=== PATIENT | female | born 1980 | race Caucasian/White ===

== ENCOUNTER 2017-04-21 19:36 | Emergency (ER) | payer MEDICAID, SELFPAY ==
[2017-04-21 19:40] VITALS: BP 147/83; PULSE 101; RESP 20; TEMP 37.1; O2SAT 100; BMI 32.2
--- NOTE | 2017-04-21 19:57 | CT_ITS ---
STUDY: CT ABDOMEN AND PELVIS WITH CONTRAST REASON FOR EXAM: Female, 36 years old. Left lower quadrant pain. History of ovarian cysts.. History of lymphoma. RADIATION DOSAGE (If Supplied By Facility): CTDIvol = ( 12.85 ) mGy, DLP = ( 786.91 ) mGycm TECHNIQUE: Transaxial images were obtained from the dome of the diaphragm to the symphysis pubis without oral contrast. 100 ml of Isovue 300 contrast was administered. Sagittal and coronal images were reconstructed. Individualized dose optimization techniques were used for this CT. COMPARISON: 01/06/2017 FINDINGS: The visualized lung bases are clear. The visualized portions of the heart and pericardium are within normal limits. There are no calcified gallstones present. The liver is within normal limits. There are no suspicious hepatic lesions. The spleen is normal in size. The pancreas is within normal limits. The adrenal glands are within normal limits. There are no obstructing renal stones. There is no hydronephrosis. There are no focal renal lesions. Normal visualized stomach. There is no bowel obstruction or inflammation. The appendix is visualized and appears normal. The aorta is normal in caliber. There is a 4.1 x 4.0 x 3.3 cm complex left adnexal cyst. There is a small amount of free fluid. There is no free air, fluid collection or lymphadenopathy. There are no destructive osseous lesions. CT/Abdomen/Pelvis W IV Cont ONLY IMPRESSION: 4.1 x 4.0 x 3.3 cm complex left adnexal cyst with a small amount of pelvic free fluid. No bowel obstruction or inflammation. Normal appendix. No abdominal or pelvic lymphadenopathy. Electronically Signed: Tony Snow, at 21:01 EST Tel , Service support ,
--- NOTE | 2017-04-21 20:06 | ED.DCSUM_ITS ---
- ER Visit Summary Date of Service: 04/21/17 Chief Complaint: Abdominal pain History of Present Illness: The patient is a 36 F who states that yesterday she began to have left lower quadrant abdominal pain. She describes it as a fullness cramping-like pain. She states she has a history of non-Hodgkin's and this is where they found the initial tumor. She has had a hysterectomy but left one ovary she lives on the left side. She notes 2 bowel movements today that were normal. She notes a questionable history of diverticulosis having had a negative colonoscopy since the original diagnosis. No fevers or vomiting. No urinary symptoms. Physical Examination: Afebrile vital signs are stable Gen: Well-nourished well-developed Head: Normocephalic atraumatic Eyes: Perrl EOMI ENT: TMs clear no rhinorrhea moist mucous membranes Neck: Supple no lymphadenopathy no JVD nontender CVS: Regular rate rhythm no murmurs normal S1-S2 Respiratory: No distress clear to auscultation bilaterally chest nontender Abdomen: Soft mild left lower quadrant tenderness without guarding or rebound nondistended normal bowel sounds no masses Back: Nontender Extremity: Nontender no edema Skin: Normal color no rash Neuro: alert orientated ?3 CN II-XII intact normal strength sensation reflexes gait cerebellar Psych: Normal affect normal mood Test Results: Basic labs are essentially negative. Urinalysis negative. CT the abdomen pelvis demonstrated in the left adnexa. Pelvic ultrasound demonstrated a complex septated cyst of the left ovary measuring 2.5?2.4?2.1 cm. Normal arterial flow Emergency Department Course and Treatment: Patient received a dose of Toradol which did nothing for pain. She was given an oxycodone. She will be discharged home with 4 tabs tonight. She is to follow-up with her bottle caser. Impression: 1. Left ovarian cyst This note was generated with [employer] dictation software. It may contain incorrect words, spelling, and punctuation that were not noted in review of the chart prior to signing ED Disposition - Plan for ED Patient: Disposition: Home or Assisted Living Chief Complaint: Abd Pain Instructions: ED Cyst Ovarian Referrals: Karlos Slaughter MD [Primary Care Provider] - Additional Instructions: You need to schedule an appointment with your bottle caser for follow-up.
[2017-04-21 20:22] LABS: Bacteria 0 SEEN /hpf (None Seen); Mucous, Urine 0 SEEN /hpf (<or=2+); Red Blood Cells-Urine 0 SEEN /hpf (0-5)
[2017-04-21 20:26] LABS: Absolute Lymphocyte Count 3.08 X10^3/ul (0.83-4.51); Absolute Neutrophil Count 6.9 X10^3/uL (2.0-7.7); Basophil# 0.02 X10^3/uL; Basophil% 0.2 % (0-1); Eosinophil# 0.16 X10^3/uL; Eosinophils% 1.5 % (0-5); Hematocrit 37.2 % (37-47); Hemoglobin 12.8 g/dl (12.0-15.0); Lymphocyte # 3.08 X10^3/ul (4.0); Mean Corp Hgb Conc 34.4 g/gl (32-36); Mean Corpuscular Hgb 31.4 pg (27.0-32.0); Mean Corpuscular Volume 91.4 fL (81-99); Mean Platelet Vol. 10.1 fl (6.2-12.0); Monocyte# 0.81 X10^3/uL; Monocyte% 7.4 % (0-10); Neutrophil # 6.93 X10^3/uL (2.7-7.7); Neutrophil % 62.8 % (47-70); POSITIVE COUNT NO; POSITIVE DIFFERENTIAL NO; POSITIVE MORPHOLOGY NO; Platelet Count 300 K/mm3 (150-450); RBC Distribution Width CV 13.2 % (11.6-14.6); RBC Distribution Width SD 44.2 fl (35.1-43.9); Red Blood Count 4.07 M/mm3 (4.2-5.4)
[2017-04-21 20:37] LABS: Color, Urine Straw (Yellow); Glucose, Dipstick Normal (Normal); Ketone-Dipstick Negative (Negative); Leukocyte Esterase-Dipstick Negative /ul (Negative); Nitrite-Dipstick Negative (Negative); Occult Blood-Urine Negative /ul (Negative); Protein-Dipstick Negative (Negative); Specific Gravity, Urine 1.015 (1.002-1.030); Urine Bilirubin Dipstick Negative (Negative); Urine Clarity Sl. Cloudy (Clear); Urine Urobilinogen Normal (Normal)
--- NOTE | 2017-04-21 20:38 | US_ITS ---
STUDY: ULTRASOUND TRANSVAGINAL CLINICAL: Female, 36 years old. Left lower quadrant pain. TECHNIQUE: Transvaginal COMPARISON: None. FINDINGS: The patient is status post hysterectomy. The patient is status post right oophorectomy. The left ovary measures 5.1 x 3.6 x 3.2 cm. There is normal Doppler flow demonstrated to the left ovary. There is a 2.5 x 2.4 x 2.1 cm complex septated cyst in the left ovary. There is a small amount of pelvic free fluid. US/Transvaginal Non- IMPRESSION: 2.5 x 2.4 x 2.1 cm complex septated cyst in the left ovary. Short-term follow-up or further evaluation with MRI is recommended. Small amount of pelvic free fluid. Electronically Signed: Tony Snow, at 22:02 EST Tel , Service support ,
[2017-04-21] MEDS: Ketorolac 30 MG/ML Syringe IV (20:44)
[2017-04-21 20:52] LABS: Anion Gap 7 (5-15); BUN 11 mg/dL (7-18); BUN/Creat Ratio 15.5 RATIO (10-20); Calcium,Total 8.9 mg/dL (8.5-10.1); Chloride 109 mmol/L (98-107); Creatinine, Serum 0.71 mg/dL (0.55-1.02); EST Glomerular Filtration Rate 98 mL/min (>60); Est Glom Filt Rate - Afr Amer 119 mL/min (>60); Glucose 100 mg/dL (70-110); Potassium 4.5 mmol/L (3.5-5.1); Sodium Level 140 mmol/L (136-145)
[2017-04-21 20:58] LABS: Squamous Epithelial Cells - UA 0-5 SEEN /hpf (5-10); White Blood Cells 0-5 SEEN /hpf (0-5)
[2017-04-21] MEDS: oxyCODONE 5 MG Tablet PO ×2 (22:30→22:32)
[2017-04-21 22:34] VITALS: BP 109/72; PULSE 78; RESP 18; O2SAT 98
== END 2017-04-21 22:42 | disposition home or self-care (01) ==
PROVIDERS: Emergency Provider Emergency Medicine; Family Provider Family Medicine; PCP Family Medicine
DX: N83.202 Unspecified ovarian cyst, left side (principal); Z90.710 Acquired absence of both cervix and uterus; Z85.72 Personal history of non-Hodgkin lymphomas; Z72.0 Tobacco use
CPT/HCPCS: 74176; 76830; 80048; 81001; 85025; 93976; 99285; A4216

== ENCOUNTER 2017-08-22 14:27 | Emergency (ER) | payer MEDICAID, SELFPAY ==
[2017-08-22 14:27] VITALS: BP 122/78; PULSE 98; RESP 17; TEMP 36.9; O2SAT 100; BMI 29.1
--- NOTE | 2017-08-22 15:25 | ED.DCSUM_ITS ---
- ER Visit Summary Date of Service: 08/22/17 Chief Complaint: [Upper respiratory infection sinus pain] History of Present Illness: The patient is a 37 F [presents the emergency department with upper respiratory infection symptoms and sinus pain. She was seen in the urgent care 3 days ago told she had a left otitis media was placed on amoxicillin she has been doing Sudafed and Mucinex however for the past day she has had severe pain in her forehead especially with bending forward. No fevers or chills. She continues to have greenish yellowish drainage from her nose.] Physical Examination: [] WN WD NAD PERRL EOMI MMM, posterior oropharynx shows cobblestone with yellow mucus drainage serous otitis bilaterally swollen nasal turbinates NECK supple and nontender, no masses RRR no murmur rub or gallop, no peripheral edema, symmetric radial pulses CTAB no respiratory distress ABDOMEN is soft and nontender, normal bowel sounds, no distension, no rebound or guarding SKIN is warm and dry no rashes Alert and Oriented x3, CN II-XII in tact, no motor or sensory deficits, gait normal No lymphadenopathy Test Results: [] Emergency Department Course and Treatment: [Patient will be given Kenalog. She will continue the Sudafed. She understands that if she continues to have symptoms past 7 days she may need to change antibiotic.] Treatment Plan: [] Disposition: [] Charge Impression: [sinus Pain upper respiratory infection] This note was generated with [employer] dictation software. It may contain incorrect words, spelling, and punctuation that were not noted in review of the chart prior to signing ED Disposition - Plan for ED Patient: Chief Complaint: Cold Sx Referrals: Karlos Slaughter MD [Primary Care Provider] -
--- NOTE | 2017-08-22 15:39 | ED.DEP ---
ED Disposition - Plan for ED Patient: Chief Complaint: Cold Sx Instructions: ED Upper Resp Infec No Abx Tx, Sinus Headaches Referrals: Karlos Slaughter MD [Primary Care Provider] - 5-7 Days
[2017-08-22] MEDS: Triamcinolone Acetonide 40 MG/ML Vial 80 MG IM (15:40)
[2017-08-22] MEDS: HYDROcodone Bitartrate/Apap 5/325 Tablet PO (15:43)
== END 2017-08-22 16:16 | disposition home or self-care (01) ==
PROVIDERS: Emergency Provider Emergency Medicine; Family Provider Family Medicine; PCP Family Medicine
DX: J06.9 Acute upper respiratory infection, unspecified (principal); R51 Headache; F41.9 Anxiety disorder, unspecified; H65.93 Unspecified nonsuppurative otitis media, bilateral; Z72.0 Tobacco use; Z79.2 Long term (current) use of antibiotics; Z79.899 Other long term (current) drug therapy
CPT/HCPCS: 96372; 99283

== ENCOUNTER 2017-11-30 02:14 | Emergency (ER) | payer MEDICAID, SELFPAY ==
[2017-11-30 02:16] VITALS: BP 134/91; PULSE 105; RESP 20; TEMP 36.7; O2SAT 100; BMI 29.4
--- NOTE | 2017-11-30 02:20 | EKG12_ITS ---
Test Reason : ABDOMINAL PAIN Blood Pressure : / mmHG Vent. Rate : 084 BPM Atrial Rate : 084 BPM P-R Int : 170 ms QRS Dur : 086 ms QT Int : 378 ms P-R-T Axes : 068 074 059 degrees QTc Int : 446 ms Normal sinus rhythm Normal ECG Confirmed by MARÍA GRIJALVA, ISABELL ([id number]), movie editor RANDOLPH GARCIA ([id number]) on 12/01/2017 1:34:26 PM Referred By: NEREIDA Confirmed By:ISABELL DANIEL MD
[2017-11-30] MEDS: Morphine 4 MG/ML Syringe IV (02:30)
[2017-11-30 02:40] LABS: Bacteria 0 SEEN /hpf (None Seen); Mucous, Urine 0 SEEN /hpf (<or=2+); Red Blood Cells-Urine 0 SEEN /hpf (0-5)
[2017-11-30 02:41] LABS: Color, Urine Yellow (Yellow); Glucose, Dipstick Normal (Normal); Ketone-Dipstick Negative (Negative); Leukocyte Esterase-Dipstick 25 /ul (Negative); Nitrite-Dipstick Negative (Negative); Occult Blood-Urine Negative /ul (Negative); Protein-Dipstick Negative (Negative); Specific Gravity, Urine 1.015 (1.002-1.030); Urine Bilirubin Dipstick Negative (Negative); Urine Clarity Sl. Cloudy (Clear); Urine Urobilinogen Normal (Normal)
[2017-11-30 02:44] LABS: Absolute Lymphocyte Count 3.63 X10^3/ul (0.83-4.51); Absolute Neutrophil Count 8.3 X10^3/uL (2.0-7.7); Basophil# 0.03 X10^3/uL; Basophil% 0.2 % (0-1); Eosinophil# 0.16 X10^3/uL; Eosinophils% 1.2 % (0-5); Hematocrit 39.2 % (37-47); Hemoglobin 13.5 g/dl (12.0-15.0); Lymphocyte # 3.63 X10^3/ul (4.0); Mean Corp Hgb Conc 34.4 g/gl (32-36); Mean Corpuscular Hgb 31.3 pg (27.0-32.0); Mean Platelet Vol. 9.5 fl (6.2-12.0); Monocyte# 0.85 X10^3/uL; Monocyte% 6.6 % (0-10); Neutrophil # 8.27 X10^3/uL (2.7-7.7); Neutrophil % 63.8 % (47-70); Platelet Count 318 K/mm3 (150-450); RBC Distribution Width CV 13.1 % (11.6-14.6); RBC Distribution Width SD 43.3 fl (35.1-43.9); Red Blood Count 4.31 M/mm3 (4.2-5.4)
[2017-11-30 02:48] LABS: Differential Indicated SCAN CRITERIA MET; POSITIVE COUNT NO; POSITIVE DIFFERENTIAL NO; POSITIVE MORPHOLOGY YES
[2017-11-30 02:54] LABS: Amorphous Sediment 3+; Squamous Epithelial Cells - UA 5-10 SEEN /hpf (5-10); White Blood Cells 5-10 SEEN /hpf (0-5)
[2017-11-30 02:55] LABS: AST(SGOT) 18 U/L (15-37); Alanine Aminotransfer ALT/SGPT 25 U/L (13-56); Albumin, Serum 3.4 g/dL (3.2-5.0); Alkaline Phosphatase 80 U/L (45-117); Anion Gap 10 (5-15); BUN 10 mg/dL (7-18); BUN/Creat Ratio 14.7 RATIO (10-20); Calcium,Total 9.3 mg/dL (8.5-10.1); Chloride 106 mmol/L (98-107); Creatinine, Serum 0.68 mg/dL (0.55-1.02); EST Glomerular Filtration Rate 103 mL/min (>60); Est Glom Filt Rate - Afr Amer 125 mL/min (>60); Globulin 3.4 g/dL (2.2-4.2); Glucose 110 mg/dL (74-106); Lipase 176 U/L (73-393); Potassium 3.7 mmol/L (3.5-5.1); Protein, Total 6.8 g/dL (6.4-8.2); Sodium Level 139 mmol/L (136-145); Total Bilirubin < 0.10 mg/dL (0.20-1.00)
[2017-11-30 03:02] LABS: Differential Comment SCANNED; Reactive Lymphocyte 1+
--- NOTE | 2017-11-30 03:05 | RAD_ITS ---
RAD/Chest PA and Lateral IMPRESSION: Normal x-ray examination of the chest. Electronically Signed: Syed Sullivan MD at 3:50 EDT , Service support ,
[2017-11-30] MEDS: Ketorolac 30 MG/ML Syringe IV (03:24)
--- NOTE | 2017-11-30 04:33 | ED.VIS.GEN ---
History of Present Illness Chief Complaint: Abd Pain Informant: Patient Narrative: Patient states for couple weeks she has been having issues with pain in her left upper quadrant, tonight it has gone all the way across her abdomen and radiating all the way across her back and is worse when she takes deep breaths. There is no chest discomfort but she is feeling a little short of breath because of that. No nausea. Shortly prior to the onset of symptoms she ate kielbasa. She is going to follow-up to get scheduled for an EGD, but that has not happened yet. She is on Prilosec. She denies any bright red blood per rectum, melena, or diarrhea. No urinary symptoms. She has a history of non-Hodgkin's lymphoma but is in remission, she states she had outpatient CT scans at the [facility] a couple weeks ago that she states were normal. She also had an ultrasound of her gallbladder performed because of symptoms similar to this that was negative and she was told she had no gallstones. The pain now was not colicky, it is constant, and significant. No recent fevers. No history of DVT or PE. No recent long travel, immobilization, hospitalization. No recent injury to her lower extremities. - Past Medical History (1) Non-Hodgkin lymphoma in remission Status: Chronic Past Medical History - Allergies and Home Meds Allergies/Adverse Reactions: Allergies acetaminophen [From Darvocet-N] Allergy (Verified 11/30/17 02:15) Rash propoxyphene napsylate [From Darvocet-N] Allergy (Verified 11/30/17 02:15) Rash Sulfa (Sulfonamide Antibiotics) Allergy (Verified 11/30/17 02:15) Hives venom-honey bee [bee venom (honey bee)] Allergy (Verified 11/30/17 02:15) Anaphylaxis hydrocodone Adverse Reaction (Verified 11/30/17 02:15) Other RED RASH ON CHEST AND ANXIETY. promethazine HCl [From Phenergan] Adverse Reaction (Verified 11/30/17 02:15) Other Primary Care Physician: Karlos Slaughter MD [Primary Care Provider] - Smoking Status: Current every day smoker Drugs: None Review of Systems All systems negative except as indicated General: Denies: Chills, Fever Cardiovascular: Denies: Chest pain Respiratory: Reports: Dyspnea. Denies: Cough, Orthopnea Gastrointestinal: Reports: Abdominal pain. Denies: Nausea, Vomiting, Diarrhea, Melena, Hematochezia Genitourinary: Denies: Dysuria, Hematuria, Frequency Musculoskeletal: Reports: Back pain. Denies: Arthralgias, Neck pain, Swelling, Extremity Pain Skin: Denies: Rash Neurological: Denies: Headache, Weakness, Parasthesia, Numbness Physical Exam Vital Signs/Narrative: Vital Signs Temp Pulse Resp BP Pulse Ox 11/30/17 02:16 98.0 F 105 H 20 H 134/91 H 100 Inital Vital Signs reviewed: Yes General: Well nourished, Well developed Head: Normocephalic, Atraumatic Eyes: Perrl, EOMI ENT: Moist mucous membranes, No rhinorrhea Neck: Supple, Nontender, No lymphadenopathy, No JVD Cardiovascular: Regular rate, Regular rhythm, No murmurs Respiratory: No distress, CTA bilaterally, Chest nontender Abdomen: Soft, Nondistended, Normal bowel sounds, No masses, Tender - Across the upper abdomen, worse in the left upper quadrant. Negative for: Guarding, Rebound tenderness, Rios's sign Back: Nontender, Normal Inspection, - - No rash. Negative for: CVA tenderness Extremities: Nontender, No edema Skin: Normal color, No rash Neurological: Alert, Oriented x3, Cranial nerves II-XII grossly intact, Normal Strength, Normal Sensation Psychological: - - A little anxious Diagnostic/Tx/Re-eval Impressions Abdomen/Pelvis CT 11/30/17 02:19 IMPRESSION: Normal right kidney. Normal left kidney. Normal visualized stomach. Normal small intestine. Normal colon. The appendix is visualized and appears normal. There has been a hysterectomy. There is a 4.8 x 3.2 cm low-density mass in the LEFT adnexal region. This could be the LEFT ovary with a cyst. This is similar in appearance to the prior examination. There is NO ascites or free air, abscess or adenopathy. Electronically Signed: Syed Sullivan MD at 3:42 EDT , Service support , Chest X-Ray 11/30/17 03:05 IMPRESSION: Normal x-ray examination of the chest. Electronically Signed: Syed Sullivan MD at 3:50 EDT , Service support , 11/30/17 02:19 Abdomen/Pelvis W IV Cont ONLY [CT] Stat 11/30/17 03:05 Chest PA and Lateral [RAD] Stat Laboratory Results 11/30/17 11/30/17 11/30/17 Range/Units 02:25 02:25 02:30 WBC 13.0 H (4.4-11.0) K/mm3 RBC 4.31 (4.2-5.4) M/mm3 Hgb 13.5 (12.0-15.0) g/dl Hct 39.2 (37-47) % MCV 91.0 (81-99) fL MCH 31.3 (27.0-32.0) pg MCHC 34.4 (32-36) g/gl RDW 13.1 (11.6-14.6) % RDW Differential 43.3 (35.1-43.9) fl Plt Count 318 (150-450) K/mm3 MPV 9.5 (6.2-12.0) fl Immature Gran % (Auto) 0.200 (0.0-0.9) % Neut % (Auto) 63.8 (47-70) % Lymph % (Auto) 28.0 (19-41) % [place] % (Auto) 6.6 (0-10) % Eos % (Auto) 1.2 (0-5) % Baso % (Auto) 0.2 (0-1) % Absolute Neuts (auto) 8.3 H (2.0-7.7) X10^3/uL Absolute Lymphs (auto) 3.63 (0.83-4.51) X10^3/ul Total Counted Not Reportable Differential Comment SCANNED Reactive Lymphocytes 1+ Sodium 139 (136-145) mmol/L Potassium 3.7 (3.5-5.1) mmol/L Chloride 106 (98-107) mmol/L Carbon Dioxide 23.0 (21.0-32.0) mmol/L Anion Gap 10 (5-15) BUN 10 (7-18) mg/dL Creatinine 0.68 (0.55-1.02) mg/dL Estim Creat Clear Calc 121.30 ml/min Est GFR (MDRD) Af Amer 125 (>60) mL/min Est GFR (MDRD) Non-Af 103 (>60) mL/min BUN/Creatinine Ratio 14.7 (10-20) RATIO Glucose 110 H (74-106) mg/dL Calcium 9.3 (8.5-10.1) mg/dL Total Bilirubin < 0.10 L (0.20-1.00) mg/dL AST 18 (15-37) U/L ALT 25 (13-56) U/L Alkaline Phosphatase 80 (45-117) U/L Total Protein 6.8 (6.4-8.2) g/dL Albumin 3.4 (3.2-5.0) g/dL Globulin 3.4 (2.2-4.2) g/dL Albumin/Globulin Ratio 1.0 (0.9-2.4) RATIO Lipase 176 (73-393) U/L Urine Color Yellow (Yellow) Urine Clarity Sl. Cloudy (Clear) Urine pH 8.0 (5.0 - 8.0) Ur Specific [place] 1.015 (1.002-1.030) Urine Protein Negative (Negative) mg/dl Urine Glucose (UA) Normal (Normal) mg/dl Urine Ketones Negative (Negative) mg/dl Urine Occult Blood Negative (Negative) /ul Urine Nitrite Negative (Negative) Urine Bilirubin Negative (Negative) mg/dL Urine Urobilinogen Normal (Normal) mg/dl Ur Leukocyte Esterase 25 H (Negative) /ul Urine RBC 0 SEEN (0-5) /hpf Urine WBC 5-10 SEEN (0-5) /hpf Ur Squamous Epith Cells 5-10 SEEN (5-10) /hpf Amorphous Sediment 3+ Urine Bacteria 0 SEEN (None Seen) /hpf Urine Mucus 0 SEEN (<or=2+) /hpf - Rhythm Strip Rhythm Strip: Sinus Rhythm Rate: 80 Ectopy: None - EKG Initial EKG Interpretation: Sinus Rhythm, No Acute Injury Pattern, - - nml axis. nml EKG. Prior: Unchanged - Medical Decision Making Improved after morphine and further after Toradol but still having some discomfort. CT is normal. She has a mild leukocytosis, kidney function, liver enzymes, and lipase are all within normal limits. Her urine shows no acute infection. Unknown etiology of her discomfort, intraluminal disease is certainly in the differential diagnosis. I do not think she has a PE. Her chest x-ray is also normal. We will give her a GI cocktail. It is late in the overnight associate, she was offered a HIDA scan possibility if she wanted to wait until nuclear medicine opened in the morning, however I cannot guarantee that there schedule would allow for a scan. She declines and prefers to go home and will follow up with her doctor, we discussed the possibility of a HIDA scan being indicated to rule out chronic acalculous cholecystitis here. ED Disposition - Plan for ED Patient: Disposition: Home or Assisted Living Chief Complaint: Abd Pain Diagnosis: Upper abdominal pain of unknown etiology Instructions: ED Abdominal Pain Unkn Cause Referrals: Karlos Slaughter MD [Primary Care Provider] - (1-3 days) Additional Instructions: Try avoiding fat in the diet to see if that minimizes flareups.
[2017-11-30 05:25] VITALS: BP 114/81; PULSE 85; O2SAT 97
[2017-11-30] MEDS: Mag Hydrox/Al Hydrox/Simeth 30 ML UDC PO (05:27)
== END 2017-11-30 05:33 | disposition home or self-care (01) ==
PROVIDERS: Emergency Provider Emergency Medicine; Family Provider Family Medicine; PCP Family Medicine
DX: R10.12 Left upper quadrant pain (principal); F17.200 Nicotine dependence, unspecified, uncomplicated
CPT/HCPCS: 71046; 74177; 80053; 81001; 83690; 85025; 93005; 96374; 96375; 99285; Q9967; A4216

== ENCOUNTER 2017-12-07 21:10 | Emergency (ER) | payer MEDICAID, SELFPAY ==
[2017-12-07 21:11] VITALS: BP 116/56; PULSE 92; RESP 24; TEMP 36.1; O2SAT 99; BMI 29.2
[2017-12-07] MEDS: proCHLORPERazine 10 MG/2 ML Vial IV (21:52)
[2017-12-07] MEDS: Ketorolac 30 MG/ML Syringe IV (21:52)
[2017-12-07] MEDS: 0.9% Normal Saline 1,000 ML 999 ML IV (21:52)
[2017-12-07] MEDS: DiphenhydrAMINE 50 MG/ML Syringe IV (21:52)
--- NOTE | 2017-12-07 22:27 | ED.DCSUM_ITS ---
- ER Visit Summary Date of Service: 12/07/17 Chief Complaint: Headache History of Present Illness: The patient is a 37 F with a headache that started today around 1 PM. Pain is over her left side. Worse with light and sound. Associated with nausea and vomiting. The patient has a history of migraines. This episode was triggered after she had an EGD earlier today. Denies abdominal pain or other associated symptoms. Physical Examination: Afebrile vital signs unremarkable. Patient is tearful and appears uncomfortable. Head and neck atraumatic. HEENT exam unremarkable. Neck nontender with good range of motion. Heart regular. Lungs clear. Skin normal in color without rash. Alert and oriented. Cranial nerves grossly intact. Normal strength and sensation. Test Results: None indicated Emergency Department Course and Treatment: Patient treated with fluids, Compazine, Benadryl, and Toradol. She had resolution of her headache. Was resting comfortably. Requested discharge. No indication for imaging or diagnostic testing. Stay hydrated and rested. Follow-up with primary care. Return for any new or worsening issues. And was discussed with her at the bedside as she is somewhat sedated. Treatment Plan: As above Disposition: Discharged Impression: 1. Acute headache This note was generated with [employer] dictation software. It may contain incorrect words, spelling, and punctuation that were not noted in review of the chart prior to signing ED Disposition - Plan for ED Patient: Chief Complaint: Headache Referrals: Karlos Slaughter MD [Primary Care Provider] -
--- NOTE | 2017-12-07 22:27 | ED.DEP ---
ED Disposition - Plan for ED Patient: Chief Complaint: Headache Instructions: ED Cephalgia Unspecified Referrals: Karlos Slaughter MD [Primary Care Provider] -
[2017-12-07 22:33] VITALS: BP 111/84; PULSE 61; RESP 14; O2SAT 98
== END 2017-12-07 22:35 | disposition home or self-care (01) ==
LOC: ED 22:16
PROVIDERS: Emergency Provider Emergency Medicine; Family Provider Family Medicine; PCP Family Medicine
DX: R51 Headache (principal); R11.2 Nausea with vomiting, unspecified; Z72.0 Tobacco use
CPT/HCPCS: 96361; 96374; 96375; 99283; J7030; A4216

== ENCOUNTER → 2018-01-04 12:56 | Outpatient (CLI) | payer MEDICAID, SELFPAY ==
--- NOTE | 2018-01-04 12:59 | US_ITS ---
STUDY: ULTRASOUND OF THE FEMALE PELVIS - COMPLETE REASON FOR EXAM: Female, 37 years old. Left ovarian cyst. Postmenopausal. TECHNIQUE: Transabdominal and transvaginal. TECHNICAL QUALITY: Adequate. COMPARISON: March 25, 2017. CT abdomen and pelvis November 30, 2017. FINDINGS: The uterus and right ovary are absent compatible with hysterectomy and right oophorectomy. Left ovary measures 3.3 x 2.0 x 1.7 cm and contains a simple cyst measuring 1.2 x 1.1 x 1.1 cm. No fluid in the pelvis. Urinary bladder volume 309 mL. Images of the bladder are unremarkable. US/Pelvic (Non ) IMPRESSION: Simple left ovarian cyst decreased in size since the prior examinations. Status post hysterectomy and right oophorectomy. Electronically Signed: Rasheed Thurman MD at 7:35 EDT , Service support ,
== END ==
PROVIDERS: Family Provider Family Medicine; PCP Family Medicine; Visit Provider Obstetrics & Gynecology
DX: N83.209 Unspecified ovarian cyst, unspecified side (principal)
CPT/HCPCS: 76856; 93976

== ENCOUNTER → 2018-03-12 18:03 | Outpatient (CLI) | payer MEDICAID, SELFPAY ==
[2018-03-12 13:06] VITALS: BMI 29.1
== END ==
PROVIDERS: Family Provider Family Medicine; PCP Family Medicine; Referring Provider Obstetrics & Gynecology; Visit Provider Obstetrics & Gynecology
DX: N76.0 Acute vaginitis (principal)
CPT/HCPCS: 87070; 87077; 87205

== ENCOUNTER 2018-04-10 12:46 | Emergency (ER) | payer MEDICAID, SELFPAY ==
[2018-04-01 16:25] VITALS: BMI 29.1
[2018-04-10 12:47] VITALS: BP 136/84; PULSE 84; RESP 18; TEMP 36.8; O2SAT 97; BMI 31.8
--- NOTE | 2018-04-10 13:02 | ED.VISSUMM ---
- ER Visit Summary Date of Service: 04/10/18 Chief Complaint: [] Lower dental pain recent dental extraction and root canal History of Present Illness: The patient is a 37 F [] dental extraction right lower, then she had a root canal involving the tooth that was just in front of the tooth extracted, she is on clindamycin Naprosyn and [place] she indicates she still having some sharp pain in that area, she is scheduled to see her dentist sometime next week she presents for evaluation, there is been no fever no cough no swelling or drainage into the swallowing or breathing Physical Examination: [] v signs are within normal range General, no distress resting comfortably HEENT is generally unremarkable with the extraction sites intact, the right lower tooth where the root canal was done appears to be potentially the second molar it has a temporary filling in place there is no gingival gumline swelling the floor the mouth is unremarkable the next unremarkable and her general medical exam is entirely negative face is normal no swelling The neck is supple no adenopathy Cardiovascular, regular rate and rhythm Lungs, clear bilateral Neurologic, awake alert answering questions appropriately moving all 4 extremities Spent all the above to the patient she is on all the right medications is nothing additional that can be done through the emergency department, she is treated with Toradol 60 mg IM and she will follow-up with her dentist and take all the medications Test Results: [] Emergency Department Course and Treatment: [] Treatment Plan: [] Disposition: [] Home stable Impression: [] dental pain after dental extraction and root canal This note was generated with [employer] dictation software. It may contain incorrect words, spelling, and punctuation that were not noted in review of the chart prior to signing ED Disposition - Plan for ED Patient: Chief Complaint: Dental Referrals: Karlos Slaughter MD [Primary Care Provider] -
--- NOTE | 2018-04-10 13:05 | ED.DCSUM_ITS ---
- ER Visit Summary Date of Service: 04/10/18 Chief Complaint: [] Lower dental pain recent dental extraction and root canal History of Present Illness: The patient is a 37 F [] dental extraction right lower, then she had a root canal involving the tooth that was just in front of the tooth extracted, she is on clindamycin Naprosyn and [place] she indicates she still having some sharp pain in that area, she is scheduled to see her dentist sometime next week she presents for evaluation, there is been no fever no cough no swelling or drainage into the swallowing or breathing Physical Examination: [] v signs are within normal range General, no distress resting comfortably HEENT is generally unremarkable with the extraction sites intact, the right lower tooth where the root canal was done appears to be potentially the second molar it has a temporary filling in place there is no gingival gumline swelling the floor the mouth is unremarkable the next unremarkable and her general medical exam is entirely negative face is normal no swelling The neck is supple no adenopathy Cardiovascular, regular rate and rhythm Lungs, clear bilateral Neurologic, awake alert answering questions appropriately moving all 4 extremities Spent all the above to the patient she is on all the right medications is nothing additional that can be done through the emergency department, she is treated with Toradol 60 mg IM and she will follow-up with her dentist and take all the medications Test Results: [] Emergency Department Course and Treatment: [] Treatment Plan: [] Disposition: [] Home stable Impression: [] dental pain after dental extraction and root canal This note was generated with [employer] dictation software. It may contain incorrect words, spelling, and punctuation that were not noted in review of the chart prior to signing ED Disposition - Plan for ED Patient: Chief Complaint: Dental Referrals: Karlos Slaughter MD [Primary Care Provider] -
--- NOTE | 2018-04-10 13:05 | ED.DEP ---
ED Disposition - Plan for ED Patient: Chief Complaint: Dental Instructions: ED Tooth Pain Referrals: Karlos Slaughter MD [Primary Care Provider] -
[2018-04-10] MEDS: Ketorolac 60 MG/2 ML Vial IM (13:17)
[2018-04-10 13:50] VITALS: RESP 18
--- OUTSIDE RECORDS SUMMARY | 2018-06-14 10:25 | XMS RPT_ITS ---
:1980 Author Organization OHIP Support Name Relationship Address Phone COW Unavailable [address] + [place] [address] DEMASTUS, ARNIE Unavailable [address] + [place] [address] COW Unavailable [address] + [place] [address] DEMASTUS, ARNIE Unavailable [address] + [place] [address] TONY WALTON Unavailable [address] [place] [address] DEMASTUS, ARNIE Unavailable [address] + [place] [address] UE Unavailable Unavailable Unavailable TONY WALTON Unavailable [address] + [address] [place] [address] DEMASTUS, ARNIE Unavailable [address] + [place] [address] UE Unavailable Unavailable Unavailable DEMASTUS, ARNIE Unavailable [address] + [place] [address] UE Unavailable Unavailable Unavailable DEMASTUS, ARNIE Unavailable [address] + [place] [address] UE Unavailable Unavailable Unavailable DEMASTUS, ARNIE Unavailable [address] + [place] [address] UE Unavailable Unavailable Unavailable DEMASTUS, ARNIE Unavailable [address] + [place] [address] UE Unavailable Unavailable Unavailable DEMASTUS, ARNIE Unavailable [address] + [place] [address] UE Unavailable Unavailable Unavailable DEMASTUS, ARNIE Unavailable [address] + [place] [address] UE Unavailable Unavailable Unavailable DEMASTUS, ARNIE Unavailable [address] + [place] [address] UE Unavailable Unavailable Unavailable DEMASTUS, ARNIE Unavailable [address] + [place] [address] UE Unavailable Unavailable Unavailable DEMASTUS, ARNIE Unavailable [address] + [place] [address] UE Unavailable Unavailable Unavailable DEMASTUS, ARNIE Unavailable [address] + [place] [address] UE Unavailable Unavailable Unavailable BURGER BENJIE IRAJ Unavailable [address] +/ [place] [address] DEMASTUS, ARNIE Unavailable [address] + [place] [address] BURGER BENJIE IRAJ Unavailable [address] +/ [place] [address] DEMASTUS, ARNIE Unavailable [address] + [place] [address] BURGER BENJIE IRAJ Unavailable [address] +/ [place] [address] DEMASTUS, ARNIE Unavailable [address] + [place] [address] Care Team Providers Name Role Phone Kristan Islas Attending Unavailable Reece, Karlos Referring Unavailable Reece, Karlos Primary Care Unavailable Arias Tan Attending Unavailable Kristan Islas Attending Unavailable [place], Karlos Referring Unavailable Reece, Karlos Primary Care Unavailable Rhona Bravo Attending Unavailable Reece, Karlos Referring Unavailable [place], Karlos Primary Care Unavailable [place], Karlos Primary Care Unavailable Yandy Orellana Attending Unavailable Stefan More Attending Unavailable Reece, Karlos Referring Unavailable Reece, Karlos Primary Care Unavailable Vinnie Mccarty Attending Unavailable [place], Karlos Referring Unavailable Reece, Karlos Primary Care Unavailable Stefan More Attending Unavailable Kristan Islas Attending Unavailable [place], Karlos Referring Unavailable Reece, Karlos Primary Care Unavailable HI PADRON Attending Unavailable [place], Karlos Primary Care Unavailable Arias Cortez Attending Unavailable RanjanonyKristan Attending Unavailable Reece, Karlos Referring Unavailable Marcanthony, Kristan Attending Unavailable Reece, Karlos Primary Care Unavailable Roshan, Kristan Attending Unavailable Reece, Karlos Primary Care Unavailable Ranjanony, Kristan Referring Unavailable Marcanthony, Kristan Attending Unavailable Reece, Karlos Referring Unavailable Deborah Fenton Attending Unavailable Reece, Karlos Referring Unavailable [place], Karlos Primary Care Unavailable Gibson Napier Attending Unavailable CARMELLA CROWE Attending Unavailable REECE GRIJALVA, KARLOS Primary Care Unavailable CARMELLA CROWE Attending Unavailable MECHE GRIJALVA., BASHIR VEGAS Primary Care Unavailable REECE, KARLOS J Referring Unavailable REECE, KARLOS J Referring Unavailable MASCI, ANDREAS A Attending Unavailable MASCI, ANDREAS A Referring Unavailable JASON PELAYO Admitting Unavailable JASON PELAYO Attending Unavailable JASON PELAYO Referring Unavailable REECE, KARLOS Calderon Attending Unavailable Aime FRANCIS (PA-C) Attending Unavailable MASCI, ANDREAS A Referring Unavailable MONY HUNTER (PATTERN RULER) Attending Unavailable MASCI, ANDREAS A Referring Unavailable REECE, KARLOS Calderon Referring Unavailable MONY HUNTER (PATTERN RULER) Referring Unavailable REECE, KARLOS Calderon Attending Unavailable REECE, KARLOS Calderon Referring Unavailable REECE, KARLOS Calderon Attending Unavailable MURALI HERRERA (DATAPOWER CONSULTANT) Attending Unavailable REECE, KARLOS Calderon Referring Unavailable REECE, KARLOS Calderon Referring Unavailable JASON PELAYO Admitting Unavailable JASON PELAYO Attending Unavailable MURALI HERRERA (DATAPOWER CONSULTANT) Referring Unavailable REECE, KARLOS Calderon Attending Unavailable PROBLEMS PROBLEMS DATE TYPE CONDITION / CODE ATTENDING STATUS SOURCE 03/29/2018 Unknown N94.0 - Marcanthony, Active [facility] N94.0(ICD-10) Hospital Repository 03/15/2018 Unknown N76.0 - Acute Marcanthony, Active [place] vaginitis / [facility] N76.0(ICD-10) Hospital Repository 01/11/2018 Active Polyp of colon / PELAYO, Active [facility] K63.5(ICD-10) [facility] Repository 12/23/2017 Unknown N83.202 - Marcanthony, Active [place] Unspecified ovarian [facility] cyst, left side / Hospital N83.202(ICD-10) Repository 12/17/2017 Active Unspecified NA Active [facility] condition [place] associated with Repository female genital organs and menstrual cycle / N94.9(ICD-10) 12/17/2017 Active Right upper NA Active [facility] quadrant pain / [place] R10.11(ICD-10) Repository 12/01/2017 Active Left upper quadrant NA Active [facility] pain / [place] R10.12(ICD-10) Repository 12/02/2017 Active Elevated white NA Active [facility] blood cell count, [place] unspecified / Repository D72.829(ICD-10) 12/02/2017 Active Nausea / NA Active [facility] R11.0(ICD-10) [place] Repository 11/06/2017 Active Cervicalgia / NA Active [facility] M54.2(ICD-10) [place] Repository 12/21/2014 Active Follicular lymphoma NA Active [facility] grade ii, [place] intra-abdominal Repository lymph nodes / C82.13(ICD-10) 04/22/2017 Active 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, hematopoietic and related tissues / Z85.79(ICD-10) 04/22/2017 Active Unknown / ANDREAS BRENNER Active [facility] UNK(Unknown) [place] Repository PROCEDURES PROCEDURES No Procedure Records FoundRESULTS RESULTS EMERGENCY DEPARTMENT Observed: 04/10/2018 Status: F Source: [place] SUMMARY 2:47 PM [facility] Medical Records Department [address] [place] [id number] Emergency Department Summary 04/10/18 1302 MR#: [id number] Acct: [id number] Name: ELIDIA WALTON Rep #: [id number] : 1980 37 From: Gibson Napier MD PCP: Karlos Newell MD Status: DEP ER - ER Visit Summary Date of Service: 04/10/18 Chief Complaint: [] Lower dental pain recent dental extraction and root canal History of Present Illness: The patient is a 37 F [] dental extraction right lower, then she had a root canal involving the tooth that was just in front of the tooth extracted, she is on clindamycin Naprosyn and [place] she indicates she still having some sharp pain in that area, she is scheduled to see her dentist sometime next week she presents for evaluation, there is been no fever no cough no swelling or drainage into the swallowing or breathing Physical Examination: [] v signs are within normal range General, no distress resting comfortably HEENT is generally unremarkable with the extraction sites intact, the right lower tooth where the root canal was done appears to be potentially the second molar it has a temporary filling in place there is no gingival gumline swelling the floor the mouth is unremarkable the next unremarkable and her general medical exam is entirely negative face is normal no swelling The neck is supple no adenopathy Cardiovascular, regular rate and rhythm Lungs, clear bilateral Neurologic, awake alert answering questions appropriately moving all 4 extremities Spent all the above to the patient she is on all the right medications is nothing additional that can be done through the emergency department, she is treated with Toradol 60 mg IM and she will follow-up with her dentist and take all the medications Test Results: [] Emergency Department Course and Treatment: [] Treatment Plan: [] Disposition: [] Home stable Impression: [] dental pain after dental extraction and root canal This note was generated with [employer] dictation software. It may contain incorrect words, spelling, and punctuation that were not noted in review of the chart prior to signing ED Disposition - Plan for ED Patient: Chief Complaint: Dental Referrals: Karlos Newell MD [Primary Care Provider] - What to do if you have Problems For any increased pain, shortness of breath, bleeding, nausea or vomiting, chest pain, or any unexpected problems, contact your Primary Care Provider. Call [facility] ([phone]) or report to the closest Emergency Room. Call 911 if necessary. 04/10/18 1440 <Electronically signed by Gibson Napier MD> Date Gibson Napier MD Cosigner Signature (If Indicated): Date CC: Karlos Newell MD DISCHARGE INSTRUCTION Observed: 04/10/2018 Status: F Source: [place] 1:06 PM [facility] Medical Records Department [address] [place] [address] Discharge Instruction 04/10/18 1305 MR#: [id number] Acct: [id number] Name: ELIDIA WALTON Rep #: [id number] : 1980 37 From: Gibson Napier MD PCP: Karlos Newell MD Status: PRE ER ED Disposition - Plan for ED Patient: Chief Complaint: Dental Instructions: ED Tooth Pain Referrals: Karlos Newell MD [Primary Care Provider] - What to do if you have Problems For any increased pain, shortness of breath, bleeding, nausea or vomiting, chest pain, or any unexpected problems, contact your Primary Care Provider. Call [place] [facility] ([phone]) or report to the closest Emergency Room. Call 911 if necessary. 04/10/18 1306 <Electronically signed by Gibson Napier MD> Date Gibson Napier MD Cosigner Signature (If Indicated): Date CC: Karlos Newell MD PROGRESS Observed: 03/30/2018 Status: COMPLETED Source: [place] 2:53 PM [facility] [place] REPOSITORY O ID: [id number] Author: Andrey Juarez (Jimi Raman Service: (none) Author Type: Nurse Practitioner Type: Progress Notes Filed: 03/30/2018 2:57 PM Note Text: Subjective HPI Patient presents with: Eye Problem: right eye pain top eyelid migrating into head x last night Denies any otc treatment for symptoms. Denies fever, chills, URI symptoms, blurred vision, double vision, possible foreign object. Review of Systems Constitutional: Negative for chills and fever. HENT: Negative for sinus pain and sore throat. Eyes: Positive for pain and redness. Negative for blurred vision, double vision, photophobia and discharge. Respiratory: Negative for cough. Neurological: Negative for headaches. PAST MEDICAL HISTORY Diagnosis Date - Abdominal pain, generalized - Acute gastritis - Bipolar I disorder, most recent episode (or current) unspecified - Carcinoma in situ of cervix uteri - Diaphragmatic hernia without mention of obstruction or gangrene - Diverticulitis - History of colon polyps 07/14/2016 - Irritable bowel syndrome - Mitral valve disorders(424.0) - 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 - Post depression - Snoring - Tobacco abuse PAST SURGICAL HISTORY Procedure Laterality Date - CERVIX UTERI CONIZA LP ELCTRO EXCI 09/24 LEEP-Cervix - COLONOSCOP W/ OR W/O [facility] SPEC 2004 Colonoscopy/endoscopy - COLONOSCOP W/ OR W/O [facility] SPEC 07/10/2016 repeat 5 years - sessile serrated polyp - COLONOSCOP W/ OR W/O [facility] SPEC 01/11/2018 Colonoscopy - EGD W/O OR W/BRUSH/WASH 07/10/2016 EGD - EGD W/O OR W/BRUSH/WASH 12/07/2017 EGD - EXPLORATORY OF ABDOMEN Laparotomy, exp - KNEE SCOPE,DIAGNOSTIC Arthroscopy, knee, ACL LEFT - LIGATE FALLOPIAN TUBE 2001 Tubal ligation - PART SIMPLE REMV VULVA 07/04/14 left vulvar cyst removal - REMOVAL OF TONSILS,<12 Y/O Tonsillectomy - REPAIR OF NASAL SEPTUM Septoplasty - S JEET,IRENE-LAPAROSCOPY,[id number] 03/12/2016 - S PORT A CATH II STANDARD 04/2014,09/2014 left inserted and removed, right side. insered and removed - SLING OPER STRES INCONTINENCE 03/12/2016 ALLERGIES Bees; Bee Sting; Darvocet A500 [Propoxyphene N-Acetaminophen]; Hydrocodone; Phenergan [Promethazine Hcl]; Sulfa (Sulfonamide Antibiotics) MEDICATIONS hydrocortisone (ANUSOL-HC) 25 mg suppository 1 Suppository by RECTAL route every 12 hours. omeprazole (PRILOSEC) 20 mg capsule Take 2 capsules by mouth twice daily. 1/2 hr before meal. vitamin B complex (B COMPLEX ORAL) Take 1 tablet by mouth once daily. tiZANidine (ZANAFLEX) 4 mg tablet Take 1 tablet by mouth every 8 hours as needed. acetaminophen (TYLENOL EXTRA STRENGTH) 500 mg tablet Take 1,000 mg by mouth as needed. rizatriptan (MAXALT) 10 mg tablet Take 1 tablet by mouth as needed. ofloxacin (OCUFLOX) 0.3 % ophthalmic solution Use 2 Drops in the right eye four times daily for 5 days. naproxen (NAPROSYN) 500 mg tablet Take 1 tablet by mouth twice daily with meals. nicotine (NICODERM CQ) 21 mg/24 hr Apply 1 Patch as directed every 24 hours. MULTIVITAMIN ORAL Take 1 tablet by mouth once daily. FAMILY HISTORY Problem Relation Age of Onset - Cancer Paternal Aunt ovarian - Hypertension Brother - Diabetes Father HEART ,STROKE - Cancer Paternal Grandmother OVARIAN Social History Substance Use Topics - Smoking status: Current Every Day Smoker Packs/day: 1.00 Years: 24.00 Types: Cigarettes - Smokeless tobacco: Never Used - Alcohol use No Objective Physical Exam Constitutional: She is well-developed, well-nourished, and in no distress. HENT: Head: Normocephalic. Right Ear: External ear normal. Left Ear: External ear normal. Nose: Nose normal. Mouth/Throat: Oropharynx is clear and moist. Eyes: Pupils are equal, round, and reactive to light. EOM are normal. Right eye exhibits discharge (watery). Right eye exhibits no exudate. No foreign body present in the right eye. Right conjunctiva is injected. Neck: Normal range of motion. Neck supple. Nursing note and vitals reviewed. ASSESSMENT/PLAN: 1. Acute conjunctivitis of right eye, unspecified acute conjunctivitis type - ICD9: 372.00, ICD10: H10.31 Bacterial - see medication orders - course and contagiousness issues discussed, including hand washing. - Instructed to call if high fever, development of periorbital redness or swelling, eye pain, visual changes, concerns or if symptoms persist. Prescription instructions reviewed with patient as applicable. Patient advised if symptoms do not improve or if symptoms worsen sooner, to contact their primary care physician. Potential red flag symptoms discussed with the patient. Reviewed appropriate action plan to take if red flag symptoms occur. Patient agreeable to treatment plan. Andrey Raman APRN.[facility] OFFICE VISIT Observed: 03/29/2018 Status: F Source: [place] REPORT 9:55 AM [facility] [address] [place] [address] OFFICE VISIT Date of Service: 03/29/18 MR#: [id number] Acct: [id number] Name: ELIDIA WALTON Rep #: [id number] : 1980 Provider: Kristan Islas MD Age/Sex: 37/F Location: [facility] Status: Signed Intake Vital Signs03/29/18 Height 5 ft 9 in 03/29/18 Weight: 203 lb 03/29/18 Body Mass Index (BMI) 29.9 03/29/18 Blood Pressure 134/90 H Intake Visit Reasons: follow cyst Wheel And Pinion Inspector Required: No Is patient in pain?: Yes Pain scale (1-10): 8 Allergies acetaminophen [From Darvocet-N] Allergy (Verified 03/29/18 08:55) Rash propoxyphene napsylate [From Darvocet-N] Allergy (Verified 03/29/18 08:55) Rash Sulfa (Sulfonamide Antibiotics) Allergy (Verified 03/29/18 08:55) Hives venom-honey bee [bee venom (honey bee)] Allergy (Verified 03/29/18 08:55) Anaphylaxis hydrocodone Adverse Reaction (Verified 03/29/18 08:55) Other promethazine HCl [From Phenergan] Adverse Reaction (Verified 03/29/18 08:55) Other Medications Tizanidine HCl [Zanaflex] 2 mg PO PRN PRN 04/21/17 [History Confirmed 03/29/18] rizatriptan 5 mg tablet 5 mg PO ONCE PRN 04/23/17 [History Confirmed 03/29/18] Omeprazole [Prilosec] 20 mg PO DAILY 11/30/17 [History Confirmed 03/29/18] acetaminophen 325 mg capsule 325 mg PO Q6H PRN 03/29/18 [History Confirmed 03/29/18] naproxen 500 mg tablet 500 mg PO BID 03/29/18 [History Confirmed 03/29/18] naproxen 500 mg tablet 500 mg PO BID-TID PRN #60 tab 03/29/18 [Rx Confirmed 03/29/18] Post menopausal: No Patient : No : No [facility] Medical History Endometriosis (Acute) Anxiety (Acute) Back pain (Acute) H/O: hysterectomy (Acute) Migraines (Acute) Non Hodgkin's lymphoma (Acute) PCOS (polycystic ovarian syndrome) (Acute) history of acl repair (Acute) Surgical History History of pubovaginal sling (Acute) History of nasal septoplasty (Acute) History of tonsillectomy (Acute) History of tubal ligation (Acute) Social History Smoking Status: Current every day smoker alcohol intake: current details: social substance use type: does not use caffeine: Yes what type of physical activity do you participate in: none seatbelt use: always do you feel safe at home: Yes 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 When she has the pain it lasts several days. she has this pain cyclically. Female Reproductive History Menopausal Symptoms: No hot flashes, No night sweats, No weight change, No mood changes, No difficulty concentrating, No sleep problems, No change in libido Pregancy History 2 Elective abortions Hx Para 2 Spontaneous abortions Past Pregnancies Del. DatName GA/WeeksOut[facility] LocaProviderFOB e ht en tn Unknown 1998 Sab carlos Unknown 2001 Todd evelin ROS Const Constitutional: Denies night sweats Cardio Card: Reports system reviewed and no additional complaints, except as docu Resp Resp: Reports shortness of breath with activity GI GI: Reports abdominal pain; denies bloating, cramping, vomiting or nausea : Reports system reviewed and no additional complaints, except as docu; denies hot flashes, genital itching or urinary incontinence Psych Psych: Denies difficulty concentrating or change in sex drive Exam Const General: cooperative, healthy appearing, comfortable, no acute distress GI Inspection: normal to inspection, non-distended Palpation: soft, no hepatosplenomegaly, tender in the LLQ External Female Exam: normal external appearance, normal appearance of the urethra Urethra: normal appearance of the urethra Speculum Exam - Vagina: normal appearance of the vagina, other (normal vaginal length, apex well supprted and healed, intact no granulation) Speculum Exam - Cervix: cervix absent Bimanual Exam- Vagina AND Uterus: uterus absent Bimanual Exam- Adnexa, other: adnexae non-tender, pelvic support normal Pelvic Support: normal Other: vaginal cuff normal and intact, good vaginal length, no granulation tissue present Assessment AND Plan Problems 1. Nellie N94.0 daily progesterone, if quits smoking consider daily continuous ocp Plan see problem list start ocp and fu in 3 months, naproxen PRN Medications New: Coding Level of Care Code Off vis,est,level 4 Diagnoses Nellie N94.0 03/29/18 0955 <Electronically signed by Kristan Islas MD> Date Kristan Islas MD Cosign Signature: Date (if applicable) CC: CNOV Observed: 03/27/2018 Status: COMPLETED Source: [place] 12:45 PM [facility] REPOSITORY Office Visit ([facility]) ELIDIA WALTON ([id number]) 1980 F NFR Date Time Provider Department 03/27/18 12:45 PM ANDREY RAMAN (NIMESH) [facility] During your visit today, we recorded the following information about you: Temperature Pulse Respiration Blood pressure 97.7 degrees 76/minute 16/minute 124/72 Andrey Rmaan APRN.PATTERN RULER 03/30/2018 2:57 PM Signed Subjective HPI Patient presents with: Eye Problem: right eye pain top eyelid migrating into head x last night Denies any otc treatment for symptoms. Denies fever, chills, URI symptoms, blurred vision, double vision, possible foreign object. Review of Systems Constitutional: Negative for chills and fever. HENT: Negative for sinus pain and sore throat. Eyes: Positive for pain and redness. Negative for blurred vision, double vision, photophobia and discharge. Respiratory: Negative for cough. Neurological: Negative for headaches. PAST MEDICAL HISTORY Diagnosis Date - Abdominal pain, generalized - Acute gastritis - Bipolar I disorder, most recent episode (or current) unspecified - Carcinoma in situ of cervix uteri - Diaphragmatic hernia without mention of obstruction or gangrene - Diverticulitis - History of colon polyps 07/14/2016 - Irritable bowel syndrome - Mitral valve disorders(424.0) - 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 - Post depression - Snoring - Tobacco abuse PAST SURGICAL HISTORY Procedure Laterality Date - CERVIX UTERI CONIZA LP ELCTRO EXCI 09/24 LEEP-Cervix - COLONOSCOP W/ OR W/O [facility] SPEC 2004 Colonoscopy/endoscopy - COLONOSCOP W/ OR W/O [facility] SPEC 07/10/2016 repeat 5 years - sessile serrated polyp - COLONOSCOP W/ OR W/O [facility] SPEC 01/11/2018 Colonoscopy - EGD W/O OR W/BRUSH/WASH 07/10/2016 EGD - EGD W/O OR W/BRUSH/WASH 12/07/2017 EGD - EXPLORATORY OF ABDOMEN Laparotomy, exp - KNEE SCOPE,DIAGNOSTIC Arthroscopy, knee, ACL LEFT - LIGATE FALLOPIAN TUBE 2001 Tubal ligation - PART SIMPLE REMV VULVA 07/04/14 left vulvar cyst removal - REMOVAL OF TONSILS,<12 Y/O Tonsillectomy - REPAIR OF NASAL SEPTUM Septoplasty - S IRENE MARCANO-LAPAROSCOPY,[id number] 03/12/2016 - S PORT A CATH II STANDARD 04/2014,09/2014 left inserted and removed, right side. insered and removed - SLING OPER STRES INCONTINENCE 03/12/2016 ALLERGIES Bees; Bee Sting; Darvocet A500 [Propoxyphene N-Acetaminophen]; Hydrocodone; Phenergan [Promethazine Hcl]; Sulfa (Sulfonamide Antibiotics) MEDICATIONS hydrocortisone (ANUSOL-HC) 25 mg suppository 1 Suppository by RECTAL route every 12 hours. omeprazole (PRILOSEC) 20 mg capsule Take 2 capsules by mouth twice daily. 1/2 hr before meal. vitamin B complex (B COMPLEX ORAL) Take 1 tablet by mouth once daily. tiZANidine (ZANAFLEX) 4 mg tablet Take 1 tablet by mouth every 8 hours as needed. acetaminophen (TYLENOL EXTRA STRENGTH) 500 mg tablet Take 1,000 mg by mouth as needed. rizatriptan (MAXALT) 10 mg tablet Take 1 tablet by mouth as needed. ofloxacin (OCUFLOX) 0.3 % ophthalmic solution Use 2 Drops in the right eye four times daily for 5 days. naproxen (NAPROSYN) 500 mg tablet Take 1 tablet by mouth twice daily with meals. nicotine (NICODERM CQ) 21 mg/24 hr Apply 1 Patch as directed every 24 hours. MULTIVITAMIN ORAL Take 1 tablet by mouth once daily. FAMILY HISTORY Problem Relation Age of Onset - Cancer Paternal Aunt ovarian - Hypertension Brother - Diabetes Father HEART ,STROKE - Cancer Paternal Grandmother OVARIAN Social History Substance Use Topics - Smoking status: Current Every Day Smoker Packs/day: 1.00 Years: 24.00 Types: Cigarettes - Smokeless tobacco: Never Used - Alcohol use No Objective Physical Exam Constitutional: She is well-developed, well-nourished, and in no distress. HENT: Head: Normocephalic. Right Ear: External ear normal. Left Ear: External ear normal. Nose: Nose normal. Mouth/Throat: Oropharynx is clear and moist. Eyes: Pupils are equal, round, and reactive to light. EOM are normal. Right eye exhibits discharge (watery). Right eye exhibits no exudate. No foreign body present in the right eye. Right conjunctiva is injected. Neck: Normal range of motion. Neck supple. Nursing note and vitals reviewed. ASSESSMENT/PLAN: 1. Acute conjunctivitis of right eye, unspecified acute conjunctivitis type - ICD9: 372.00, ICD10: H10.31 Bacterial - see medication orders - course and contagiousness issues discussed, including hand washing. - Instructed to call if high fever, development of periorbital redness or swelling, eye pain, visual changes, concerns or if symptoms persist. Prescription instructions reviewed with patient as applicable. Patient advised if symptoms do not improve or if symptoms worsen sooner, to contact their primary care physician. Potential red flag symptoms discussed with the patient. Reviewed appropriate action plan to take if red flag symptoms occur. Patient agreeable to treatment plan. Andrey Raman APRN.PATTERN RULER Referring Provider: SELF [[id number]] Allergies As of Date: 03/27/2018 Noted Allergy Reaction BEES 2005 10 - Anaphylaxis BEE STING 12/11/2014 10 - Anaphylaxis DARVOCET A500 (PROPOXYPHENE N-NAOMI*12/23/2005 8 - GI Upset HYDROCODONE 03/30/2012 14 - Other: See Comments Comments: anxiety PHENERGAN (PROMETHAZINE HCL) 07/02/2016 1 - Mental Status Change SULFA (SULFONAMIDE ANTIBIOTICS) 01/13/2005 5 - Intolerance Comments: HIVES Date Reviewed: 03/27/2018 Reviewed by: Kaila Nolan Ma - Fully Assessed Reason for Visit: Eye Problem [43] Cmt: right eye pain top eyelid migrating into head x last night Primary Visit Diagnosis:Acute conjunctivitis of right eye, unspecified acute conjunctivitis type [H10.31] Order(s):ofloxacin (OCUFLOX) 0.3 % ophthalmic solutionUse 2 Drops in the right eye four times daily for 5 days.Disp: 1 BottleRfl: 0 naproxen (NAPROSYN) 500 mg tabletTake 1 tablet by mouth twice daily with meals.Disp: 60 tabletRfl: 0 Prescriptions as of 03/27/2018 Sig: HYDROCORTISONE ACETATE 25 MG * 1 Suppository by RECTAL route* OMEPRAZOLE 20 MG CAPSULE,TARYN* Take 2 capsules by mouth twic* B COMPLEX ORAL Take 1 tablet by mouth once d* TIZANIDINE 4 MG TABLET Take 1 tablet by mouth every * ACETAMINOPHEN 500 MG TABLET Take 1,000 mg by mouth as nee* RIZATRIPTAN 10 MG TABLET Take 1 tablet by mouth as nee* OFLOXACIN 0.3 % EYE DROPS Use 2 Drops in the right eye * NAPROXEN 500 MG TABLET Take 1 tablet by mouth twice * NICOTINE 21 MG/24 HR DAILY TR* Apply 1 Patch as directed neda* Patient not taking: Reported on 03/27/2018 MULTIVITAMIN ORAL Take 1 tablet by mouth once d* Problem List As Of Date 03/27/2018 Noted Resolved Acute gastritis [535.0] INVALID FOR*10/19/2015 BENIGN NEOPLASM LG BOWEL [D12.6] INVALID FOR* ACNE NEC [L70.8] INVALID FOR* SEBACEOUS CYST [L72.3] INVALID FOR* Follicular lymphoma grade II of intra-abdominal*INVALID FOR* Tobacco abuse [Z72.0] INVALID FOR* Lymphoma, non-Hodgkin's (HCC) [C85.90] INVALID FOR* Cervical cancer (HCC) [C53.9] INVALID FOR* EVERETTE (stress urinary incontinence, female) [N39.*INVALID FOR* History of lymphoma [Z85.79] INVALID FOR* LUQ pain [R10.12] INVALID FOR* More... Prescriptions ordered this encounter Disp Refills Start End OFLOXACIN 0.3 % EYE DROPS 1 Jase* 0 03/27/2018 04/01/2018 Route: RIGHT EYE Sig: Use 2 Drops in the right eye four times daily for 5 days. NAPROXEN 500 MG TABLET 60 t* 0 03/27/2018 Route: ORAL Sig: Take 1 tablet by mouth twice daily with meals. Disposition: Return if symptoms worsen or fail to improve. Follow-up and Disposition History Recorded Encounter Status:Closed by ANDREY RAMAN on 03/30/18 [facility] OFFICE VISIT Observed: 03/13/2018 Status: F Source: [facility] RE[facility] 4:32 AM [facility] [address] [place] [address]. [address] [place] [address] OFFICE VISIT Date of Service: 03/12/18 MR#: [id number] Acct: [id number] Name: ELIDIA WALTON Rep #: [id number] : 1980 Provider: Kristan Islas MD Age/Sex: 37/F Location: [facility] Status: Signed Intake Vital Signs03/12/18 Body Mass Index (BMI) 29.1 Intake Visit Reasons: VAGINAL INFECTION? Chief Complaint: Vaginal Discharge Wheel And Pinion Inspector Required: No Is patient in pain?: No Allergies acetaminophen [From Darvocet-N] Allergy (Verified 03/12/18 13:06) Rash propoxyphene napsylate [From Darvocet-N] Allergy (Verified 03/12/18 13:06) Rash Sulfa (Sulfonamide Antibiotics) Allergy (Verified 03/12/18 13:06) Hives venom-honey bee [bee venom (honey bee)] Allergy (Verified 03/12/18 13:06) Anaphylaxis hydrocodone Adverse Reaction (Verified 03/12/18 13:06) Other promethazine HCl [From Phenergan] Adverse Reaction (Verified 03/12/18 13:06) Other Medications Tizanidine HCl [Zanaflex] 2 mg PO PRN PRN 04/21/17 [History Confirmed 03/12/18] rizatriptan 5 mg tablet 5 mg PO ONCE PRN 04/23/17 [History Confirmed 03/12/18] Omeprazole [Prilosec] 20 mg PO DAILY 11/30/17 [History Confirmed 12/07/17] metronidazole 500 mg tablet 500 mg PO BID 7 Days #14 tab 03/12/18 [Rx Confirmed 03/12/18] terconazole 0.4 % vaginal cream 1 appful VAGINAL QHS 7 Days #45 g 03/12/18 [Rx Confirmed 03/12/18] Is last menstrual period known: No Post menopausal: No Patient : No : No PFSH Medical History Anxiety (Acute) Back pain (Acute) H/O: hysterectomy (Acute) Migraines (Acute) Non Hodgkin's lymphoma (Acute) PCOS (polycystic ovarian syndrome) (Acute) history of acl repair (Acute) Surgical History History of nasal septoplasty (Acute) History of tonsillectomy (Acute) History of tubal ligation (Acute) Social History Smoking Status: Current every day smoker alcohol intake: current details: social substance use type: does not use caffeine: Yes what type of physical activity do you participate in: none seatbelt use: always do you feel safe at home: Yes 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 : Details: ELIDIA WALTON is a 37 year old who presents for abrnoaml discharge with foul odor and irritation she has tried otc monistat with no improvememnt and hydrocortisone. no new sexual partners Pregancy History 2 Elective abortions Hx Para 2 Spontaneous abortions Past Pregnancies Del. DatName GA/WeeksOutcome Route [facility] Dany Agee LgAnesthesDel LocaProviderFOB e ht en ia tn Unknown 1998 Sab carlos Unknown 2001 [facility] evelin Assessment AND Plan Problems 1. Vaginitis N76.0 Plan flagly for bv positive terazole in case yeast present on swab Orders Orders: Medications New: Coding Level of Care Code Off vis,est,level 3 Diagnoses Vaginitis N76.0 03/13/18 0432 <Electronically signed by Kristan Islas MD> Date Kristan Islas MD Cosigner Signature: Date (if applicable) CC: Observed: 03/12/2018 Status: F Source: [place] CULTURE, GENITAL 6:05 PM [facility] Reason for Exam: vaginitis Gram Stain Score = 8 Interpretation: 0-3 Normal, 4-6 Intermediate, 7-10 Positive BV Gram Stain 3+ Epithelial cells 3+ Clue Cells 4+ Gram variable marianne No Gram negative diplococci No Yeast Like Organisms Gent Cult Comp Normal vaginal xiao isolated. No yeast, Neisseria or beta-hemolytic Streptococcus isolated. ORGANISM 1: Gardnerella vaginalis Amount Growth 3+ Performed By: #### M100.1600 #### [facility] [address] [place], [address] NURSING PROG Observed: 01/11/2018 Status: COMPLETED Source: [place] 6:00 PM [facility] REPOSITORY O ID: [id number] Author: Pooja AndrewsRn) MARCELLA Gutierrez Service: (none) Author Type: Registered Nurse Type: Nursing Progress Note Filed: 01/11/2018 6:15 PM Note Text: Patient did not experience a fall prior to discharge. Patient did not experience a burn prior to discharge. Pooja Gutierrez RN PT ED Observed: 01/11/2018 Status: COMPLETED Source: [place] 5:54 PM [facility] REPOSITORY HNO ID: [id number] Author: Pooja AndrewsRn) MARCELLA Gutierrez Service: (none) Author Type: Registered Nurse Type: Patient Education Filed: 01/11/2018 5:56 PM Note Text: POST OP LEARNING RESPONSE INSTRUCTION PROVIDED TO: Patient and family member METHOD OF INSTRUCTION: Individual instruction Written instruction - handouts Verbal instruction PATIENT / FAMILY RESPONSE: Information received as demonstrated by interest and questions FOLLOW-UP PLAN: Follow up phone call. Contact information given. Followup appointment with nurse practitioner in one week (67737/18 @ 0810) Repeat surveillance colonoscopy in three years SUPPLEMENTAL MATERIAL: Procedure discharge instructions REFERRAL (RECOMMENDATION): None Electronically Signed By: Pooja Gutierrez RN In Department: AMBULATORY SURGERY NURSING PROG Observed: 01/11/2018 Status: COMPLETED Source: [place] 5:13 PM [facility] REPOSITORY HNO ID: [id number] Author: Pooja Benton) MARCELLA Gutierrez Service: (none) Author Type: Registered Nurse Type: Nursing Progress Note Filed: 01/11/2018 5:21 PM Note Text: Arrived in phase II via cart. Left lateral position. Sedated, but responds to verbal stimuli. Color normal; skin warm and dry. Respirations wnl and unlabored. Abdomen soft and with + bowel sounds in quads X 4. Family at bedside. Patient resting comfortably. Dr. Pelayo at bedside to review procedure and recommendations. Pooja Gutierrez RN BRIEF OP NOT Observed: 01/11/2018 Status: COMPLETED Source: [place] 5:11 PM [facility] REPOSITORY HNO ID: [id number] Author: Jason Pelayo Service: Gastroenterology Author Type: Physician Type: Brief Op Note Filed: 01/11/2018 5:11 PM Note Text: BRIEF OPERATIVE NOTE PATIENT NAME: Elidia Walton LOG ID: [id number] Surgery Date: 01/11/2018 Surgeon(s) and Emergency Veterinarian(s): Jason Pelayo MD -Primary Procedure(s): Procedure(s) (LRB): COLONOSCOPY (N/A) Anesthesia: Procedural Sedation Findings: Completely normal colonoscopy with no evidence of polyp in the cecum Estimated Blood Loss: 0 ml Specimens: None Preop Diagnosis: Polyp of colon, unspecified part of colon, unspecified type [K63.5] Postop Diagnosis: Polyp of colon, unspecified part of colon, unspecified type [K63.5] SIGNATURE: Jason Pelayo MD DATE: January 11, 2018 TIME: 5:11 PM NURSING PROG Observed: 01/11/2018 Status: COMPLETED Source: [place] 5:10 PM [facility] REPOSITORY HNO ID: [id number] Author: Argentina Green RN Service: (none) Author Type: Registered Nurse Type: Nursing Progress Note Filed: 01/11/2018 5:10 PM Note Text: Patient did not experience a fall within the Intraoperative area. Patient did not experience a burn within the Intraoperative area. Argentina Green RN NURSING PROG Observed: 01/11/2018 Status: COMPLETED Source: [place] 4:36 PM [facility] REPOSITORY HNO ID: [id number] Author: Pooja Gutierrez RN Service: (none) Author Type: Registered Nurse Type: Nursing Progress Note Filed: 01/11/2018 4:36 PM Note Text: [facility] PRE-OP NURSING HAND OFF NOTE SBAR Hand off given to Argentina Green RN. Hand off was communicated verbally and at the patient's bedside and all questions were answered. FALLS/LEVIN Patient did not experience a fall within the Preoperative area. Patient did not experience a burn within the Preoperative area. Pooja Gutierrez RN PT ED Observed: 01/11/2018 Status: COMPLETED Source: [place] 4:30 PM [facility] REPOSITORY HNO ID: [id number] Author: Pooja Gutierrez RN Service: (none) Author Type: Registered Nurse Type: Patient Education Filed: 01/11/2018 4:30 PM Note Text: Discharge Instructions were reviewed pre-operatively with the patient. All questions and concerns were addressed. Pooja Gutierrez RN PRE OP LEARNING ASSESSMENT PROCEDURE/SURGERY: GI PROCEDURES: Colonoscopy READINESS TO LEARN COGNITIVE ABILITY: Alert and oriented MOTIVATION TO LEARN: Interested FAMILY SUPPORT: Unable to assess - Family not present PATIENT LEARNS BEST BY: Multiple Methods FACTORS AFFECTING LEARNING: None PHYSICAL LIMITATIONS AFFECTING LEARNING: None Electronically Signed By: Pooja Gutierrez RN In Department: AMBULATORY SURGERY HISTORY PHYSICAL Observed: 01/11/2018 Status: COMPLETED Source: [place] 4:08 PM [facility] REPOSITORY HNO ID: [id number] Author: Jason Pelayo Service: Gastroenterology Author Type: Physician Type: HANDP Filed: 01/11/2018 4:09 PM Note Text: PROCEDURAL SEDATION HISTORY AND PHYSICAL EXAM SERVICE DATE: 01/11/2018 SERVICE TIME: 4:08 PM Subjective HPI: This is a 37 year old female who presents with a cecal polyp which was biopsied but not removed PAST ANESTHESIA HISTORY: No history of adverse event PAST MEDICAL HISTORY Diagnosis Date - Abdominal pain, generalized - Acute gastritis - Bipolar I disorder, most recent episode (or current) unspecified - Carcinoma in situ of cervix uteri - Diaphragmatic hernia without mention of obstruction or gangrene - Diverticulitis - History of colon polyps 07/14/2016 - Irritable bowel syndrome - Mitral valve disorders(424.0) - 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 - Post depression - Snoring - Tobacco abuse PAST SURGICAL HISTORY Procedure Laterality Date - CERVIX UTERI CONIZA LP ELCTRO EXCI 09/24 LEEP-Cervix - COLONOSCOP W/ OR W/O [facility] SPEC 2004 Colonoscopy/endoscopy - COLONOSCOP W/ OR W/O [facility] SPEC 07/10/2016 repeat 5 years - sessile serrated polyp - EGD W/O OR W/BRUSH/WASH 07/10/2016 EGD - EGD W/O OR W/BRUSH/WASH 12/07/2017 EGD - EXPLORATORY OF ABDOMEN Laparotomy, exp - KNEE SCOPE,DIAGNOSTIC Arthroscopy, knee, ACL LEFT - LIGATE FALLOPIAN TUBE 2001 Tubal ligation - PART SIMPLE REMV VULVA 07/04/14 left vulvar cyst removal - REMOVAL OF TONSILS,<12 Y/O Tonsillectomy - REPAIR OF NASAL SEPTUM Septoplasty - S IRENE MARCANO-LAPAROSCOPY,09632 03/12/2016 - S PORT A CATH II STANDARD 04/2014,09/2014 left inserted and removed, right side. insered and removed - SLING OPER STRES INCONTINENCE 03/12/2016 Prior to Admission medications as of 12/19/17 1036 Medication Sig Last Dose Taking omeprazole (PRILOSEC) 20 mg capsule Take 2 capsules by mouth twice daily. 1/2 hr before meal. nicotine (NICODERM CQ) 21 mg/24 hr Apply 1 Patch as directed every 24 hours. vitamin B complex (B COMPLEX ORAL) Take 1 tablet by mouth once daily. MULTIVITAMIN ORAL Take 1 tablet by mouth once daily. tiZANidine (ZANAFLEX) 4 mg tablet Take 1 tablet by mouth every 8 hours as needed. acetaminophen (TYLENOL EXTRA STRENGTH) 500 mg tablet Take 1,000 mg by mouth as needed. rizatriptan (MAXALT) 10 mg tablet Take 1 tablet by mouth as needed. ALLERGIES Allergen Reactions - Bees Anaphylaxis - Bee Sting Anaphylaxis - Darvocet A500 [Prop* GI Upset - Hydrocodone Other: See Comments anxiety - Phenergan [Prometha* Mental Status Change - Sulfa (Sulfonamide * Intolerance HIVES Objective PHYSICAL EXAM: The remainder of the physical exam is noncontributory. AIRWAY: Airway Visualization of Uvula: Yes Mouth opening greater than 2 fingerbreadths: Yes Neck Full Range of Motion: Yes LUNGS: Lungs clear to auscultation, Good diaphragmatic excursion CARDIAC: Normal S1 and S2; no rubs, murmurs, or gallops Assessment/Plan ASA Class: ASA Class:: Patient with mild systemic disease Active Problems: * No active hospital problems. * Resolved Problems: * No resolved hospital problems. * Provisional Diagnosis/Treatment Plan: Cecal polyp which was biopsied but not removed/colonoscopy and polypectomy SIGNATURE: Jason Pelayo MD PATIENT NAME: Elidia Walton DATE: January 11, 2018 TIME: 4:08 PM PAGER: PELVIC (NON ) Observed: 01/04/2018 Status: F Source: [place] 12:59 PM [facility] Imaging Services [address] [place] [id number] Pelvic (Non ) MR#: [id number] Acct: [id number] Name: ELIDIA WALTON Rep #: [id number] : 1980 F 37 From: Rasheed Thurman PCP: Karlos Newell MD Status: REG CLI Study: Pelvic (Non ) Date of Exam: 01/04/18 Exam# [id number] Ordering Dr: Kristan Islas MD STUDY: ULTRASOUND OF THE FEMALE PELVIS - COMPLETE REASON FOR EXAM: Female, 37 years old. Left ovarian cyst. Postmenopausal. TECHNIQUE: Transabdominal and transvaginal. TECHNICAL QUALITY: Adequate. COMPARISON: March 25, 2017. CT abdomen and pelvis November 30, 2017. FINDINGS: The uterus and right ovary are absent compatible with hysterectomy and right oophorectomy. Left ovary measures 3.3 x 2.0 x 1.7 cm and contains a simple cyst measuring 1.2 x 1.1 x 1.1 cm. No fluid in the pelvis. Urinary bladder volume 309 mL. Images of the bladder are unremarkable. US/Pelvic (Non ) IMPRESSION: Simple left ovarian cyst decreased in size since the prior examinations. Status post hysterectomy and right oophorectomy. Electronically Signed: Rasheed Thurman MD at 7:35 EDT , Service support , CC: Kristan Islas MD; Karlos Newell MD [employer]: Signed [facility] OFFICE VISIT Observed: 12/23/2017 Status: F Source: [facility] REPORT 12:13 PM [facility] [address] [place] [address] OFFICE VISIT Date of Service: 12/23/17 MR#: [id number] Acct: [id number] Name: MARQUITA WALTONRobi Woody Rep #: [id number] : 1980 Provider: Kristan Islas MD Age/Sex: 37/F Location: [facility] Status: Signed Intake Vital Signs12/23/17 Height 5 ft 10 in 12/23/17 Weight: 204 lb 6 oz 12/23/17 Body Mass Index (BMI) 29.3 12/23/17 Blood Pressure 116/64 Intake Visit Reasons: DISCUSS OVARIAN CYST Wheel And Pinion Inspector Required: No Is patient in pain?: No Allergies acetaminophen [From Darvocet-N] Allergy (Verified 12/23/17 11:46) Rash propoxyphene napsylate [From Darvocet-N] Allergy (Verified 12/23/17 11:46) Rash Sulfa (Sulfonamide Antibiotics) Allergy (Verified 12/23/17 11:46) Hives venom-honey bee [bee venom (honey bee)] Allergy (Verified 12/23/17 11:46) Anaphylaxis hydrocodone Adverse Reaction (Verified 12/23/17 11:46) Other promethazine HCl [From Phenergan] Adverse Reaction (Verified 12/23/17 11:46) Other Medications Tizanidine HCl [Zanaflex] 2 mg PO PRN PRN 04/21/17 [History Confirmed 12/07/17] rizatriptan 5 mg tablet 5 mg PO ONCE PRN 04/23/17 [History Confirmed 12/07/17] Omeprazole [Prilosec] 20 mg PO DAILY 11/30/17 [History Confirmed 12/07/17] Is last menstrual period known: No Post menopausal: No Patient : No : No PFSH Medical History Anxiety (Acute) Back pain (Acute) H/O: hysterectomy (Acute) Migraines (Acute) Non Hodgkin's lymphoma (Acute) PCOS (polycystic ovarian syndrome) (Acute) history of acl repair (Acute) Surgical History History of nasal septoplasty (Acute) History of tonsillectomy (Acute) History of tubal ligation (Acute) Social History Smoking Status: Current every day smoker alcohol intake: current details: social substance use type: does not use caffeine: Yes what type of physical activity do you participate in: none seatbelt use: always do you feel safe at home: Yes 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 she has tried OCP and it didn't help her lower pelvic pain she has had for a while. she co the pain being background noise and so it is present but doesn't limit her function. she denies any pain with intercourse. Female Reproductive History Questions: Metorrhagia: No, Sexually active: Yes, Dyspareunia: No Menopausal Symptoms: Yes change in libido Pregancy History 2 Elective abortions Hx Para 2 Spontaneous abortions Past Pregnancies Del. DatName GA/WeeksOutcome Route [facility] Dany Agee LgAnesthesDel LocaProviderFOB e ht en ia tn Unknown 1998 Sab carlos Unknown 2001 [facility] evelin ROS Const Constitutional: Reports system reviewed and no additional complaints, except as docu : Reports system reviewed and no additional complaints, except as docu and as per HPI Psych Psych: Reports change in sex drive Exam Const General: cooperative, healthy appearing, comfortable, no acute distress, well developed Nutritional Appearance: average body habitus Orientation: alert HENMT Head: normal to inspection, normocephalic Neck Neck: normal visual inspection, trachea midline Thyroid: thyroid normal Resp Effort AND Inspection: normal respiratory effort GI Inspection: normal to inspection, non-distended Palpation: soft, no hepatosplenomegaly Assessment AND Plan Problems 1. Cyst of left ovary N83.202 Plan repeat ultrasound to confirm stability. recommend expectant management. Coding Level of Care Code Off vis,est,level 3 Diagnoses Cyst of left ovary N83.202 Laterality: left 12/23/17 1213 <Electronically signed by Kristan Islas MD> Date Kristan Islas MD Cosigner Signature: Date (if applicable) CC: PROGRESS Observed: 12/19/2017 Status: COMPLETED Source: [facility] 10:56 AM [facility] REPOSITORY HNO ID: [id number] Author: Anders Mallory Service: (none) Author Type: Physician Type: Progress Notes Filed: 12/19/2017 11:10 AM Note Text: Patient presents with: URI HPI: Feeling sick for 1 week, severe right frontal pain for 2 days- worse when she bends forward Positive symptoms: Cough, Sinus pressure, Nasal Congestion, Rhinorrhea, Post nasal drainage, air goes in her ears with coughs, Negative symptoms: Fever, Chills, Body Aches, OTC: Mucinex, Sudafed MEDICATIONS: Current Outpatient Prescriptions: pseudoephedrine (SUDAFED) 30 mg tablet Take 1 every 6 or 2 every 12 omeprazole (PRILOSEC) 20 mg capsule Take 2 capsules by mouth twice daily. 1/2 hr before meal. nicotine (NICODERM CQ) 21 mg/24 hr Apply 1 Patch as directed every 24 hours. vitamin B complex (B COMPLEX ORAL) Take 1 tablet by mouth once daily. MULTIVITAMIN ORAL Take 1 tablet by mouth once daily. tiZANidine (ZANAFLEX) 4 mg tablet Take 1 tablet by mouth every 8 hours as needed. acetaminophen (TYLENOL EXTRA STRENGTH) 500 mg tablet Take 1,000 mg by mouth as needed. rizatriptan (MAXALT) 10 mg tablet Take 1 tablet by mouth as needed. No current facility-administered medications for this visit. ALLERGIES: ALLERGIES Allergen Reactions - Bees Anaphylaxis - Bee Sting Anaphylaxis - Darvocet A500 [Prop* GI Upset - Hydrocodone Other: See Comments anxiety - Phenergan [Prometha* Mental Status Change - Sulfa (Sulfonamide * Intolerance HIVES VITALS: BP 102/72 Pulse 100 Temp 36.8 ?C (98.3 ?F) (Left Tympanic) Resp 16 Wt 91.2 kg (201 lb) LMP 02/02/2016 SpO2 99% BMI 29.68 kg/m? PHYSICAL EXAM: GEN: mildly ill appearing HEENT: PERRL, EOMI, conjunctiva clear Ears: canals clear, TMs without erythema, bulge, or effusion Sinuses: non-tender frontal sinus, non-tender maxillary sinuses, nasal passages edematous Throat: moist mucous membranes, mild erythema, no exudate Neck: supple, no thyromegaly, no lymphadenopathy HEART: regular rate and rhythm, no murmurs LUNGS: clear to auscultation, no wheezes or crackles, no increased WOB ASSESSMENT/PLAN: 1. Acute non-recurrent sinusitis, unspecified location - ICD9: 461.9, ICD10: J01.90 - AMOXICILLIN 875 MG TABLET - FLUCONAZOLE 150 MG TABLET Anders Mallory MD CNOV Observed: 12/19/2017 Status: COMPLETED Source: [place] 10:30 AM [facility] REPOSITORY Office Visit (WSTR) ELIDIA WALTON ([id number]) 1980 F NFR Date Time Provider Department 12/19/17 10:30 AM ANDERS MALLORY [facility] During your visit today, we recorded the following information about you: Temperature Pulse Respiration Blood pressure 98.3 degrees 100/minute 16/minute 102/72 Weight 91.2 kg Anders Mallory MD 12/19/2017 11:10 AM Signed Patient presents with: URI HPI: Feeling sick for 1 week, severe right frontal pain for 2 days- worse when she bends forward Positive symptoms: Cough, Sinus pressure, Nasal Congestion, Rhinorrhea, Post nasal drainage, air goes in her ears with coughs, Negative symptoms: Fever, Chills, Body Aches, OTC: Mucinex, Sudafed MEDICATIONS: Current Outpatient Prescriptions: pseudoephedrine (SUDAFED) 30 mg tablet Take 1 every 6 or 2 every 12 omeprazole (PRILOSEC) 20 mg capsule Take 2 capsules by mouth twice daily. 1/2 hr before meal. nicotine (NICODERM CQ) 21 mg/24 hr Apply 1 Patch as directed every 24 hours. vitamin B complex (B COMPLEX ORAL) Take 1 tablet by mouth once daily. MULTIVITAMIN ORAL Take 1 tablet by mouth once daily. tiZANidine (ZANAFLEX) 4 mg tablet Take 1 tablet by mouth every 8 hours as needed. acetaminophen (TYLENOL EXTRA STRENGTH) 500 mg tablet Take 1,000 mg by mouth as needed. rizatriptan (MAXALT) 10 mg tablet Take 1 tablet by mouth as needed. No current facility-administered medications for this visit. ALLERGIES: ALLERGIES Allergen Reactions - Bees Anaphylaxis - Bee Sting Anaphylaxis - Darvocet A500 [Prop* GI Upset - Hydrocodone Other: See Comments anxiety - Phenergan [Prometha* Mental Status Change - Sulfa (Sulfonamide * Intolerance HIVES VITALS: BP 102/72 Pulse 100 Temp 36.8 ?C (98.3 ?F) (Left Tympanic) Resp 16 Wt 91.2 kg (201 lb) LMP 02/02/2016 SpO2 99% BMI 29.68 kg/m? PHYSICAL EXAM: GEN: mildly ill appearing HEENT: PERRL, EOMI, conjunctiva clear Ears: canals clear, TMs without erythema, bulge, or effusion Sinuses: non-tender frontal sinus, non-tender maxillary sinuses, nasal passages edematous Throat: moist mucous membranes, mild erythema, no exudate Neck: supple, no thyromegaly, no lymphadenopathy HEART: regular rate and rhythm, no murmurs LUNGS: clear to auscultation, no wheezes or crackles, no increased WOB ASSESSMENT/PLAN: 1. Acute non-recurrent sinusitis, unspecified location - ICD9: 461.9, ICD10: J01.90 - AMOXICILLIN 875 MG TABLET - FLUCONAZOLE 150 MG TABLET Anders Mallory MD Referring Provider: SELF [200] Allergies As of Date: 12/19/2017 Noted Allergy Reaction BEES 2005 10 - Anaphylaxis BEE STING 12/11/2014 10 - Anaphylaxis DARVOCET A500 (PROPOXYPHENE N-NAOMI*12/23/2005 8 - GI Upset HYDROCODONE 03/30/2012 14 - Other: See Comments Comments: anxiety PHENERGAN (PROMETHAZINE HCL) 07/02/2016 1 - Mental Status Change SULFA (SULFONAMIDE ANTIBIOTICS) 01/13/2005 5 - Intolerance Comments: HIVES Date Reviewed: 12/19/2017 Reviewed by: Haylee Walker Ma - Fully Assessed Reason for Visit: URI [115] Primary Visit Diagnosis:Acute non-recurrent sinusitis, unspecified location [J01.90] Order(s):amoxicillin (AMOXIL) 875 mg tabletTake 1 tablet by mouth twice daily for 10 days.Disp: 20 tabletRfl: 0 fluconazole (DIFLUCAN) 150 mg tabletTake 1 tablet by mouth once daily for 1 day.Disp: 1 tabletRfl: 0 Prescriptions as of 12/19/2017 Sig: PSEUDOEPHEDRINE 30 MG TABLET Take 1 every 6 or 2 every 12 OMEPRAZOLE 20 MG CAPSULE,TARYN* Take 2 capsules by mouth twic* NICOTINE 21 MG/24 HR DAILY TR* Apply 1 Patch as directed neda* B COMPLEX ORAL Take 1 tablet by mouth once d* MULTIVITAMIN ORAL Take 1 tablet by mouth once d* TIZANIDINE 4 MG TABLET Take 1 tablet by mouth every * ACETAMINOPHEN 500 MG TABLET Take 1,000 mg by mouth as nee* RIZATRIPTAN 10 MG TABLET Take 1 tablet by mouth as nee* AMOXICILLIN 875 MG TABLET Take 1 tablet by mouth twice * FLUCONAZOLE 150 MG TABLET Take 1 tablet by mouth once d* Problem List As Of Date 12/19/2017 Noted Resolved Acute gastritis [535.0] INVALID FOR*10/19/2015 BENIGN NEOPLASM LG BOWEL [D12.6] INVALID FOR* ACNE NEC [L70.8] INVALID FOR* SEBACEOUS CYST [L72.3] INVALID FOR* Follicular lymphoma grade II of intra-abdominal*INVALID FOR* Tobacco abuse [Z72.0] INVALID FOR* Lymphoma, non-Hodgkin's (HCC) [C85.90] INVALID FOR* Cervical cancer (HCC) [C53.9] INVALID FOR* EVERETTE (stress urinary incontinence, female) [N39.*INVALID FOR* History of lymphoma [Z85.79] INVALID FOR* LUQ pain [R10.12] INVALID FOR* More... Prescriptions ordered this encounter Disp Refills Start End AMOXICILLIN 875 MG TABLET 20 t* 0 12/19/2017 12/29/2017 Route: ORAL Sig: Take 1 tablet by mouth twice daily for 10 days. FLUCONAZOLE 150 MG TABLET 1 ta* 0 12/19/2017 12/20/2017 Route: ORAL Sig: Take 1 tablet by mouth once daily for 1 day. Medications Discontinued During This Encounter amoxicillin (AMOXIL) 875 mg tablet 20 t* 0 08/18/2017 12/19/2017 Route: ORAL Sig: Take 1 tablet by mouth twice daily for 10 days. Disc: Reason for discontinue is not on file. Encounter Status:Closed by ANDERS MALLORY MD on 12/19/17 PROGRESS Observed: 12/17/2017 Status: COMPLETED Source: [place] 2:58 PM [facility] REPOSITORY O ID: [id number] Author: Marisela Blair [facility] Service: (none) Author Type: (none) Type: Progress Notes Filed: 12/17/2017 2:58 PM Note Text: Radiology Service Progress Note PATIENT NAME: Elidia Walton DATE OF SERVICE: December 17, 2017 TIME: 2:58 PM PATIENT IDENTITY VERIFICATION COMPLETED USING TWO (2) METHODS: Patient confirmed name verbally and Date of . PATIENT GENDER DATA: Female. status: : No status: NO. PATIENT RELEVANT IMPLANT DATA REVIEWED: Not Applicable RADIOLOGY DEPARTMENT: Ultrasound PERIPHERAL IV DATA: Not applicable SIGNED BY: Marisela Blair Rdms December 17, 2017 2:58 PM US FEMALE PELVIS Observed: 12/17/2017 Status: F Source: [place] TRANSVA 12:18 PM [facility] REPOSITORY * * *Final Report* * * DATE OF EXAM: Dec 17 2017 12:18PM [facility] 1060 - US FEMALE PELVIS TRANSVAG / PROCEDURE REASON: Unspecified condition associated with female genital organs and menstrual cycle * * * * Physician Interpretation * * * * TRANSVAGINAL AND LIMITED TRANSABDOMINAL PELVIC ULTRASOUND CLINICAL HISTORY: Left adnexal mass noted on recent CT scan. Status post RIGHT oophorectomy and hysterectomy February 2016 for endometriosis. History of lymphoma TECHNIQUE: Sonography of the pelvis was performed by transvaginal and transabdominal (limited) techniques. Images were obtained and stored in a permanent archive. MQ: [id number] COMPARISON: None RESULT: Uterus is absent Right ovary: Not identified consistent with surgical history. Left ovary: 4.7 x 3.3 x 3.4 cm Multiple cystic densities largest of which is 2.5-2.9 cm in diameter possibly with a thin peripheral septation. Hypoechoic density noted in the ovary 1.0 x 1.7 x 1.4 cm. No clear demonstration of internal blood flow in the small density. Color and spectral Doppler evaluation demonstrated arterial and venous wave patterns in ovarian parenchyma. Pelvis free fluid: None. IMPRESSION: Ovarian densities less than 3 cm in diameter suggestive of follicle/functional cysts. Small density LEFT ovary, 1.7 cm maximal diameter, most likely complex cyst. [employer] Internship: [facility] Transcribe Date/Time: Dec 18 2017 8:24A Dictated by : RHONA VALADEZ MD This examination was interpreted and the report reviewed and electronically signed by: RHONA VALADEZ MD on Dec 18 2017 8:33AM EST [id number] PROGRESS Observed: 12/17/2017 Status: COMPLETED Source: [place] 11:18 AM [facility] [place] REPOSITORY HNO ID: [id number] Author: Jesica Chapman Service: (none) Author Type: (none) Type: Progress Notes Filed: 12/17/2017 11:20 AM Note Text: RADIOLOGY SERVICE PROGRESS NOTE SERVICE DATE: 12/17/2017 SERVICE TIME: 11:18 AM PATIENT IDENTITY VERIFICATION COMPLETED USING TWO (2) METHODS: Patient confirmed name and Date of verbally. PATIENT GENDER DATA: .female : No ALLERGIES: Reviewed and unchanged MEDICATIONS REVIEWED: No PATIENT RELEVANT IMPLANT DATA REVIEWED: Not Applicable CREATININE: Creatinine Date Value Ref Range Status 12/02/2017 0.68 0.58 - 0.96 mg/dL Final 12/18/2016 0.68 0.58 - 0.96 mg/dL Final 05/29/2015 0.68 (L) 0.70 - 1.40 mg/dL Final eGFR-All Other Races Date Value Ref Range Status 12/02/2017 >60 . Final Comment: eGFR (Estimated GFR) Units of measure: mL/min/1.73 meters squared eGFR is derived from the reexpressed MDRD Study equation using the following parameters: serum creatinine, age, gender and race. The creatinine assay has been calibrated to be traceable to IDMS. An eGFR <60 mL/min/1.73m2 for >3 months is consistent with chronic kidney disease. Refer to KDOQI guidelines for clinical interpretation. In patients with unstable renal function, e.g. those with acute kidney injury, the eGFR may not accurately reflect actual GFR. eGFR- Date Value Ref Range Status 12/02/2017 >60 Final P.O.C.T. RESULTS: N/A December 17, [address] PERFORMED: No IV SITE: Ambulatory: A peripheral IV was started in the Right antecubital site with a Angio cath: 24 gauge. POST EXAM PIV STATUS: Discontinued PROCEDURE TYPE: NM INJECT: Hepatobiliary with Gallbladder EF. 5.4 mCi Tc99m CHOLETEC. 8oz Ensure Plus given PO at 10:00 for EF. ADMINISTRATION TIME: 08:50 PATIENT DISCHARGED TO: Ambulatory patient, left NM department area. A Diagnostic radioactive procedure has taken place, with no further precautions necessary other than routine body substance precautions. More information regarding radiation safety can be found using this link: [email or web address] SIGNATURE: Jesica Chapman PATIENT NAME: Elidia Walton DATE: December 17, 2017 TIME: 11:18 AM PAGER/CONTACT #: NM HEPATOBILIARY W EF Observed: 12/17/2017 Status: F Source: RAPP AND/OR RX 10:51 AM [facility] REPOSITORY * * *Final Report* * * DATE OF EXAM: Dec 17 2017 10:51AM [facility] 0021 - NM HEPATOBILIARY W EF AND/OR RX / PROCEDURE REASON: Right upper quadrant pain * * * * Physician Interpretation * * * * HEPATOBILIARY SCAN WITH GALLBLADDER EJECTION FRACTION: CLINICAL HISTORY: 37 year old female patient with history of right upper quadrant pain, nausea. TECHNIQUE: 5.4 mCi Tc-99m Choletec IV, followed by 60 minutes of abdominal imaging. 8 ounces Ensure plus PO, followed by additional 45 minutes of imaging. RESULT: There is prompt and homogeneous uptake by the liver, which appears grossly normal in size and shape. Gallbladder activity is visualized by 11 minutes, indicating cystic duct patency. Proximal small bowel activity is noted by 25 minutes, indicating common bile duct patency. After Ensure plus was administered there is normal emptying from the gallbladder with a calculated gallbladder ejection fraction of 92% (normal > 35%). IMPRESSION: 1. PATENT CYSTIC AND COMMON BILE DUCTS. NO EVIDENCE OF ACUTE CHOLECYSTITIS. 2. NORMAL GALLBLADDER EJECTION FRACTION. NO EVIDENCE OF CHRONIC CHOLECYSTITIS. [employer] Internship: S[facility]NA Transcribe Date/Time: Dec 17 2017 11:56A Dictated by : EMILY KEITA MD This examination was interpreted and the report reviewed and electronically signed by: NAYE HAHN MD on Dec 17 2017 3:59PM EST [id number] CNOV Observed: 12/14/2017 Status: COMPLETED Source: [place] 11:45 AM [facility] REPOSITORY Office Visit ([facility]) ELIDIA WALTON ([id number]) 1980 F NFR Date Time Provider Department 12/14/17 11:45 AM ANDERS MALLORY [facility] During your visit today, we recorded the following information about you: Temperature Pulse Respiration Blood pressure 97.6 degrees 110/minute 16/minute 102/74 Weight 91.3 kg Anders Mallory MD 12/14/2017 11:57 AM Signed Patient presents with: siinus pain and congestion, cough, ST and right ear pain: x 3 days HPI: Feeling sick for 3 days. Positive symptoms: Cough, Sore throat, right Earache, Sinus pressure, watery right eye, Nasal Congestion, green discharge this morning, Rhinorrhea, mild chest tightness Negative symptoms: Shortness of breath, Chest pain, OTC: vaporub PAST MEDICAL HISTORY Diagnosis Date - Abdominal pain, generalized - Acute gastritis - Bipolar I disorder, most recent episode (or current) unspecified - Carcinoma in situ of cervix uteri - Diaphragmatic hernia without mention of obstruction or gangrene - Diverticulitis - History of colon polyps 07/14/2016 - Irritable bowel syndrome - Mitral valve disorders(424.0) - 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 1/2 hr before meal. nicotine (NICODERM CQ) 21 mg/24 hr Apply 1 Patch as directed every 24 hours. vitamin B complex (B COMPLEX ORAL) Take 1 tablet by mouth once daily. MULTIVITAMIN ORAL Take 1 tablet by mouth once daily. tiZANidine (ZANAFLEX) 4 mg tablet Take 1 tablet by mouth every 8 hours as needed. acetaminophen (TYLENOL EXTRA STRENGTH) 500 mg tablet Take 1,000 mg by mouth as needed. rizatriptan (MAXALT) 10 mg tablet Take 1 tablet by mouth as needed. No current facility-administered medications for this visit. ALLERGIES: ALLERGIES Allergen Reactions - Bees Anaphylaxis - Bee Sting Anaphylaxis - Darvocet A500 [Prop* GI Upset - Hydrocodone Other: See Comments anxiety - Phenergan [Prometha* Mental Status Change - Sulfa (Sulfonamide * Intolerance HIVES VITALS: BP 102/74 Pulse 110 Temp 36.4 ?C (97.6 ?F) (Tympanic) Resp 16 Wt 91.3 kg (201 lb 3.2 oz) LMP 02/02/2016 SpO2 98% BMI 29.71 kg/m? PHYSICAL EXAM: GEN: mildly ill appearing HEENT: PERRL, EOMI, conjunctiva lightly injected Ears: canals clear, TMs without erythema, bulge, or effusion Sinuses: pressure over sinuses Throat: moist mucous membranes, posterior pharyngeal and uvular erythema, no exudate Neck: supple, no thyromegaly, no lymphadenopathy HEART: regular rate and rhythm, no murmurs LUNGS: clear to auscultation, no wheezes or crackles, no increased WOB; smells of tobacco smoke ASSESSMENT/PLAN: 1. URI, acute - ICD9: 465.9, ICD10: J06.9 - suspect viral URI - Discussed supportive care treatment with rest, cold medicine, and analgesia. Requests Rx for- PSEUDOEPHEDRINE 30 MG TABLET Anders Mallory MD Referring Provider: SELF [200] Allergies As of Date: 12/14/2017 Noted Allergy Reaction BEES 2005 10 - Anaphylaxis BEE STING 12/11/2014 10 - Anaphylaxis DARVOCET A500 (PROPOXYPHENE N-NAOMI*12/23/2005 8 - GI Upset HYDROCODONE 03/30/2012 14 - Other: See Comments Comments: anxiety PHENERGAN (PROMETHAZINE HCL) 07/02/2016 1 - Mental Status Change SULFA (SULFONAMIDE ANTIBIOTICS) 01/13/2005 5 - Intolerance Comments: HIVES Date Reviewed: 12/14/2017 Reviewed by: Selma Eller LPN - Fully Assessed Reason for Visit: siinus pain and congestion, cough, ST and right ear pain [Other] Cmt: x 3 days Primary Visit Diagnosis:URI, acute [J06.9] Order(s):pseudoephedrine (SUDAFED) 30 mg tabletTake 1 every 6 or 2 every 12Disp: 30 tabletRfl: 0 Prescriptions as of 12/14/2017 Sig: OMEPRAZOLE 20 MG CAPSULE,TARYN* Take 2 capsules by mouth twic* NICOTINE 21 MG/24 HR DAILY TR* Apply 1 Patch as directed neda* B COMPLEX ORAL Take 1 tablet by mouth once d* MULTIVITAMIN ORAL Take 1 tablet by mouth once d* TIZANIDINE 4 MG TABLET Take 1 tablet by mouth every * ACETAMINOPHEN 500 MG TABLET Take 1,000 mg by mouth as nee* RIZATRIPTAN 10 MG TABLET Take 1 tablet by mouth as nee* PSEUDOEPHEDRINE 30 MG TABLET Take 1 every 6 or 2 every 12 Problem List As Of Date 12/14/2017 Noted Resolved Acute gastritis [535.0] INVALID FOR*10/19/2015 BENIGN NEOPLASM LG BOWEL [D12.6] INVALID FOR* ACNE NEC [L70.8] INVALID FOR* SEBACEOUS CYST [L72.3] INVALID FOR* Follicular lymphoma grade II of intra-abdominal*INVALID FOR* Tobacco abuse [Z72.0] INVALID FOR* Lymphoma, non-Hodgkin's (HCC) [C85.90] INVALID FOR* Cervical cancer (HCC) [C53.9] INVALID FOR* EVERETTE (stress urinary incontinence, female) [N39.*INVALID FOR* History of lymphoma [Z85.79] INVALID FOR* LUQ pain [R10.12] INVALID FOR* More... Prescriptions ordered this encounter Disp Refills Start End PSEUDOEPHEDRINE 30 MG TABLET 30 t* 0 12/14/2017 12/20/2017 Sig: Take 1 every 6 or 2 every 12 Letter Text [place] [facility] [address], [place] [address] 12/14/2017 Elidia Walton [facility]# [id number] 9 [facility] [address] [place] [address] TO WHOM IT MAY CONCERN: This is to confirm that Elidia Walton had an appointment and was seen at the [facility] in the Department of Urgent Care by Anders Mallory MD on 12/14/2017 for illness. Sincerely , Anders Mallory MD Encounter Status:Closed by ANDERS MALLORY MD on 12/14/17 PROGRESS Observed: 12/14/2017 Status: COMPLETED Source: [place] 11:39 AM [facility] REPOSITORY HNO ID: [id number] Author: Anders Mallory Service: (none) Author Type: Physician Type: Progress Notes Filed: 12/14/2017 11:57 AM Note Text: Patient presents with: siinus pain and congestion, cough, ST and right ear pain: x 3 days HPI: Feeling sick for 3 days. Positive symptoms: Cough, Sore throat, right Earache, Sinus pressure, watery right eye, Nasal Congestion, green discharge this morning, Rhinorrhea, mild chest tightness Negative symptoms: Shortness of breath, Chest pain, OTC: vaporub PAST MEDICAL HISTORY Diagnosis Date - Abdominal pain, generalized - Acute gastritis - Bipolar I disorder, most recent episode (or current) unspecified - Carcinoma in situ of cervix uteri - Diaphragmatic hernia without mention of obstruction or gangrene - Diverticulitis - History of colon polyps 07/14/2016 - Irritable bowel syndrome - Mitral valve disorders(424.0) - 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 1/2 hr before meal. nicotine (NICODERM CQ) 21 mg/24 hr Apply 1 Patch as directed every 24 hours. vitamin B complex (B COMPLEX ORAL) Take 1 tablet by mouth once daily. MULTIVITAMIN ORAL Take 1 tablet by mouth once daily. tiZANidine (ZANAFLEX) 4 mg tablet Take 1 tablet by mouth every 8 hours as needed. acetaminophen (TYLENOL EXTRA STRENGTH) 500 mg tablet Take 1,000 mg by mouth as needed. rizatriptan (MAXALT) 10 mg tablet Take 1 tablet by mouth as needed. No current facility-administered medications for this visit. ALLERGIES: ALLERGIES Allergen Reactions - Bees Anaphylaxis - Bee Sting Anaphylaxis - Darvocet A500 [Prop* GI Upset - Hydrocodone Other: See Comments anxiety - Phenergan [Prometha* Mental Status Change - Sulfa (Sulfonamide * Intolerance HIVES VITALS: BP 102/74 Pulse 110 Temp 36.4 ?C (97.6 ?F) (Tympanic) Resp 16 Wt 91.3 kg (201 lb 3.2 oz) LMP 02/02/2016 SpO2 98% BMI 29.71 kg/m? PHYSICAL EXAM: GEN: mildly ill appearing HEENT: PERRL, EOMI, conjunctiva lightly injected Ears: canals clear, TMs without erythema, bulge, or effusion Sinuses: pressure over sinuses Throat: moist mucous membranes, posterior pharyngeal and uvular erythema, no exudate Neck: supple, no thyromegaly, no lymphadenopathy HEART: regular rate and rhythm, no murmurs LUNGS: clear to auscultation, no wheezes or crackles, no increased WOB; smells of tobacco smoke ASSESSMENT/PLAN: 1. URI, acute - ICD9: 465.9, ICD10: J06.9 - suspect viral URI - Discussed supportive care treatment with rest, cold medicine, and analgesia. Requests Rx for- PSEUDOEPHEDRINE 30 MG TABLET Anders Mallory MD EMERGENCY DEPARTMENT Observed: 12/08/2017 Status: F Source: [place] SUMMARY 12:11 AM [facility] Medical Records Department [address] [place] [address] Emergency Department Summary 12/07/17 2225 MR#: [id number] Acct: [id number] Name: ELIDIA WALTON Rep #: [id number] : 1980 37 From: Arias Cortez MD PCP: Karlos Newell MD Status: DEP ER - ER Visit Summary Date of Service: 12/07/17 Chief Complaint: Headache History of Present Illness: The patient is a 37 F with a headache that started today around 1 PM. Pain is over her left side. Worse with light and sound. Associated with nausea and vomiting. The patient has a history of migraines. This episode was triggered after she had an EGD earlier today. Denies abdominal pain or other associated symptoms. Physical Examination: Afebrile vital signs unremarkable. Patient is tearful and appears uncomfortable. Head and neck atraumatic. HEENT exam unremarkable. Neck nontender with good range of motion. Heart regular. Lungs clear. Skin normal in color without rash. Alert and oriented. Cranial nerves grossly intact. Normal strength and sensation. Test Results: None indicated Emergency Department Course and Treatment: Patient treated with fluids, Compazine, Benadryl, and Toradol. She had resolution of her headache. Was resting comfortably. Requested discharge. No indication for imaging or diagnostic testing. Stay hydrated and rested. Follow-up with primary care. Return for any new or worsening issues. And was discussed with her at the bedside as she is somewhat sedated. Treatment Plan: As above Disposition: Discharged Impression: 1. Acute headache This note was generated with [employer] software. It may contain incorrect words, spelling, and punctuation that were not noted in review of the chart prior to signing ED Disposition - Plan for ED Patient: Chief Complaint: Headache Referrals: Karlos Newell MD [Primary Care Provider] - What to do if you have Problems For any increased pain, shortness of breath, bleeding, nausea or vomiting, chest pain, or any unexpected problems, contact your Primary Care Provider. Call [facility] ([phone]) or report to the closest Emergency Room. Call 911 if necessary. 12/08/1710 <Electronically signed by Arias Cortez MD> Date Arias Cortez MD Cosigner Signature (If Indicated): Date CC: Karlos Newell MD DISCHARGE INSTRUCTION Observed: 12/08/2017 Status: F Source: [place] 12:11 AM [facility] Medical Records Department [address] [place] [address] Discharge Instruction 12/07/172226 MR#: [id number] Acct: [id number] Name: ELIDIA WALTON Bong Rep #: [id number] : 1980 37 From: Arias Cortez MD PCP: Karlos Newell MD Status: DEP ER ED Disposition - Plan for ED Patient: Chief Complaint: Headache Instructions: ED Cephalgia Unspecified Referrals: Karlos Newell MD [Primary Care Provider] - What to do if you have Problems For any increased pain, shortness of breath, bleeding, nausea or vomiting, chest pain, or any unexpected problems, contact your Primary Care Provider. Call [facility] ([phone]) or report to the closest Emergency Room. Call 911 if necessary. 12/08/1710 <Electronically signed by Arias Cortez MD> Date Arias Cortez MD Cosigner Signature (If Indicated): Date CC: Karlos Newell MD HOSP Observed: 12/08/2017 Status: COMPLETED Source: [place] 12:00 AM [facility]IC [facility]IN [facility]AMP[facility] REPOSITORY Patient:Elidia Walton MRN: <[id number]> Height:5' 9(1.753 m) Weight:201 lb (91.173 kg) Outpatient Medications as of 01/11/18: omeprazole (PRILOSEC) 20 mg capsule nicotine (NICODERM CQ) 21 mg/24 hr vitamin B complex (B COMPLEX ORAL) MULTIVITAMIN ORAL tiZANidine (ZANAFLEX) 4 mg tablet acetaminophen (TYLENOL EXTRA STRENGTH) 500 mg tablet rizatriptan (MAXALT) 10 mg tablet Admission/Clinic Administered Medications as of 01/11/18: lactated ringers infusion Problem List: Benign neoplasm of colon [D12.6] Other acne [L70.8] Sebaceous cyst [L72.3] 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) [C82.13] Tobacco abuse [Z72.0] Lymphoma, non-Hodgkin's (HCC) [C85.90] Cervical cancer (HCC) [C53.9] EVERETTE (stress urinary incontinence, female) [N39.3] History of lymphoma [Z85.79] LUQ pain [R10.12] Allergies: Bees Bee Sting Darvocet A500 [Propoxyphene N-Acetaminophen] Hydrocodone Phenergan [Promethazine Hcl] Sulfa (Sulfonamide Antibiotics) Date Verified: 01/11/18 Lab Values No results within the last 30 days for the following basenames: K,HCT Progress Notes ([facility]): Erma Corey Ma 01/06/2018 3:08 PM Signed Patient calling in and having a colonoscopy done on Thursday by you and was wondering if the prep could be sent to the pharmacy. I didn't see where it was anywhere. Patient would also like a refill of the Omeprazole. Erma Pelayo MD 01/06/2018 3:18 PM Signed I have sent a prescription for omeprazole and the GoLYTELY to the drug marked in [place] Erma Corey Ma 01/07/2018 3:18 PM Signed Left message on a secure VM with the information below. Erma Corey Ma Progress Notes ([facility]): Anders Mallory MD 12/19/2017 11:10 AM Signed Patient presents with: URI HPI: Feeling sick for 1 week, severe right frontal pain for 2 days- worse when she bends forward Positive symptoms: Cough, Sinus pressure, Nasal Congestion, Rhinorrhea, Post nasal drainage, air goes in her ears with coughs, Negative symptoms: Fever, Chills, Body Aches, OTC: Mucinex, Sudafed MEDICATIONS: Current Outpatient Prescriptions: pseudoephedrine (SUDAFED) 30 mg tablet Take 1 every 6 or 2 every 12 omeprazole (PRILOSEC) 20 mg capsule Take 2 capsules by mouth twice daily. 1/2 hr before meal. nicotine (NICODERM CQ) 21 mg/24 hr Apply 1 Patch as directed every 24 hours. vitamin B complex (B COMPLEX ORAL) Take 1 tablet by mouth once daily. MULTIVITAMIN ORAL Take 1 tablet by mouth once daily. tiZANidine (ZANAFLEX) 4 mg tablet Take 1 tablet by mouth every 8 hours as needed. acetaminophen (TYLENOL EXTRA STRENGTH) 500 mg tablet Take 1,000 mg by mouth as needed. rizatriptan (MAXALT) 10 mg tablet Take 1 tablet by mouth as needed. No current facility-administered medications for this visit. ALLERGIES: ALLERGIES Allergen Reactions - Bees Anaphylaxis - Bee Sting Anaphylaxis - Darvocet A500 [Prop* GI Upset - Hydrocodone Other: See Comments anxiety - Phenergan [Prometha* Mental Status Change - Sulfa (Sulfonamide * Intolerance HIVES VITALS: BP 102/72 Pulse 100 Temp 36.8 ?C (98.3 ?F) (Left Tympanic) Resp 16 Wt 91.2 kg (201 lb) LMP 02/02/2016 SpO2 99% BMI 29.68 kg/m? PHYSICAL EXAM: GEN: mildly ill appearing HEENT: PERRL, EOMI, conjunctiva clear Ears: canals clear, TMs without erythema, bulge, or effusion Sinuses: non-tender frontal sinus, non-tender maxillary sinuses, nasal passages edematous Throat: moist mucous membranes, mild erythema, no exudate Neck: supple, no thyromegaly, no lymphadenopathy HEART: regular rate and rhythm, no murmurs LUNGS: clear to auscultation, no wheezes or crackles, no increased WOB ASSESSMENT/PLAN: 1. Acute non-recurrent sinusitis, unspecified location - ICD9: 461.9, ICD10: J01.90 - AMOXICILLIN 875 MG TABLET - FLUCONAZOLE 150 MG TABLET Anders Mallory MD NURSING PROG Observed: 12/07/2017 Status: COMPLETED Source: [place] 2:48 PM [facility] REPOSITORY HNO ID: [id number] Author: Pooja Gutierrez RN Service: (none) Author Type: Registered Nurse Type: Nursing Progress Note Filed: 12/07/2017 2:48 PM Note Text: Patient did not experience a fall prior to discharge. Patient did not experience a burn prior to discharge. Pooja Gutierrez RN PT ED Observed: 12/07/2017 Status: COMPLETED Source: [place] 2:47 PM [facility] REPOSITORY HNO ID: [id number] Author: Pooja Gutierrez RN Service: (none) Author Type: Registered Nurse Type: Patient Education Filed: 12/07/2017 2:48 PM Note Text: POST OP LEARNING RESPONSE INSTRUCTION PROVIDED TO: Patient METHOD OF INSTRUCTION: Individual instruction Written instruction - handouts Verbal instruction PATIENT / FAMILY RESPONSE: Information received as demonstrated by interest and questions FOLLOW-UP PLAN: Follow up phone call. Contact information given. followup appointment with Preeti Herrera RNCOMMUNITY RESOURCE CONSULTANT MATERIAL: Depression Information Procedure discharge instructions REFERRAL (RECOMMENDATION): None Electronically Signed By: Pooja Gutierrez RN In Department: AMBULATORY SURGERY NURSING PROG Observed: 12/07/2017 Status: COMPLETED Source: [place] 2:00 PM [facility] REPOSITORY HNO ID: [id number] Author: Pooja Gutierrez RN Service: (none) Author Type: Registered Nurse Type: Nursing Progress Note Filed: 12/07/2017 2:49 PM Note Text: Dr. Pelayo at bedside to review procedure and recommendations. Pooja Gutierrez RN NURSING PROG Observed: 12/07/2017 Status: COMPLETED Source: [place] 1:29 PM [facility] REPOSITORY HNO ID: [id number] Author: Emely AndrewsRnKat Cotto RN Service: Nursing Author Type: Registered Nurse Type: Nursing Progress Note Filed: 12/07/2017 1:29 PM Note Text: Patient did not experience a fall within the Intraoperative area. Patient did not experience a burn within the Intraoperative area. Emely Cotto RN BRIEF OP NOT Observed: 12/07/2017 Status: COMPLETED Source: [place] 1:27 PM [facility] REPOSITORY HNO ID: [id number] Author: Jason Pelayo Service: Gastroenterology Author Type: Physician Type: Brief Op Note Filed: 12/07/2017 1:27 PM Note Text: BRIEF OPERATIVE NOTE PATIENT NAME: Elidia Walton LOG ID: [id number] Surgery Date: 12/07/2017 Surgeon(s) and Emergency Veterinarian(s): Jason Pelayo MD -Primary Procedure(s): Procedure(s) (LRB): EGD (N/A) EGD WITH BIOPSY (N/A) Anesthesia: Procedural Sedation Findings: Normal exam Estimated Blood Loss: Minimal Specimens: Antral biopsies Preop Diagnosis: LUQ pain Postop Diagnosis: LUQ pain SIGNATURE: Jason Pelayo MD DATE: December 07, 2017 TIME: 1:27 PM NURSING PROG Observed: 12/07/2017 Status: COMPLETED Source: [place] 1:06 PM [facility] REPOSITORY HNO ID: [id number] Author: Asiya Mora RN Service: (none) Author Type: Registered Nurse Type: Nursing Progress Note Filed: 12/07/2017 1:06 PM Note Text: Patient did not experience a fall within the Preoperative area. Patient did not experience a burn within the Preoperative area. [facility] PRE-OP NURSING HAND OFF NOTE SBAR Hand off given to Emely Cotto RN. Hand off was communicated verbally and at the patient's bedside and all questions were answered. MARCELLA Null RN HISTORY PHYSICAL Observed: 12/07/2017 Status: COMPLETED Source: [place] 12:58 PM [facility] REPOSITORY HNO ID: [id number] Author: Jason Pelayo Service: Gastroenterology Author Type: Physician Type: HANDP Filed: 12/07/2017 12:58 PM Note Text: UPDATED HISTORY AND PHYSICAL EXAMINATION SERVICE DATE: 12/07/2017 SERVICE TIME: 12:58 PM PHYSICAL EXAM MUST BE COMPLETED ON ADMISSION The History and Physical (completed in the past 30 days) has been reviewed and the patient has been examined. The contents accurately reflect the patient's condition with the following additions or revisions since the HANDP was completed. Examination indicates no changes. This HANDP can be found in the Electronic Medical Record dated 12/01/17. SIGNATURE: Jason Pelayo MD PATIENT NAME: Elidia Walton DATE: December 07, 2017 TIME: 12:58 PM PAGER: PT ED Observed: 12/07/2017 Status: COMPLETED Source: [place] 12:21 PM [facility] REPOSITORY HNO ID: [id number] Author: Asiya (Rn) MARCELLA Mora Service: (none) Author Type: Registered Nurse Type: Patient Education Filed: 12/07/2017 12:22 PM Note Text: PRE OP LEARNING ASSESSMENT PROCEDURE/SURGERY: GI PROCEDURES: EGD READINESS TO LEARN COGNITIVE ABILITY: Alert and oriented MOTIVATION TO LEARN: Eager Interested FAMILY SUPPORT: High - Very involved in pt care PATIENT LEARNS BEST BY: Individual Instruction Written Instruction - Hand-outs Verbal Instruction Multiple Methods FACTORS AFFECTING LEARNING: None PHYSICAL LIMITATIONS AFFECTING LEARNING: None Electronically Signed By: Asiya Mora RN In Department: AMBULATORY SURGERY SURGICAL PATHOLOGY Observed: 12/07/2017 Status: F Source: [place] 12:00 AM [facility] REPOSITORY Specimen originated from [facility] Specimen #: [id number] Submitting Physician: JASON PELAYO MD FINAL DIAGNOSIS Stomach, antrum, biopsy - Gastric antral-type mucosa with no diagnostic abnormality. JEL/srcece 12/09/2017 COMMENT No Helicobacter pylori organisms are identified. Yadiel Morin M.D. (Electronic Signature) SPECIMEN SUBMITTED A: ANTRUM, BIOPSY FOR H&H CLINICAL DATA LUQ pain [R10.12] GROSS DESCRIPTION A. Received in formalin are two pieces of oluis, soft tissue aggregating to 1.0 x 0.2 x 0.1 cm. Totally submitted in one cassette. Gross examination performed at [facility], [address] [place] [address] FFS 12/08/2017 1:33:50 AM Date of Report: 12/09/2017 Date of Procedure: 12/07/2017 Date of Receipt: 12/07/2017 Submitted by: JASON PELAYO MD Location: [facility] Diagnostic interpretation performed at [facility], [address] [place] [address]. CBC AND DIFFERENTIAL Collected: 12/02/2017 Status: F Source: [place] 4:21 PM [facility] [place] REPOSITORY TYPE CODE TESTS RESULT OUT OF REFERENCE UNITS RANGE LAB WBC 3.70-11.00 k/uL WBC 9.08 LAB RBC 3.90-5.20 m/uL RBC 4.45 LAB HGB 11.5-15.5 g/dL Hemoglobin 13.6 LAB HCT 36.0-46.0 % Hematocrit 42.1 LAB MCV 80.0-100.0 fL MCV 94.6 LAB MCH 26.0-34.0 pG MCH 30.6 LAB MCHC 30.5-36.0 g/dL MCHC 32.3 LAB RDWCV 11.5-15.0 % RDW-CV 13.1 LAB PLTCT 150-400 k/uL Platelet Count 351 LAB MPV 9.0-12.7 fL MPV 9.9 LAB ANEUT % Neut% 62.1 LAB AANEUT 1.45-7.50 k/uL Abs Neut 5.64 LAB ALYMP % Lymph% 28.1 LAB AALYMP 1.00-4.00 k/uL Abs Lymph 2.55 LAB AMONO % H[place]% 8.4 LAB AAMONO <0.87 k/uL Abs [place] 0.76 LAB AEOS % Eosin% 1.0 LAB AAEOS <0.46 k/uL Abs Eosin 0.09 LAB ABASO % Baso% 0.4 LAB AABASO <0.11 k/uL Abs Baso 0.04 LAB AUNRBC 0 /100 WBC NRBCs 0.0 LAB ABNRBC <0.01 k/uL Absolute nRBC <0.01 LAB DTYP DTYPE Auto Diff Performed By: #### CBCDIF, AMYL, CMP, LIPA #### [facility] [employer] [address] [place], [place] [address] AMYLASE Collected: 12/02/2017 Status: F Source: [place] 4:21 PM [facility] REPOSITORY TYPE CODE TESTS RESULT OUT OF REFERENCE UNITS RANGE LAB AMYL 30-104 U/L Low Amylase 26 Performed By: #### CBCDIF, AMYL, CMP, LIPA #### [facility] [employer] [address] [place], [place] [address] COMP METABOLIC PANEL Collected: 12/02/2017 Status: F Source: [place] 4:21 PM [facility] REPOSITORY TYPE CODE TESTS RESULT OUT OF REFERENCE UNITS RANGE LAB TP 6.3-8.0 g/dL Protein, Total 7.0 LAB ALB 3.9-4.9 g/dL Albumin 4.6 LAB CA 8.5-10.2 mg/dL Calcium, Total 9.5 LAB TBIL 0.2-1.3 mg/dL Bilirubin, Total 0.2 LAB ALKP 32-117 U/L Alkaline Phosphatase 65 LAB AST 13-35 U/L AST 23 LAB GLU 74-99 mg/dL Glucose 92 Result Comment: The [place] Diabetes Association (ADA) provides guidance for cutoff values for fasting glucose and random glucose. The ADA defines fasting as no caloric intake for at least 8 hours. Fas ting plasma glucose results between 100 to 125 mg/dL indicate increased risk for diabetes (prediabetes). Fasting plasma glucose results greater than or equal to 126 mg/dL meet the criteria for diagnosis of diabetes. In the absence of unequivocal hyperglycemia, results should be confirmed by repeat testing. In a patient with classic symptoms of hyperglycemia or hyperglycemic crisis, random plasma glucose results greater than or equal to 200 mg/dL meet the criteria for diagnosis of diabetes. Reference: Standards of Medical Care in Diabetes 2016, [place] Diabetes Association. Diabetes Care. 2016.39(Suppl 1). LAB BUN 7-21 mg/dL BUN 9 LAB CRET 0.58-0.96 mg/dL Creatinine 0.68 LAB NA 136-144 mmol/L Sodium Low 135 LAB K 3.7-5.1 mmol/L Potassium 3.8 LAB CL 97-105 mmol/L Chloride 101 LAB CO2 22-30 mmol/L CO2 25 LAB AGAP 9-18 mmol/L Anion Gap 9 LAB ALT 7-38 U/L ALT 21 LAB GFRAA eGFR- Amer. >60 LAB GFRNAA . eGFR-All Other Races >60 Result Comment: eGFR (Estimated GFR) Units of measure: mL/min/1.73 meters squared eGFR is derived from the reexpressed MDRD Study equation using the following parameters: serum creatinine, age, gender and race. The creatinine assay has been calibrated to be traceable to IDMS. An eGFR <60 mL/min/1.73m2 for >3 months is consistent with chronic kidney disease. Refer to KDOQI guidelines for clinical interpretation. In patients with unstable renal function, e.g. those with acute kidney injury, the eGFR may not accurately reflect actual GFR. Performed By: #### CBCDIF, AMYL, CMP, LIPA #### [facility] [employer] [address] [place] [address] LIPASE Collected: 12/02/2017 Status: F Source: [place] 4:21 PM [facility] REPOSITORY TYPE CODE TESTS RESULT OUT OF REFERENCE UNITS RANGE LAB LIPA 16-61 U/L Lipase 30 Performed By: #### CBCDIF, AMYL, CMP, LIPA #### [facility] [employer] [address] [place], [place] [address] CNCO Observed: 12/02/2017 Status: COMPLETED Source: [place] 12:00 AM [facility] REPOSITORY Letter Text Karlos Newell MD [facility] Elidia Walton [address] [facility] [address] [facility] #: [id number] 12/02/2017 Dear Ms. Walton, I have received the results of your recent tests. The results of your Urine Culture test were either normal or within the acceptable range. We can discuss this at your next visit. Please do not hesitate to contact me with any questions. Sincerely, Karlos Newell MD [facility] Department electronically signed to expedite mailing 12 LEAD ELECTROCARDIOGRAM Observed: 12/01/2017 Status: F Source: [place] 1:35 PM [facility] Cardiovascular Services [address] [place] [address] 12 Lead EKG 11/30/17 0249 MR#: [id number] Acct: [id number] Name: ELIDIA WALTON Rep #: [id number] : 1980 37 From: Ray Gonzales MD Attending Dr: Status: DEP ER Ordering Dr: Hi Padron MD Date: 11/30/17 Location: ED Sex: F C Admitted: Test Reason : ABDOMINAL PAIN Blood Pressure : / mmHG Vent. Rate : 084 BPM Atrial Rate : 084 BPM P-R Int : 170 ms QRS Dur : 086 ms QT Int : 378 ms P-R-T Axes : 068 074 059 degrees QTc Int : 446 ms Normal sinus rhythm Normal ECG Confirmed by RAY GONZALES MD ([id number]), editorial project manager RANDOLPH GARCIA ([id number]) on 12/01/2017 1:34:26 PM Referred By: NEREIDA Confirmed By:RAY GONZALES MD 12/01/17 1334 Date Ray Gonzales MD CC: HI PADRON MD; Karlos Newell MD Signed HISTORY PHYSICAL Observed: 12/01/2017 Status: COMPLETED Source: [place] 9:54 AM [facility] REPOSITORY [facility] ID: [id number] Author: Murali Herrera Service: (none) Author Type: Nurse Practitioner Type: HANDP Filed: 12/01/2017 12:08 PM Note Text: Elidia Walton a 37 year old female who is a consultation requested by Dr. Newell for an opinion regarding LUQ pain and GERD. My final recommendations will be communicated back to the requesting physician by way of shared Medical record. The patient has not been seen previously by this provider. The patient was seen by Dr. Arzate for upper endoscopy and colonoscopy 07/10/16 for chronic epigastric pain and left sided pain. The procedure report has been reviewed and findings as follows: EGD Findings: ? ? ?The entire examined stomach was normal. Biopsies were taken with a cold ? ? ?forceps for Helicobacter pylori testing. ? ? ?The examined duodenum was normal. Biopsies were taken with a cold ? ? ?forceps for histology. Biopsies for histology were taken with a cold ? ? ?forceps for for evaluation of celiac disease. Colonoscopy Findings: ? ? ?The perianal and digital rectal examinations were normal. ? ? ?An area of mildly mucosa was found in the cecum. Biopsies were taken ? ? ?with a cold forceps for histology. Verification of patient ? ? ?identification for the specimen was done. ? ? ?Hemorrhoidal disease noted - mild. Impression: ? - Mucosa in the cecum. Biopsied. FINAL DIAGNOSIS 1. Duodenum, biopsy (A) - Duodenal mucosa with no diagnostic alteration. - Negative for celiac disease. 2. Antrum, biopsy (B) - Antral mucosa with no diagnostic alteration. - Negative for Helicobacter pylori. 3. Cecum, biopsy (C) - Sessile serrated polyp. CT chest: 11/03/17 IMPRESSION: Stable scans through the chest. ?No developing lymphadenopathy or mass. CT abd/pelvis: 11/03/17 IMPRESSION: Left adnexal cyst is likely ovarian. ?This could be better evaluated sonographically. ?No developing suspicious mass or adenopathy within the abdomen or pelvis. The patient was seen by Reece on 11/06/17, leading to this consultation. That note has been reviewed and part as follows: Stomach is better but not perfect. No bloody or black stools. Still with some gerd symptoms. Discussed avoiding nsaids. Presenting complaint: The patient presents today stating when Dr. Newell put me on the Prilosec the heartburn went away instantly. Taking Prilosec 20mg twice a day. The patient reports aching pain in the LUQ. Some nausea. She can't say if eating makes it better or worse. She tells me that she has a HIDA scan set up for 12/17. The patient has a history of lymphoma and states I am always afraid of cancer. Having a bowel movement daily to every other day. Denies blood or black stool. The patient tells me the night of 11/29 I woke up with severe pain in a band all the way around. She is showing me bilateral flank to upper abdomen. She tells me she's afraid it's her kidneys. I tell her that what she describes sounds like it's muscular or nerve related. She tells me that she saw Dr. Newell yesterday for it and that Dr. Newell feels likely muscular. This pain doesn't appear to be related to the left sided pain. REVIEW OF SYSTEMS: GENERAL: No weight loss of fevers. Positive for malaise. Last 10 Encounter Wt Readings: Date: Wt: 12/01/2017 93.9 kg (207 lb) 11/30/2017 93 kg (205 lb) 11/06/2017 92.1 kg (203 lb) 10/20/2017 92.5 kg (204 lb) 08/18/2017 92.5 kg (204 lb) 04/22/2017 93 kg (205 lb) 04/02/2017 89.8 kg (198 lb) 01/28/2017 90.3 kg (199 lb) 01/27/2017 91.2 kg (201 lb) 12/22/2016 90.7 kg (200 lb) HEENT: Negative for frequent or significant headaches, No changes in hearing or vision, no nose bleeds or other nasal problems NECK: Negative for new lumps, goiter, pain and significant neck swelling RESPIRATORY: Negative for cough, hemoptysis, wheezing, COPD, dyspnea or shortness of breath CARDIOVASCULAR: Negative for chest pain, leg swelling, hypertension, CHF or palpitations GI: The patient states that her appetite has been good. She does get hungry. There has been some nausea, no vomiting. She denies dysphagia and denies odynophagia. There has been indigestion with heartburn. The heartburn is improved with the omeprazole. There has partially been regurgitation. Bowel habits have been regular. There has not been diarrhea. There has not been constipation. The patient denies rectal bleeding. There has not been melena. Intermittent abdominal pain that is located in the left upper and left lower quadrant. PSYCH: Negative for sleep disturbance, mood disorder and recent psychosocial stressors. HEMATOLOGY/LYMPHOLOGY: History of lymphoma. Negative for prolonged bleeding, bruising easily or swollen nodes ENDOCRINE: Negative for thyroid or diabetes. NEURO: No history of headaches, syncope, paralysis, seizures or tremors All other reviewed and negative other than HPI. PAST MEDICAL HISTORY Diagnosis Date - Abdominal pain, generalized - Acute gastritis - Bipolar I disorder, most recent episode (or current) unspecified - Carcinoma in situ of cervix uteri - Diaphragmatic hernia without mention of obstruction or gangrene - Diverticulitis - History of colon polyps 07/14/2016 - Irritable bowel syndrome - Mitral valve disorders(424.0) - 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 - Post depression - Snoring - Tobacco abuse PAST SURGICAL HISTORY Procedure Laterality Date - CERVIX UTERI CONIZA LP ELCTRO EXCI 09/24 LEEP-Cervix - COLONOSCOP W/ OR W/O [facility] SPEC 2004 Colonoscopy/endoscopy - COLONOSCOP W/ OR W/O [facility] SPEC 07/10/2016 repeat 5 years - sessile serrated polyp - EGD W/O OR W/BRUSH/WASH 07/10/2016 EGD - EXPLORATORY OF ABDOMEN Laparotomy, exp - KNEE SCOPE,DIAGNOSTIC Arthroscopy, knee, ACL LEFT - LIGATE FALLOPIAN TUBE 2001 Tubal ligation - PART SIMPLE REMV VULVA 07/04/14 left vulvar cyst removal - REMOVAL OF TONSILS,<12 Y/O Tonsillectomy - REPAIR OF NASAL SEPTUM Septoplasty - S DRAPE,LAV-LAPAROSCOPY,[id number] 03/12/2016 - S PORT A CATH II STANDARD 04/2014,09/2014 left inserted and removed, right side. insered and removed - SLING OPER STRES INCONTINENCE 03/12/2016 FAMILY HISTORY Problem Relation Age of Onset - Cancer Paternal Aunt ovarian - Hypertension Brother - Diabetes Father HEART ,STROKE - Cancer Paternal Grandmother OVARIAN Current Outpatient Prescriptions: omeprazole (PRILOSEC) 20 mg capsule Take 1 capsule by mouth twice daily. 1/2 hr before meal. Disp: 180 capsule Rfl: 1 nicotine (NICODERM CQ) 21 mg/24 hr Apply 1 Patch as directed every 24 hours. Disp: 30 Patch Rfl: 0 vitamin B complex (B COMPLEX ORAL) Take 1 tablet by mouth once daily. Disp: Rfl: MULTIVITAMIN ORAL Take 1 tablet by mouth once daily. Disp: Rfl: tiZANidine (ZANAFLEX) 4 mg tablet Take 1 tablet by mouth every 8 hours as needed. Disp: 30 tablet Rfl: 1 acetaminophen (TYLENOL EXTRA STRENGTH) 500 mg tablet Take 1,000 mg by mouth as needed. Disp: Rfl: rizatriptan (MAXALT) 10 mg tablet Take 1 tablet by mouth as needed. Disp: 9 tablet Rfl: 5 No current facility-administered medications for this visit. SOCIAL HISTORY: Patient is . She smokes 1 ppd for 24 years and reports her alcohol use as never. PHYSICAL EXAMINATION: Blood pressure 114/77, pulse 94, height 175.3 cm (5' 9), weight 93.9 kg (207 lb), last menstrual period 02/02/2016. General Appearance: Well appearing, alert, in no acute distress, well-hydrated, well nourished.. Skin: Skin color, texture, turgor normal, no suspicious rashes or lesions. Head: Normocephalic, no masses, lesions, tenderness or abnormalities. Eyes: Anicteric sclera. Pupils are equally round and reactive to light. Extraocular movements are intact. . Oropharynx: Lips, mucosa, and tongue normal, teeth and gums normal, oropharynx normal. Neck: Supple, no adenopathy; thyroid symmetric, normal size, no bruits. Lungs: Lungs clear to auscultation. No wheezing, rhonchi, rales. Heart: RRR without murmur, gallop, or rubs. No ectopy. Abdomen: Abdomen soft, non-tender. Bowel sounds normal. No masses, organomegaly. Extremities: No deformities, edema, skin discoloration, clubbing or cyanosis. Good capillary refill. . Peripheral Pulses: Normal. Neurologic: Gait normal. Reflexes normal and symmetric. Sensation grossly intact.. Impression: persistent LUQ pain 2)nausea 3)history of lymphoma Plan: Labs. Increase omeprazole to two twice a day. See if they can move up the HIDA. The patient is scheduled for upper endoscopy. Preparation for the procedure and the procedure itself have been explained in detail. The risks, benefits, anticipated outcomes and possible complications were mentioned. I also explained the procedure in understandable terms and the patient was given printed material concerning the planned procedure. The patient had the opportunity to ask questions concerning the planned procedure. The patient freely consents to the planned procedure. The patient is asked to call with any questions or concerns, or if there is a change in health status between now and the scheduled procedure. I have personally interviewed and examined this patient. I have read the information that the MA documented in this encounter. I spent 30 minutes in the visit, with more than 50% of the total [id number] time of the visit in counseling / coordination of care. Murali Herrera RN [employer]IONAL [employer]AIL SALES MANAGER.PATTERN RULER CNOV Observed: 12/01/2017 Status: COMPLETED Source: [place] 9:40 AM [facility] REPOSITORY Office Visit (GAST[facility]) ELIDIA WALTON ([id number]) 1980 F NFR Date Time Provider Department 12/01/17 9:40 AM MURALI HERRERA (NIMESH) [facility] During your visit today, we recorded the following information about you: Pulse Blood pressure Weight Height 94/minute 114/77 93.9 kg 1.753 m Murali Herrera RN [employer]IONAL RETAIL SALES MANAGER.PATTERN RULER 12/01/2017 12:08 PM Signed Elidia Walton a 37 year old female who is a consultation requested by Dr. Newell for an opinion regarding LUQ pain and GERD. My final recommendations will be communicated back to the requesting physician by way of shared Medical record. The patient has not been seen previously by this provider. The patient was seen by Dr. Arzate for upper endoscopy and colonoscopy 07/10/16 for chronic epigastric pain and left sided pain. The procedure report has been reviewed and findings as follows: EGD Findings: ? ? ?The entire examined stomach was normal. Biopsies were taken with a cold ? ? ?forceps for Helicobacter pylori testing. ? ? ?The examined duodenum was normal. Biopsies were taken with a cold ? ? ?forceps for histology. Biopsies for histology were taken with a cold ? ? ?forceps for for evaluation of celiac disease. Colonoscopy Findings: ? ? ?The perianal and digital rectal examinations were normal. ? ? ?An area of mildly mucosa was found in the cecum. Biopsies were taken ? ? ?with a cold forceps for histology. Verification of patient ? ? ?identification for the specimen was done. ? ? ?Hemorrhoidal disease noted - mild. Impression: ? - Mucosa in the cecum. Biopsied. FINAL DIAGNOSIS 1. Duodenum, biopsy (A) - Duodenal mucosa with no diagnostic alteration. - Negative for celiac disease. 2. Antrum, biopsy (B) - Antral mucosa with no diagnostic alteration. - Negative for Helicobacter pylori. 3. Cecum, biopsy (C) - Sessile serrated polyp. CT chest: 11/03/17 IMPRESSION: Stable scans through the chest. ?No developing lymphadenopathy or mass. CT abd/pelvis: 11/03/17 IMPRESSION: Left adnexal cyst is likely ovarian. ?This could be better evaluated sonographically. ?No developing suspicious mass or adenopathy within the abdomen or pelvis. The patient was seen by Reece on 11/06/17, leading to this consultation. That note has been reviewed and part as follows: Stomach is better but not perfect. No bloody or black stools. Still with some gerd symptoms. Discussed avoiding nsaids. Presenting complaint: The patient presents today stating when Dr. Newell put me on the Prilosec the heartburn went away instantly. Taking Prilosec 20mg twice a day. The patient reports aching pain in the LUQ. Some nausea. She can't say if eating makes it better or worse. She tells me that she has a HIDA scan set up for 12/17. The patient has a history of lymphoma and states I am always afraid of cancer. Having a bowel movement daily to every other day. Denies blood or black stool. The patient tells me the night of 11/29 I woke up with severe pain in a band all the way around. She is showing me bilateral flank to upper abdomen. She tells me she's afraid it's her kidneys. I tell her that what she describes sounds like it's muscular or nerve related. She tells me that she saw Dr. Newell yesterday for it and that Dr. Newell feels likely muscular. This pain doesn't appear to be related to the left sided pain. REVIEW OF SYSTEMS: GENERAL: No weight loss of fevers. Positive for malaise. Last 10 Encounter Wt Readings: Date: Wt: 12/01/2017 93.9 kg (207 lb) 11/30/2017 93 kg (205 lb) 11/06/2017 92.1 kg (203 lb) 10/20/2017 92.5 kg (204 lb) 08/18/2017 92.5 kg (204 lb) 04/22/2017 93 kg (205 lb) 04/02/2017 89.8 kg (198 lb) 01/28/2017 90.3 kg (199 lb) 01/27/2017 91.2 kg (201 lb) 12/22/2016 90.7 kg (200 lb) HEENT: Negative for frequent or significant headaches, No changes in hearing or vision, no nose bleeds or other nasal problems NECK: Negative for new lumps, goiter, pain and significant neck swelling RESPIRATORY: Negative for cough, hemoptysis, wheezing, COPD, dyspnea or shortness of breath CARDIOVASCULAR: Negative for chest pain, leg swelling, hypertension, CHF or palpitations GI: The patient states that her appetite has been good. She does get hungry. There has been some nausea, no vomiting. She denies dysphagia and denies odynophagia. There has been indigestion with heartburn. The heartburn is improved with the omeprazole. There has partially been regurgitation. Bowel habits have been regular. There has not been diarrhea. There has not been constipation. The patient denies rectal bleeding. There has not been melena. Intermittent abdominal pain that is located in the left upper and left lower quadrant. PSYCH: Negative for sleep disturbance, mood disorder and recent psychosocial stressors. HEMATOLOGY/LYMPHOLOGY: History of lymphoma. Negative for prolonged bleeding, bruising easily or swollen nodes ENDOCRINE: Negative for thyroid or diabetes. NEURO: No history of headaches, syncope, paralysis, seizures or tremors All other reviewed and negative other than HPI. PAST MEDICAL HISTORY Diagnosis Date - Abdominal pain, generalized - Acute gastritis - Bipolar I disorder, most recent episode (or current) unspecified - Carcinoma in situ of cervix uteri - Diaphragmatic hernia without mention of obstruction or gangrene - Diverticulitis - History of colon polyps 07/14/2016 - Irritable bowel syndrome - Mitral valve disorders(424.0) - 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 - Post depression - Snoring - Tobacco abuse PAST SURGICAL HISTORY Procedure Laterality Date - CERVIX UTERI CONIZA LP ELCTRO EXCI 09/24 LEEP-Cervix - COLONOSCOP W/ OR W/O [facility] SPEC 2004 Colonoscopy/endoscopy - COLONOSCOP W/ OR W/O [facility] SPEC 07/10/2016 repeat 5 years - sessile serrated polyp - EGD W/O OR W/BRUSH/WASH 07/10/2016 EGD - EXPLORATORY OF ABDOMEN Laparotomy, exp - KNEE SCOPE,DIAGNOSTIC Arthroscopy, knee, ACL LEFT - LIGATE FALLOPIAN TUBE 2001 Tubal ligation - PART SIMPLE REMV VULVA 07/04/14 left vulvar cyst removal - REMOVAL OF TONSILS,<12 Y/O Tonsillectomy - REPAIR OF NASAL SEPTUM Septoplasty - S JEETIRENE-LAPAROSCOPY,[id number] 03/12/2016 - S PORT A CATH II STANDARD 04/2014,09/2014 left inserted and removed, right side. insered and removed - SLING OPER STRES INCONTINENCE 03/12/2016 FAMILY HISTORY Problem Relation Age of Onset - Cancer Paternal Aunt ovarian - Hypertension Brother - Diabetes Father HEART ,STROKE - Cancer Paternal Grandmother OVARIAN Current Outpatient Prescriptions: omeprazole (PRILOSEC) 20 mg capsule Take 1 capsule by mouth twice daily. 1/2 hr before meal. Disp: 180 capsule Rfl: 1 nicotine (NICODERM CQ) 21 mg/24 hr Apply 1 Patch as directed every 24 hours. Disp: 30 Patch Rfl: 0 vitamin B complex (B COMPLEX ORAL) Take 1 tablet by mouth once daily. Disp: Rfl: MULTIVITAMIN ORAL Take 1 tablet by mouth once daily. Disp: Rfl: tiZANidine (ZANAFLEX) 4 mg tablet Take 1 tablet by mouth every 8 hours as needed. Disp: 30 tablet Rfl: 1 acetaminophen (TYLENOL EXTRA STRENGTH) 500 mg tablet Take 1,000 mg by mouth as needed. Disp: Rfl: rizatriptan (MAXALT) 10 mg tablet Take 1 tablet by mouth as needed. Disp: 9 tablet Rfl: 5 No current facility-administered medications for this visit. SOCIAL HISTORY: Patient is . She smokes 1 ppd for 24 years and reports her alcohol use as never. PHYSICAL EXAMINATION: Blood pressure 114/77, pulse 94, height 175.3 cm (5' 9), weight 93.9 kg (207 lb), last menstrual period 02/02/2016. General Appearance: Well appearing, alert, in no acute distress, well-hydrated, well nourished.. Skin: Skin color, texture, turgor normal, no suspicious rashes or lesions. Head: Normocephalic, no masses, lesions, tenderness or abnormalities. Eyes: Anicteric sclera. Pupils are equally round and reactive to light. Extraocular movements are intact. . Oropharynx: Lips, mucosa, and tongue normal, teeth and gums normal, oropharynx normal. Neck: Supple, no adenopathy; thyroid symmetric, normal size, no bruits. Lungs: Lungs clear to auscultation. No wheezing, rhonchi, rales. Heart: RRR without murmur, gallop, or rubs. No ectopy. Abdomen: Abdomen soft, non-tender. Bowel sounds normal. No masses, organomegaly. Extremities: No deformities, edema, skin discoloration, clubbing or cyanosis. Good capillary refill. . Peripheral Pulses: Normal. Neurologic: Gait normal. Reflexes normal and symmetric. Sensation grossly intact.. Impression: persistent LUQ pain 2)nausea 3)history of lymphoma Plan: Labs. Increase omeprazole to two twice a day. See if they can move up the HIDA. The patient is scheduled for upper endoscopy. Preparation for the procedure and the procedure itself have been explained in detail. The risks, benefits, anticipated outcomes and possible complications were mentioned. I also explained the procedure in understandable terms and the patient was given printed material concerning the planned procedure. The patient had the opportunity to ask questions concerning the planned procedure. The patient freely consents to the planned procedure. The patient is asked to call with any questions or concerns, or if there is a change in health status between now and the scheduled procedure. I have personally interviewed and examined this patient. I have read the information that the MA documented in this encounter. I spent 30 minutes in the visit, with more than 50% of the total [id number]-hpyp time of the visit in counseling / coordination of care. Murali Herrera RN [employer]AIL SALES MANAGER.NORA Herrera RN REGIONAL RETAIL SALES MANAGER.PATTERN RULER 12/01/2017 10:51 AM Signed Please follow the instructions for upper endoscopy. Your procedure will be with Dr. Pelayo, on Thursday, December 07. The endoscopy nurse will call you Thursday with the specifics of time. Referring Provider: KARLOS NEWELL [[id number]] Allergies As of Date: 12/01/2017 Noted Allergy Reaction BEES 2005 10 - Anaphylaxis BEE STING 12/11/2014 10 - Anaphylaxis DARVOCET A500 (PROPOXYPHENE N-NAOMI*12/23/2005 8 - GI Upset HYDROCODONE 03/30/2012 14 - Other: See Comments Comments: anxiety PHENERGAN (PROMETHAZINE HCL) 07/02/2016 1 - Mental Status Change SULFA (SULFONAMIDE ANTIBIOTICS) 01/13/2005 5 - Intolerance Comments: HIVES Date Reviewed: 12/01/2017 Reviewed by: Erma Corey Ma - Fully Assessed Reason for Visit: Consult GERD [Other] Primary Visit Diagnosis:LUQ pain [R10.12] Other Visit Diagnoses:Nausea [R11.0] Gastroesophageal reflux disease, esophagitis presence not specified [K21.9] Order(s):EGD [9849997] Order #: [id number] FUTURE COMP METABOLIC PANEL [SQCMP] Order #: [id number] FUTURE AMYLASE BLD [SQAMYL] Order #: [id number] FUTURE LIPASE BLD [SQLIPA] Order #: [id number] FUTURE omeprazole (PRILOSEC) 20 mg capsuleTake 2 capsules by mouth twice daily. 1/2 hr before meal.Disp: 120 capsuleRfl: 3 Prescriptions as of 12/01/2017 Sig: OMEPRAZOLE 20 MG CAPSULE,TARYN* Take 2 capsules by mouth twic* NICOTINE 21 MG/24 HR DAILY TR* Apply 1 Patch as directed neda* B COMPLEX ORAL Take 1 tablet by mouth once d* MULTIVITAMIN ORAL Take 1 tablet by mouth once d* TIZANIDINE 4 MG TABLET Take 1 tablet by mouth every * ACETAMINOPHEN 500 MG TABLET Take 1,000 mg by mouth as nee* RIZATRIPTAN 10 MG TABLET Take 1 tablet by mouth as nee* Problem List As Of Date 12/01/2017 Noted Resolved Acute gastritis [535.0] INVALID FOR*10/19/2015 BENIGN NEOPLASM LG BOWEL [D12.6] INVALID FOR* ACNE NEC [L70.8] INVALID FOR* SEBACEOUS CYST [L72.3] INVALID FOR* Follicular lymphoma grade II of intra-abdominal*INVALID FOR* Tobacco abuse [Z72.0] INVALID FOR* Lymphoma, non-Hodgkin's (HCC) [C85.90] INVALID FOR* Cervical cancer (HCC) [C53.9] INVALID FOR* EVERETTE (stress urinary incontinence, female) [N39.*INVALID FOR* History of lymphoma [Z85.79] INVALID FOR* Other instructions from your clinician: Please follow the instructions for upper endoscopy. Your procedure will be with Dr. Pelayo, on Thursday, December 07. The endoscopy nurse will call you Thursday with the specifics of time. Prescriptions ordered this encounter Disp Refills Start End OMEPRAZOLE 20 MG CAPSULE,DELAYED REL* 120 * 3 12/01/2017 Route: ORAL Sig: Take 2 capsules by mouth twice daily. 1/2 hr before meal. Medications Discontinued During This Encounter omeprazole (PRILOSEC) 20 mg capsule 180 * 1 11/06/2017 12/01/2017 Route: ORAL Sig: Take 1 capsule by mouth twice daily. 1/2 hr before meal. Disc: Reason for discontinue is not on file. Follow-up and Disposition History Recorded Encounter Status:Closed by MURALI HERRERA CNP on 12/01/17 HOSP Observed: 12/01/2017 Status: COMPLETED Source: [facility] 12:00 AM [facility] REPOSITORY Patient:Elidia Walton MRN: <[id number]> Height:5' 9(1.753 m) Weight:207 lb 0.2 oz (93.9 kg) Outpatient Medications as of 12/07/17: omeprazole (PRILOSEC) 20 mg capsule nicotine (NICODERM CQ) 21 mg/24 hr vitamin B complex (B COMPLEX ORAL) MULTIVITAMIN ORAL tiZANidine (ZANAFLEX) 4 mg tablet acetaminophen (TYLENOL EXTRA STRENGTH) 500 mg tablet rizatriptan (MAXALT) 10 mg tablet Admission/Clinic Administered Medications as of 12/07/17: lactated ringers infusion Problem List: Benign neoplasm of colon [D12.6] Other acne [L70.8] Sebaceous cyst [L72.3] 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) [C82.13] Tobacco abuse [Z72.0] Lymphoma, non-Hodgkin's (HCC) [C85.90] Cervical cancer (HCC) [C53.9] EVERETTE (stress urinary incontinence, female) [N39.3] History of lymphoma [Z85.79] LUQ pain [R10.12] Allergies: Bees Bee Sting Darvocet A500 [Propoxyphene N-Acetaminophen] Hydrocodone Phenergan [Promethazine Hcl] Sulfa (Sulfonamide Antibiotics) Date Verified: 12/07/17 Lab Values Lab Value Units Date High Low POTA* 3.8 mmol/L 12/02/2017 5.1 3.7 JOHN* 42.1 % 12/02/2017 46.0 36.0 Progress Notes ([facility]): Mckenzie Whittaker LPN 12/04/2017 10:00 AM Signed ----- Message from Karlos Newell sent at 12/04/2017 8:15 AM EDT ----- Let her know her cbc is normal. Mckenzie Whittaker REYNOLD 12/04/2017 10:04 AM Signed Spoke with pt gave information provided. Pt voices understanding. Progress Notes ([facility]): Erma Corey Ma 12/01/2017 2:51 PM Signed AMBULATORY PATIENT EDUCATION NOTE READINESS TO LEARN Cogntitive ability: Alert and oriented Motivation to learn: Interested Family support: Unable to assess - family not present Instruction provided to: Patient Patient learns best by: Individual instruction, written instruction (hand-outs), and verbal instruction. Factors affecting learning: None Physical limitations affecting learning: None LEARNING RESPONSE Diagnosis: LUQ Pain Education topic/teaching points: Upper Endoscopy METHOD OF INSTRUCTION:Teachback:Individual instruction, written instruction (hand-outs), and verbal instruction. Patient/family response: Verbalizes understanding of pre-procedure instructions. Follow-up plan: Complete - No need for follow-up Supplemental material: None Patient instructed to check insurance benefits and precertification.Patient instructed to bring in advanced directives if applicable. Referral Entered: No Does patient have a Pacemaker or Defibrillator? No Electronically Signed By: Erma Corey Ma In department: Gastroenterology PROGRESS Observed: 11/30/2017 Status: COMPLETED Source: [facility] 1:58 PM [facility] REPOSITORY [facility] ID: [id number] Author: Karlos Newell Service: (none) Author Type: Physician Type: Progress Notes Filed: 11/30/2017 7:29 PM Note Text: Patient presents with: ER F/U: [facility] ER 11/29/17 for pain in back that radiates around to mid abdomen suspect gallbladder issues. Need note for work. HPI: Patient presents today for office visit for ER follow up. HOSPITAL/ER FOLLOW UP: Reason for visit:abd pain Which facility: [facility] ER Date of visit: 11/30 Diagnosis: abd pain. Had labs and ct. Labs shows wbc of 13,000 Ct negative except for a 4.8 x 3.2 cm ? Left adnexal mass. Could be left ovary with a cyst. Is already scheduled for gi in am. ER agreed she likely needs an egd. Suggested could do hida. Symptoms started after eating kielbasa. Just had ct scans here that showed the same thing. Is supposed to see to see Dr. Islas but has had to cancel it. Pain in back when she takes a deep breath. Had ekg and chest xray as well. MEDICATIONS: Current Outpatient Prescriptions: omeprazole (PRILOSEC) 20 mg capsule Take 1 capsule by mouth twice daily. 1/2 hr before meal. nicotine (NICODERM CQ) 21 mg/24 hr Apply 1 Patch as directed every 24 hours. vitamin B complex (B COMPLEX ORAL) Take 1 tablet by mouth once daily. MULTIVITAMIN ORAL Take 1 tablet by mouth once daily. tiZANidine (ZANAFLEX) 4 mg tablet Take 1 tablet by mouth every 8 hours as needed. acetaminophen (TYLENOL EXTRA STRENGTH) 500 mg tablet Take 1,000 mg by mouth as needed. rizatriptan (MAXALT) 10 mg tablet Take 1 tablet by mouth as needed. No current facility-administered medications for this visit. ALLERGIES: ALLERGIES Allergen Reactions - Bees Anaphylaxis - Bee Sting Anaphylaxis - Darvocet A500 [Prop* GI Upset - Hydrocodone Other: See Comments anxiety - Phenergan [Prometha* Mental Status Change - Sulfa (Sulfonamide * Intolerance HIVES PAST MEDICAL HISTORY Diagnosis Date - Abdominal pain, generalized - Acute gastritis - Bipolar I disorder, most recent episode (or current) unspecified - Carcinoma in situ of cervix uteri - Diaphragmatic hernia without mention of obstruction or gangrene - Diverticulitis - History of colon polyps 07/14/2016 - Irritable bowel syndrome - Mitral valve disorders(424.0) - 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 - Post depression - Snoring - Tobacco abuse PAST SURGICAL HISTORY Procedure Laterality Date - CERVIX UTERI CONIZA LP ELCTRO EXCI 09/24 LEEP-Cervix - COLONOSCOP W/ OR W/O [facility] SPEC 2004 Colonoscopy/endoscopy - COLONOSCOP W/ OR W/O [facility] SPEC 07/10/2016 repeat 5 years - sessile serrated polyp - EGD W/O OR W/BRUSH/WASH 07/10/2016 EGD - EXPLORATORY OF ABDOMEN Laparotomy, exp - KNEE SCOPE,DIAGNOSTIC Arthroscopy, knee, ACL LEFT - LIGATE FALLOPIAN TUBE 2001 Tubal ligation - PART SIMPLE REMV VULVA 07/04/14 left vulvar cyst removal - REMOVAL OF TONSILS,<12 Y/O Tonsillectomy - REPAIR OF NASAL SEPTUM Septoplasty - S IRENE MARCANO-LAPAROSCOPY,[id number] 03/12/2016 - S PORT A CATH II STANDARD 04/2014,09/2014 left inserted and removed, right side. insered and removed - SLING OPER STRES INCONTINENCE 03/12/2016 FAMILY HISTORY Problem Relation Age of Onset - Cancer Paternal Aunt ovarian - Hypertension Brother - Diabetes Father HEART ,STROKE - Cancer Paternal Grandmother OVARIAN Social History Marital status: Spouse name: Years of education: Number of children: 2 Social History Main Topics Smoking status: Current Every Day Smoker Packs/day: 1.00 Years: 24.00 Types: Cigarettes Smokeless tobacco: Never Used Alcohol use: No Drug use: No Sexual activity: Yes Partners with: Male control/protection: Surgical Social History Narrative . December. Reviewed current medications, allergies, past medical history, surgical history, family history and social history today. REVIEW OF SYSTEMS All other reviewed and negative other than HPI. HEALTH MAINTENANCE: Reviewed health maintenance issues today and recommended the following in detail. DTAP,TDAP,TD(1 - Tdap) due on 1998 TWO PNEUMOVAX 5 YEARS APART PRIOR TO AGE 65(1) due on 1998 ADULT PREVNAR-13 due on 1998 INFLUENZA(1) due on 11/21/2017 VITALS: BP 110/80 Pulse 80 Temp 36.6 ?C (97.9 ?F) (Tympanic) Resp 16 Wt 93 kg (205 lb) LMP 02/02/2016 BMI 31.17 kg/m? Last 4 Encounter Wt Readings: Date: Wt: 11/30/2017 93 kg (205 lb) 11/06/2017 92.1 kg (203 lb) 10/20/2017 92.5 kg (204 lb) 08/18/2017 92.5 kg (204 lb) PHYSICAL EXAMINATION: General appearance: Well appearing, alert, in no acute distress, well-hydrated, well nourished. Skin: Skin color, texture, turgor normal, no suspicious rashes or lesions Head: Normocephalic, no masses, lesions, tenderness or abnormalities Eyes: Anicteric sclera. Pupils are equally round and reactive to light. Extraocular movements are intact. Ears: External ears normal, canals clear Nose/Sinuses: Nares normal, septum midline, mucosa normal, no drainage or sinus tenderness Oropharynx: Lips, mucosa, and tongue normal, teeth and gums normal, oropharynx normal Neck:supple, negative. Lungs: Lungs clear to auscultation. No wheezing, rhonchi, rales Heart: RRR without murmur, gallop, or rubs. No ectopy Abdomen: Normal abdominal exam, Abdomen soft,mild epigastric pain. Bowel sounds normal. No masses, organomegaly Extremities: No deformities, edema, skin discoloration, clubbing or cyanosis. Good capillary refill. Thoracic chest wall is tender to palpation. Suggestive of muscle. ASSESSMENT/PLAN: 1. Epigastric pain - ICD9: 789.06, ICD10: R10.13 (primary diagnosis) - can order hida. Again. Take ppi and see gi. Call if worsens. 2. Adnexal mass - ICD9: 625.8, ICD10: N94.9 - get us and follow with surface boss. - US FEMALE PELVIS TRANSVAG - US FEMALE PELVIS TRANSABD LTD 3. Follicular lymphoma, unspecified grade, unspecified body region (HCC) - ICD9: 202.00, ICD10: C82.90 - stable. 4. Leukocytosis, unspecified type - ICD9: 288.60, ICD10: D72.829 - recheck later this week. - CBC + DIFF 5. Right upper quadrant pain - ICD9: 789.01, ICD10: R10.11 - NM HEPATOBILIARY W EF AND/OR RX 6. Acute bilateral thoracic back pain - ICD9: 724.1, ICD10: M54.6 - ice and zanflex prn. Call if symptoms worsen at all or if not better in one to two weeks Karlos Newell MD CNOV Observed: 11/30/2017 Status: COMPLETED Source: [facility] 1:40 PM [facility] REPOSITORY Office Visit (FAMPWS) ELIDIA WALTON ([id number]) 1980 F NFR Date Time Provider Department 11/30/17 1:40 PM KARLOS NEWELL During your visit today, we recorded the following information about you: Temperature Pulse Respiration Blood pressure 97.9 degrees 80/minute 16/minute 110/80 Weight 93 kg Karlos Newell MD 11/30/2017 7:29 PM Signed Patient presents with: ER F/U: [facility] ER 11/29/17 for pain in back that radiates around to mid abdomen suspect gallbladder issues. Need note for work. HPI: Patient presents today for office visit for ER follow up. HOSPITAL/ER FOLLOW UP: Reason for visit:abd pain Which facility: [facility] ER Date of visit: 11/30 Diagnosis: abd pain. Had labs and ct. Labs shows wbc of 13,000 Ct negative except for a 4.8 x 3.2 cm ? Left adnexal mass. Could be left ovary with a cyst. Is already scheduled for gi in am. ER agreed she likely needs an egd. Suggested could do hida. Symptoms started after eating kielbasa. Just had ct scans here that showed the same thing. Is supposed to see to see Dr. Islas but has had to cancel it. Pain in back when she takes a deep breath. Had ekg and chest xray as well. MEDICATIONS: Current Outpatient Prescriptions: omeprazole (PRILOSEC) 20 mg capsule Take 1 capsule by mouth twice daily. 1/2 hr before meal. nicotine (NICODERM CQ) 21 mg/24 hr Apply 1 Patch as directed every 24 hours. vitamin B complex (B COMPLEX ORAL) Take 1 tablet by mouth once daily. MULTIVITAMIN ORAL Take 1 tablet by mouth once daily. tiZANidine (ZANAFLEX) 4 mg tablet Take 1 tablet by mouth every 8 hours as needed. acetaminophen (TYLENOL EXTRA STRENGTH) 500 mg tablet Take 1,000 mg by mouth as needed. rizatriptan (MAXALT) 10 mg tablet Take 1 tablet by mouth as needed. No current facility-administered medications for this visit. ALLERGIES: ALLERGIES Allergen Reactions - Bees Anaphylaxis - Bee Sting Anaphylaxis - Darvocet A500 [Prop* GI Upset - Hydrocodone Other: See Comments anxiety - Phenergan [Prometha* Mental Status Change - Sulfa (Sulfonamide * Intolerance HIVES PAST MEDICAL HISTORY Diagnosis Date - Abdominal pain, generalized - Acute gastritis - Bipolar I disorder, most recent episode (or current) unspecified - Carcinoma in situ of cervix uteri - Diaphragmatic hernia without mention of obstruction or gangrene - Diverticulitis - History of colon polyps 07/14/2016 - Irritable bowel syndrome - Mitral valve disorders(424.0) - 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 - Post depression - Snoring - Tobacco abuse PAST SURGICAL HISTORY Procedure Laterality Date - CERVIX UTERI CONIZA LP ELCTRO EXCI 09/24 LEEP-Cervix - COLONOSCOP W/ OR W/O [facility] SPEC 2004 Colonoscopy/endoscopy - COLONOSCOP W/ OR W/O [facility] SPEC 07/10/2016 repeat 5 years - sessile serrated polyp - EGD W/O OR W/BRUSH/WASH 07/10/2016 EGD - EXPLORATORY OF ABDOMEN Laparotomy, exp - KNEE SCOPE,DIAGNOSTIC Arthroscopy, knee, ACL LEFT - LIGATE FALLOPIAN TUBE 2001 Tubal ligation - PART SIMPLE REMV VULVA 07/04/14 left vulvar cyst removal - REMOVAL OF TONSILS,<12 Y/O Tonsillectomy - REPAIR OF NASAL SEPTUM Septoplasty - S IRENE MARCANO-LAPAROSCOPY,[id number] 03/12/2016 - S PORT A CATH II STANDARD 04/2014,09/2014 left inserted and removed, right side. insered and removed - SLING OPER STRES INCONTINENCE 03/12/2016 FAMILY HISTORY Problem Relation Age of Onset - Cancer Paternal Aunt ovarian - Hypertension Brother - Diabetes Father HEART ,STROKE - Cancer Paternal Grandmother OVARIAN Social History Marital status: Spouse name: Years of education: Number of children: 2 Social History Main Topics Smoking status: Current Every Day Smoker Packs/day: 1.00 Years: 24.00 Types: Cigarettes Smokeless tobacco: Never Used Alcohol use: No Drug use: No Sexual activity: Yes Partners with: Male control/protection: Surgical Social History Narrative . December. Reviewed current medications, allergies, past medical history, surgical history, family history and social history today. REVIEW OF SYSTEMS All other reviewed and negative other than HPI. HEALTH MAINTENANCE: Reviewed health maintenance issues today and recommended the following in detail. DTAP,TDAP,TD(1 - Tdap) due on 1998 TWO PNEUMOVAX 5 YEARS APART PRIOR TO AGE 65(1) due on 1998 ADULT PREVNAR-13 due on 1998 INFLUENZA(1) due on 11/21/2017 VITALS: BP 110/80 Pulse 80 Temp 36.6 ?C (97.9 ?F) (Tympanic) Resp 16 Wt 93 kg (205 lb) LMP 02/02/2016 BMI 31.17 kg/m? Last 4 Encounter Wt Readings: Date: Wt: 11/30/2017 93 kg (205 lb) 11/06/2017 92.1 kg (203 lb) 10/20/2017 92.5 kg (204 lb) 08/18/2017 92.5 kg (204 lb) PHYSICAL EXAMINATION: General appearance: Well appearing, alert, in no acute distress, well-hydrated, well nourished. Skin: Skin color, texture, turgor normal, no suspicious rashes or lesions Head: Normocephalic, no masses, lesions, tenderness or abnormalities Eyes: Anicteric sclera. Pupils are equally round and reactive to light. Extraocular movements are intact. Ears: External ears normal, canals clear Nose/Sinuses: Nares normal, septum midline, mucosa normal, no drainage or sinus tenderness Oropharynx: Lips, mucosa, and tongue normal, teeth and gums normal, oropharynx normal Neck:supple, negative. Lungs: Lungs clear to auscultation. No wheezing, rhonchi, rales Heart: RRR without murmur, gallop, or rubs. No ectopy Abdomen: Normal abdominal exam, Abdomen soft,mild epigastric pain. Bowel sounds normal. No masses, organomegaly Extremities: No deformities, edema, skin discoloration, clubbing or cyanosis. Good capillary refill. Thoracic chest wall is tender to palpation. Suggestive of muscle. ASSESSMENT/PLAN: 1. Epigastric pain - ICD9: 789.06, ICD10: R10.13 (primary diagnosis) - can order hida. Again. Take ppi and see gi. Call if worsens. 2. Adnexal mass - ICD9: 625.8, ICD10: N94.9 - get us and follow with surface boss. - US FEMALE PELVIS TRANSVAG - US FEMALE PELVIS TRANSABD LTD 3. Follicular lymphoma, unspecified grade, unspecified body region (HCC) - ICD9: 202.00, ICD10: C82.90 - stable. 4. Leukocytosis, unspecified type - ICD9: 288.60, ICD10: D72.829 - recheck later this week. - CBC + DIFF 5. Right upper quadrant pain - ICD9: 789.01, ICD10: R10.11 - NM HEPATOBILIARY W EF AND/OR RX 6. Acute bilateral thoracic back pain - ICD9: 724.1, ICD10: M54.6 - ice and zanflex prn. Call if symptoms worsen at all or if not better in one to two weeks Karlos Newell MD Referring Provider: SELF [200] Allergies As of Date: 11/30/2017 Noted Allergy Reaction BEES 2005 10 - Anaphylaxis BEE STING 12/11/2014 10 - Anaphylaxis DARVOCET A500 (PROPOXYPHENE N-NAOMI*12/23/2005 8 - GI Upset HYDROCODONE 03/30/2012 14 - Other: See Comments Comments: anxiety PHENERGAN (PROMETHAZINE HCL) 07/02/2016 1 - Mental Status Change SULFA (SULFONAMIDE ANTIBIOTICS) 01/13/2005 5 - Intolerance Comments: HIVES Date Reviewed: 11/30/2017 Reviewed by: Angelica Bishop LPN - Fully Assessed Reason for Visit: ER F/U [41] Cmt: [facility] ER 11/29/17 for pain in back that radiates around to mid abdomen suspect gallbladder issues. Need note for work. Reason For Visit History Recorded Primary Visit Diagnosis:Epigastric pain [R10.13] Other Visit Diagnoses:Adnexal mass [N94.9] Follicular lymphoma, unspecified grade, unspecified body region (HCC) [C82.90] Leukocytosis, unspecified type [D72.829] Right upper quadrant pain [R10.11] Acute bilateral thoracic back pain [M54.6] Order(s):US FEMALE PELVIS TRANSVAG [[id number]] Order #: [id number] FUTURE US FEMALE PELVIS TRANSABD LTD [[id number]] Order #: [id number] FUTURE NM HEPATOBILIARY W EF AND/OR RX [[id number]] Order #: [id number] FUTURE CBC + DIFF [SQCBCDIF] Order #: [id number] FUTURE URINE CULTURE [SQURCUL] Order #: [id number]. #:[id number] Prescriptions as of 11/30/2017 Sig: OMEPRAZOLE 20 MG CAPSULE,TARYN* Take 1 capsule by mouth twice* NICOTINE 21 MG/24 HR DAILY TR* Apply 1 Patch as directed neda* B COMPLEX ORAL Take 1 tablet by mouth once d* MULTIVITAMIN ORAL Take 1 tablet by mouth once d* TIZANIDINE 4 MG TABLET Take 1 tablet by mouth every * ACETAMINOPHEN 500 MG TABLET Take 1,000 mg by mouth as nee* RIZATRIPTAN 10 MG TABLET Take 1 tablet by mouth as nee* Problem List As Of Date 11/30/2017 Noted Resolved Acute gastritis [535.0] INVALID FOR*10/19/2015 BENIGN NEOPLASM LG BOWEL [D12.6] INVALID FOR* ACNE NEC [L70.8] INVALID FOR* SEBACEOUS CYST [L72.3] INVALID FOR* Follicular lymphoma grade II of intra-abdominal*INVALID FOR* Tobacco abuse [Z72.0] INVALID FOR* Lymphoma, non-Hodgkin's (HCC) [C85.90] INVALID FOR* Cervical cancer (HCC) [C53.9] INVALID FOR* EVERETTE (stress urinary incontinence, female) [N39.*INVALID FOR* History of lymphoma [Z85.79] INVALID FOR* Disposition: Return if symptoms worsen or fail to improve. Follow-up and Disposition History Recorded Encounter Status:Closed by KARLOS NEWELL MD on 11/30/17 Observed: 11/30/2017 Status: F Source: [place] URINE CULTURE 12:20 PM [facility] REPOSITORY Sp. Request/Comment: - Best Practice Alert: To ensure optimal transport conditions and accurate culture results transfer urine specimens to yepez top C and S preservative tube. Culture Result - 10,000 - <50,000 CFU/ml Normal urogenital xiao Performed By: #### URCUL #### [facility] [address] [place], [place] [address] EMERGENCY DEPARTMENT Observed: 11/30/2017 Status: F Source: [place] SUMMARY 4:40 AM [facility] Medical Records Department [address] [place] [address] Emergency Department Summary 11/30/17 0433 MR#: [id number] Acct: [id number] Name: ELIDIA WALTON Rep #: [id number] : 1980 37 From: Hi Padron MD PCP: Karlos Newell MD Status: REG ER History of Present Illness Chief Complaint: Abd Pain Informant: Patient Narrative: Patient states for couple weeks she has been having issues with pain in her left upper quadrant, tonight it has gone all the way across her abdomen and radiating all the way across her back and is worse when she takes deep breaths. There is no chest discomfort but she is feeling a little short of breath because of that. No nausea. Shortly prior to the onset of symptoms she ate kielbasa. She is going to follow-up to get scheduled for an EGD, but that has not happened yet. She is on Prilosec. She denies any bright red blood per rectum, melena, or diarrhea. No urinary symptoms. She has a history of non- Hodgkin's lymphoma but is in remission, she states she had outpatient CT scans at the [facility] a couple weeks ago that she states were normal. She also had an ultrasound of her gallbladder performed because of symptoms similar to this that was negative and she was told she had no gallstones. The pain now was not colicky, it is constant, and significant. No recent fevers. No history of DVT or PE. No recent long travel, immobilization, hospitalization. No recent injury to her lower extremities. - Past Medical History (1) Non-Hodgkin lymphoma in remission Status: Chronic Past Medical History - Allergies and Home Meds Allergies/Adverse Reactions: Allergies acetaminophen [From Darvocet-N] Allergy (Verified 11/30/17 02:15) Rash propoxyphene napsylate [From Darvocet-N] Allergy (Verified 11/30/17 02:15) Rash Sulfa (Sulfonamide Antibiotics) Allergy (Verified 11/30/17 02:15) Hives venom-honey bee [bee venom (honey bee)] Allergy (Verified 11/30/17 02:15) Anaphylaxis hydrocodone Adverse Reaction (Verified 11/30/17 02:15) Other RED RASH ON CHEST AND ANXIETY. promethazine HCl [From Phenergan] Adverse Reaction (Verified 11/30/17 02:15) Other Primary Care Physician: Karlos Newell MD [Primary Care Provider] - Smoking Status: Current every day smoker Drugs: None Review of Systems All systems negative except as indicated General: Denies: Chills, Fever Cardiovascular: Denies: Chest pain Respiratory: Reports: Dyspnea. Denies: Cough, Orthopnea Gastrointestinal: Reports: Abdominal pain. Denies: Nausea, Vomiting, Diarrhea, Melena, Hematochezia Genitourinary: Denies: Dysuria, Hematuria, Frequency Musculoskeletal: Reports: Back pain. Denies: Arthralgias, Neck pain, Swelling, Extremity Pain Skin: Denies: Rash Neurological: Denies: Headache, Weakness, Parasthesia, Numbness Physical Exam Vital Signs/Narrative: Vital Signs 11/30/17 02:16 98.0 F 105 H 20 H 134/91 H 100 Inital Vital Signs reviewed: Yes General: Well nourished, Well developed Head: Normocephalic, Atraumatic Eyes: Perrl, EOMI ENT: Moist mucous membranes, No rhinorrhea Neck: Supple, Nontender, No lymphadenopathy, No JVD Cardiovascular: Regular rate, Regular rhythm, No murmurs Respiratory: No distress, CTA bilaterally, Chest nontender Abdomen: Soft, Nondistended, Normal bowel sounds, No masses, Tender - Across the upper abdomen, worse in the left upper quadrant. Negative for: Guarding, Rebound tenderness, Rios's sign Back: Nontender, Normal Inspection, - - No rash. Negative for: CVA tenderness Extremities: Nontender, No edema Skin: Normal color, No rash Neurological: Alert, Oriented x3, Cranial nerves II-XII grossly intact, Normal Strength, Normal Sensation Psychological: - - A little anxious Diagnostic/Tx/Re-eval Impressions Abdomen/Pelvis CT 11/30/17 02:19 IMPRESSION: Normal right kidney. Normal left kidney. Normal visualized stomach. Normal small intestine. Normal colon. The appendix is visualized and appears normal. There has been a hysterectomy. There is a 4.8 x 3.2 cm low- density mass in the LEFT adnexal region. This could be the LEFT ovary with a cyst. This is similar in appearance to the prior examination. There is NO ascites or free air, abscess or adenopathy. Electronically Signed: Syed Sullivan MD at 3:42 EDT , Service support , Chest X-Ray 11/30/17 03:05 IMPRESSION: Normal x-ray examination of the chest. Electronically Signed: Syed Sullivan MD at 3:50 EDT , Service support , 11/30/17 02:19 Abdomen/Pelvis W IV Cont ONLY [CT] Stat 11/30/17 03:05 Chest PA and Lateral [RAD] Stat Laboratory Results WBC 13.0 H (4.4-11.0) K/mm3 - Rhythm Strip Rhythm Strip: Sinus Rhythm Rate: 80 Ectopy: None - EKG Initial EKG Interpretation: Sinus Rhythm, No Acute Injury Pattern, - - nml axis. nml EKG. Prior: Unchanged - Medical Decision Making Improved after morphine and further after Toradol but still having some discomfort. CT is normal. She has a mild leukocytosis, kidney function, liver enzymes, and lipase are all within normal limits. Her urine shows no acute infection. Unknown etiology of her discomfort, intraluminal disease is certainly in the differential diagnosis. I do not think she has a PE. Her chest x-ray is also normal. We will give her a GI cocktail. 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 She declines and prefers to go home and will follow up with her doctor, we discussed the possibility of a HIDA scan being indicated to rule out chronic acalculous cholecystitis here. ED Disposition - Plan for ED Patient: Disposition: Home or Assisted Living Chief Complaint: Abd Pain Diagnosis: Upper abdominal pain of unknown etiology Instructions: ED Abdominal Pain Unkn Cause Referrals: Karlos Newell MD [Primary Care Provider] - (1-3 days) Additional Instructions: Try avoiding fat in the diet to see if that minimizes flareups. What to do if you have Problems For any increased pain, shortness of breath, bleeding, nausea or vomiting, chest pain, or any unexpected problems, contact your Primary Care Provider. Call [facility] ([phone]) or report to the closest Emergency Room. Call 911 if necessary. 11/30/17 0440 <Electronically signed by Hi Padron MD> Date Hi Padron MD Cosigner Signature (If Indicated): Date CC: Karlos Newell MD URINALYSIS, COMPLETE Collected: 11/30/2017 Status: F Source: [place] 2:30 AM [facility] Order Comment: Order Date: 11/30/17 How was Urine Obtained? CLEAN CATCH TYPE CODE TESTS RESULT OUT OF RANGE REFERENCE UNITS LAB L400.3000 Yellow COLOR Normal Yellow LAB L400.3050 Clear Normal CLARITY Sl. Cloudy LAB L400.3200 Normal mg/dl Normal GLUCOSE, UR Normal LAB L400.3300 Negative mg/dL Normal BILIRUBIN URINE Negative LAB L400.3400 Negative mg/dl Normal KETONE UR Negative LAB L400.3465 1.002-1.030 Normal SP.GR. DIPSTX 1.015 LAB L400.3550 5.0 - 8.0 pH UR Normal 8.0 LAB L400.3600 Negative mg/dl PROT Normal DIPSTX Negative LAB L400.3700 Normal mg/dl Normal UROBILI Normal LAB L400.3750 Negative Normal NITRITE UR Negative LAB L400.3780 Negative /ul Normal OCCULT BLOOD-UR Negative LAB L400.3800 Negative /ul High LEUK 25 ESTERASE LAB L400.4050 0-5 /hpf WBC Normal 5-10 SEEN LAB L400.4100 0-5 /hpf 0 Normal RBC-UA SEEN LAB L400.4150 5-10 /hpf SQUAM Normal EPI 5-10 SEEN LAB L400.4300 None Seen /hpf 0 Normal BACTERIA SEEN LAB L400.4350 <or=2+ /hpf 0 Normal MUCUS, URINE SEEN LAB L400.4900 3+ Normal AMORPHOUS Performed By: #### L400.0001 #### [facility] [address] [place], [address] CBC W/DIFF, AUTOMATED Collected: 11/30/2017 Status: F Source: [place] 2:25 AM [facility] TYPE CODE TESTS RESULT OUT OF RANGE REFERENCE UNITS LAB L100.1000 4.4-11.0 K/mm3 High WBC 13.0 LAB L100.1200 4.2-5.4 M/mm3 Normal RBC 4.31 LAB L100.1300 12.0-15.0 g/dl Normal HGB 13.5 LAB L100.1400 37-47 % Normal HCT 39.2 LAB L100.1500 81-99 fL Normal MCV 91.0 LAB L100.1600 27.0-32.0 pg Normal MCH 31.3 LAB L100.1700 32-36 g/gl Normal MCHC 34.4 LAB L100.1810 11.6-14.6 % Normal RDW CV 13.1 LAB L100.1820 35.1-43.9 fl Normal RDW SD 43.3 LAB L100.1900 150-450 K/mm3 Normal PLT 318 LAB L100.2000 6.2-12.0 fl Normal MPV 9.5 LAB L100.2100 47-70 % Normal NEUT% 63.8 LAB L100.2200 19-41 % Normal LY% 28.0 LAB L100.2300 0-10 % Normal MONO% 6.6 LAB L100.2400 0-5 % Normal EO% 1.2 LAB L100.2500 0-1 % Normal BASO% 0.2 LAB L100.2550 0.0-0.9 % Normal IM GRAN % 0.200 Result Comment: IG% - Immature Granulocytes (promyelocytes, myelocytes and metamyelocytes) > 1% indicates that a LEFT SHIFT is Present. LAB L100.2620 2.0-7.7 X10 3/uL High Absolute Neut 8.3 LAB L100.2720 0.83-4.51 X10 3/ul Normal Absolute Lymph 3.63 LAB L100.4500 Normal SMEAR COMMENT SCANNED LAB L100.4700 Normal REACTIVE LYMPH 1+ Performed By: #### L100.0100 #### [facility] [address] [place], [address] COMPREHENSIVE METABOLIC Collected: 11/30/2017 Status: F Source: [facility] 2:25 AM [facility] TYPE CODE TESTS RESULT OUT OF RANGE REFERENCE UNITS LAB L501.0100 74-106 mg/dL High GLU 110 Result Comment: Fasting Glucose result from 100 to 125 mg/dL suggests IMPAIRED HOMEOSTASIS per A.D.A. criteria. Please note revised GLUCOSE reference range effective 2017. LAB L501.1000 7-18 mg/dL Normal BUN 10 LAB L501.1100 0.55-1.02 mg/dL Normal CREAT,SERUM 0.68 Result Comment: The validity of the calculated GFR AND GFRAA in patients over 70 years has not been determined. Clinical correlation is essential. LAB L501.1110 >60 mL/min Normal EST GFR 103 Result Comment: Non- GFR Calc LAB L501.1115 >60 mL/min Normal EST GFR - AA 125 Result Comment: GFR Calc LAB L501.1255 ml/min Normal Estimated CRCL 121.30 LAB L501.1300 10-20 RATIO BUN/CRE Normal 14.7 LAB L501.1500 6.4-8. g/dL 2 T PROT Normal 6.8 LAB L501.1800 3.2-5. g/dL 0 ALB Normal 3.4 LAB L501.1950 2.2-4. g/dL 2 GLOB Normal 3.4 LAB L501.2000 0.9-2. RATIO 4 A/G Normal 1.0 LAB L501.2200 8.5-10 mg/dL .1 CA Normal 9.3 LAB L501.4100 15-37 U/L AST Normal 18 LAB L501.4305 45-117 U/L ALK P Normal 80 LAB L501.4405 13-56 U/L ALT Normal 25 LAB L501.4600 0.20-1 mg/dL Low .00 T BILI < 0.10 LAB L501.5300 136-14 mmol/L 5 NA Normal 139 LAB L501.5600 3.5-5. mmol/L 1 K Normal 3.7 LAB L501.5900 98-107 mmol/L CL Normal 106 LAB L501.6100 21.0-3 mmol/L 2.0 CO2 Normal 23.0 LAB L501.6200 5-15 GAP Normal 10 Performed By: #### L500.4050, L501.2450 #### [facility] [address] [place], [address] LIPASE Collected: 11/30/2017 Status: F Source: [place] [facility] TYPE CODE TESTS RESULT OUT OF RANGE REFERENCE UNITS LAB L501.2450 73-393 U/L Normal LIPASE 176 Performed By: #### L500.4050, L501.2450 #### [facility] [address] [place], [address] ABDOMEN/PELVIS W IV CONT Observed: 11/30/2017 Status: F Source: [place] ONLY 2:21 AM [facility] Imaging Services [address] [place] [address] Abdomen/Pelvis W IV Cont ONLY MR#: [id number] Acct: [id number] Name: ELIDIA WALTON Rep #: [id number] : 1980 F 37 From: Syed Sullivan PCP: Karlos Newell MD Status: REG ER Study: Abdomen/Pelvis W IV Cont ONLY Date of Exam: 11/30/17 Exam# [id number] Ordering Dr: iH Padron MD STUDY: CT ABDOMEN AND PELVIS WITH CONTRAST REASON FOR EXAM: Female, 37 years old. Abdominal pain RADIATION DOSAGE (If Supplied By Facility): CTDIvol = ( 16.83 ) mGy, DLP = ( 1034.23 ) mGycm TECHNIQUE: Transaxial images were obtained from the dome of the diaphragm to the symphysis pubis without oral contrast. 100ML ml of Isovue 300 contrast was administered. Sagittal and coronal images were reconstructed. Individualized dose optimization techniques were used for this CT. COMPARISON: April 21, 2017. FINDINGS: The visualized lung bases are unremarkable. The visualized portions of the heart are within normal limits. Normal liver. Normal gallbladder and extrahepatic biliary system. Normal spleen. Normal pancreas. Normal bilateral adrenal glands. Normal right kidney. Normal left kidney. Normal visualized stomach. Normal small intestine. Normal colon. The appendix is visualized and appears normal. Normal abdominal aorta. Normal inferior vena cava. Normal retroperitoneum. Normal urinary bladder. There has been a hysterectomy. There is a 4.8 x 3.2 cm low-density mass in the LEFT adnexal region. This could be the LEFT ovary with a cyst. This is similar in appearance to the prior examination. There is NO ascites or free air, abscess or adenopathy. Normal abdominal wall. Normal osseous structures. CT/Abdomen/Pelvis W IV Cont ONLY IMPRESSION: Normal right kidney. Normal left kidney. Normal visualized stomach. Normal small intestine. Normal colon. The appendix is visualized and appears normal. There has been a hysterectomy. There is a 4.8 x 3.2 cm low- density mass in the LEFT adnexal region. This could be the LEFT ovary with a cyst. This is similar in appearance to the prior examination. There is NO ascites or free air, abscess or adenopathy. Electronically Signed: Syed Sullivan MD at 3:42 EDT , Service support , CC: HI PADRON MD; Karlos Newell MD [employer]: Signed CHEST PA AND LATERAL Observed: 11/30/2017 Status: F Source: [place] 2:21 AM [facility] Imaging Services [address] [place] [address] Chest PA and Lateral MR#: [id number] Acct: [id number] Name: ELIDIA WALTON Rep #: [id number] : 1980 F 37 From: Syed Sullivan PCP: Karlos Newell MD Status: REG ER Study: Chest PA and Lateral Date of Exam: 11/30/17 Exam# [id number] Ordering Dr: Hi Padron MD STUDY: X-RAY CHEST REASON FOR EXAM: Female, 37 years old. Shortness of breath TECHNIQUE: PA and lateral COMPARISON: March 28, 2017 FINDINGS: The lungs are clear and expanded. There is no demonstrated pleural abnormality. Normal size heart. Normal mediastinum and nidhi. Normal visualized pulmonary arteries. Normal visualized aortic arch and descending thoracic aorta. Normal visualized thoracic spine. Normal visualized ribs, clavicles, and shoulders. There is no demonstrated abnormality of the visualized soft tissue structures of the upper abdomen. RAD/Chest PA and Lateral IMPRESSION: Normal x-ray examination of the chest. Electronically Signed: Syed Sullivan MD at 3:50 EDT , Service support , CC: HI PADRON MD; Karlos Newell MD [employer]: Signed XR CERVICAL 4V Observed: 11/06/2017 Status: F Source: [place] AP/LAT/FLX/EXT 1:39 PM [facility] REPOSITORY * * *Final Report* * * DATE OF EXAM: Nov 06 2017 1:39PM WOX 5310 - XR CERVICAL 4V AP/LAT/FLX/EXT / PROCEDURE REASON: Cervicalgia * * * * Physician Interpretation * * * * HISTORY: Neck pain COMPARISON: There are no prior relevant examinations available for comparison. RESULT: 4views of the cervical spine demonstrate all seven cervical vertebral bodies. The vertebral body heights and intervertebral disc spaces are well maintained with normal alignment. No evidence of instability noted on flexion and extension. The atlantoaxial interval and craniocervical junction are intact. The prevertebral soft tissues are unremarkable. IMPRESSION: NO ACUTE PROCESS. [employer]: SAVANA Transcribe Date/Time: Nov 06 2017 2:49P Dictated by : ALEXIA BEJARANO MD This examination was interpreted and the report reviewed and electronically signed by: ALEXIA BEJARANO MD on Nov 06 2017 2:51PM EST [id number] Observed: 11/06/2017 Status: COMPLETED Source: [place] 1:29 PM [facility] REPOSITORY HNO ID: [id number] Author: Scarlett Woody (Rt) Ari Pugh Service: (none) Author Type: Lead Technician Type: Progress Notes Filed: 11/06/2017 1:39 PM Note Text: Radiology Service Progress Note PATIENT NAME: Elidia Walton DATE OF SERVICE: November 06, 2017 TIME: 1:29 PM PATIENT IDENTITY VERIFICATION COMPLETED USING TWO (2) METHODS: Patient confirmed name verbally and Date of . PATIENT GENDER DATA: Female. status: : No status: NO. PATIENT RELEVANT IMPLANT DATA REVIEWED: Not Applicable RADIOLOGY DEPARTMENT: General X-ray: Exam(s) Completed: Spine X-Ray(s): Cervical AP / LAT / FLEX-EXT PERIPHERAL IV DATA: Not applicable SIGNED BY: RT Stiven November 06, 2017 1:29 PM PROGRESS Observed: 11/06/2017 Status: COMPLETED Source: [place] 10:02 AM [facility] REPOSITORY [facility] ID: [id number] Author: Karlos Newell Service: (none) Author Type: Physician Type: Progress Notes Filed: 11/06/2017 10:22 AM Note Text: Patient presents with: Neck Pain HPI: Patient presents today for office visit for an acute visit. Nursing Notes: Marsha Alejandro Ma 11/06/2017 9:41 AM Signed Patient complains of:burning, sharp neck pain. Duration: 1.5 weeks Location:base of neck Associated Symptoms: radiates to shoulders Aggravating factors:work- looking down at a desk all day long Things that improve symptoms :pt has tried muscles relaxer's, heating pads, and Biofreeze that help very little. Patient would like to quit smoking. She tried the Chantix and had bad side effects of abdominal pain, nausea, vomiting, migraines, fatigue. She would like to try the nicotine patches. Marsha Alejandro Ma Pain is to the left of the spine primarily. No trauma. Rarely using nsaids. No numbness or weakness No trauma. Not sure if it is worse with sudden movements. Her carpal tunnel is acting up with her right hand. Requests a new cock up splint. Using hands a lot at work. Could not tolerate chantix. Wants to try patches. Smoking about a pack a day. Discussed risks and benefits of new medication with the patient. Advised them to call if any side effects or questions. Stomach is better but not perfect. No bloody or black stools. Still with some gerd symptoms. Discussed avoiding nsaids Discussed that her dog is a significant emotional support dog. Cannot tolerate meds. Wants to keep dog which is what keeps her anxiety in check. MEDICATIONS: Current Outpatient Prescriptions: omeprazole (PRILOSEC) 20 mg capsule Take 1 capsule by mouth twice daily. 1/2 hr before meal. vitamin B complex (B COMPLEX ORAL) Take 1 tablet by mouth once daily. MULTIVITAMIN ORAL Take 1 tablet by mouth once daily. naproxen (NAPROSYN) 500 mg tablet Take 500 mg by mouth once daily. ibuprofen (MOTRIN) 800 mg tablet Take 1 tablet by mouth every 8 hours as needed. Do not take with naproxen tiZANidine (ZANAFLEX) 4 mg tablet Take 1 tablet by mouth every 8 hours as needed. acetaminophen (TYLENOL EXTRA STRENGTH) 500 mg tablet Take 1,000 mg by mouth as needed. rizatriptan (MAXALT) 10 mg tablet Take 1 tablet by mouth as needed. No current facility-administered medications for this visit. ALLERGIES: ALLERGIES Allergen Reactions - Bees Anaphylaxis - Bee Sting Anaphylaxis - Darvocet A500 [Prop* GI Upset - Hydrocodone Other: See Comments anxiety - Phenergan [Prometha* Mental Status Change - Sulfa (Sulfonamide * Intolerance HIVES PAST MEDICAL HISTORY Diagnosis Date - Abdominal pain, generalized - Acute gastritis - Bipolar I disorder, most recent episode (or current) unspecified - Carcinoma in situ of cervix uteri - Diaphragmatic hernia without mention of obstruction or gangrene - Diverticulitis - History of colon polyps 07/14/2016 - Irritable bowel syndrome - Mitral valve disorders(424.0) - 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 - Post depression - Snoring - Tobacco abuse PAST SURGICAL HISTORY Procedure Laterality Date - CERVIX UTERI CONIZA LP ELCTRO EXCI 09/24 LEEP-Cervix - COLONOSCOP W/ OR W/O [facility] SPEC 2004 Colonoscopy/endoscopy - COLONOSCOP W/ OR W/O [facility] SPEC 07/10/2016 repeat 5 years - sessile serrated polyp - EGD W/O OR W/BRUSH/WASH 07/10/2016 EGD - EXPLORATORY OF ABDOMEN Laparotomy, exp - KNEE SCOPE,DIAGNOSTIC Arthroscopy, knee, ACL LEFT - LIGATE FALLOPIAN TUBE 2001 Tubal ligation - PART SIMPLE REMV VULVA 07/04/14 left vulvar cyst removal - REMOVAL OF TONSILS,<11 Y/O Tonsillectomy - REPAIR OF NASAL SEPTUM Septoplasty - S NORRIS MARCANO-LAPAROSCOPY,[id number] 03/12/2016 - S PORT A CATH II STANDARD 04/2014,09/2014 left inserted and removed, right side. insered and removed - SLING OPER STRES INCONTINENCE 03/12/2016 FAMILY HISTORY Problem Relation Age of Onset - Cancer Paternal Aunt ovarian - Hypertension Brother - Diabetes Father HEART ,STROKE - Cancer Paternal Grandmother OVARIAN Social History Marital status: Spouse name: Years of education: Number of children: 2 Social History Main Topics Smoking status: Current Every Day Smoker Packs/day: 1.00 Years: 24.00 Types: Cigarettes Smokeless tobacco: Never Used Alcohol use: No Drug use: No Sexual activity: Yes Partners with: Male control/protection: Surgical Social History Narrative . December. Reviewed current medications, allergies, past medical history, surgical history, family history and social history today. REVIEW OF SYSTEMS All other reviewed and negative other than HPI. HEALTH MAINTENANCE: Reviewed health maintenance issues today and recommended the following in detail. INFLUENZA-recommended. VITALS: BP 120/68 Pulse 72 Resp 16 Wt 92.1 kg (203 lb) LMP 02/02/2016 BMI 30.87 kg/m? Last 4 Encounter Wt Readings: Date: Wt: 11/06/2017 92.1 kg (203 lb) 10/20/2017 92.5 kg (204 lb) 08/18/2017 92.5 kg (204 lb) 04/22/2017 93 kg (205 lb) PHYSICAL EXAMINATION: General appearance: Well appearing, alert, in no acute distress, well-hydrated, well nourished. Skin: Skin color, texture, turgor normal, no suspicious rashes or lesions Head: Normocephalic, no masses, lesions, tenderness or abnormalities Neck: Supple, no adenopathy; thyroid symmetric, normal size, no bruits, tender to left of c6-c7 area. Lungs: Lungs clear to auscultation. No wheezing, rhonchi, rales Heart: RRR without murmur, gallop, or rubs. No ectopy Abdomen: Normal abdominal exam, Abdomen soft, non-tender. Bowel sounds normal. No masses, organomegaly Extremities: No deformities, edema, skin discoloration, clubbing or cyanosis. Good capillary refill. Musculoskeletal: No joint swelling, deformity, or tenderness Peripheral pulses: Normal Neuro: Negative. Psych: anxious ASSESSMENT/PLAN: 1. Neck pain - ICD9: 723.1, ICD10: M54.2 (primary diagnosis) - Ice and rest. Avoid nsiads. Consider physical therapy if continues. - XR CERV OTHER 4V AP/LAT/FLX/EXT - PREDNISONE 20 MG TABLET 2. GERD without esophagitis - ICD9: 530.81, ICD10: K21.9 - increase prilosec - CONSULT TO GASTROENTEROLOGY 3. Carpal tunnel syndrome, right - ICD9: 354.0, ICD10: G56.01 - COCK-UP WRIST SPLINT 4. 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 Gastroesophageal reflux disease, esophagitis presence not specified - ICD9: 530.81, ICD10: K21.9 - CONSULT TO GASTROENTEROLOGY - OMEPRAZOLE 20 MG CAPSULE,DELAYED RELEASE 6. Anxiety - ICD9: 300.00, ICD10: F41.9 - given letter for support dog 7. LUQ pain - ICD9: 789.02, ICD10: R10.12 - CONSULT TO GASTROENTEROLOGY 8. Tobacco use - ICD9: 305.1, ICD10: Z72.0 - Cessation encouraged. - Physiologic and physical aspects of tobacco addiction as well as strategies for quitting were discussed. - Counseling was given focusing on the harmful effects of this addiction especially given the patient's medical condition(s) which will be worsened because of the chemicals in tobacco. - Prescription for nocotine given - NICOTINE 21 MG/24 HR DAILY TRANSDERMAL PATCH - call with update in one month Karlos Newell MD CNOV Observed: 11/06/2017 Status: COMPLETED Source: [place] 9:20 AM [facility] REPOSITORY Office Visit (FAMPWS) ELIDIA WALTON ([id number]) 1980 F NFR Date Time Provider Department 11/06/17 9:20 AM KARLOS NEWELLWS During your visit today, we recorded the following information about you: Pulse Respiration Blood pressure Weight 72/minute 16/minute 120/68 92.1 kg Marsha Alejandro Ma 11/06/2017 9:41 AM Signed Patient complains of:burning, sharp neck pain. Duration: 1.5 weeks Location:base of neck Associated Symptoms: radiates to shoulders Aggravating factors:work- looking down at a desk all day long Things that improve symptoms :pt has tried muscles relaxer's, heating pads, and Biofreeze that help very little. Patient would like to quit smoking. She tried the Chantix and had bad side effects of abdominal pain, nausea, vomiting, migraines, fatigue. She would like to try the nicotine patches. Marsha Newell MD 11/06/2017 10:22 AM Signed Patient presents with: Neck Pain HPI: Patient presents today for office visit for an acute visit. Nursing Notes: Marsha Alejandro Ma 11/06/2017 9:41 AM Signed Patient complains of:burning, sharp neck pain. Duration: 1.5 weeks Location:base of neck Associated Symptoms: radiates to shoulders Aggravating factors:work- looking down at a desk all day long Things that improve symptoms :pt has tried muscles relaxer's, heating pads, and Biofreeze that help very little. Patient would like to quit smoking. She tried the Chantix and had bad side effects of abdominal pain, nausea, vomiting, migraines, fatigue. She would like to try the nicotine patches. Marsha Alejandro Ma Pain is to the left of the spine primarily. No trauma. Rarely using nsaids. No numbness or weakness No trauma. Not sure if it is worse with sudden movements. Her carpal tunnel is acting up with her right hand. Requests a new cock up splint. Using hands a lot at work. Could not tolerate chantix. Wants to try patches. Smoking about a pack a day. Discussed risks and benefits of new medication with the patient. Advised them to call if any side effects or questions. Stomach is better but not perfect. No bloody or black stools. Still with some gerd symptoms. Discussed avoiding nsaids Discussed that her dog is a significant emotional support dog. Cannot tolerate meds. Wants to keep dog which is what keeps her anxiety in check. MEDICATIONS: Current Outpatient Prescriptions: omeprazole (PRILOSEC) 20 mg capsule Take 1 capsule by mouth twice daily. 1/2 hr before meal. vitamin B complex (B COMPLEX ORAL) Take 1 tablet by mouth once daily. MULTIVITAMIN ORAL Take 1 tablet by mouth once daily. naproxen (NAPROSYN) 500 mg tablet Take 500 mg by mouth once daily. ibuprofen (MOTRIN) 800 mg tablet Take 1 tablet by mouth every 8 hours as needed. Do not take with naproxen tiZANidine (ZANAFLEX) 4 mg tablet Take 1 tablet by mouth every 8 hours as needed. acetaminophen (TYLENOL EXTRA STRENGTH) 500 mg tablet Take 1,000 mg by mouth as needed. rizatriptan (MAXALT) 10 mg tablet Take 1 tablet by mouth as needed. No current facility-administered medications for this visit. ALLERGIES: ALLERGIES Allergen Reactions - Bees Anaphylaxis - Bee Sting Anaphylaxis - Darvocet A500 [Prop* GI Upset - Hydrocodone Other: See Comments anxiety - Phenergan [Prometha* Mental Status Change - Sulfa (Sulfonamide * Intolerance HIVES PAST MEDICAL HISTORY Diagnosis Date - Abdominal pain, generalized - Acute gastritis - Bipolar I disorder, most recent episode (or current) unspecified - Carcinoma in situ of cervix uteri - Diaphragmatic hernia without mention of obstruction or gangrene - Diverticulitis - History of colon polyps 07/14/2016 - Irritable bowel syndrome - Mitral valve disorders(424.0) - 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 - Post depression - Snoring - Tobacco abuse PAST SURGICAL HISTORY Procedure Laterality Date - CERVIX UTERI CONIZA LP ELCTRO EXCI 09/24 LEEP-Cervix - COLONOSCOP W/ OR W/O [facility] SPEC 2004 Colonoscopy/endoscopy - COLONOSCOP W/ OR W/O [facility] SPEC 07/10/2016 repeat 5 years - sessile serrated polyp - EGD W/O OR W/BRUSH/WASH 07/10/2016 EGD - EXPLORATORY OF ABDOMEN Laparotomy, exp - KNEE SCOPE,DIAGNOSTIC Arthroscopy, knee, ACL LEFT - LIGATE FALLOPIAN TUBE 2001 Tubal ligation - PART SIMPLE REMV VULVA 07/04/14 left vulvar cyst removal - REMOVAL OF TONSILS,<11 Y/O Tonsillectomy - REPAIR OF NASAL SEPTUM Septoplasty - S IRENE MARCANO-LAPAROSCOPY,[id number] 03/12/2016 - S PORT A CATH II STANDARD 04/2014,09/2014 left inserted and removed, right side. insered and removed - SLING OPER STRES INCONTINENCE 03/12/2016 FAMILY HISTORY Problem Relation Age of Onset - Cancer Paternal Aunt ovarian - Hypertension Brother - Diabetes Father HEART ,STROKE - Cancer Paternal Grandmother OVARIAN Social History Marital status: Spouse name: Years of education: Number of children: 2 Social History Main Topics Smoking status: Current Every Day Smoker Packs/day: 1.00 Years: 24.00 Types: Cigarettes Smokeless tobacco: Never Used Alcohol use: No Drug use: No Sexual activity: Yes Partners with: Male control/protection: Surgical Social History Narrative . December. Reviewed current medications, allergies, past medical history, surgical history, family history and social history today. REVIEW OF SYSTEMS All other reviewed and negative other than HPI. HEALTH MAINTENANCE: Reviewed health maintenance issues today and recommended the following in detail. INFLUENZA-recommended. VITALS: BP 120/68 Pulse 72 Resp 16 Wt 92.1 kg (203 lb) LMP 02/02/2016 BMI 30.87 kg/m? Last 4 Encounter Wt Readings: Date: Wt: 11/06/2017 92.1 kg (203 lb) 10/20/2017 92.5 kg (204 lb) 08/18/2017 92.5 kg (204 lb) 04/22/2017 93 kg (205 lb) PHYSICAL EXAMINATION: General appearance: Well appearing, alert, in no acute distress, well-hydrated, well nourished. Skin: Skin color, texture, turgor normal, no suspicious rashes or lesions Head: Normocephalic, no masses, lesions, tenderness or abnormalities Neck: Supple, no adenopathy; thyroid symmetric, normal size, no bruits, tender to left of c6-c7 area. Lungs: Lungs clear to auscultation. No wheezing, rhonchi, rales Heart: RRR without murmur, gallop, or rubs. No ectopy Abdomen: Normal abdominal exam, Abdomen soft, non-tender. Bowel sounds normal. No masses, organomegaly Extremities: No deformities, edema, skin discoloration, clubbing or cyanosis. Good capillary refill. Musculoskeletal: No joint swelling, deformity, or tenderness Peripheral pulses: Normal Neuro: Negative. Psych: anxious ASSESSMENT/PLAN: 1. Neck pain - ICD9: 723.1, ICD10: M54.2 (primary diagnosis) - Ice and rest. Avoid nsiads. Consider physical therapy if continues. - XR CERV OTHER 4V AP/LAT/FLX/EXT - PREDNISONE 20 MG TABLET 2. GERD without esophagitis - ICD9: 530.81, ICD10: K21.9 - increase prilosec - CONSULT TO GASTROENTEROLOGY 3. Carpal tunnel syndrome, right - ICD9: 354.0, ICD10: G56.01 - COCK-UP WRIST SPLINT 4. 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 Gastroesophageal reflux disease, esophagitis presence not specified - ICD9: 530.81, ICD10: K21.9 - CONSULT TO GASTROENTEROLOGY - OMEPRAZOLE 20 MG CAPSULE,DELAYED RELEASE 6. Anxiety - ICD9: 300.00, ICD10: F41.9 - given letter for support dog 7. LUQ pain - ICD9: 789.02, ICD10: R10.12 - CONSULT TO GASTROENTEROLOGY 8. Tobacco use - ICD9: 305.1, ICD10: Z72.0 - Cessation encouraged. - Physiologic and physical aspects of tobacco addiction as well as strategies for quitting were discussed. - Counseling was given focusing on the harmful effects of this addiction especially given the patient's medical condition(s) which will be worsened because of the chemicals in tobacco. - Prescription for nocotine given - NICOTINE 21 MG/24 HR DAILY TRANSDERMAL PATCH - call with update in one month Karlos Newell MD Referring Provider: SELF [[id number]] Allergies As of Date: 11/06/2017 Noted Allergy Reaction BEES 2005 10 - Anaphylaxis BEE STING 12/11/2014 10 - Anaphylaxis DARVOCET A500 (PROPOXYPHENE N-NAOMI*12/23/2005 8 - GI Upset HYDROCODONE 03/30/2012 14 - Other: See Comments Comments: anxiety PHENERGAN (PROMETHAZINE HCL) 07/02/2016 1 - Mental Status Change SULFA (SULFONAMIDE ANTIBIOTICS) 01/13/2005 5 - Intolerance Comments: HIVES Date Reviewed: 11/06/2017 Reviewed by: Marsha Alejandro Ma - Fully Assessed Reason for Visit: Neck Pain [135] Primary Visit Diagnosis:Neck pain [M54.2] Other Visit Diagnoses:GERD without esophagitis [K21.9] Carpal tunnel syndrome, right [G56.01] Follicular lymphoma grade II of intra- abdominal lymph nodes (HCC) [C82.13] Gastroesophageal reflux disease, esophagitis presence not specified [K21.9] Anxiety [F41.9] LUQ pain [R10.12] Tobacco use [Z72.0] Order(s):XR CERV OTHER 4V AP/LAT/FLX/EXT [4656470] Order #: [id number] FUTURE CONSULT TO GASTROENTEROLOGY [9010] Order #: [id number]: 1 omeprazole (PRILOSEC) 20 mg capsuleTake 1 capsule by mouth twice daily. 1/2 hr before meal.Disp: 180 capsuleRfl: 1 nicotine (NICODERM CQ) 21 mg/24 hrApply 1 Patch as directed every 24 hours.Disp: 30 PatchRfl: 0 predniSONE (DELTASONE) 20 mg tabletTake 1 tablet by mouth once daily for 5 days. Take daily with food.Disp: 5 tabletRfl: 0 COCK-UP WRIST SPLINT [[id number]] Order #: [id number] Prescriptions as of 11/06/2017 Sig: OMEPRAZOLE 20 MG CAPSULE,TARYN* Take 1 capsule by mouth twice* B COMPLEX ORAL Take 1 tablet by mouth once d* MULTIVITAMIN ORAL Take 1 tablet by mouth once d* TIZANIDINE 4 MG TABLET Take 1 tablet by mouth every * ACETAMINOPHEN 500 MG TABLET Take 1,000 mg by mouth as nee* RIZATRIPTAN 10 MG TABLET Take 1 tablet by mouth as nee* NICOTINE 21 MG/24 HR DAILY TR* Apply 1 Patch as directed neda* PREDNISONE 20 MG TABLET Take 1 tablet by mouth once d* Problem List As Of Date 11/06/2017 Noted Resolved Acute gastritis [535.0] INVALID FOR*10/19/2015 BENIGN NEOPLASM LG BOWEL [D12.6] INVALID FOR* ACNE NEC [L70.8] INVALID FOR* SEBACEOUS CYST [L72.3] INVALID FOR* Follicular lymphoma grade II of intra-abdominal*INVALID FOR* Tobacco abuse [Z72.0] INVALID FOR* Lymphoma, non-Hodgkin's (HCC) [C85.90] INVALID FOR* Cervical cancer (HCC) [C53.9] INVALID FOR* EVERETTE (stress urinary incontinence, female) [N39.*INVALID FOR* History of lymphoma [Z85.79] INVALID FOR* Visit Notes: >> Marsha Alejandro Ma ThuNov 06, 2017 9:28 AM Status: Signed Patient complains of:burning, sharp neck pain. Duration: 1.5 weeks Location:base of neck Associated Symptoms: radiates to shoulders Aggravating factors:work- looking down at a desk all day long Things that improve symptoms :pt has tried muscles relaxer's, heating pads, and Biofreeze that help very little. Patient would like to quit smoking. She tried the Chantix and had bad side effects of abdominal pain, nausea, vomiting, migraines, fatigue. She would like to try the nicotine patches. Marsha Alejandro Ma Prescriptions ordered this encounter Disp Refills Start End OMEPRAZOLE 20 MG CAPSULE,DELAYED REL* 180 * 1 11/06/2017 Route: ORAL Sig: Take 1 capsule by mouth twice daily. 1/2 hr before meal. NICOTINE 21 MG/24 HR DAILY TRANSDERM* 30 P* 0 11/06/2017 Route: TRANSDERM. Sig: Apply 1 Patch as directed every 24 hours. PREDNISONE 20 MG TABLET 5 ta* 0 11/06/2017 11/11/2017 Route: ORAL Sig: Take 1 tablet by mouth once daily for 5 days. Take daily with food. Medications Discontinued During This Encounter varenicline (CHANTIX STARTING MONTH * 53 t* 0 10/08/2017 11/06/2017 Sig: Take 1 tablet (0.5 mg) by mouth once daily for 3 days, then 1 tablet (0.5 mg) twice daily for 4 days, then one tablet (1 mg) twice daily. Disc: Side Effects ibuprofen (MOTRIN) 800 mg tablet 60 t* 3 06/26/2017 11/06/2017 Route: ORAL Sig: Take 1 tablet by mouth every 8 hours as needed. Do not take with naproxen Disc: Reason for discontinue is not on file. naproxen (NAPROSYN) 500 mg tablet 11/06/2017 Class: Historical Med Route: ORAL Sig: Take 500 mg by mouth once daily. Disc: Reason for discontinue is not on file. omeprazole (PRILOSEC) 20 mg capsule 180 * 1 11/03/2017 11/06/2017 Route: ORAL Sig: Take 1 capsule by mouth twice daily. 1/2 hr before meal. Disc: Reason for discontinue is not on file. Disposition: Return if symptoms worsen or fail to improve. Follow-up and Disposition History Recorded Letter Text [facility] [address], [place] [address] Elidia Walton [address] [facility] [address] [place] [id number] Clinic #: [id number] 11/06/2017 Patient requires her emotional support animal, her dog Jimy to control her anxiety. Sincerely: Karlos Newell MD Encounter Status:Closed by KARLOS NEWELL MD on 11/06/17 CT ABD/PEL W IVCON Observed: 11/03/2017 Status: F Source: [facility] 11:15 AM [facility] REPOSITORY * * *Final Report* * * DATE OF EXAM: Nov 03 2017 11:15AM [facility] 0530 - CT ABD/PEL W IVCON / PROCEDURE REASON: Follicular lymphoma grade ii, intra-abdominal lymph nodes * * * * Physician Interpretation * * * * HISTORY: Lymphoma TECHNIQUE: Contrast 1: [address] Contrast 2: 50ML Omnipaque [address] Ionizing Radiation: CT Dose Length Product (DLP): 988 mG*y cm CT Dose Reduction Employed: mAs-kVp adjusted based on patient size-age RESULT: Scans through the abdomen and pelvis are performed following oral and intravenous contrast administration. Comparison is made with 01/19/2017 Scans through the chest are dictated separately. No developing focal hepatic or splenic abnormality is seen. The adrenal glands and pancreas appear normal. No hydronephrosis or solid renal mass is seen. No ascites or lymphadenopathy is identified. Scans through the pelvis reveal left adnexal cyst of approximately 4 cm. Likely ovarian. No additional mass or adenopathy within the pelvis. No abnormal fluid collection. Visualized appendix appears normal. Bony structures appear intact. IMPRESSION: Left adnexal cyst is likely ovarian. This could be better evaluated sonographically. No developing suspicious mass or adenopathy within the abdomen or pelvis. [employer]: [facility] Transcribe Date/Time: Nov 03 2017 2:23P Dictated by : MARYAM AMBRIZ MD This examination was interpreted and the report reviewed and electronically signed by: MARYAM AMBRIZ MD on Nov 03 2017 2:27PM EST [id number] CT CHEST W IVCON Observed: 11/03/2017 Status: F Source: [place] 11:15 AM [facility] REPOSITORY * * *Final Report* * * DATE OF EXAM: Nov 03 2017 11:15AM [facility] 0539 - CT CHEST W IVCON / PROCEDURE REASON: Follicular lymphoma grade ii, intra-abdominal lymph nodes * * * * Physician Interpretation * * * * HISTORY: Lymphoma TECHNIQUE: Contrast 1: [address] Ionizing Radiation: CT Dose Length Product (DLP): 988 mG*y cm CT Dose Reduction Employed: mAs-kVp adjusted based on patient size-age RESULT: Scans through the chest were performed following the administration of contrast as a bolus through the mediastinum. Comparison is made with 01/19/2017 No developing mediastinal, hilar or axillary lymphadenopathy is seen. Borderline right hilar node on image 98 is stable. No developing pleural or pericardial fluid is seen. There is no evidence of developing lung nodule or mass. Scans through the abdomen and pelvis are dictated separately. IMPRESSION: Stable scans through the chest. No developing lymphadenopathy or mass. [employer]: [facility] Transcribe Date/Time: Nov 03 2017 2:28P Dictated by : MARYAM AMBRIZ MD This examination was interpreted and the report reviewed and electronically signed by: MARYAM AMBRIZ MD on Nov 03 2017 2:32PM EST [id number] PROGRESS Observed: 10/20/2017 Status: COMPLETED Source: [place] 9:58 AM [facility] REPOSITORY HNO ID: [id number] Author: Mony Hunter Service: (none) Author Type: Nurse Practitioner Type: Progress Notes Filed: 10/21/2017 7:57 AM Note Text: Chief Complaint Patient presents with: Established Patient HPI: Elidia Walton is a 37 year old female who presents here today for follow up lymphoma. Per Dr. Brenner's previous note: H/o diagnosed with grade 3A follicular lymphoma in 2013. She originally presented in the early fall 2013 with lower abdominal pain. CT scan the abdomen and pelvis reportedly showed bulky adenopathy in the retroperitoneum encasing the aorta and IVC extending along the iliac chain. 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 However, on second review at [facility], the pathology was rendered as a follicular lymphoma grade 3A (CD10 positive, CD20 positive, BCL-2 positive, BCL-6 positive, FISH positive for BCL-6 rearrangement and negative for MYC). ? PET scan on 01/06/2014 revealed bilateral cervical adenopathy, mediastinal and right axillary adenopathy as well as retroperitoneal, right iliac and bilateral inguinal lymphadenopathy. ? She was treated with 6 cycles of R?CHOP. Restaging studies including PET and CT scans 07/12/2014 demonstrated complete response. ? She was receiving maintenance rituximab. First dose 09/08/2014 in [place]. Transferred care here and received one dose rituximab 12/21/2014. [place]oved back [place]--there had dose 04/24/2015. ? Completed the 2 year course of maintenance rituximab 12/2016. ? I started the chantix today. I'm not looking forward to it. I joined the gym today too. I stopped the anxiety medication. I didn't like how I felt. Per pt. PCP aware that she stopped. Feels well otherwise. Pt. here today with her daughter. Appetite:good Energy level:fair Denies fevers. Resp:denies cough or sob, I have my smokers cough Cardiac:denies chest pain/palpitations GI:denies abd pain, n/v, moving bowels regularly :denies dysuria/hematuria Extrem:denies pain Neuro:denies symptoms of neuropathy Skin:denies rashes/lesions Heme:denies bleeding The ROS is otherwise negative. Past medical history, appointments, medications, allergies reviewed. No changes. EXAM: BP 112/67 Pulse 77 Temp 36.9 ?C (98.4 ?F) (Oral) Wt 92.5 kg (204 lb) LMP 02/02/2016 BMI 31.02 kg/m? APPEARANCE Well appearing, alert, in no acute distress, well-hydrated, well nourished. HEART RRR with normal S1 and S2, no murmurs LUNG clear to auscultation LYMPH NODES No cervical lymphadenopathy, No supraclavicular lymphadenopathy and No axillary lymphadenopathy. ABDOMEN bowel sounds normoactive, no bruits, soft, non-tender, non-distended, without organomegaly or palpable masses EXTREMITIES No edema NEURO Awake, alert and oriented x 3, Normal gait and No involuntary motions. SKIN Skin color, texture, turgor normal, no suspicious rashes or lesions LABS: Component Latest Ref Rng AND Units 12/26/2016 10/20/2017 WBC, [place] 3.70 - 11.00 k/uL 11.04 (H) 11.31 (H) RBC, [place] 3.90 - 5.20 m/uL 4.25 4.21 Hemoglobin, [place] 11.5 - 15.5 g/dL 13.3 13.2 Hematocrit, [place] 36.0 - 46.0 % 38.5 39.1 MCV, [place] 80.0 - 100.0 fL 90.6 92.9 MCH, [place] 26.0 - 34.0 pg 31.3 31.4 MCHC, Susan 30.5 - 36.0 g/dL 34.5 33.8 RDW, [place] 11.5 - 15.0 % 12.6 13.4 Platelet Cnt, [place] 150 - 400 k/uL 336 290 MPV, Susan 9.0 - 12.7 fL 9.3 9.4 Absol Gran Count 1.45 - 7.50 k/uL 6.89 7.24 Component Latest Ref Rng AND Units 06/09/2014 10/20/2017 LD 135 - 214 U/L 218 183 ASSESSMENT/PLAN: 1. 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) - ICD9: 202.03, ICD10: C82.13 Grade 3A follicular lymphoma. - No concerning findings on exam. - Reviewed CBC with pt. - LD pending. - CT chest/abd/pelvis soon. - Follow up in 6 months CBC/LD-pending CT's. - Pt. aware to call office with any questions/concerns. The patient indicates understanding of these issues and agrees with the plan. Mony Hunter, [employer] SALES MANAGER.PATTERN RULER SUSAN ABS GR + CBC Collected: 10/20/2017 Status: F Source: [place] 9:35 AM [facility] REPOSITORY TYPE CODE TESTS RESULT OUT OF REFERENCE UNITS RANGE LAB WWBC 3.70-11.00 k/uL [place] High WBC 11.31 LAB WRBC 3.90-5.20 m/uL [place] RBC 4.21 LAB WHGB 11.5-15.5 g/dL [place] Hemoglobin 13.2 LAB WHCT 36.0-46.0 % Susan Hematocrit 39.1 LAB WMCV 80.0-100.0 fL [place] MCV 92.9 LAB WMCH 26.0-34.0 pg [place] MCH 31.4 LAB WMCHC 30.5-36.0 g/dL [place] MCHC 33.8 LAB WRDW 11.5-15.0 % [place] RDW 13.4 LAB WPLT 150-400 k/uL [place] Platelet Cnt 290 LAB WMPV 9.0-12.7 fL Susan MPV 9.4 Result Comment: Test performed at: [facility] Susan, [address] [place] [address]. LAB ABGRAN 1.45-7.50 k/uL Absol Gran 7.24 Count LD Collected: 10/20/2017 Status: F Source: [facility] 9:35 AM [facility] REPOSITORY TYPE CODE TESTS RESULT OUT OF RANGE REFERENCE UNITS LAB LD 135-214 U/L LD 183 Performed By: #### LD6 #### [facility] [address] [place], [place] [address] CNOVSP Observed: 10/20/2017 Status: COMPLETED Source: [place] 9:30 AM [facility] REPOSITORY Visit (SP) Office ([facility]) ELIDIA WALTON ([id number]) 1980 F NFR Date Time Provider Department 10/20/17 9:30 AM MONY HUNTER) CARY During your visit today, we recorded the following information about you: Temperature Pulse Blood pressure Weight 98.4 degrees 77/minute 112/67 92.5 kg Mony Hunter APRN.CNP 10/21/2017 7:57 AM Signed Chief Complaint Patient presents with: Established Patient HPI: Elidia Walton is a 37 year old female who presents here today for follow up lymphoma. Per Dr. Brenner's previous note: H/o diagnosed with grade 3A follicular lymphoma in 2013. She originally presented in the early fall 2013 with lower abdominal pain. CT scan the abdomen and pelvis reportedly showed bulky adenopathy in the retroperitoneum encasing the aorta and IVC extending along the iliac chain. 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 However, on second review at [facility], the pathology was rendered as a follicular lymphoma grade 3A (CD10 positive, CD20 positive, BCL-2 positive, BCL-6 positive, FISH positive for BCL-6 rearrangement and negative for MYC). ? PET scan on 01/06/2014 revealed bilateral cervical adenopathy, mediastinal and right axillary adenopathy as well as retroperitoneal, right iliac and bilateral inguinal lymphadenopathy. ? She was treated with 6 cycles of R?CHOP. Restaging studies including PET and CT scans 07/12/2014 demonstrated complete response. ? She was receiving maintenance rituximab. First dose 09/08/2014 in [place]. Transferred care here and received one dose rituximab 12/21/2014. Moved back to [place]--there had dose 04/24/2015. ? Completed the 2 year course of maintenance rituximab 12/2016. ? I started the chantix today. I'm not looking forward to it. I joined the gym today too. I stopped the anxiety medication. I didn't like how I felt. Per pt. PCP aware that she stopped. Feels well otherwise. Pt. here today with her daughter. Appetite:good Energy level:fair Denies fevers. Resp:denies cough or sob, I have my smokers cough Cardiac:denies chest pain/palpitations GI:denies abd pain, n/v, moving bowels regularly :denies dysuria/hematuria Extrem:denies pain Neuro:denies symptoms of neuropathy Skin:denies rashes/lesions Heme:denies bleeding The ROS is otherwise negative. Past medical history, appointments, medications, allergies reviewed. No changes. EXAM: BP 112/67 Pulse 77 Temp 36.9 ?C (98.4 ?F) (Oral) Wt 92.5 kg (204 lb) LMP 02/02/2016 BMI 31.02 kg/m? APPEARANCE Well appearing, alert, in no acute distress, well- hydrated, well nourished. HEART RRR with normal S1 and S2, no murmurs LUNG clear to auscultation LYMPH NODES No cervical lymphadenopathy, No supraclavicular lymphadenopathy and No axillary lymphadenopathy. ABDOMEN bowel sounds normoactive, no bruits, soft, non-tender, non-distended, without organomegaly or palpable masses EXTREMITIES No edema NEURO Awake, alert and oriented x 3, Normal gait and No involuntary motions. SKIN Skin color, texture, turgor normal, no suspicious rashes or lesions LABS: Component Latest Ref Rng AND Units 12/26/2016 10/20/2017 WBC, [place] 3.70 - 11.00 k/uL 11.04 (H) 11.31 (H) RBC, [place] 3.90 - 5.20 m/uL 4.25 4.21 Hemoglobin, [place] 11.5 - 15.5 g/dL 13.3 13.2 Hematocrit, [place] 36.0 - 46.0 % 38.5 39.1 MCV, [place] 80.0 - 100.0 fL 90.6 92.9 MCH, [place] 26.0 - 34.0 pg 31.3 31.4 MCHC, [place] 30.5 - 36.0 g/dL 34.5 33.8 RDW, [place] 11.5 - 15.0 % 12.6 13.4 Platelet Cnt, [place] 150 - 400 k/uL 336 290 MPV, [place] 9.0 - 12.7 fL 9.3 9.4 Absol Gran Count 1.45 - 7.50 k/uL 6.89 7.24 Component Latest Ref Rng AND Units 06/09/2014 10/20/2017 LD 135 - 214 U/L 218 183 ASSESSMENT/PLAN: 1. 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) - ICD9: 202.03, ICD10: C82.13 Grade 3A follicular lymphoma. - No concerning findings on exam. - Reviewed CBC with pt. - LD pending. - CT chest/abd/pelvis soon. - Follow up in 6 months CBC/LD-pending CT's. - Pt. aware to call office with any questions/concerns. The patient indicates understanding of these issues and agrees with the plan. Mony Hunter APRN.PATTERN RULER Referring Provider: ANDREAS BRENNER [[id number]] Allergies As of Date: 10/20/2017 Noted Allergy Reaction BEES 2005 10 - Anaphylaxis BEE STING 12/11/2014 10 - Anaphylaxis DARVOCET A500 (PROPOXYPHENE N-NAOMI*12/23/2005 8 - GI Upset HYDROCODONE 03/30/2012 14 - Other: See Comments Comments: anxiety PHENERGAN (PROMETHAZINE HCL) 07/02/2016 1 - Mental Status Change SULFA (SULFONAMIDE ANTIBIOTICS) 01/13/2005 5 - Intolerance Comments: HIVES Date Reviewed: 10/20/2017 Reviewed by: Mony Simpson) Elsa - Fully Assessed Reason for Visit: Established Patient [175] Primary Visit Diagnosis:Follicular lymphoma grade II of intra- abdominal lymph nodes (HCC) [C82.13] Order(s):CT ABD/PEL W IVCON [[id number]] Order #: [id number] FUTURE CT CHEST W IVCON [[id number]] Order #: [id number] FUTURE iv contrast (will be provided with radiology test)CT Chest ABD/PEL-Inject, intravenously, once for 1 dose.No IV access, insert saline lock prior to the beginning of sedation, infusion, injection of imaging exam. Discontinue saline lock post exam. If Pt. has a central line or IVAD, may access for administration according to line specific nursing protocol. Once exam is complete flush line and de-access according to line specific nursing protocol in the CT contrast administration guidelines link.Disp: 1 EachRfl: 0 enteric contrast (will be provided with radiology test)For CT CHESTABD/PEL W IVCON Routine order Administer, As Directed One Time Only, via Oral, Rectal, both Oral and Rectal, Enteric Tube, Stoma or Indwelling Catheter, Enteric Contrast as designated per enteric contrast guidelinesDisp: 1 EachRfl: 0 Follow-up and Disposition History Recorded Prescriptions as of 10/20/2017 Sig: B COMPLEX ORAL Take 1 tablet by mouth once d* MULTIVITAMIN ORAL Take 1 tablet by mouth once d* NAPROXEN 500 MG TABLET Take 500 mg by mouth once mukesh* OMEPRAZOLE 20 MG CAPSULE,TARYN* Take 1 capsule by mouth daily* VARENICLINE 0.5 MG (11)-1 MG * Take 1 tablet (0.5 mg) by laureen* IBUPROFEN 800 MG TABLET Take 1 tablet by mouth every * TIZANIDINE 4 MG TABLET Take 1 tablet by mouth every * ACETAMINOPHEN 500 MG TABLET Take 1,000 mg by mouth as nee* RIZATRIPTAN 10 MG TABLET Take 1 tablet by mouth as nee* IV CONTRAST (RADIOLOGY PROCED* CT Chest ABD/PEL-Inject, intr* ENTERIC CONTRAST (RADIOLOGY P* For CT CHESTABD/PEL W IVCON R* Medication notes this encounter PSEUDOEPHEDRINE 30 MG TABLET >> Autumn Mora BLANCA 10/20/2017 9:55 AM >> AUTUMN MORA MA Oct 20, 2017 9:55 AM Not taking GUAIFENESIN ER 600 MG TABLET, EXTENDED RELEASE 12 HR >> Autumn Mroa BLANCA 10/20/2017 9:55 AM >> AUTUMN MORA MA Oct 20, 2017 9:55 AM Not taking. Problem List As Of Date 10/20/2017 Noted Resolved Acute gastritis [535.0] INVALID FOR*10/19/2015 BENIGN NEOPLASM LG BOWEL [D12.6] INVALID FOR* ACNE NEC [L70.8] INVALID FOR* SEBACEOUS CYST [L72.3] INVALID FOR* Follicular lymphoma grade II of intra-abdominal*INVALID FOR* Tobacco abuse [Z72.0] INVALID FOR* Lymphoma, non-Hodgkin's (HCC) [C85.90] INVALID FOR* Cervical cancer (HCC) [C53.9] INVALID FOR* EVERETTE (stress urinary incontinence, female) [N39.*INVALID FOR* History of lymphoma [Z85.79] INVALID FOR* Encounter Status:Closed by MONY HUNTER CNP on 10/21/17 PROGRESS Observed: 10/08/2017 Status: COMPLETED Source: [place] 9:25 AM [facility] REPOSITORY O ID: [id number] Author: Aime Reyes (Wendi) Tito Service: (none) Author Type: Physician Emergency Veterinarian Type: Progress Notes Filed: 10/08/2017 6:50 PM Note Text: 37 year old female smokerwith c/o left LUQ abdominal over last 2 months. Describes as squeezing, constant pain. Severity depends: worse if distended from eating, harder to breath, raising muscles over head or pressing helps. Having cold acid reflux burn which has been constant: no better peptobismal. S/P hysterectomy. No N/V/D. BM soft formed usually daily to every other. No dysuria or change in urination. 10/02/17 went to [facility] ED with pain in midsternal chest in addition to above pain and SOB. EKG NSR, troponin negative. CXR WNL. CBC was WNL except WBC 11.8, d-dimer negative, CMP WNL, lipase WNL Was treated with Ketoralac and Duoneb in ED without change. Was sent home on prednisone 60mg daily x 5 days which she has completed. Upper and lower endoscopy 2016: Dr. Arzate. Polyp: recheck in 5 years. HISTORIES FAMILY HISTORY Problem Relation Age of Onset - Cancer Paternal Aunt ovarian - Hypertension Brother - Diabetes Father HEART ,STROKE - Cancer Paternal Grandmother OVARIAN PAST MEDICAL HISTORY Diagnosis Date - Abdominal pain, generalized - Acute gastritis - Bipolar I disorder, most recent episode (or current) unspecified - Carcinoma in situ of cervix uteri - Diaphragmatic hernia without mention of obstruction or gangrene - Diverticulitis - History of colon polyps 07/14/2016 - Irritable bowel syndrome - Mitral valve disorders(424.0) - 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 - Post depression - Snoring - Tobacco abuse PAST SURGICAL HISTORY Procedure Laterality Date - CERVIX UTERI CONIZA LP ELCTRO EXCI 09/24 LEEP-Cervix - COLONOSCOP W/ OR W/O [facility] SPEC 2004 Colonoscopy/endoscopy - COLONOSCOP W/ OR W/O [facility] SPEC 07/10/2016 repeat 5 years - sessile serrated polyp - EGD W/O OR W/BRUSH/WASH 07/10/2016 EGD - EXPLORATORY OF ABDOMEN Laparotomy, exp - KNEE SCOPE,DIAGNOSTIC Arthroscopy, knee, ACL LEFT - LIGATE FALLOPIAN TUBE 2001 Tubal ligation - PART SIMPLE REMV VULVA 07/04/14 left vulvar cyst removal - REMOVAL OF TONSILS,<12 Y/O Tonsillectomy - REPAIR OF NASAL SEPTUM Septoplasty - S IRENE MARCANO-LAPAROSCOPY,[id number] 03/12/2016 - S PORT A CATH II STANDARD 04/2014,09/2014 left inserted and removed, right side. insered and removed - SLING OPER STRES INCONTINENCE 03/12/2016 Social History Marital status: Spouse name: Years of education: Number of children: 2 Social History Main Topics Smoking status: Current Every Day Smoker Packs/day: 1.00 Years: 24.00 Types: Cigarettes Smokeless tobacco: Never Used Comment: Pt has cut back to 3/4 pack daily. Alcohol use: No Drug use: No Sexual activity: Yes Partners with: Male control/protection: Surgical Social History Narrative . December. ACTIVE PROBLEM LIST Benign Neoplasm of Colon Other Acne Sebaceous Cyst Follicular Lymphoma Grade II of Intra-Abdominal Lymph Nodes (Hcc) Tobacco Abuse Lymphoma, Non-Hodgkin's (Hcc) Cervical Cancer (Hcc) Everette (Stress Urinary Incontinence, Female) History of Lymphoma Current Outpatient Prescriptions: ibuprofen (MOTRIN) 800 mg tablet Take 1 tablet by mouth every 8 hours as needed. Do not take with naproxen Disp: 60 tablet Rfl: 3 tiZANidine (ZANAFLEX) 4 mg tablet Take 1 tablet by mouth every 8 hours as needed. Disp: 30 tablet Rfl: 1 pseudoephedrine (SUDAFED) 30 mg tablet Take 1 every 6 or 2 every 12 Disp: 30 tablet Rfl: 0 fexofenadine (MISHA ALLERGY) 180 mg tablet Take 1 tablet by mouth once daily. (Patient not taking: Reported on 08/18/2017 ) Disp: 30 tablet Rfl: 3 guaiFENesin (MUCINEX) 600 mg 12 hr tablet Take 2 tablets by mouth twice daily. Disp: 20 tablet Rfl: 0 oxymetazoline (GENASAL) 0.05 % nasal spray Use 2 Sprays in the nose twice daily. (Patient not taking: Reported on 08/18/2017 ) Disp: 1 Bottle Rfl: 0 acetaminophen (TYLENOL EXTRA STRENGTH) 500 mg tablet Take 1,000 mg by mouth as needed. Disp: Rfl: fluticasone (FLONASE) 50 mcg/actuation nasal spray Use 2 Sprays in each nostril once daily. Rinse mouth after use. (Patient not taking: Reported on 10/08/2017 ) Disp: 1 Bottle Rfl: 11 rizatriptan (MAXALT) 10 mg tablet Take 1 tablet by mouth as needed. Disp: 9 tablet Rfl: 5 No current facility-administered medications for this visit. DTAP,TDAP,TD(1 - Tdap) due on 1998 TWO PNEUMOVAX 5 YEARS APART PRIOR TO AGE 65(1) due on 1998 ADULT PREVNAR-13 due on 1998 EXAM: BP 122/82 Pulse 80 Temp 36.6 ?C (97.9 ?F) (Tympanic) Resp 16 LMP 02/02/2016 Pleasant overweight adult woman in no acute distress. Alert and oriented all spheres. Normal affect and cognition. Speech normal. No deficits to learning or comprehension. Skin warm, dry, pink to lips and nailbeds. Normal turgor. Respirations regular and unlabored. HEENT WNL. Sclera anicteric. TM's clear. Nose and oropharynx free from injection or lesion. No cervical lymph nodes. Thyroid non- tender, no masses Chest CTA. HRRR without murmur or gallop. Abd: soft, rounded, bowel sounds active. No pulsatile masses. Mildly tender LUQ though difficult to localize. No rebound, guarding, or peritoneal signs. No masses. No organomegaly. Rios's punch: negative. No flank pain. No inguinal or axillary lymphadenopathy. Extrem: no clubbing, cyanosis, edema. Extremities are warm and pink with prompt capillary refill. ASSESSMENT/PLAN: 1. Gastroesophageal reflux disease, esophagitis presence not specified - ICD9: 530.81, ICD10: K21.9 (primary diagnosis) Differential includes peptic ulcer disease, gastritis. Explain the patient is all be treated with omeprazole. If it's a GI-related issue in this nature it should improve over the next 48-72 hours on omeprazole. Recommend she do a soft bland diet, avoid alcohol, NSAIDs, any irritations such as acidic foods. Strongly urged to stop smoking. - OMEPRAZOLE 20 MG CAPSULE,DELAYED RELEASE 2. Tobacco abuse - ICD9: 305.1, ICD10: Z72.0 - Cessation encouraged. - Physiologic and physical aspects of tobacco addiction as well as strategies for quitting were discussed. Patient wants to retry Chantix. Patient failed in the past because she continued to smoke on it. She is also failed with Wellbutrin and the nicotine replacement. Discussed the fact the patient will have to make her decision to stop smoking. No medication will keep her from smoking if she chooses to smoke. She will have to make a mental and physical effort to avoid cigarettes. - VARENICLINE 0.5 MG (11)-1 MG (42) TABLETS IN A DOSE PACK f/u 4 weeks or as needed. WENDI Angel Observed: 10/08/2017 Status: COMPLETED Source: [place] 8:20 AM [facility] REPOSITORY [facility] EL[facility] WAL[facility] ([id number]) 1980 F NFR Date Time Provider Department 10/08/17 8:20 AM Aime FRANCIS (WENDI) CAITLYN During your visit today, we recorded the following information about you: Temperature Pulse Respiration Blood pressure 97.9 degrees 80/minute 16/minute 122/82 Rose Santiago [employer] 10/08/2017 8:49 AM Addendum Patient complains of: left side abd pain with shortness of breath Duration: progressing over 2 month-really bad for about 1 week Associated Symptoms: shortness of breath doesn't feel that she can get in a full deep breath, reflux Aggravating factors:when has a full stomach makes it even harder to breath Things that improve symptoms :stretching area out or pressing in Went to [facility] on Thursday. Had EKG, labs, and chest x-ray. Was told that all was ok. They did Pred 20 mg 3 a day for 5 days. Naproxen 500 twice a day. Albuterol inhaler. Took last day of Pred today. Can see labs and x-ray in care everywhere. Aime Francis PA-C 10/08/2017 6:50 PM Signed 37 year old female smokerwith c/o left LUQ abdominal over last 2 months. Describes as squeezing, constant pain. Severity depends: worse if distended from eating, harder to breath, raising muscles over head or pressing helps. Having cold acid reflux burn which has been constant: no better peptobismal. S/P hysterectomy. No N/V/D. BM soft formed usually daily to every other. No dysuria or change in urination. 10/02/17 went to [facility] ED with pain in midsternal chest in addition to above pain and SOB. EKG NSR, troponin negative. CXR WNL. CBC was WNL except WBC 11.8, d-dimer negative, CMP WNL, lipase WNL Was treated with Ketoralac and Duoneb in ED without change. Was sent home on prednisone 60mg daily x 5 days which she has completed. Upper and lower endoscopy 2016: Dr. Arzate. Polyp: recheck in 5 years. HISTORIES FAMILY HISTORY Problem Relation Age of Onset - Cancer Paternal Aunt ovarian - Hypertension Brother - Diabetes Father HEART ,STROKE - Cancer Paternal Grandmother OVARIAN PAST MEDICAL HISTORY Diagnosis Date - Abdominal pain, generalized - Acute gastritis - Bipolar I disorder, most recent episode (or current) unspecified - Carcinoma in situ of cervix uteri - Diaphragmatic hernia without mention of obstruction or gangrene - Diverticulitis - History of colon polyps 07/14/2016 - Irritable bowel syndrome - Mitral valve disorders(424.0) - 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 - Post depression - Snoring - Tobacco abuse PAST SURGICAL HISTORY Procedure Laterality Date - CERVIX UTERI CONIZA LP ELCTRO EXCI 09/24 LEEP-Cervix - COLONOSCOP W/ OR W/O [facility] SPEC 2004 Colonoscopy/endoscopy - COLONOSCOP W/ OR W/O [facility] SPEC 07/10/2016 repeat 5 years - sessile serrated polyp - EGD W/O OR W/BRUSH/WASH 07/10/2016 EGD - EXPLORATORY OF ABDOMEN Laparotomy, exp - KNEE SCOPE,DIAGNOSTIC Arthroscopy, knee, ACL LEFT - LIGATE FALLOPIAN TUBE 2001 Tubal ligation - PART SIMPLE REMV VULVA 07/04/14 left vulvar cyst removal - REMOVAL OF TONSILS,<12 Y/O Tonsillectomy - REPAIR OF NASAL SEPTUM Septoplasty - S IRENE MARCANO-LAPAROSCOPY,[id number] 03/12/2016 - S PORT A CATH II STANDARD 04/2014,09/2014 left inserted and removed, right side. insered and removed - SLING OPER STRES INCONTINENCE 03/12/2016 Social History Marital status: Spouse name: Years of education: Number of children: 2 Social History Main Topics Smoking status: Current Every Day Smoker Packs/day: 1.00 Years: 24.00 Types: Cigarettes Smokeless tobacco: Never Used Comment: Pt has cut back to 3/4 pack daily. Alcohol use: No Drug use: No Sexual activity: Yes Partners with: Male control/protection: Surgical Social History Narrative . December. ACTIVE PROBLEM LIST Benign Neoplasm of Colon Other Acne Sebaceous Cyst Follicular Lymphoma Grade II of Intra-Abdominal Lymph Nodes (Hcc) Tobacco Abuse Lymphoma, Non-Hodgkin's (Hcc) Cervical Cancer (Hcc) Everette (Stress Urinary Incontinence, Female) History of Lymphoma Current Outpatient Prescriptions: ibuprofen (MOTRIN) 800 mg tablet Take 1 tablet by mouth every 8 hours as needed. Do not take with naproxen Disp: 60 tablet Rfl: 3 tiZANidine (ZANAFLEX) 4 mg tablet Take 1 tablet by mouth every 8 hours as needed. Disp: 30 tablet Rfl: 1 pseudoephedrine (SUDAFED) 30 mg tablet Take 1 every 6 or 2 every 12 Disp: 30 tablet Rfl: 0 fexofenadine (MISHA ALLERGY) 180 mg tablet Take 1 tablet by mouth once daily. (Patient not taking: Reported on 08/18/2017 ) Disp: 30 tablet Rfl: 3 guaiFENesin (MUCINEX) 600 mg 12 hr tablet Take 2 tablets by mouth twice daily. Disp: 20 tablet Rfl: 0 oxymetazoline (GENASAL) 0.05 % nasal spray Use 2 Sprays in the nose twice daily. (Patient not taking: Reported on 08/18/2017 ) Disp: 1 Bottle Rfl: 0 acetaminophen (TYLENOL EXTRA STRENGTH) 500 mg tablet Take 1,000 mg by mouth as needed. Disp: Rfl: fluticasone (FLONASE) 50 mcg/actuation nasal spray Use 2 Sprays in each nostril once daily. Rinse mouth after use. (Patient not taking: Reported on 10/08/2017 ) Disp: 1 Bottle Rfl: 11 rizatriptan (MAXALT) 10 mg tablet Take 1 tablet by mouth as needed. Disp: 9 tablet Rfl: 5 No current facility-administered medications for this visit. DTAP,TDAP,TD(1 - Tdap) due on 1998 TWO PNEUMOVAX 5 YEARS APART PRIOR TO AGE 65(1) due on 1998 ADULT PREVNAR-13 due on 1998 EXAM: BP 122/82 Pulse 80 Temp 36.6 ?C (97.9 ?F) (Tympanic) Resp 16 LMP 02/02/2016 Pleasant overweight adult woman in no acute distress. Alert and oriented all spheres. Normal affect and cognition. Speech normal. No deficits to learning or comprehension. Skin warm, dry, pink to lips and nailbeds. Normal turgor. Respirations regular and unlabored. HEENT WNL. Sclera anicteric. TM's clear. Nose and oropharynx free from injection or lesion. No cervical lymph nodes. Thyroid non- tender, no masses Chest CTA. HRRR without murmur or gallop. Abd: soft, rounded, bowel sounds active. No pulsatile masses. Mildly tender LUQ though difficult to localize. No rebound, guarding, or peritoneal signs. No masses. No organomegaly. Rios's punch: negative. No flank pain. No inguinal or axillary lymphadenopathy. Extrem: no clubbing, cyanosis, edema. Extremities are warm and pink with prompt capillary refill. ASSESSMENT/PLAN: 1. Gastroesophageal reflux disease, esophagitis presence not specified - ICD9: 530.81, ICD10: K21.9 (primary diagnosis) Differential includes peptic ulcer disease, gastritis. Explain the patient is all be treated with omeprazole. If it's a GI-related issue in this nature it should improve over the next 48-72 hours on omeprazole. Recommend she do a soft bland diet, avoid alcohol, NSAIDs, any irritations such as acidic foods. Strongly urged to stop smoking. - OMEPRAZOLE 20 MG CAPSULE,DELAYED RELEASE 2. Tobacco abuse - ICD9: 305.1, ICD10: Z72.0 - Cessation encouraged. - Physiologic and physical aspects of tobacco addiction as well as strategies for quitting were discussed. Patient wants to retry Chantix. Patient failed in the past because she continued to smoke on it. She is also failed with Wellbutrin and the nicotine replacement. Discussed the fact the patient will have to make her decision to stop smoking. No medication will keep her from smoking if she chooses to smoke. She will have to make a mental and physical effort to avoid cigarettes. - VARENICLINE 0.5 MG (11)-1 MG (42) TABLETS IN A DOSE PACK f/u 4 weeks or as needed. WENDI Angel PA-C 10/08/2017 9:44 AM Signed Omeprazole 20mg: take twice a day for a week then daily on empty stomach for 30 minutes. For heartburn or Gastroesophageal Reflux (GERD): You need to gradually stop caffeine products which make heart burn worse by increasing acid and causing more activity in the stomach, creating more splash of acid into the esophagus. Avoid alcoholic beverages until symptoms improve, and generally limit to 1 or 2 a day. Obesity is a rubio factor in worsening heart burn and reflux. If you are overweight, a gradual weight reduction program should be implemented. Fad diets are not helpful, and may make you feel worse. Weight loss should be accomplished by modest reduction in calories, particularly in high carbohydrate or fatty foods, and through increased aerobic exercise. Get 30-60gm fiber per day in diet through beefy fruits and vegetables, beans, legumes, and whole grains. No more than 30% of calories should come from fat: 10% or less saturated, 10% or less polyunstaurated and the rest from monounsaturated fats. Avoid food high in trans-fats. Start an exercise program involving all four extremities in motion if possible, gradually increasing to goal of 30 minutes of sustained aerobic activity 3-4 days/ week. You should try to avoid over eating or laying down after a meal. Stay bolt upright for at least 90 minutes after eating. going for a walk may help food to settle. Avoid high acid foods such as citrus, tomatoes,sour candies, sugary foods and chocolate. Spicy foods, peppermint and salty or seasoned snacks may also cause problems. Put the head of your bed up on 4-6 inch blocks to help keep acid from coming up in your throat. Antacids or baking soda may help for brief occasional heartburn, but should not be used frequent symptoms as the stomach may detect the change in pH and secrete more acid. Products such as H2 blockers (Zantac, Tagamet, Pepcid, Axid, etc.) or Prilosec OTC may help. If symptoms aren't relieved with these choices over a few weeks of use, you should report this to your medical provider. Referring Provider: SELF [[id number]] Allergies As of Date: 10/08/2017 Noted Allergy Reaction BEES 2005 10 - Anaphylaxis BEE STING 12/11/2014 10 - Anaphylaxis DARVOCET A500 (PROPOXYPHENE N-NAOMI*12/23/2005 8 - GI Upset HYDROCODONE 03/30/2012 14 - Other: See Comments Comments: anxiety PHENERGAN (PROMETHAZINE HCL) 07/02/2016 1 - Mental Status Change SULFA (SULFONAMIDE ANTIBIOTICS) 01/13/2005 5 - Intolerance Comments: HIVES Date Reviewed: 10/08/2017 Reviewed by: Rose Santiago LPN - Fully Assessed Reason for Visit: Abdominal Pain [1] Cmt: left side epigastric down rib cage Reason For Visit History Recorded Primary Visit Diagnosis:Gastroesophageal reflux disease, esophagitis presence not specified [K21.9] Other Visit Diagnosis:Tobacco abuse [Z72.0] Order(s):omeprazole (PRILOSEC) 20 mg capsuleTake 1 capsule by mouth daily before breakfast. 1/2 hr before meal.Disp: 90 capsuleRfl: 1 varenicline (CHANTIX STARTING MONTH BOX) 0.5 mg (11)- 1 mg (42) tabletTake 1 tablet (0.5 mg) by mouth once daily for 3 days, then 1 tablet (0.5 mg) twice daily for 4 days, then one tablet (1 mg) twice daily.Disp: 53 tabletRfl: 0 Prescriptions as of 10/08/2017 Sig: IBUPROFEN 800 MG TABLET Take 1 tablet by mouth every * TIZANIDINE 4 MG TABLET Take 1 tablet by mouth every * OMEPRAZOLE 20 MG CAPSULE,TARYN* Take 1 capsule by mouth daily* VARENICLINE 0.5 MG (11)-1 MG * Take 1 tablet (0.5 mg) by laureen* PSEUDOEPHEDRINE 30 MG TABLET Take 1 every 6 or 2 every 12 FEXOFENADINE 180 MG TABLET Take 1 tablet by mouth once d* Patient not taking: Reported on 08/18/2017 GUAIFENESIN ER 600 MG TABLET,* Take 2 tablets by mouth twice* OXYMETAZOLINE 0.05 % NASAL SP* Use 2 Sprays in the nose twic* Patient not taking: Reported on 08/18/2017 ACETAMINOPHEN 500 MG TABLET Take 1,000 mg by mouth as nee* FLUTICASONE 50 MCG/ACTUATION * Use 2 Sprays in each nostril * Patient not taking: Reported on 10/08/2017 RIZATRIPTAN 10 MG TABLET Take 1 tablet by mouth as nee* Problem List As Of Date 10/08/2017 Noted Resolved Acute gastritis [535.0] INVALID FOR*10/19/2015 BENIGN NEOPLASM LG BOWEL [D12.6] INVALID FOR* ACNE NEC [L70.8] INVALID FOR* SEBACEOUS CYST [L72.3] INVALID FOR* Follicular lymphoma grade II of intra-abdominal*INVALID FOR* Tobacco abuse [Z72.0] INVALID FOR* Lymphoma, non-Hodgkin's (HCC) [C85.90] INVALID FOR* Cervical cancer (HCC) [C53.9] INVALID FOR* EVERETTE (stress urinary incontinence, female) [N39.*INVALID FOR* History of lymphoma [Z85.79] INVALID FOR* Other instructions from your clinician: Omeprazole 20mg: take twice a day for a week then daily on empty stomach for 30 minutes. For heartburn or Gastroesophageal Reflux (GERD): You need to gradually stop caffeine products which make heart burn worse by increasing acid and causing more activity in the stomach, creating more splash of acid into the esophagus. Avoid alcoholic beverages until symptoms improve, and generally limit to 1 or 2 a day. Obesity is a rubio factor in worsening heart burn and reflux. If you are overweight, a gradual weight reduction program should be implemented. Fad diets are not helpful, and may make you feel worse. Weight loss should be accomplished by modest reduction in calories, particularly in high carbohydrate or fatty foods, and through increased aerobic exercise. Get 30-60gm fiber per day in diet through beefy fruits and vegetables, beans, legumes, and whole grains. No more than 30% of calories should come from fat: 10% or less saturated, 10% or less polyunstaurated and the rest from monounsaturated fats. Avoid food high in trans-fats. Start an exercise program involving all four extremities in motion if possible, gradually increasing to goal of 30 minutes of sustained aerobic activity 3-4 days/ week. You should try to avoid over eating or laying down after a meal. Stay bolt upright for at least 90 minutes after eating. going for a walk may help food to settle. Avoid high acid foods such as citrus, tomatoes,sour candies, sugary foods and chocolate. Spicy foods, peppermint and salty or seasoned snacks may also cause problems. Put the head of your bed up on 4-6 inch blocks to help keep acid from coming up in your throat. Antacids or baking soda may help for brief occasional heartburn, but should not be used frequent symptoms as the stomach may detect the change in pH and secrete more acid. Products such as H2 blockers (Zantac, Tagamet, Pepcid, Axid, etc.) or Prilosec OTC may help. If symptoms aren't relieved with these choices over a few weeks of use, you should report this to your medical provider. Visit Notes: >> Rose Santiago LPN Rosanne Oct 08, 2017 8:38 AM Status: Addendum Patient complains of: left side abd pain with shortness of breath Duration: progressing over 2 month-really bad for about 1 week Associated Symptoms: shortness of breath doesn't feel that she can get in a full deep breath, reflux Aggravating factors:when has a full stomach makes it even harder to breath Things that improve symptoms :stretching area out or pressing in Went to [facility] on Thursday. Had EKG, labs, and chest x-ray. Was told that all was ok. They did Pred 20 mg 3 a day for 5 days. Naproxen 500 twice a day. Albuterol inhaler. Took last day of Pred today. Can see labs and x-ray in care everywhere. Prescriptions ordered this encounter Disp Refills Start End OMEPRAZOLE 20 MG CAPSULE,DELAYED REL* 90 c* 1 10/08/2017 Route: ORAL Sig: Take 1 capsule by mouth daily before breakfast. 1/2 hr before meal. VARENICLINE 0.5 MG (11)-1 MG (42) TA* 53 t* 0 10/08/2017 Sig: Take 1 tablet (0.5 mg) by mouth once daily for 3 days, then 1 tablet (0.5 mg) twice daily for 4 days, then one tablet (1 mg) twice daily. Encounter Status:Closed by Aime FRANCIS PA-C on 10/08/17 XR CHEST 1 VIEW Observed: 10/02/2017 Status: F Source: [facility] TIMPIK 10:32 PM [facility] REPOSITORY ORIGINAL XR CHEST 1 VIEW CLINICAL STATEMENT: Chest pain. COMPARISON: None FINDINGS: The heart is normal in size. The cardiomediastinal contours are normal. There is no focal consolidation, pleural effusion, vascular congestion, or pneumothorax. No acute osseous abnormality is identified. IMPRESSION: No acute cardiopulmonary process. I have personally reviewed the images of this examination and agree with the resident's findings and interpretation. Interpreted By: Carl Mancuso MD Preliminary Report By: Nara Finn DO Electronically Signed By: Carl Mancuso MD Dictated Date: 10/02/2017 10:53:27 PM Prelim Date: 10/02/2017 10:54:08 PM Sign Date: 10/02/2017 11:02:21 PM CBC Collected: 10/02/2017 Status: F Source: [email or web address] 10:10 PM [facility] REPOSITORY TYPE CODE TESTS RESULT OUT OF REFERENCE UNITS RANGE LAB WBC(LOINC) 4.60-10.80 10 3/mcL High WBC 11.80 LAB RBCCT(LOINC 4.20-5.40 10 6/mcL ) RBC 4.23 LAB HGB(LOINC) 12.0-16.0 G/dL Hgb 13.3 LAB HCT(LOINC) 37.0-47.0 % Hct 38.5 LAB MCV(LOINC) 80.0-94.0 fL MCV 91.1 LAB MCH(LOINC) 27.0-31.2 pg High MCH 31.4 LAB MCHC(LOINC) 33.0-37.0 G/dL MCHC 34.5 LAB RDW(LOINC) 11.5-14.5 % RDW 13.6 LAB PLT(LOINC) 130-400 10 3/mcL Platelet 306 LAB MPV(LOINC) 7.4-10.4 fL MPV 7.7 Performed By: #### CBC, ADIFF, ANEU, TROP, DIMER, LIP, GFR, CMP #### [address] [address] .AUTO DIFF Collected: 10/02/2017 Status: F Source: [facility] 10:10 PM [facility] TYPE CODE TESTS RESULT OUT OF REFERENCE UNITS RANGE LAB INDIRA(LOINC) 37.0-80.0 % Neutrophil % 65.3 LAB LYM(LOINC) 10.0-50.0 % Lymphocyte % 25.9 LAB MON(LOINC) 1.7-13.0 % Monocyte % 7.0 LAB EO(LOINC) 0.0-7.0 % Eosinophil % 1.1 LAB BAS(LOINC) 0.0-2.5 % Basophil % 0.7 LAB ABLYM(LOIN 0.77-3.85 10 3/mcL C) Lymphocyte, 3.10 Absolute LAB MAMIE(LOINC 0.15-1.00 10 3/mcL ) Monocyte, 0.80 Absolute LAB AEOS(LOINC 0.00-0.40 10 3/mcL ) Eosinophil, 0.10 Absolute LAB ABAS(LOINC 0.00-0.19 10 3/mcL ) Basophil, 0.10 Absolute Performed By: #### CBC, ADIFF, ANEU, TROP, DIMER, LIP, GFR, CMP #### [address] [address] .NEUABS Collected: 10/02/2017 Status: F Source: [facility] 10:10 PM [facility] REPOSITORY TYPE CODE TESTS RESULT OUT OF REFERENCE UNITS RANGE LAB ANEU(LOINC) 2.85-6.16 10 3/mcL High Neutrophil, 7.70 Absolute Performed By: #### CBC, ADIFF, ANEU, TROP, DIMER, LIP, GFR, CMP #### [address] [address] TROP Collected: 10/02/2017 Status: F Source: [facility] 10:10 PM [facility] REPOSITORY TYPE CODE TESTS RESULT OUT OF REFERENCE UNITS RANGE LAB TROP(LOINC) 0.00-0.30 ng/mL Troponin <0.30 Result Comment: Below measuring range >=0.30 Consistent with cardiac damage, increased clinical risk and possibility of myocardial infarction. Serial measurements, clinical history, appropriate symptoms and/or ECG changes may help assess possibility of UT. *Other non-acute coronary syndrome conditions such as CHF, myocarditis, pulmonary emboli, sepsis and cardiac surgery could result in myocardial damage and increased troponin levels. Performed By: #### CBC, ADIFF, ANEU, TROP, DIMER, LIP, GFR, CMP #### [address] [address] DIMER Collected: 10/02/2017 Status: F Source: [facility] 10:10 [facility] REPOSITORY TYPE CODE TESTS RESULT OUT OF RANGE REFERENCE UNITS LAB DIMER(LOINC 0-230 ng/mL D-DU ) D-Dimer <200 Result Comment: The result of the D-Dimer test should be evaluated in the context of all the clinical and laboratory data available. In those instances where the laboratory result does not agree with the clinical evaluation, additional tests should be performed accordingly. If the D-Dimer result is used to exclude DVT or PE, the recommended cutoff value is less than 230 ng/mL. The D-Dimer result should not be used alone to rule in DVT/PE, but should be used in conjunction with a clinical pretest probability (PTP)assessment model to exclude venous thromboembolism (VTE) in outpatients suspected of deep venous thrombosis (DVT) and pulmonary embolism (PE). Performed By: #### CBC, ADIFF, ANEU, TROP, DIMER, LIP, GFR, CMP #### [address] [address] [place], [place] [address] LIP Collected: 10/02/2017 Status: F Source: [facility] 10:10 PM [facility] REPOSITORY TYPE CODE TESTS RESULT OUT OF REFERENCE UNITS RANGE LAB LIP(LOINC) 8-78 IU/L Lipase Level 45 Performed By: #### CBC, ADIFF, ANEU, TROP, DIMER, LIP, GFR, CMP #### [address] [place], [place] [address] .GFR Collected: 10/02/2017 Status: F Source: [facility] 10:10 PM [facility] REPOSITORY TYPE CODE TESTS RESULT OUT OF REFERENCE UNITS RANGE LAB GFRAA(LOINC ml/min/1.73 ) sqm GFR >60 Spanish Result Comment: GFR Population mean for , Non- Americans Ages 20-29 = 116 mL/min/1.73 sq.m. Ages 30-39 = 107 mL/min/1.73 sq.m. Ages 40-49 = 99 mL/min/1.73 sq.m. Ages 50-59 = 93 mL/min/1.73 sq.m. Ages 60-69 = 85 mL/min/1.73 sq.m. Ages 70+ = 75 mL/min/1.73 sq.m. Chronic Kidney Disease: Less than 60 mL/min/1.73 square meters End Stage Renal Disease: Less than 15 mL/min/1.73 square meters LAB GFRNO(LOINC) ml/min/1.73sqm GFR Non- >60 Result Comment: GFR Population mean for , Non- Americans Ages 20-29 = 116 mL/min/1.73 sq.m. Ages 30-39 = 107 mL/min/1.73 sq.m. Ages 40-49 = 99 mL/min/1.73 sq.m. Ages 50-59 = 93 mL/min/1.73 sq.m. Ages 60-69 = 85 mL/min/1.73 sq.m. Ages 70+ = 75 mL/min/1.73 sq.m. Chronic Kidney Disease: Less than 60 mL/min/1.73 square meters End Stage Renal Disease: Less than 15 mL/min/1.73 square meters Performed By: #### CBC, ADIFF, ANEU, TROP, DIMER, LIP, GFR, CMP #### [address] [place], [place] [address] CMP Collected: 10/02/2017 Status: F Source: [facility] 10:10 PM [facility] REPOSITORY TYPE CODE TESTS RESULT OUT OF REFERENCE UNITS RANGE LAB GLU(LOINC) 70-105 mg/dL Glucose High Level 109 LAB NA(LOINC) 136-146 mEq/L Sodium Level 139 LAB K(LOINC) 3.5-5.1 mEq/L Potassium Level 3.9 LAB CL(LOINC) 98-107 mEq/L Chloride 105 LAB CO2(LOINC) 22-29 mEq/L CO2 26 LAB EBAL(LOINC mEq/L ) Electrolyte Balance 8.0 LAB BUN(LOINC) 7.0-18.0 mg/dL BUN 7.1 LAB CRE(LOINC) 0.6-1.2 mg/dL Creatinine Lvl (s) 0.6 LAB BC(LOINC) 7-27 ratio BUN/Creatinine 12 Ratio LAB CA(LOINC) 8.4-10.2 mg/dL Calcium Lvl 9.6 LAB PROT(LOINC 6.0-8.3 G/dL ) Total Protein 6.6 LAB ALB(LOINC) 3.5-5.0 G/dL Albumin Level 4.5 LAB GLB(LOINC) G/dL Globulin 2.1 LAB AG(LOINC) 1.1-2.5 ratio A/G Ratio 2.1 LAB BILT(LOINC 0.2-1.0 mg/dL ) Low Bili Total <0.2 LAB AP(LOINC) 40-135 IU/L Alk Phos 76 LAB AST(LOINC) 10-40 IU/L AST/SGOT 12 LAB ALT(LOINC) 10-35 IU/L ALT/SGPT 14 Performed By: #### CBC, ADIFF, ANEU, TROP, DIMER, LIP, GFR, CMP #### [id number] [place], [place] [address] OFFICE VISIT REPORT Observed: 09/05/2017 Status: F Source: [place] 8:11 AM [facility] [place] [address] OFFICE VISIT Date of Service: 09/04/17 MR#: [id number] Acct: [id number] Patient: ELIDIA WALTON Rep #: [id number] : 1980 Provider: CORNELIA More Age/Sex: 37/F Location: [facility] Status: Signed Intake Vital Signs09/04/17 Height 5 ft 10 in Intake Visit Reasons: lenny rivero PE Wheel And Pinion Inspector Required: No Is patient in pain?: No Allergies acetaminophen [From Darvocet-N] Allergy (Verified 08/22/17 14:30) Rash propoxyphene napsylate [From Darvocet-N] Allergy (Verified 08/22/17 14:30) Rash Sulfa (Sulfonamide Antibiotics) Allergy (Verified 08/22/17 14:30) Hives venom-honey bee [bee venom (honey bee)] Allergy (Verified 08/22/17 14:30) Anaphylaxis hydrocodone Adverse Reaction (Verified 08/22/17 15:44) Other promethazine HCl [From Phenergan] Adverse Reaction (Verified 08/22/17 14:30) Other Medications Lorazepam [Ativan] 1 mg PO DAILY PRN PRN 03/28/17 [History Confirmed 08/22/17] Tizanidine HCl [Zanaflex] 2 mg PO PRN PRN 04/21/17 [History Confirmed 05/31/17] fluticasone 50 mcg/actuation nasal spray,suspension 50 mcg INTRANASAL ONCE 04/23/17 [History Confirmed 08/22/17] rizatriptan 5 mg tablet 5 mg PO ONCE 04/23/17 [History Confirmed 05/31/17] Amoxicillin 875 mg PO BID 08/22/17 [History Confirmed 08/22/17] Guaifenesin [Mucinex] 600 mg PO BID 08/22/17 [History Confirmed 08/22/17] Pseudoephedrine HCl [Sudafed 12 Hour] 120 mg PO BID 08/22/17 [History Confirmed 08/22/17] PFSH Medical History Anxiety (Acute) Back pain (Acute) Migraines (Acute) Non Hodgkin's lymphoma (Acute) PCOS (polycystic ovarian syndrome) (Acute) history of acl repair (Acute) Surgical History H/O: hysterectomy (Acute) History of nasal septoplasty (Acute) History of tonsillectomy (Acute) History of tubal ligation (Acute) Social History Smoking Status: Current every day smoker alcohol intake: current details: social substance use type: does not use caffeine: Yes what type of physical activity do you participate in: none seatbelt use: always do you feel safe at home: Yes 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 Patient has held similar positions at other facilities. She has no concerns or complaints at this time. Patient states that she is up-to-date on immunizations. She is to have urine drug screen today. Please see attached form for further information and physical exam. Exam Const General: cooperative, healthy appearing, no acute distress, well developed, well groomed Nutritional Appearance: well nourished, average body habitus Orientation: alert, awake Other: Please see attached form for complete physical exam. Assessment AND Plan Problems 1. Pre-employment examination Z02.1 Orders Orders: Coding Level of Care Code Off vis,est,prev 18-39yrs Diagnoses Pre-employment examination Z02.1 09/05/17 0811 <Electronically signed by Stefan LOCKE> Date Stefan LOCKE Cosigner Signature: Date (if applicable) CC: DISCHARGE INSTRUCTION Observed: 08/22/2017 Status: F Source: [place] 3:40 PM [facility] Medical Records Department [address] [place] [address] Discharge Instruction 08/22/17 1539 MR#: [id number] Acct: [id number] Name: ELIDIA WALTON Rep #: [id number] : 1980 37 From: Yandy Orellana PCP: Karlos Newell MD Status: REG ER ED Disposition - Plan for ED Patient: Chief Complaint: Cold Sx Instructions: ED Upper Resp Infec No Abx Tx, Sinus Headaches Referrals: Karlos Newell MD [Primary Care Provider] - 5-7 Days What to do if you have Problems For any increased pain, shortness of breath, bleeding, nausea or vomiting, chest pain, or any unexpected problems, contact your Primary Care Provider. Call [facility] ([phone]) or report to the closest Emergency Room. Call 911 if necessary. 08/22/17 1540 <Electronically signed by Yandy Orellana > Date Yandy Orellana Cosigner Signature (If Indicated): Date CC: Karlos Newell MD EMERGENCY DEPARTMENT Observed: 08/22/2017 Status: F Source: [place] SUMMARY 3:39 PM [facility] Medical Records Department [address] [place] [address] Emergency Department Summary 08/22/17 1523 MR#: [id number] Acct: [id number] Name: ELIDIA WALTON Rep #: [id number] : 1980 37 From: Yandy Orellana PCP: Karlos Newell MD Status: REG ER - ER Visit Summary Date of Service: 08/22/17 Chief Complaint: [Upper respiratory infection sinus pain] History of Present Illness: The patient is a 37 F [presents the emergency department with upper respiratory infection symptoms and sinus pain. She was seen in the urgent care 3 days ago told she had a left otitis media was placed on amoxicillin she has been doing Sudafed and Mucinex however for the past day she has had severe pain in her forehead especially with bending forward. No fevers or chills. She continues to have greenish yellowish drainage from her nose.] Physical Examination: [] WN WD NAD PERRL EOMI MMM, posterior oropharynx shows cobblestone with yellow mucus drainage serous otitis bilaterally swollen nasal turbinates NECK supple and nontender, no masses RRR no murmur rub or gallop, no peripheral edema, symmetric radial pulses CTAB no respiratory distress ABDOMEN is soft and nontender, normal bowel sounds, no distension, no rebound or guarding SKIN is warm and dry no rashes Alert and Oriented x3, CN II-XII in tact, no motor or sensory deficits, gait normal No lymphadenopathy Test Results: [] Emergency Department Course and Treatment: [Patient will be given Kenalog. She will continue the Sudafed. She understands that if she continues to have symptoms past 7 days she may need to change antibiotic.] Treatment Plan: [] Disposition: [] Charge Impression: [sinus Pain upper respiratory infection] This note was generated with [employer] dictation software. It may contain incorrect words, spelling, and punctuation that were not noted in review of the chart prior to signing ED Disposition - Plan for ED Patient: Chief Complaint: Cold Sx Referrals: Karlos Newell MD [Primary Care Provider] - What to do if you have Problems For any increased pain, shortness of breath, bleeding, nausea or vomiting, chest pain, or any unexpected problems, contact your Primary Care Provider. Call [facility] ([phone]) or report to the closest Emergency Room. Call 911 if necessary. 08/22/17 1539 <Electronically signed by Yandy Orellana > Date Yandy Orellana Cosigner Signature (If Indicated): Date CC: Karlos Newell MD PROGRESS Observed: 08/18/2017 Status: COMPLETED Source: [place] 7:59 PM [facility] REPOSITORY HNO ID: [id number] Author: Eunice (Nehemias Dowd Service: (none) Author Type: Nurse Practitioner Type: Progress Notes Filed: 08/18/2017 8:56 PM Note Text: Subjective The history is provided by the patient and a relative. No home housekeeper was used. Sinus Problem Associated symptoms include congestion and headaches (sinus). Pertinent negatives include no chest pain, chills, coughing, fever, myalgias, rash or sore throat. HPI Elidia L Giorgio is a 37 year old female who presents today for CC of sinus congestion and pressure This started yesterday She is also having ear pressure. Symptoms are worsened by leaning forward She has tried mucinex and ibuprofen Risk factors family was ill. PMH Sinusitis in the past BP 118/72 Pulse 78 Temp 37.1 ?C (98.7 ?F) (Tympanic) Resp 16 Wt 92.5 kg (204 lb) LMP 02/02/2016 BMI 31.02 kg/m? 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 Alcohol use: No Drug use: No Sexual activity: Yes Partners with: Male control/protection: Surgical Social History Narrative . December. Review of Systems Constitutional: Negative. Negative for chills, fever and malaise/fatigue. HENT: Positive for congestion, ear pain (pressure) and sinus pain. Negative for sore throat. Respiratory: Negative for cough, sputum production, shortness of breath and wheezing. Cardiovascular: Negative for chest pain. Musculoskeletal: Negative for myalgias. Skin: Negative for rash. Neurological: Positive for headaches (sinus). Objective Physical Exam Constitutional: She is well-developed, well-nourished, and in no distress. HENT: Head: Normocephalic and atraumatic. Right Ear: Tympanic membrane, external ear and ear canal normal. Tympanic membrane is not injected, not erythematous, not retracted and not bulging. No middle ear effusion. Left Ear: External ear and ear canal normal. Tympanic membrane is injected, erythematous and retracted. Tympanic membrane is not bulging. A middle ear effusion is present. Nose: Mucosal edema and rhinorrhea present. Right sinus exhibits frontal sinus tenderness. Right sinus exhibits no maxillary sinus tenderness. Left sinus exhibits frontal sinus tenderness. Left sinus exhibits no maxillary sinus tenderness. Mouth/Throat: Uvula is midline and mucous membranes are normal. Posterior oropharyngeal erythema present. No oropharyngeal exudate, posterior oropharyngeal edema or tonsillar abscesses. Clear post nasal drainage Eyes: Conjunctivae and EOM are normal. Pupils are equal, round, and reactive to light. Neck: Normal range of motion. Cardiovascular: Normal rate, regular rhythm and normal heart sounds. Pulmonary/Chest: Effort normal and breath sounds normal. No respiratory distress. She has no decreased breath sounds. She has no wheezes. She has no rhonchi. She has no rales. Lymphadenopathy: Head (right side): No submental, no submandibular, no tonsillar, no preauricular and no posterior auricular adenopathy present. Head (left side): No submental, no submandibular, no tonsillar, no preauricular and no posterior auricular adenopathy present. She has no cervical adenopathy. Right cervical: No posterior cervical adenopathy present. Left cervical: No posterior cervical adenopathy present. Right: No supraclavicular adenopathy present. Left: No supraclavicular adenopathy present. Skin: Skin is warm and dry. Psychiatric: Affect normal. Nursing note and vitals reviewed. ASSESSMENT/PLAN: 1. URI, acute - ICD9: 465.9, ICD10: J06.9 (primary diagnosis) - Discussed viral etiology and rationale for treatment. You need to rest as much as possible. Motrin or Tylenol as needed for fever or pain. Salt water gargles, chloraseptic spray or lozenges as needed for sore throat. Nasal saline irrigation at least 2 x day. Drink at least 8 glasses of fluids per day that aren't caffeinated. Eat a nutritious diet. Use a humidifier in your room at night. 2. Left acute suppurative otitis media - ICD9: 382.00, ICD10: H66.002 - Will begin treatment with Amoxicillin for 10 days - Supportive care with plenty of fluids, rest, and analgesia prn. - AMOXICILLIN 875 MG TABLET GO TO THE ER IF: 1. You have a severe headache or pain around the ear. 2. You notice swelling around the ear. 3. You have a seizure (convulsion), twitching of the facial muscles, or passes out. 4. You are dizzy, have a stiff neck, or cannot walk or talk normally. 3. Feared condition not demonstrated - ICD9: V65.5, ICD10: Z71.1 Take with onset of symptoms, and after complete medication. - FLUCONAZOLE 150 MG TABLET * Seek medical care immediately, call 911, go to ER if you have chest pain, difficulty breathing, shortness of breath, inability to swallow. Diagnosis and treatment plan were discussed and questions were answered to the patient's satisfaction. Pt acknowledged understanding of concepts and follow up plan. Specific signs and symptoms that would indicate the need for higher level of care were discussed in detail warranting prompt ER evaluation. WILLIAM Flynn Observed: 08/18/2017 Status: COMPLETED Source: [place]Y 7:15 PM [facility] REPOSITORY Office Visit (UCWSTR) ELIDIA WALTON ([id number]) 1980 F NFR Date Time Provider Department 08/18/17 7:15 PM EUNICE DOWD ([facility]) WSTR During your visit today, we recorded the following information about you: Temperature Pulse Respiration Blood pressure 98.7 degrees 78/minute 16/minute 118/72 Weight 92.5 kg Eunice Dowd APRN.CNP 08/18/2017 8:56 PM Signed Subjective The history is provided by the patient and a relative. No home housekeeper was used. Sinus Problem Associated symptoms include congestion and headaches (sinus). Pertinent negatives include no chest pain, chills, coughing, fever, myalgias, rash or sore throat. [facility] Elidiaramya Walton is a 37 year old female who presents today for CC of sinus congestion and pressure This started yesterday She is also having ear pressure. Symptoms are worsened by leaning forward She has tried mucinex and ibuprofen Risk factors family was ill. PMH Sinusitis in the past BP 118/72 Pulse 78 Temp 37.1 ?C (98.7 ?F) (Tympanic) Resp 16 Wt 92.5 kg (204 lb) LMP 02/02/2016 BMI 31.02 kg/m? 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 Alcohol use: No Drug use: No Sexual activity: Yes Partners with: Male control/protection: Surgical Social History Narrative . December. Review of Systems Constitutional: Negative. Negative for chills, fever and malaise/fatigue. HENT: Positive for congestion, ear pain (pressure) and sinus pain. Negative for sore throat. Respiratory: Negative for cough, sputum production, shortness of breath and wheezing. Cardiovascular: Negative for chest pain. Musculoskeletal: Negative for myalgias. Skin: Negative for rash. Neurological: Positive for headaches (sinus). Objective Physical Exam Constitutional: She is well-developed, well-nourished, and in no distress. HENT: Head: Normocephalic and atraumatic. Right Ear: Tympanic membrane, external ear and ear canal normal. Tympanic membrane is not injected, not erythematous, not retracted and not bulging. No middle ear effusion. Left Ear: External ear and ear canal normal. Tympanic membrane is injected, erythematous and retracted. Tympanic membrane is not bulging. A middle ear effusion is present. Nose: Mucosal edema and rhinorrhea present. Right sinus exhibits frontal sinus tenderness. Right sinus exhibits no maxillary sinus tenderness. Left sinus exhibits frontal sinus tenderness. Left sinus exhibits no maxillary sinus tenderness. Mouth/Throat: Uvula is midline and mucous membranes are normal. Posterior oropharyngeal erythema present. No oropharyngeal exudate, posterior oropharyngeal edema or tonsillar abscesses. Clear post nasal drainage Eyes: Conjunctivae and EOM are normal. Pupils are equal, round, and reactive to light. Neck: Normal range of motion. Cardiovascular: Normal rate, regular rhythm and normal heart sounds. Pulmonary/Chest: Effort normal and breath sounds normal. No respiratory distress. She has no decreased breath sounds. She has no wheezes. She has no rhonchi. She has no rales. Lymphadenopathy: Head (right side): No submental, no submandibular, no tonsillar, no preauricular and no posterior auricular adenopathy present. Head (left side): No submental, no submandibular, no tonsillar, no preauricular and no posterior auricular adenopathy present. She has no cervical adenopathy. Right cervical: No posterior cervical adenopathy present. Left cervical: No posterior cervical adenopathy present. Right: No supraclavicular adenopathy present. Left: No supraclavicular adenopathy present. Skin: Skin is warm and dry. Psychiatric: Affect normal. Nursing note and vitals reviewed. ASSESSMENT/PLAN: 1. URI, acute - ICD9: 465.9, ICD10: J06.9 (primary diagnosis) - Discussed viral etiology and rationale for treatment. You need to rest as much as possible. Motrin or Tylenol as needed for fever or pain. Salt water gargles, chloraseptic spray or lozenges as needed for sore throat. Nasal saline irrigation at least 2 x day. Drink at least 8 glasses of fluids per day that aren't caffeinated. Eat a nutritious diet. Use a humidifier in your room at night. 2. Left acute suppurative otitis media - ICD9: 382.00, ICD10: H66.002 - Will begin treatment with Amoxicillin for 10 days - Supportive care with plenty of fluids, rest, and analgesia prn. - AMOXICILLIN 875 MG TABLET GO TO THE ER IF: 1. You have a severe headache or pain around the ear. 2. You notice swelling around the ear. 3. You have a seizure (convulsion), twitching of the facial muscles, or passes out. 4. You are dizzy, have a stiff neck, or cannot walk or talk normally. 3. Feared condition not demonstrated - ICD9: V65.5, ICD10: Z71.1 Take with onset of symptoms, and after complete medication. - FLUCONAZOLE 150 MG TABLET * Seek medical care immediately, call 911, go to ER if you have chest pain, difficulty breathing, shortness of breath, inability to swallow. Diagnosis and treatment plan were discussed and questions were answered to the patient's satisfaction. Pt acknowledged understanding of concepts and follow up plan. Specific signs and symptoms that would indicate the need for higher level of care were discussed in detail warranting prompt ER evaluation. WILLIAM Flynn APRN.CNP 08/18/2017 8:10 PM Signed ASSESSMENT/PLAN: 1. URI, acute - ICD9: 465.9, ICD10: J06.9 (primary diagnosis) - Discussed viral etiology and rationale for treatment. You need to rest as much as possible. Motrin or Tylenol as needed for fever or pain. Salt water gargles, chloraseptic spray or lozenges as needed for sore throat. Nasal saline irrigation at least 2 x day. Drink at least 8 glasses of fluids per day that aren't caffeinated. Eat a nutritious diet. Use a humidifier in your room at night. 2. Left acute suppurative otitis media - ICD9: 382.00, ICD10: H66.002 - Will begin treatment with Amoxicillin for 10 days - Supportive care with plenty of fluids, rest, and analgesia prn. - AMOXICILLIN 875 MG TABLET GO TO THE ER IF: 1. You have a severe headache or pain around the ear. 2. You notice swelling around the ear. 3. You have a seizure (convulsion), twitching of the facial muscles, or passes out. 4. You are dizzy, have a stiff neck, or cannot walk or talk normally. 3. Feared condition not demonstrated - ICD9: V65.5, ICD10: Z71.1 Take with onset of symptoms, and after complete medication. - FLUCONAZOLE 150 MG TABLET * Seek medical care immediately, call 911, go to ER if you have chest pain, difficulty breathing, shortness of breath, inability to swallow. Referring Provider: SELF [[id number]] Allergies As of Date: 08/18/2017 Noted Allergy Reaction BEES 2005 10 - Anaphylaxis BEE STING 12/11/2014 10 - Anaphylaxis DARVOCET A500 (PROPOXYPHENE N-NAOMI*12/23/2005 8 - GI Upset HYDROCODONE 03/30/2012 14 - Other: See Comments Comments: anxiety PHENERGAN (PROMETHAZINE HCL) 07/02/2016 1 - Mental Status Change SULFA (SULFONAMIDE ANTIBIOTICS) 01/13/2005 5 - Intolerance Comments: HIVES Date Reviewed: 08/18/2017 Reviewed by: Eunice ([facility]) Noemí - Fully Assessed Reason for Visit: Sinus Problem [99] Cmt: sinus pressure and drainage, cough x 2 days Primary Visit Diagnosis:URI, acute [J06.9] Other Visit Diagnoses:Left acute suppurative otitis media [H66.002] Feared condition not demonstrated [Z71.1] Order(s):amoxicillin (AMOXIL) 875 mg tabletTake 1 tablet by mouth twice daily for 10 days.Disp: 20 tabletRfl: 0 fluconazole (DIFLUCAN) 150 mg tabletTake 1 tablet by mouth one time only for 1 dose. Repeat in 3 days as needed.Disp: 2 tabletRfl: 0 pseudoephedrine (SUDAFED) 30 mg tabletTake 1 every 6 or 2 every 12Disp: 30 tabletRfl: 0 Prescriptions as of 08/18/2017 Sig: IBUPROFEN 800 MG TABLET Take 1 tablet by mouth every * TIZANIDINE 4 MG TABLET Take 1 tablet by mouth every * GUAIFENESIN ER 600 MG TABLET,* Take 2 tablets by mouth twice* ACETAMINOPHEN 500 MG TABLET Take 1,000 mg by mouth as nee* FLUTICASONE 50 MCG/ACTUATION * Use 2 Sprays in each nostril * RIZATRIPTAN 10 MG TABLET Take 1 tablet by mouth as nee* AMOXICILLIN 875 MG TABLET Take 1 tablet by mouth twice * FLUCONAZOLE 150 MG TABLET Take 1 tablet by mouth one ti* PSEUDOEPHEDRINE 30 MG TABLET Take 1 every 6 or 2 every 12 FEXOFENADINE 180 MG TABLET Take 1 tablet by mouth once d* Patient not taking: Reported on 08/18/2017 OXYMETAZOLINE 0.05 % NASAL SP* Use 2 Sprays in the nose twic* Patient not taking: Reported on 08/18/2017 Problem List As Of Date 08/18/2017 Noted Resolved Acute gastritis [535.0] INVALID FOR*10/19/2015 BENIGN NEOPLASM LG BOWEL [D12.6] INVALID FOR* ACNE NEC [L70.8] INVALID FOR* SEBACEOUS CYST [L72.3] INVALID FOR* Follicular lymphoma grade II of intra-abdominal*INVALID FOR* Tobacco abuse [Z72.0] INVALID FOR* Lymphoma, non-Hodgkin's (HCC) [C85.90] INVALID FOR* Cervical cancer (HCC) [C53.9] INVALID FOR* EVERETTE (stress urinary incontinence, female) [N39.*INVALID FOR* History of lymphoma [Z85.79] INVALID FOR* Other instructions from your clinician: ASSESSMENT/PLAN: 1. URI, acute - ICD9: 465.9, ICD10: J06.9 (primary diagnosis) - Discussed viral etiology and rationale for treatment. You need to rest as much as possible. Motrin or Tylenol as needed for fever or pain. Salt water gargles, chloraseptic spray or lozenges as needed for sore throat. Nasal saline irrigation at least 2 x day. Drink at least 8 glasses of fluids per day that aren't caffeinated. Eat a nutritious diet. Use a humidifier in your room at night. 2. Left acute suppurative otitis media - ICD9: 382.00, ICD10: H66.002 - Will begin treatment with Amoxicillin for 10 days - Supportive care with plenty of fluids, rest, and analgesia prn. - AMOXICILLIN 875 MG TABLET GO TO THE ER IF: 1. You have a severe headache or pain around the ear. 2. You notice swelling around the ear. 3. You have a seizure (convulsion), twitching of the facial muscles, or passes out. 4. You are dizzy, have a stiff neck, or cannot walk or talk normally. 3. Feared condition not demonstrated - ICD9: V65.5, ICD10: Z71.1 Take with onset of symptoms, and after complete medication. - FLUCONAZOLE 150 MG TABLET * Seek medical care immediately, call 911, go to ER if you have chest pain, difficulty breathing, shortness of breath, inability to swallow. Prescriptions ordered this encounter Disp Refills Start End AMOXICILLIN 875 MG TABLET 20 t* 0 08/18/2017 08/28/2017 Route: ORAL Sig: Take 1 tablet by mouth twice daily for 10 days. FLUCONAZOLE 150 MG TABLET 2 ta* 0 08/18/2017 08/18/2017 Route: ORAL Sig: Take 1 tablet by mouth one time only for 1 dose. Repeat in 3 days as needed. PSEUDOEPHEDRINE 30 MG TABLET 30 t* 0 08/18/2017 Sig: Take 1 every 6 or 2 every 12 Encounter Status:Closed by EUNICE DOWD CNP on 08/18/17 PROGRESS Observed: 06/26/2017 Status: COMPLETED Source: [place]Y 3:35 PM [facility] [place] REPOSITORY HNO ID: [id number] Author: Karlos Newell Service: (none) Author Type: Physician Type: Progress Notes Filed: 06/26/2017 3:43 PM Note Text: Patient presents with: Sinus Problem HPI: Patient presents today for office visit for follow up. Nursing Notes: Marsha Alejandro Ma 06/26/2017 3:35 PM Signed ENT: Patient complains of sinus pressure. Duration: 2 days Fever: No, but has chills. Headache: Yes. Sore throat: Yes. Ear pain: Yes, right ear. Nasal drainage: Yes. Cough: No. Shortness of breath: No. Nausea: No. Vomiting: No. Diarrhea: No. Previous treatment: Ines Black Cold and Flu, Emergen-C. no myalgias. No real chest involvement. Does not sound like flu given her symptoms. Throat is not very sore. More sore over the glands. MEDICATIONS: Current Outpatient Prescriptions: tiZANidine (ZANAFLEX) 4 mg tablet take 1 tablet by mouth every 8 hours if needed acetaminophen (TYLENOL EXTRA STRENGTH) 500 mg tablet Take 1,000 mg by mouth as needed. fluticasone (FLONASE) 50 mcg/actuation nasal spray Use 2 Sprays in each nostril once daily. Rinse mouth after use. rizatriptan (MAXALT) 10 mg tablet Take 1 tablet by mouth as needed. fexofenadine (MISHA ALLERGY) 180 mg tablet Take 1 tablet by mouth once daily. No current facility-administered medications for this visit. ALLERGIES: ALLERGIES Allergen Reactions - Bees Anaphylaxis - Bee Sting Anaphylaxis - Darvocet A500 [Prop* GI Upset - Hydrocodone Other: See Comments anxiety - Phenergan [Prometha* Mental Status Change - Sulfa (Sulfonamide * Intolerance HIVES PAST MEDICAL HISTORY Diagnosis Date - Abdominal pain, generalized - Acute gastritis - Bipolar I disorder, most recent episode (or current) unspecified - Carcinoma in situ of cervix uteri - Diaphragmatic hernia without mention of obstruction or gangrene - Diverticulitis - History of colon polyps 07/14/2016 - Irritable bowel syndrome - Mitral valve disorders(424.0) - 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 - Post depression - Snoring - Tobacco abuse PAST SURGICAL HISTORY Procedure Laterality Date - CERVIX UTERI CONIZA LP ELCTRO EXCI 09/24 LEEP-Cervix - COLONOSCOP W/ OR W/O [facility] SPEC 2004 Colonoscopy/endoscopy - COLONOSCOP W/ OR W/O [facility] SPEC 07/10/2016 repeat 5 years - sessile serrated polyp - EGD W/O OR W/BRUSH/WASH 07/10/2016 EGD - EXPLORATORY OF ABDOMEN Laparotomy, exp - KNEE SCOPE,DIAGNOSTIC Arthroscopy, knee, ACL LEFT - LIGATE FALLOPIAN TUBE 2001 Tubal ligation - PART SIMPLE REMV VULVA 07/04/14 left vulvar cyst removal - REMOVAL OF TONSILS,<11 Y/O Tonsillectomy - REPAIR OF NASAL SEPTUM Septoplasty - S IRENE MARCANO-LAPAROSCOPY,[id number] 03/12/2016 - S PORT A CATH II STANDARD 04/2014,09/2014 left inserted and removed, right side. insered and removed - SLING OPER STRES INCONTINENCE 03/12/2016 FAMILY HISTORY Problem Relation Age of Onset - Cancer Paternal Aunt ovarian - Hypertension Brother - Diabetes Father HEART ,STROKE - Cancer Paternal Grandmother OVARIAN Social History Marital status: Spouse name: Years of education: Number of children: 2 Social History Main Topics Smoking status: Current Every Day Smoker Packs/day: 1.00 Years: 24.00 Types: Cigarettes Smokeless status: Never Used Comment: Pt has cut back to 3/4 pack daily. Alcohol use: No Drug use: No Sexual activity: Yes Partners with: Male control/protection: Surgical Social History Narrative . December. Reviewed current medications, allergies, past medical history, surgical history, family history and social history today. REVIEW OF SYSTEMS All other reviewed and negative other than HPI. VITALS: BP 114/72 Pulse 101 Temp 37.1 ?C (98.7 ?F) (Tympanic) LMP 02/02/2016 SpO2 97% Last 4 Encounter Wt Readings: Date: Wt: 04/22/2017 93 kg (205 lb) 04/02/2017 89.8 kg (198 lb) 01/28/2017 90.3 kg (199 lb) 01/27/2017 91.2 kg (201 lb) PHYSICAL EXAMINATION: General appearance: Well appearing, alert, in no acute distress, well-hydrated, well nourished. Skin: Skin color, texture, turgor normal, no suspicious rashes or lesions Head: Normocephalic, no masses, lesions, tenderness or abnormalities Ears: External ears normal, canals clear Nose/Sinuses: Nares normal, septum midline, mucosa normal, no drainage or sinus tenderness Oropharynx: Lips, mucosa, and tongue normal, teeth and gums normal, oropharynx normal Neck:supple Lungs: Lungs clear to auscultation. No wheezing, rhonchi, rales Heart: RRR without murmur, gallop, or rubs. No ectopy Abdomen: Normal abdominal exam, Abdomen soft, non-tender. Bowel sounds normal. No masses, organomegaly Extremities: No deformities, edema, skin discoloration, clubbing or cyanosis. Good capillary refill. ASSESSMENT/PLAN: 1. URI, acute - ICD9: 465.9, ICD10: J06.9 (primary diagnosis) - Discussed viral etiology and rationale for treatment. - Symptomatic treatment with prn analgesia - Supportive care with fluids and rest 2. Arthralgia, unspecified joint - ICD9: 719.40, ICD10: M25.50 - continue current meds. - IBUPROFEN 800 MG TABLET - TIZANIDINE 4 MG TABLET 3. Itching - ICD9: 698.9, ICD10: L29.9 - FEXOFENADINE 180 MG TABLET 4. Nasal congestion - ICD9: 478.19, ICD10: R09.81 - do not fill amoxil unless not improving or worsening over next week. [place] the [place]. - Call if symptoms worsen at all or if not better in one to two weeks - AMOXICILLIN 875 MG TABLET - GUAIFENESIN ER 600 MG TABLET, EXTENDED RELEASE 12 HR - OXYMETAZOLINE 0.05 % NASAL SPRAY Karlos Newell MD CNOV Observed: 06/26/2017 Status: COMPLETED Source: TRACY 2:40 PM [facility] REPOSITORY Office Visit (FAMPWS) ELIDIA WALTON ([id number]) 1980 F NFR Date Time Provider Department 06/26/17 2:40 PM [facility] During your visit today, we recorded the following information about you: Temperature Pulse Blood pressure 98.7 degrees 101/minute 114/72 Marsha Alejandro Ma 06/26/2017 3:35 PM Signed ENT: Patient complains of sinus pressure. Duration: 2 days Fever: No, but has chills. Headache: Yes. Sore throat: Yes. Ear pain: Yes, right ear. Nasal drainage: Yes. Cough: No. Shortness of breath: No. Nausea: No. Vomiting: No. Diarrhea: No. Previous treatment: Ines Gates Cold and Flu, [facility]. Karlos Newell MD 06/26/2017 3:43 PM Signed Patient presents with: Sinus Problem HPI: Patient presents today for office visit for follow up. Nursing Notes: Marsha Alejandro Ma 06/26/2017 3:35 PM Signed ENT: Patient complains of sinus pressure. Duration: 2 days Fever: No, but has chills. Headache: Yes. Sore throat: Yes. Ear pain: Yes, right ear. Nasal drainage: Yes. Cough: No. Shortness of breath: No. Nausea: No. Vomiting: No. Diarrhea: No. Previous treatment: Ines Gates Cold and Flu, Emergen-C. no myalgias. No real chest involvement. Does not sound like flu given her symptoms. Throat is not very sore. More sore over the glands. MEDICATIONS: Current Outpatient Prescriptions: tiZANidine (ZANAFLEX) 4 mg tablet take 1 tablet by mouth every 8 hours if needed acetaminophen (TYLENOL EXTRA STRENGTH) 500 mg tablet Take 1,000 mg by mouth as needed. fluticasone (FLONASE) 50 mcg/actuation nasal spray Use 2 Sprays in each nostril once daily. Rinse mouth after use. rizatriptan (MAXALT) 10 mg tablet Take 1 tablet by mouth as needed. fexofenadine (MISHA ALLERGY) 180 mg tablet Take 1 tablet by mouth once daily. No current facility-administered medications for this visit. ALLERGIES: ALLERGIES Allergen Reactions - Bees Anaphylaxis - Bee Sting Anaphylaxis - Darvocet A500 [Prop* GI Upset - Hydrocodone Other: See Comments anxiety - Phenergan [Prometha* Mental Status Change - Sulfa (Sulfonamide * Intolerance HIVES PAST MEDICAL HISTORY Diagnosis Date - Abdominal pain, generalized - Acute gastritis - Bipolar I disorder, most recent episode (or current) unspecified - Carcinoma in situ of cervix uteri - Diaphragmatic hernia without mention of obstruction or gangrene - Diverticulitis - History of colon polyps 07/14/2016 - Irritable bowel syndrome - Mitral valve disorders(424.0) - 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 - Post depression - Snoring - Tobacco abuse PAST SURGICAL HISTORY Procedure Laterality Date - CERVIX UTERI CONIZA LP ELCTRO EXCI 09/24 LEEP-Cervix - COLONOSCOP W/ OR W/O [facility] SPEC 2004 Colonoscopy/endoscopy - COLONOSCOP W/ OR W/O [facility] SPEC 07/10/2016 repeat 5 years - sessile serrated polyp - EGD W/O OR W/BRUSH/WASH 07/10/2016 EGD - EXPLORATORY OF ABDOMEN Laparotomy, exp - KNEE SCOPE,DIAGNOSTIC Arthroscopy, knee, ACL LEFT - LIGATE FALLOPIAN TUBE 2001 Tubal ligation - PART SIMPLE REMV VULVA 07/04/14 left vulvar cyst removal - REMOVAL OF TONSILS,ANDlt;11 Y/O Tonsillectomy - REPAIR OF NASAL SEPTUM Septoplasty - S IRENE MARCANO-LAPAROSCOPY,[id number] 03/12/2016 - S PORT A CATH II STANDARD 04/2014,09/2014 left inserted and removed, right side. insered and removed - SLING OPER STRES INCONTINENCE 03/12/2016 FAMILY HISTORY Problem Relation Age of Onset - Cancer Paternal Aunt ovarian - Hypertension Brother - Diabetes Father HEART ,STROKE - Cancer Paternal Grandmother OVARIAN Social History Marital status: Spouse name: Years of education: Number of children: 2 Social History Main Topics Smoking status: Current Every Day Smoker Packs/day: 1.00 Years: 24.00 Types: Cigarettes Smokeless status: Never Used Comment: Pt has cut back to 3/4 pack daily. Alcohol use: No Drug use: No Sexual activity: Yes Partners with: Male control/protection: Surgical Social History Narrative . December. Reviewed current medications, allergies, past medical history, surgical history, family history and social history today. REVIEW OF SYSTEMS All other reviewed and negative other than HPI. VITALS: BP 114/72 Pulse 101 Temp 37.1 ?C (98.7 ?F) (Tympanic) LMP 02/02/2016 SpO2 97% Last 4 Encounter Wt Readings: Date: Wt: 04/22/2017 93 kg (205 lb) 04/02/2017 89.8 kg (198 lb) 01/28/2017 90.3 kg (199 lb) 01/27/2017 91.2 kg (201 lb) PHYSICAL EXAMINATION: General appearance: Well appearing, alert, in no acute distress, well-hydrated, well nourished. Skin: Skin color, texture, turgor normal, no suspicious rashes or lesions Head: Normocephalic, no masses, lesions, tenderness or abnormalities Ears: External ears normal, canals clear Nose/Sinuses: Nares normal, septum midline, mucosa normal, no drainage or sinus tenderness Oropharynx: Lips, mucosa, and tongue normal, teeth and gums normal, oropharynx normal Neck:supple Lungs: Lungs clear to auscultation. No wheezing, rhonchi, rales Heart: RRR without murmur, gallop, or rubs. No ectopy Abdomen: Normal abdominal exam, Abdomen soft, non-tender. Bowel sounds normal. No masses, organomegaly Extremities: No deformities, edema, skin discoloration, clubbing or cyanosis. Good capillary refill. ASSESSMENT/PLAN: 1. URI, acute - ICD9: 465.9, ICD10: J06.9 (primary diagnosis) - Discussed viral etiology and rationale for treatment. - Symptomatic treatment with prn analgesia - Supportive care with fluids and rest 2. Arthralgia, unspecified joint - ICD9: 719.40, ICD10: M25.50 - continue current meds. - IBUPROFEN 800 MG TABLET - TIZANIDINE 4 MG TABLET 3. Itching - ICD9: 698.9, ICD10: L29.9 - FEXOFENADINE 180 MG TABLET 4. Nasal congestion - ICD9: 478.19, ICD10: R09.81 - do not fill amoxil unless not improving or worsening over next week. [place] of the state. - Call if symptoms worsen at all or if not better in one to two weeks - AMOXICILLIN 875 MG TABLET - GUAIFENESIN ER 600 MG TABLET, EXTENDED RELEASE 12 HR - OXYMETAZOLINE 0.05 % NASAL SPRAY Karlos Newell MD Referring Provider: SELF [200] Allergies As of Date: 06/26/2017 Noted Allergy Reaction BEES 2005 10 - Anaphylaxis BEE STING 12/11/2014 10 - Anaphylaxis DARVOCET A500 (PROPOXYPHENE N-NAOMI*12/23/2005 8 - GI Upset HYDROCODONE 03/30/2012 14 - Other: See Comments Comments: anxiety PHENERGAN (PROMETHAZINE HCL) 07/02/2016 1 - Mental Status Change SULFA (SULFONAMIDE ANTIBIOTICS) 01/13/2005 5 - Intolerance Comments: HIVES Date Reviewed: 06/26/2017 Reviewed by: Marsha Alejandro Ma - Fully Assessed Reason for Visit: Sinus Problem [99] Primary Visit Diagnosis:URI, acute [J06.9] Other Visit Diagnoses:Arthralgia, unspecified joint [M25.50] Itching [L29.9] Nasal congestion [R09.81] Order(s):ibuprofen (MOTRIN) 800 mg tabletTake 1 tablet by mouth every 8 hours as needed. Do not take with naproxenDisp: 60 tabletRfl: 3 tiZANidine (ZANAFLEX) 4 mg tabletTake 1 tablet by mouth every 8 hours as needed.Disp: 30 tabletRfl: 1 fexofenadine (MISHA ALLERGY) 180 mg tabletTake 1 tablet by mouth once daily.Disp: 30 tabletRfl: 3 amoxicillin (AMOXIL) 875 mg tabletTake 1 tablet by mouth twice daily for 10 days.Disp: 20 tabletRfl: 0 guaiFENesin (MUCINEX) 600 mg 12 hr tabletTake 2 tablets by mouth twice daily.Disp: 20 tabletRfl: 0 oxymetazoline (GENASAL) 0.05 % nasal sprayUse 2 Sprays in the nose twice daily.Disp: 1 BottleRfl: 0 Prescriptions as of 06/26/2017 Sig: TIZANIDINE 4 MG TABLET Take 1 tablet by mouth every * ACETAMINOPHEN 500 MG TABLET Take 1,000 mg by mouth as nee* FLUTICASONE 50 MCG/ACTUATION * Use 2 Sprays in each nostril * RIZATRIPTAN 10 MG TABLET Take 1 tablet by mouth as nee* IBUPROFEN 800 MG TABLET Take 1 tablet by mouth every * FEXOFENADINE 180 MG TABLET Take 1 tablet by mouth once d* AMOXICILLIN 875 MG TABLET Take 1 tablet by mouth twice * GUAIFENESIN ER 600 MG TABLET,* Take 2 tablets by mouth twice* OXYMETAZOLINE 0.05 % NASAL SP* Use 2 Sprays in the nose twic* Problem List As Of Date 06/26/2017 Noted Resolved Acute gastritis [535.0] INVALID FOR*10/19/2015 BENIGN NEOPLASM LG BOWEL [D12.6] INVALID FOR* ACNE NEC [L70.8] INVALID FOR* SEBACEOUS CYST [L72.3] INVALID FOR* Follicular lymphoma grade II of intra-abdominal*INVALID FOR* Tobacco abuse [Z72.0] INVALID FOR* Lymphoma, non-Hodgkin's (HCC) [C85.90] INVALID FOR* Cervical cancer (HCC) [C53.9] INVALID FOR* EVERETTE (stress urinary incontinence, female) [N39.*INVALID FOR* History of lymphoma [Z85.79] INVALID FOR* Visit Notes: >> Marsha Alejandro Ma ThuJun 26, 2017 2:54 PM Status: Signed ENT: Patient complains of sinus pressure. Duration: 2 days Fever: No, but has chills. Headache: Yes. Sore throat: Yes. Ear pain: Yes, right ear. Nasal drainage: Yes. Cough: No. Shortness of breath: No. Nausea: No. Vomiting: No. Diarrhea: No. Previous treatment: Ines Gates Cold and Flu, Emergen-C. Prescriptions ordered this encounter Disp Refills Start End IBUPROFEN 800 MG TABLET 60 t* 3 06/26/2017 Route: ORAL Sig: Take 1 tablet by mouth every 8 hours as needed. Do not take with naproxen TIZANIDINE 4 MG TABLET 30 t* 1 06/26/2017 Route: ORAL Sig: Take 1 tablet by mouth every 8 hours as needed. FEXOFENADINE 180 MG TABLET 30 t* 3 06/26/2017 Route: ORAL Sig: Take 1 tablet by mouth once daily. AMOXICILLIN 875 MG TABLET 20 t* 0 06/26/2017 07/06/2017 Route: ORAL Sig: Take 1 tablet by mouth twice daily for 10 days. GUAIFENESIN ER 600 MG TABLET, EXTEND* 20 t* 0 06/26/2017 Route: ORAL Sig: Take 2 tablets by mouth twice daily. OXYMETAZOLINE 0.05 % NASAL SPRAY 1 Jase* 0 06/26/2017 Route: NASAL Sig: Use 2 Sprays in the nose twice daily. Medications Discontinued During This Encounter PARoxetine (PAXIL) 10 mg tablet 30 t* 1 04/02/2017 06/26/2017 Route: ORAL Sig: Take 1 tablet by mouth once daily. Disc: Discontinued by Patient LORazepam (ATIVAN) 1 mg tablet 30 t* 0 12/18/2016 06/26/2017 Class: Print RX Route: ORAL Sig: Take 0.5 tablets by mouth every 8 hours as needed for Anxiety. Disc: Course of therapy completed meloxicam (MOBIC) 15 mg tablet 30 t* 2 02/19/2017 06/26/2017 Route: ORAL Sig: Take 1 tablet by mouth once daily. With food. Disc: Course of therapy completed tiZANidine (ZANAFLEX) 4 mg tablet 30 t* 1 05/25/2017 06/26/2017 Sig: take 1 tablet by mouth every 8 hours if needed Disc: Reason for discontinue is not on file. fexofenadine (MISHA ALLERGY) 180 m* 30 t* 3 12/18/2016 06/26/2017 Route: ORAL Sig: Take 1 tablet by mouth once daily. Disc: Reason for discontinue is not on file. Encounter Status:Closed by KARLOS NEWELL MD on 06/26/17 URGENT CARE VISIT Observed: 05/31/2017 Status: F Source: SUSAN REPORT 1:29 PM [facility] [address] [address] OFFICE VISIT Date of Service: 05/31/17 MR#: [id number] Acct: [id number] Name: ELIDIA WALTON Rep #: [id number] : 1980 Provider: CORNELIA Bravo Age/Sex: 37/F Location: [facility] Status: Signed Intake Vital Signs05/31/17 Height 5 ft 10 in 05/31/17 Weight: 204 lb 05/31/17 Body Mass Index (BMI) 29.2 05/31/17 Blood Pressure 112/84 Intake Visit Reasons: STYE OS, EAR AND THROAT PAIN Chief Complaint: Left ear pressure, sty left eye Wheel And Pinion Inspector Required: No Is patient in pain?: No Allergies acetaminophen [From Darvocet-N] Allergy (Verified 05/31/17 13:01) Rash hydrocodone Allergy (Verified 05/31/17 13:01) Other propoxyphene napsylate [From Darvocet-N] Allergy (Verified 05/31/17 13:01) Rash Sulfa (Sulfonamide Antibiotics) Allergy (Verified 05/31/17 13:01) Hives venom-honey bee [bee venom (honey bee)] Allergy (Verified 05/31/17 13:01) Anaphylaxis promethazine HCl [From Phenergan] Adverse Reaction (Verified 05/31/17 13:01) Other Medications Lorazepam [Ativan] 1 mg PO DAILY PRN PRN 03/28/17 [History Confirmed 05/31/17] Meloxicam [Mobic] 7.5 mg PO DAILY 04/21/17 [History Confirmed 05/31/17] Tizanidine HCl [Zanaflex] 2 mg PO PRN PRN 04/21/17 [History Confirmed 05/31/17] fexofenadine 180 mg tablet 180 mg PO Q24H 04/23/17 [History Confirmed 05/31/17] fluticasone 50 mcg/actuation nasal spray,suspension 50 mcg INTRANASAL ONCE 04/23/17 [History Confirmed 05/31/17] norethindrone (contraceptive) 0.35 mg tablet 0.35 mg PO QDAY #28 tab 04/23/17 [Rx Confirmed 05/31/17] rizatriptan 5 mg tablet 5 mg PO ONCE 04/23/17 [History Confirmed 05/31/17] PFSH Medical History Anxiety (Acute) Back pain (Acute) Migraines (Acute) Non Hodgkin's lymphoma (Acute) PCOS (polycystic ovarian syndrome) (Acute) history of acl repair (Acute) Surgical History H/O: hysterectomy (Acute) History of nasal septoplasty (Acute) History of tonsillectomy (Acute) History of tubal ligation (Acute) Social History Smoking Status: Current every day smoker alcohol intake: current details: social substance use type: does not use caffeine: Yes what type of physical activity do you participate in: none seatbelt use: always do you feel safe at home: Yes 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 The patient states [place] [facility] [place] and developed left ear pressure she noticed a bump on the left upper eyelid. ROS Const Constitutional: No chills or fever(s) Eyes Eyes: Positive for other (Stye) ENT ENT: Positive for ear pressure (Left ear) Resp Respiratory: No cough, chest congestion, shortness of breath or wheezing Cardio Cardiology: No chest pain at rest or chest pain with exertion Gastro GI: No abdominal pain, diarrhea, vomiting or nausea/dyspepsia Musc Musculoskeletal: No back pain or abnormal walking Skin Skin: No rash or change in skin color Neuro Neurology: No confusion, abnormal walking or abnormal speech Psych Psychiatric: No confusion Aller/Imm Allergy/Immunologic: No wheezing Exam Const General: healthy appearing, no acute distress Orientation: oriented x3, oriented to person, oriented to place, oriented to time [facility] Head: normocephalic Ears: external ears normal, TM's normal bilaterally, EAC's normal Eyes Eyelids: eyelid abnormality left upper eyelid (stye) Neck Neck: no lymphadenopathy Thyroid: thyroid normal Chest Chest palpation AND inspection: normal inspection of the chest Resp Effort AND Inspection: normal respiratory effort, no cough, no respiratory distress Auscultation: Bilateral: Clear to Auscultation Cardio Rate: regular rate Rhythm: regular rhythm GI Inspection: normal to inspection Auscultation: normal bowel sounds Palpation: no hepatosplenomegaly, no splenomegaly, no masses Skin General: no pallor Rashes: no rashes Nails: no clubbing Neuro General: oriented x3, gait normal Extrem General: normal to inspection, no pedal edema, no calf tenderness, normal gait, no edema, no cyanosis, no clubbing, no calf tenderness bilaterally, no pedal edema Psych Mood: congruent mood Affect: normal affect Speech and Movement: speech and movement normal Assessment AND Plan Problems 1. Hordeolum externum of left eye H00.016 Plan The patient was instructed to apply warm compresses 3-4 times per day. Return to the clinic if symptoms worsen. Coding Level of Care Code Off vis,est,level 3 Diagnoses Hordeolum externum of left eye H00.016 05/31/17 1329 <Electronically signed by Rhona LOCKE> Date Rhona LOCKE Cosigner Signature: Date (if applicable) CC: LEATHER COATER OFFICE VISIT Observed: 04/28/2017 Status: F Source: SUSAN REPORT 5:20 AM [facility] [address] [place] [address] OFFICE VISIT Date of Service: 04/23/17 MR#: [id number] Acct: [id number] Name: ELIDIA WALTON Rep #: [id number] : 1980 Provider: Kristan Islas MD Age/Sex: 36/F Location: [facility] Status: Signed Intake Vital Signs04/23/17 Height 5 ft 10 in 04/23/17 Weight: 203 lb 04/23/17 Body Mass Index (BMI) 29.1 04/23/17 Blood Pressure 124/70 Intake Visit Reasons: ER follow Up Complex Cyst Chief Complaint: ER Follow Up Complex Cyst Wheel And Pinion Inspector Required: No Is patient in pain?: Yes Allergies acetaminophen [From Darvocet-N] Allergy (Verified 04/23/17 14:19) Rash hydrocodone Allergy (Verified 04/23/17 14:19) Other propoxyphene napsylate [From Darvocet-N] Allergy (Verified 04/23/17 14:19) Rash Sulfa (Sulfonamide Antibiotics) Allergy (Verified 04/23/17 14:19) Hives venom-honey bee [bee venom (honey bee)] Allergy (Verified 04/23/17 14:19) Anaphylaxis promethazine HCl [From Phenergan] Adverse Reaction (Verified 04/23/17 14:19) Other Medications Lorazepam [Ativan] 1 mg PO DAILY PRN PRN 03/28/17 [History Confirmed 04/23/17] Meloxicam [Mobic] 7.5 mg PO DAILY 04/21/17 [History Confirmed 04/23/17] Tizanidine HCl [Zanaflex] 2 mg PO PRN PRN 04/21/17 [History Confirmed 04/23/17] fexofenadine 180 mg tablet 180 mg PO Q24H 04/23/17 [History Confirmed 04/23/17] fluticasone 50 mcg/actuation nasal spray,suspension 50 mcg INTRANASAL ONCE 04/23/17 [History Confirmed 04/23/17] norethindrone (contraceptive) 0.35 mg tablet 0.35 mg PO QDAY #28 tab 04/23/17 [Rx Confirmed 04/23/17] rizatriptan 5 mg tablet 5 mg PO ONCE 04/23/17 [History Confirmed 04/23/17] Is last menstrual period known: No Patient : No : No PFSH Medical History Anxiety (Acute) Back pain (Acute) Migraines (Acute) Non Hodgkin's lymphoma (Acute) PCOS (polycystic ovarian syndrome) (Acute) Surgical History H/O: hysterectomy (Acute) Social History Smoking Status: Current every day smoker alcohol intake: current details: social substance use type: does not use caffeine: Yes what type of physical activity do you participate in: none seatbelt use: always do you feel safe at home: Yes 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 She had a complex ovarian cyst diagnosed on ultrasound. she denies any vaginal bleeding or discharge. she has a history of left groin pain also. she is also having some cyclic breast pain. she had a normal mammogram recently. Pregancy History 2 Elective abortions Hx Para 2 Spontaneous abortions Past Pregnancies Del. DatName GA/WeeksOutcome [facility] Agee LgAnesthesDel LocaProviderFOB e ht en ia tn Unknown 1998 Sab carlos Unknown 2001 [facility] evelin CORREA Const Constitutional: Denies poor appetite, headache(s), fever(s), increased appetite, weight gain, weight loss or fatigue ENT ENT: Denies dry mouth GI GI: Reports as per HPI; denies vomiting, nausea, abdominal pain or constipation : Reports as per HPI Skin Skin/Breast: Reports as per HPI; denies hair loss, change in hair or dry skin Exam Const General: cooperative, healthy appearing, comfortable, no acute distress, well developed Nutritional Appearance: average body habitus Orientation: alert [facility] Head: normal to inspection, normocephalic Ears: hearing grossly normal bilaterally, external ears normal Nose: external nose normal, nares normal Face and sinus: normal facial exam Neck Neck: normal visual inspection, trachea midline, no lymphadenopathy Thyroid: thyroid normal Chest Chest palpation AND inspection: normal inspection of the chest Breast inspection: normal inspection of the breasts, normal inspection of the axillae Breast palpation: normal palpation of the axillae, normal palpation of the breasts, no axillary lymphadenopathy Resp Effort AND Inspection: normal respiratory effort GI Inspection: normal to inspection, non-distended Palpation: soft, no hepatosplenomegaly External Female Exam: normal external appearance, normal appearance of the urethra Urethra: normal appearance of the urethra Speculum Exam - Vagina: normal appearance of the vagina, other (normal vaginal length, apex well supprted and healed, intact no granulation) Speculum Exam - Cervix: cervix absent Bimanual Exam- Vagina AND Uterus: uterus absent Bimanual Exam- Adnexa, other: adnexae non-tender, pelvic support normal Pelvic Support: normal Other: vaginal cuff normal and intact, good vaginal length, no granulation tissue present Musc Other: gross motor intact no deficits, full bilateral strength Skin General: no rashes or lesions noted Neuro General: alert, awake, no focal motor deficits, moves all extremities Motor: muscle tone normal throughout Extrem General: normal to inspection, no pedal edema Psych Appearance: grossly normal Mental Status: mental status grossly normal Affect: normal affect Speech and Movement: speech and movement normal Assessment AND Plan Problems 1. Pelvic pain R10.2 2. Mittelschmerz N94.0 Plan recommend continuous progestin only pill, patient working on quitting smoking. Medications New: Coding Level of Care Code Off vis,est,level 4 Diagnoses Pelvic pain R10.2 Nellie N94.0 04/28/17 0520 <Electronically signed by Kristan Islas MD> Date Kristan Islas MD Cosigner Signature: Date (if applicable) CC: PROGRESS Observed: 04/22/2017 Status: COMPLETED Source: TRACY 10:08 AM [facility] REPOSITORY HNO ID: [id number] Author: Andreas Brenner Service: (none) Author Type: Physician Type: Progress Notes Filed: 04/22/2017 10:43 AM Note Text: Diagnosis: 1) Grade 3A follicular lymphoma. HPI: The patient is a 36-year-old female who was diagnosed with grade 3A follicular lymphoma in 2013. She originally presented in the early fall 2013 with lower abdominal pain. CT scan the abdomen and pelvis reportedly showed bulky adenopathy in the retroperitoneum encasing the aorta and IVC extending along the iliac chain. 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 However, on second review at [facility], the pathology was rendered as a follicular lymphoma grade 3A (CD10 positive, CD20 positive, BCL-2 positive, BCL- 6 positive, FISH positive for BCL-6 rearrangement and negative for MYC). PET scan on 01/06/2014 revealed bilateral cervical adenopathy, mediastinal and right axillary adenopathy as well as retroperitoneal, right iliac and bilateral inguinal lymphadenopathy. She was treated with 6 cycles of R?CHOP. Restaging studies including PET and CT scans 07/12/2014 demonstrated complete response. She was receiving maintenance rituximab. First dose 09/08/2014 in [place]. Transferred care here and received one dose rituximab 12/21/2014. Moved back to OR--there had dose 04/24/2015. Completed the 2 year course of maintenance rituximab 12/2016. Presents for ongoing oncologic management. Interim history: She presents today for a scheduled 4 month follow-up visit. However, she was in the emergency department last night with sharp lower left quadrant pain. She hasn't had any recent change in bowel habit. She's not had any symptoms of GI bleeding including melena and or hematochezia. She's had no menses in over a year and a half. No vaginal discharge or bleeding currently. She has no dysuria, urinary frequency or urgency. She previously had bladder suspension surgery with mesh. In the ED she underwent a CT scan of the abdomen and pelvis that showed no signs of lymphadenopathy but there was a 4.1 x 4.0 x 3.3 cm complex left adnexal cyst. A subsequent transvaginal ultrasound was performed and it demonstrated that the left ovary measured 5.1 x 3.6 x 3.2 cm. Normal Doppler flow was demonstrated to the left ovary. There was a 2.5 x 2.4 x 2.1 cm complex septated cyst in the left ovary and a small amount of pelvic free fluid. She's feeling better today. She has no complaints for me. She has no lingering symptoms of neuropathy. She's had no constitutional symptoms of drenching night sweats recurring fever or weight loss since last seen. She continues to smoke. She still has a lot of issues with anxiety but has been more active in trying to self manage the anxiety with exercise. She was tried on low dose Paxil by her PCP and she said it made her feel, spacey so she stopped taking it. PMH, medications and allergies as below personally reviewed by me today. Any changes documented in appropriate section. ROS: Constitutional: Denies episodes of night sweats. Normal appetite. Neuro: Denies PAUL, vertigo, dizziness and imbalance. Denies symptoms of neuropathy. HEENT: No recent change in voice, vision or hearing. Resp: Denies cough, wheeze and hemoptysis. Denies shortness of breath at rest. Denies GARCIA. CVS: Denies exertional chest pain, PND, orthopnea and LE edema. GI: Denies dysgeusia. Denies symptoms of stomatitis. Denies dysphagia and odynophagia. Denies reflux, n/ and change in bowel habits. : Denies dysuria or gross hematuria. No symptoms of bladder outlet obstruction. Endo: Denies hot flashes. Denies polyuria and polydipsia. Denies heat and cold intolerance. Musculoskeletal: Denies bone, back, joint and muscular pain. Derm: Denies rash. Heme: Denies unusual bleeding and unexplained bruising. Psych: Normal mood. PHYSICAL EXAM: Vitals: Blood pressure 129/71, pulse 86, temperature 36.9 ?C (98.4 ?F), temperature source Temporal Artery, weight 93 kg (205 lb), last menstrual period 02/02/2016. Well-appearing and in no acute distress. EYES: Sclerae are anicteric bilaterally. ENT: Oral mucosa is unremarkable. There is no sign of thrush or mucositis. No oropharyngeal adenopathy. NECK: Supple. LYMPHATIC: There is no palpable cervical, supraclavicular, axillary or inguinal adenopathy. RESPIRATORY: Inspiratory breath sounds are of normal intensity in all johnson. No wheezes, rhonchi or rales appreciated today. CARDIOVASCULAR: Rhythm is regular. Normal intensity S1/S2. There is no gallop or murmur. ABDOMEN: The abdomen is nondistended. No splenomegaly. Tender LLQ without mass. Extremities: Free of edema. SKIN: No rash or jaundice. NEUROLOGIC: process automation engineer II-XII are grossly intact. No focal motor weakness. ASSESSMENT/PLAN: (202.80) Lymphoma, non-Hodgkin's (HCC) (primary encounter diagnosis) Assessment: -No concerning symptoms or exam findings to suggest relapse. -Tolerating rituximab well. -I personally reviewed CT images and again with patient and independently verified and agreed with the radiologist's findings. MAHOGANY. Left ovarian cyst. No obvious gallstones by CT. -She remains very highly anxious about the thought of recurrence. We discussed this at length in the past and she is simply a patient who is going to require periodic imaging for peace of mind. I therefore recommended CT scan every 6 months for the first 2 years and then annually up to 5 years. She satisfied with this plan. Plan: -OV/labs in about 6 months. -CTs if indicated by symptoms/exam findings. (N94.9) Adnexal cyst Assessment: -Not observed on previous CT scan. -Discussed with the patient that she'll need gynecologic evaluation for this. I offered for this office to make a referral to Dr. Islas whom she has seen in the past but the patient declines and would like to contact Dr. Islas's office on her own. Plan: -Patient to arrange consultation with gynecology. Andreas Brenner DO CNOVSP Observed: 04/22/2017 Status: COMPLETED Source: TRACY 9:50 AM [facility] REPOSITORY Visit (SP) Office (CARY) ELIDIA WALTON ([id number]) 1980 F NFR Date Time Provider Department 04/22/17 9:50 AM ANDREAS BRENNER During your visit today, we recorded the following information about you: Temperature Pulse Blood pressure Weight 98.4 degrees 86/minute 129/71 93 kg Andreas Brenner DO 04/22/2017 10:43 AM Signed Diagnosis: 1) Grade 3A follicular lymphoma. HPI: The patient is a 36-year-old female who was diagnosed with grade 3A follicular lymphoma in 2013. She originally presented in the early fall 2013 with lower abdominal pain. CT scan the abdomen and pelvis reportedly showed bulky adenopathy in the retroperitoneum encasing the aorta and IVC extending along the iliac chain. 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 However, on second review at [facility], the pathology was rendered as a follicular lymphoma grade 3A (CD10 positive, CD20 positive, BCL-2 positive, BCL-6 positive, FISH positive for BCL-6 rearrangement and negative for MYC). PET scan on 01/06/2014 revealed bilateral cervical adenopathy, mediastinal and right axillary adenopathy as well as retroperitoneal, right iliac and bilateral inguinal lymphadenopathy. She was treated with 6 cycles of R?CHOP. Restaging studies including PET and CT scans 07/12/2014 demonstrated complete response. She was receiving maintenance rituximab. First dose 09/08/2014 in [place]. Transferred care here and received one dose rituximab 12/21/2014. Moved back to OR--there had dose 04/24/2015. Completed the 2 year course of maintenance rituximab 12/2016. Presents for ongoing oncologic management. Interim history: She presents today for a scheduled 4 month follow-up visit. However, she was in the emergency department last night with sharp lower left quadrant pain. She hasn't had any recent change in bowel habit. She's not had any symptoms of GI bleeding including melena and or hematochezia. She's had no menses in over a year and a half. No vaginal discharge or bleeding currently. She has no dysuria, urinary frequency or urgency. She previously had bladder suspension surgery with mesh. In the ED she underwent a CT scan of the abdomen and pelvis that showed no signs of lymphadenopathy but there was a 4.1 x 4.0 x 3.3 cm complex left adnexal cyst. A subsequent transvaginal ultrasound was performed and it demonstrated that the left ovary measured 5.1 x 3.6 x 3.2 cm. Normal Doppler flow was demonstrated to the left ovary. There was a 2.5 x 2.4 x 2.1 cm complex septated cyst in the left ovary and a small amount of pelvic free fluid. She's feeling better today. She has no complaints for me. She has no lingering symptoms of neuropathy. She's had no constitutional symptoms of drenching night sweats recurring fever or weight loss since last seen. She continues to smoke. She still has a lot of issues with anxiety but has been more active in trying to self manage the anxiety with exercise. She was tried on low dose Paxil by her PCP and she said it made her feel, ANDquot;spaceyANDquot; so she stopped taking it. PMH, medications and allergies as below personally reviewed by me today. Any changes documented in appropriate section. ROS: Constitutional: Denies episodes of night sweats. Normal appetite. Neuro: Denies PAUL, vertigo, dizziness and imbalance. Denies symptoms of neuropathy. HEENT: No recent change in voice, vision or hearing. Resp: Denies cough, wheeze and hemoptysis. Denies shortness of breath at rest. Denies GARCIA. CVS: Denies exertional chest pain, PND, orthopnea and LE edema. GI: Denies dysgeusia. Denies symptoms of stomatitis. Denies dysphagia and odynophagia. Denies reflux, n/ and change in bowel habits. : Denies dysuria or gross hematuria. No symptoms of bladder outlet obstruction. Endo: Denies hot flashes. Denies polyuria and polydipsia. Denies heat and cold intolerance. Musculoskeletal: Denies bone, back, joint and muscular pain. Derm: Denies rash. Heme: Denies unusual bleeding and unexplained bruising. Psych: Normal mood. PHYSICAL EXAM: Vitals: Blood pressure 129/71, pulse 86, temperature 36.9 ?C (98.4 ?F), temperature source Temporal Artery, weight 93 kg (205 lb), last menstrual period 02/02/2016. Well-appearing and in no acute distress. EYES: Sclerae are anicteric bilaterally. ENT: Oral mucosa is unremarkable. There is no sign of thrush or mucositis. No oropharyngeal adenopathy. NECK: Supple. LYMPHATIC: There is no palpable cervical, supraclavicular, axillary or inguinal adenopathy. RESPIRATORY: Inspiratory breath sounds are of normal intensity in all johnson. No wheezes, rhonchi or rales appreciated today. CARDIOVASCULAR: Rhythm is regular. Normal intensity S1/S2. There is no gallop or murmur. ABDOMEN: The abdomen is nondistended. No splenomegaly. Tender LLQ without mass. Extremities: Free of edema. SKIN: No rash or jaundice. NEUROLOGIC: process automation engineer II-XII are grossly intact. No focal motor weakness. ASSESSMENT/PLAN: (202.80) Lymphoma, non-Hodgkin's (HCC) (primary encounter diagnosis) Assessment: -No concerning symptoms or exam findings to suggest relapse. -Tolerating rituximab well. -I personally reviewed CT images and again with patient and independently verified and agreed with the radiologist's findings. MAHOGANY. Left ovarian cyst. No obvious gallstones by CT. -She remains very highly anxious about the thought of recurrence. We discussed this at length in the past and she is simply a patient who is going to require periodic imaging for peace of mind. I therefore recommended CT scan every 6 months for the first 2 years and then annually up to 5 years. She satisfied with this plan. Plan: -OV/labs in about 6 months. -CTs if indicated by symptoms/exam findings. (N94.9) Adnexal cyst Assessment: -Not observed on previous CT scan. -Discussed with the patient that she'll need gynecologic evaluation for this. I offered for this office to make a referral to Dr. Islas whom she has seen in the past but the patient declines and would like to contact Dr. Islas's office on her own. Plan: -Patient to arrange consultation with gynecology. Andreas Brenner DO Referring Provider: ANDREAS BRENNER [[id number]] Allergies As of Date: 04/22/2017 Noted Allergy Reaction BEES 2005 10 - Anaphylaxis BEE STING 12/11/2014 10 - Anaphylaxis DARVOCET A500 (PROPOXYPHENE N-NAOMI*12/23/2005 8 - GI Upset HYDROCODONE 03/30/2012 14 - Other: See Comments Comments: anxiety PHENERGAN (PROMETHAZINE HCL) 07/02/2016 1 - Mental Status Change SULFA (SULFONAMIDE ANTIBIOTICS) 01/13/2005 5 - Intolerance Comments: HIVES Date Reviewed: 04/22/2017 Reviewed by: Autumn Mora - Fully Assessed Reason for Visit: Established Patient [175] Primary Visit Diagnosis:History of lymphoma [Z85.79] Other Visit Diagnosis:Adnexal cyst [N94.9] Follow-up and Disposition History Recorded Prescriptions as of 04/22/2017 Sig: ACETAMINOPHEN 500 MG TABLET Take 1,000 mg by mouth as nee* FLUTICASONE 50 MCG/ACTUATION * Use 2 Sprays in each nostril * MELOXICAM 15 MG TABLET Take 1 tablet by mouth once d* TIZANIDINE 4 MG TABLET Take 1 tablet by mouth every * LORAZEPAM 1 MG TABLET Take 0.5 tablets by mouth neda* RIZATRIPTAN 10 MG TABLET Take 1 tablet by mouth as nee* FEXOFENADINE 180 MG TABLET Take 1 tablet by mouth once d* PAROXETINE 10 MG TABLET Take 1 tablet by mouth once d* Medication notes this encounter PAROXETINE 10 MG TABLET >> Autumn Mora MA 04/22/2017 10:02 AM >> AUTUMN MORA MA ThuApr 22, 2017 10:02 AM Not taking. BENZONATATE 100 MG CAPSULE >> Autumn Mora MA 04/22/2017 10:02 AM >> AUTUMN MORA MA ThuApr 22, 2017 10:02 AM Completed VARENICLINE 0.5 MG (11)-1 MG (42) TABLETS IN A DOSE PACK >> Autumn Mora MA 04/22/2017 10:02 AM >> AUTUMN MORA MA ThuApr 22, 2017 10:02 AM Not taking. IBUPROFEN 800 MG TABLET >> Autumn Mora BLANCA 04/22/2017 10:03 AM >> AUTUMN MORA MA ThuApr 22, 2017 10:03 AM No longer taking. NAPROXEN 500 MG TABLET >> Autumn Mora BLANCA 04/22/2017 10:03 AM >> AUTUMN MORA MA ThuApr 22, 2017 10:03 AM No longer taking. Problem List As Of Date 04/22/2017 Noted Resolved Acute gastritis [535.0] INVALID FOR*10/19/2015 BENIGN NEOPLASM LG BOWEL [D12.6] INVALID FOR* ACNE NEC [L70.8] INVALID FOR* SEBACEOUS CYST [L72.3] INVALID FOR* Follicular lymphoma grade II of intra-abdominal*INVALID FOR* Tobacco abuse [Z72.0] INVALID FOR* Lymphoma, non-Hodgkin's (HCC) [C85.90] INVALID FOR* Cervical cancer (HCC) [C53.9] INVALID FOR* EVERETTE (stress urinary incontinence, female) [N39.*INVALID FOR* History of lymphoma [Z85.79] INVALID FOR* Encounter Status:Closed by ANDREAS BRENNER DO on 04/22/17 EMERGENCY DEPARTMENT Observed: 04/22/2017 Status: F Source: [place] SUMMARY 12:01 AM [facility] Medical Records Department [address] [place] [address] Emergency Department Summary 04/21/172004 MR#: [id number] Acct: [id number] Name: ELIDIA WALTON Rep #: [id number] : 1980 36 From: Arias Tan DO PCP: Karlos Newell MD Status: DEP ER - ER Visit Summary Date of Service: 04/21/17 Chief Complaint: Abdominal pain History of Present Illness: The patient is a 36 F who states that yesterday she began to have left lower quadrant abdominal pain. She describes it as a fullness cramping-like pain. She states she has a history of non-Hodgkin's and this is where they found the initial tumor. She has had a hysterectomy but left one ovary she lives on the left side. She notes 2 bowel movements today that were normal. She notes a questionable history of diverticulosis having had a negative colonoscopy since the original diagnosis. No fevers or vomiting. No urinary symptoms. Physical Examination: Afebrile vital signs are stable Gen: Well-nourished well-developed Head: Normocephalic atraumatic Eyes: Perrl EOMI ENT: TMs clear no rhinorrhea moist mucous membranes Neck: Supple no lymphadenopathy no JVD nontender CVS: Regular rate rhythm no murmurs normal S1-S2 Respiratory: No distress clear to auscultation bilaterally chest nontender Abdomen: Soft mild left lower quadrant tenderness without guarding or rebound nondistended normal bowel sounds no masses Back: Nontender Extremity: Nontender no edema Skin: Normal color no rash Neuro: alert orientated 3 CN II-XII intact normal strength sensation reflexes gait cerebellar Psych: Normal affect normal mood Test Results: Basic labs are essentially negative. Urinalysis negative. CT the abdomen pelvis demonstrated in the left adnexa. Pelvic ultrasound demonstrated a complex septated cyst of the left ovary measuring 2.5 2.4 2.1 cm. Normal arterial flow Emergency Department Course and Treatment: Patient received a dose of Toradol which did nothing for pain. She was given an oxycodone. She will be discharged home with 4 tabs tonight. She is to follow-up with her sustainability project coordinator. Impression: 1. Left ovarian cyst This note was generated with [employer] dictation software. It may contain incorrect words, spelling, and punctuation that were not noted in review of the chart prior to signing ED Disposition - Plan for ED Patient: Disposition: Home or Assisted Living Chief Complaint: Abd Pain Instructions: ED Cyst Ovarian Referrals: Karlos Newell MD [Primary Care Provider] - Additional Instructions: You need to schedule an appointment with your sustainability project coordinator for follow-up. What to do if you have Problems For any increased pain, shortness of breath, bleeding, nausea or vomiting, chest pain, or any unexpected problems, contact your Primary Care Provider. Call [facility] ([phone]) or report to the closest Emergency Room. Call 911 if necessary. 04/22/17 0001 <Electronically signed by Arias Tan DO> Date Arias Tan DO [facility] Signature (If Indicated): Date CC: Karlos Newell MD TRANSVAGINAL Observed: 04/21/2017 Status: F Source: [place] NON- 8:39 PM [facility] Imaging Services [address] [place] [address] Transvaginal Non- MR#: [id number] Acct: [id number] Name: ELIDIA WALTON Rep #: [id number] : 1980 F 36 From: Tony Snow MD PCP: Karlos Newell MD Status: REG ER Study: Transvaginal Non- Date of Exam: 04/21/17 Exam# [id number] Ordering Dr: Arias Tan DO STUDY: ULTRASOUND TRANSVAGINAL CLINICAL: Female, 36 years old. Left lower quadrant pain. TECHNIQUE: Transvaginal COMPARISON: None. FINDINGS: The patient is status post hysterectomy. The patient is status post right oophorectomy. The left ovary measures 5.1 x 3.6 x 3.2 cm. There is normal Doppler flow demonstrated to the left ovary. There is a 2.5 x 2.4 x 2.1 cm complex septated cyst in the left ovary. There is a small amount of pelvic free fluid. US/Transvaginal Non- IMPRESSION: 2.5 x 2.4 x 2.1 cm complex septated cyst in the left ovary. Short-term follow-up or further evaluation with MRI is recommended. Small amount of pelvic free fluid. Electronically Signed: Tony Snow, at 22:02 EST Tel , Service support , CC: Arias Tan DO; Karlos Newell MD [employer]: Signed CBC W/DIFF, AUTOMATED Collected: 04/21/2017 Status: F Source: [place] 8:10 PM [facility] TYPE CODE TESTS RESULT OUT OF RANGE REFERENCE UNITS LAB L100.1000 4.4-11.0 K/mm3 Normal WBC 11.0 LAB L100.1200 4.2-5.4 M/mm3 Low RBC 4.07 LAB L100.1300 12.0-15.0 g/dl Normal HGB 12.8 LAB L100.1400 37-47 % Normal HCT 37.2 LAB L100.1500 81-99 fL Normal MCV 91.4 LAB L100.1600 27.0-32.0 pg Normal MCH 31.4 LAB L100.1700 32-36 g/gl Normal MCHC 34.4 LAB L100.1810 11.6-14.6 % Normal RDW CV 13.2 LAB L100.1820 35.1-43.9 fl High RDW SD 44.2 LAB L100.1900 150-450 K/mm3 Normal PLT 300 LAB L100.2000 6.2-12.0 fl Normal MPV 10.1 LAB L100.2100 47-70 % Normal NEUT% 62.8 LAB L100.2200 19-41 % Normal LY% 28.0 LAB L100.2300 0-10 % Normal MONO% 7.4 LAB L100.2400 0-5 % Normal EO% 1.5 LAB L100.2500 0-1 % Normal BASO% 0.2 LAB L100.2550 0.0-0.9 % Normal IM GRAN % 0.100 Result Comment: IG% - Immature Granulocytes (promyelocytes, myelocytes and metamyelocytes) > 1% indicates that a LEFT SHIFT is Present. LAB L100.2620 2.0-7.7 X10 3/uL Normal Absolute Neut 6.9 LAB L100.2720 0.83-4.51 X10 3/ul Normal Absolute Lymph 3.08 Performed By: #### L100.0100 #### [facility] [address] [place], [address] BASIC METABOLIC Collected: 04/21/2017 Status: F Source: [place] PROFILE (BMP) 8:10 PM [facility] TYPE CODE TESTS RESULT OUT OF RANGE REFERENCE UNITS LAB L501.0100 70-110 mg/dL Normal GLU 100 LAB L501.1000 7-18 mg/dL Normal BUN 11 LAB L501.1100 0.55-1.02 mg/dL Normal 0.71 CREAT,SERUM Result Comment: The validity of the calculated GFR AND GFRAA in patients over 70 years has not been determined. Clinical correlation is essential. LAB L501.1110 >60 mL/min Normal EST GFR 98 Result Comment: Non- GFR Calc LAB L501.1115 >60 mL/min Normal EST GFR - AA 119 Result Comment: GFR Calc LAB L501.1255 ml/min Normal Estimated CRCL 105.50 LAB L501.1300 10-20 RATIO BUN/CRE Normal 15.5 LAB L501.2200 8.5-10 mg/dL .1 CA Normal 8.9 LAB L501.5300 136-14 mmol/L 5 NA Normal 140 LAB L501.5600 3.5-5. mmol/L 1 K Normal 4.5 Result Comment: Moderate Hemolysis, Result may be falsely increased. LAB L501.5900 98-107 mmol/L High CL 109 LAB L501.6100 21.0-32.0 mmol/L Normal CO2 24.0 LAB L501.6200 5-15 Normal 7 GAP Performed By: #### L500.2500 #### [facility] [address] [place], [address] ABDOMEN/PELVIS W IV CONT Observed: 04/21/2017 Status: F Source: [place] ONLY 7:58 PM [facility] Imaging Services [address] [place] [address] Abdomen/Pelvis W IV Cont ONLY MR#: [id number] Acct: [id number] Name: ELIDIA WALTON Rep #: [id number] : 1980 F 36 From: Tony Snow MD PCP: Karlos Newell MD Status: REG ER Study: Abdomen/Pelvis W IV Cont ONLY Date of Exam: 04/21/17 Exam# [id number] Ordering Dr: Arias Tan DO STUDY: CT ABDOMEN AND PELVIS WITH CONTRAST REASON FOR EXAM: Female, 36 years old. Left lower quadrant pain. History of ovarian cysts.. History of lymphoma. RADIATION DOSAGE (If Supplied By Facility): CTDIvol = ( 12.85 ) mGy, DLP = ( 786.91 ) mGycm TECHNIQUE: Transaxial images were obtained from the dome of the diaphragm to the symphysis pubis without oral contrast. 100 ml of Isovue 300 contrast was administered. Sagittal and coronal images were reconstructed. Individualized dose optimization techniques were used for this CT. COMPARISON: 01/06/2017 FINDINGS: The visualized lung bases are clear. The visualized portions of the heart and pericardium are within normal limits. There are no calcified gallstones present. The liver is within normal limits. There are no suspicious hepatic lesions. The spleen is normal in size. The pancreas is within normal limits. The adrenal glands are within normal limits. There are no obstructing renal stones. There is no hydronephrosis. There are no focal renal lesions. Normal visualized stomach. There is no bowel obstruction or inflammation. The appendix is visualized and appears normal. The aorta is normal in caliber. There is a 4.1 x 4.0 x 3.3 cm complex left adnexal cyst. There is a small amount of free fluid. There is no free air, fluid collection or lymphadenopathy. There are no destructive osseous lesions. CT/Abdomen/Pelvis W IV Cont ONLY IMPRESSION: 4.1 x 4.0 x 3.3 cm complex left adnexal cyst with a small amount of pelvic free fluid. No bowel obstruction or inflammation. Normal appendix. No abdominal or pelvic lymphadenopathy. Electronically Signed: Tony Snow, at 21:01 EST Tel , Service support , CC: Arias Tan DO; Karlos Newell MD [employer]: Signed URINALYSIS, COMPLETE Collected: 04/21/2017 Status: F Source: [place] 7:50 PM [facility] Order Comment: How was Urine Obtained? CLEAN CATCH TYPE CODE TESTS RESULT OUT OF RANGE REFERENCE UNITS LAB L400.3000 Yellow COLOR Normal Straw LAB L400.3050 Clear Normal CLARITY Sl. Cloudy LAB L400.3200 Normal mg/dl Normal GLUCOSE, UR Normal LAB L400.3300 Negative mg/dL Normal BILIRUBIN URINE Negative LAB L400.3400 Negative mg/dl Normal KETONE UR Negative LAB L400.3465 1.002-1.030 Normal SP.GR. DIPSTX 1.015 LAB L400.3550 5.0 - 8.0 pH UR Normal 6.0 LAB L400.3600 Negative mg/dl PROT Normal DIPSTX Negative LAB L400.3700 Normal mg/dl Normal UROBILI Normal LAB L400.3750 Negative Normal NITRITE UR Negative LAB L400.3780 Negative /ul Normal OCCULT BLOOD-UR Negative LAB L400.3800 Negative /ul LEUK Normal ESTERASE Negative LAB L400.4050 0-5 /hpf WBC Normal 0-5 SEEN LAB L400.4100 0-5 /hpf 0 Normal RBC-UA SEEN LAB L400.4150 5-10 /hpf SQUAM Normal EPI 0-5 SEEN LAB L400.4300 None Seen /hpf 0 Normal BACTERIA SEEN LAB L400.4350 <or=2+ /hpf 0 Normal MUCUS, URINE SEEN Performed By: #### L400.0001 #### [facility] [address] [place], [place], [address] ALLERGIES ALLERGIES DATE TYPE / NAME / CODE REACTION SEVERITY SOURCE CODE 04/10/2018 Drug promethazine Other Unknown [place] Allergy/41 HCl/[id number](RXN Community 7122745([facility]) Repository 04/10/2018 Drug propoxyphene Rash Unknown [place] Allergy/41 napsylate/[id number] [facility] 04/10/2018 Drug Sulfa (Sulfonamide Hives Unknown [place] Allergy/41 Antibiotics)/F0010 [facility] 6084504(SN 77274(RXNORM) Hospital OMED CT) Repository 04/10/2018 Drug hydrocodone/R17034 Other Unknown [place] Allergy/41 1554(RXNORM) Community 7226480( Hospital OMED CT) Repository 04/10/2018 Drug acetaminophen/F006 Rash Unknown [place] Allergy/41 598725(RXNORM) Community 8591615([facility] OMED CT) Repository 04/10/2018 Drug venom-honey Anaphylaxis Unknown [place] Allergy/41 bee/U361002970(RXN Community 1974620( OR) Hospital OMED CT) Repository 07/02/2016 DRUG PROMETHAZINE HCL Mental [facility] [place] [address] [address] [place] 8274686(SN Repository OMED CT) 12/11/2014 Environ/42 BEE STING ANAPHYLAXIS [facility] 5206516( [place] [address] [facility]) Repository 03/30/2012 DRUG HYDROCODONE OTHER: SEE C [place] [address] [address] [place] 6341250( Repository OMED CT) 12/23/2005 DRUG/36198 PROPOXYPHENE GI UPSET [facility] 1003(SNOME N-ACETAMINOPHEN [place] D CT) Repository 2005 Environ/42 BEES ANAPHYLAXIS High [facility] 9870800( [place] OMED [address]) Repository 01/13/2005 Drug SULFA (SULFONAMIDE INTOLERANCE Low [facility] Class/4195 ANTIBIOTICS) [place] [address](SNOM Repository ED CT) ENCOUNTERS ENCOUNTERS ADMIT/DISCHARGE ACCOUNT NUMBER ADMITTING ENCOUNTER LOCATION SOURCE CLASS 04/10/2018/04/10/19 [id number] Emergency [address] ding:ED Repository 04/01/2018/04/01/19 [id number] Ambulatory BMSBuilding: [place] 19 [facility] Repository 03/29/2018/03/29/19 [id number] Ambulatory BMSBuilding: [place] 19 [facility] Repository 03/27/2018/03/31/19 [id number] Ambulatory [address] Repository 03/12/2018 [id number] Ambulatory [facility] ding:LABSPEC Repository 03/12/2018/03/12/20 [id number] Ambulatory BMSBuilding: [place] 18 [facility] Repository 01/11/2018/01/12/20 [id number] [facility] Ambulatory [place] [facility] Repository 01/04/2018 [id number] Ambulatory [facility] ding:OPUS Repository 12/23/2017/12/24/19 [id number] Ambulatory BMSBuilding: [place] 18 [facility] Repository 12/19/2017/12/22/19 [id number] Ambulatory [address] [place] Repository 12/17/2017/12/18/19 [id number] Ambulatory [address] [place] Repository 12/17/2017/12/18/19 [id number] Ambulatory [address] [place] Repository 12/14/2017/12/15/19 [id number] Ambulatory [address] [place] Repository 12/14/2017 [id number] Ambulatory [facility] [address] [place] Repository 12/07/2017/12/08/19 [id number] Emergency [place] [address] ding:ED Repository 12/07/2017/12/08/19 [id number] [facility] Ambulatory [address] [place] Repository 12/02/2017/12/03/19 [id number] Ambulatory [address] [place] Repository 12/01/2017/12/02/19 [id number] Ambulatory [address] [place] Repository 11/30/2017/12/02/19 [id number] Ambulatory [address] [place] Repository 11/30/2017/12/01/19 [id number] Emergency [place] [address] [place] [address] ding:ED Repository 11/19/2017 [id number] Ambulatory BMSBuilding: Susan [facility] Repository 11/06/2017/11/07/19 [id number] Ambulatory [address] [place] Repository 11/06/2017/11/10/19 [id number] Ambulatory [address] [place] Repository 11/03/2017/11/10/19 [id number] Ambulatory [address] [place] Repository 11/03/2017/11/04/19 [id number] Ambulatory [address] [place] Repository 10/20/2017/10/22/19 [id number] Ambulatory [address] [place] Repository 10/20/2017/10/22/19 [id number] Ambulatory [address] Repository 10/08/2017/10/10/19 [id number] Ambulatory [address] Repository 10/02/2017/10/04/19 [id number] Emergency BBuilding:ER Tanisha [address] [place] [address] Repository 10/02/2017/10/04/19 [id number] Emergency BBuilding:ER Tanisha[address] Repository 09/07/2017/09/08/19 [id number] Ambulatory BMSBuilding: [place] 18 [facility] Repository 09/07/2017 [id number] Ambulatory BMSBuilding: [place] [facility] Repository 09/04/2017/09/05/19 [id number] Ambulatory BMSBuilding: [place] 18 [facility] Repository 08/22/2017/08/23/19 [id number] Emergency [place] ding:ED Repository 08/18/2017/08/20/19 [id number] Ambulatory [address] Repository 06/26/2017/06/30/19 [id number] Ambulatory [address] Repository 05/31/2017/06/01/19 [id number] Ambulatory BMSBuilding: [place] 18 [facility] Repository 04/23/2017/04/23/19 [id number] Ambulatory BMSBuilding: [place] 18 [facility] Repository 04/22/2017/04/23/19 [id number] Ambulatory [address] Repository 04/21/2017/04/21/19 [id number] Emergency [place] ding:ED Repository PAYERS PAYERS ENCOUNTER GUARANTOR PAYER SUBSCRIBER SOURCE 04/10/2018 ELIDIA [id number] Primary [place]IA [place] Insurance:CARESOURCMG BROWNB: [facility] [address] rosario Number: [id number] [address]Bzh: (689) [id number] Repository [phone] () Date:2018-04-10 [address]ATTN: [place] [address]GH: 04/10/2018 Secondary NOT GIVENUNK [place] Insurance:SELF PAY [facility] Number: Effective Repository Date:2018-04-10 04/01/2018 ELIDIA RAMIRES9 Primary NOT GIVENUNK [place] BARRY Insurance:SELF PAY [facility] [address], [place] [facility] [address]Kbx: 330) Number: Effective Repository [phone] () Date:2018-04-01 03/29/2018 ELIDIA RAMIRES9 Primary ELIDIA L Susan BARRY Insurance:CARESOURCEP COLEDOB: Community [address], [place] Number: [id number] [address]Hui: 330 [id number] Repository [phone] () Date:2017-12-23[address]ATTN: [place] [address]BY: 03/29/2018 Secondary NOT GIVENUNK Susan Insurance:SELF PAY [facility] Number: Effective Repository Date:2018-03-29 03/12/2018 ELIDIA RAMIRES9 Primary [facility]CARESOURCEP COLEDOB: [address], [place] Number: [id number] Hospital [address]Yyb: 330 [id number] Repository [phone] () Date:2018-03-12[address]ATTN: [place] [address]BW: 03/12/2018 Secondary NOT GIVENUNK [place] Insurance:SELF PAY [facility] Number: Effective Repository Date:2018-03-12 03/12/2018 ELIDIA RAMIRES9 Primary ELIDIA Bong Davis [place] Insurance:CARESOURCEP COLED[address]: [address], [place] Number: [id number] Hospital [address]Bei: [phone]) [id number] Repository [phone] () Date:2018-03-11[address]ATTN: [place] [address]QU: 03/12/2018 Secondary NOT GIVENUNK [place] Insurance:SELF PAY [facility] Number: Effective Repository Date:2018-03-12 01/04/2018 ELIDIA RAMIRES9 Primary [facility]IA [facility] Insurance:CARESOURCEP COL[address]OB: [address] Number: [id number] Hospital [address]Mav: [phone]) [id number] Repository [phone] () Date:2017-12-23[address]ATTN: [place] [address]NY: 01/04/2018 Secondary NOT GIVENUNK Susan Insurance:SELF PAY [facility] Number: Effective Repository Date:2017-12-23 12/23/2017 ELIDIA RAMIRES9 Primary [facility]IA [facility] Insurance:CARESOURCEP COL[address]: [address] Number: [id number] Hospital [address]Gzm: [phone]) [id number] Repository [phone] () Date:2017-12-15[address]ATTN: [place] [address]LP: 12/23/2017 Secondary NOT GIVENUNK [place] Insurance:SELF PAY [facility] Number: Effective Repository Date:2017-12-23 12/07/2017 ELIDIA RAMIRES9 Primary [facility]IA [facility] Insurance:CARESOURCEP [address]: [address], [place] Number: [id number] Hospital [address]Nyy: [phone]) [id number] Repository [phone] () Date:2017-12-07[address]ATTN: [place] [address]HI: 12/07/2017 Secondary NOT GIVENUNK [place] Insurance:SELF PAY [facility] Number: Effective Repository Date:2017-12-07 11/30/2017 ELIDIA Woody [id number] Primary ELIDIA Bong Susan [place] Insurance:CARESOURCEP [address]: [address] [place] Number: [id number] Hospital [address]Vxv: [phone] [id number] Repository [phone] () Date:2017-11-30[address]ATTN: [place] [address]CK: 11/30/2017 Secondary NOT GIVENUNK [place] Insurance:SELF PAY [facility] Number: Effective Repository Date:2017-11-30 11/19/2017 ELIDIA Woody [id number] Primary ELIDIA Bong Davis [facility] Insurance:CARESOURCEP COLEDOB: [facility] Number: [id number] Hospital [address]Rrw: [phone]) [id number] Repository [phone] () Date:2017-11-16[address]ATTN: [place] [address]YO: 11/19/2017 Secondary NOT GIVENUNK [place] Insurance:SELF PAY [facility] Number: Effective Repository Date:2017-11-16 10/02/2017 ELIDIA L Primary ELIDIA L [facility] COLEDOB: Insurance:CARESOURCE COLEDOB: [facility] MEDICAIDPolicy [id number] [facility], [place] [id number], [place] [address]Yss: [phone]) Date:2016-10-04 069[address]Dkg: () [id number] [phone] Name:[address] ()Tel: [phone], [place] [phone] () [address]WX: 10/02/2017 ELIDIA L Primary ELIDIA L [facility] GOODDOB: Insurance:CARESOURCE GOODDOB: [facility] MEDICAIDPolicy [id number] Repository [address], Number: [place] [address]Uol: [phone]) [id number] [place] [address]Fnr: [phone] ()Tel: Date:2016-10-04 - [id number] ()Tel: [phone] ([phone]) Name:[address] [phone] (WP) [address] [place] [address]PX: 09/07/2017 ELIDIA Woody [id number] Primary NOT GIVENUNK [place] [address] Insurance:SELF PAY [place] [id number]: [phone]) Number: Effective Repository [phone] () Date:2017-09-07 09/07/2017 ELIDIA L [id number] Primary ELIDIA L [place] [address] Insurance:CARESOURCEP COLED[address]: [address] Number: [id number] Hospital [address]Kqc: [phone] [id number] Repository [phone] () Date:2017-09-[address]ATTN: [place] [address]EX: 09/07/2017 Secondary NOT GIVENUNK [place] Insurance:SELF PAY [facility] Number: Effective Repository Date:2017-09-07 09/04/2017 ELIDIA L [id number] Primary NOT GIVENUNK [place] [address] Insurance:SELF PAY [address] [address]Ise: ([phone]) Number: Effective Repository [phone] () Date:2017-09-04 08/22/2017 ELIDIA L [id number] Primary ELIDIA L [place] [address] Insurance:CARESOURCEP COLED[address]: [address] Number: [id number] Hospital [address]Abl: [phone]) [id number] Repository [phone] (HP) Date:2017-08-22[address]ATTN: [place] [address]JO: 08/22/2017 Secondary NOT GIVENUNK [place] Insurance:SELF PAY [facility] Number: Effective Repository Date:2017-08-22 05/31/2017 ELIDIA L [id number] Primary ELIDIA L [place] E [facility] Insurance:CARESOURCEP COLEDOB: [address] Number: [id number] Hospital [address]Wnl: [phone]) [id number] Repository [phone] () Date:2017-05-31[address]ATTN: [place] [address]MX: 05/31/2017 Secondary NOT GIVENUNK [place] Insurance:SELF PAY [facility] Number: Effective Repository Date:2017-05-31 04/23/2017 Elidia L Primary Elidia L Susan [id number] Insurance:CARESOURCEP ColeDOB: [facility] Number: [id number] [id number] Repository [address]Nvs: [phone]) Date:2017-04-22 O [phone] () [address]ATTN: [place] [address]UU: 04/23/2017 Secondary NOT GIVENUNK [place] Insurance:SELF PAY [facility] Number: Effective Repository Date:2017-04-22 04/21/2017 Elidia L Primary Elidia L Susan [id number] Insurance:CARESOURCEP ColeDOB: [facility] Number: [id number] [id number] Repository [address]Yeo: ([phone]) Date:2017-04-21P O [phone] () [address]ATTN: [place] [address]HJ: 04/21/2017 Secondary NOT GIVENUNK [place] Insurance:SELF PAY [facility] Number: Effective Repository Date:2017-04-21
== END 2018-04-10 13:51 | disposition home or self-care (01) ==
LOC: ED 13:15
PROVIDERS: Emergency Provider Emergency Medicine; Family Provider Family Medicine; PCP Family Medicine
DX: K08.89 Other specified disorders of teeth and supporting structures (principal); Z98.818 Other dental procedure status
CPT/HCPCS: 96372; 99281

== ENCOUNTER → 2018-06-16 14:24 | Outpatient (CLI) | payer MEDICAID, SELFPAY ==
[2018-06-16 13:58] VITALS: BMI 31.7
--- NOTE | 2018-06-16 14:28 | RAD_ITS ---
STUDY: X-RAY CHEST REASON FOR EXAM: Female, 38 years old. Chest discomfort. TECHNIQUE: PA and lateral views of the chest. COMPARISON: Comparison is made with prior study dated November 30, 2017. FINDINGS: The lungs are clear and expanded. There is no demonstrated pleural abnormality. Normal size heart. Normal mediastinum and nidhi. Normal visualized pulmonary arteries. Normal visualized aortic arch and descending thoracic aorta. Normal visualized thoracic spine. Normal visualized ribs, clavicles, and shoulders. There is no demonstrated abnormality of the visualized soft tissue structures of the upper abdomen. RAD/Chest PA and Lateral IMPRESSION: Normal x-ray examination of the chest. Electronically Signed: Андрей Lorenz, at 15:15 EDT , Service support ,
== END ==
PROVIDERS: Family Provider Family Medicine; PCP Family Medicine; Referring Provider Physician Assistant; Visit Provider Physician Assistant
DX: R07.89 Other chest pain (principal)
CPT/HCPCS: 71046

== ENCOUNTER 2018-06-21 15:35 | Emergency (ER) | payer MEDICAID, SELFPAY ==
[2018-06-17 10:35] VITALS: BMI 31.7
[2018-06-21 15:36] VITALS: BP 144/97; PULSE 77; RESP 14; TEMP 36.5; O2SAT 100; BMI 30.7
--- NOTE | 2018-06-21 15:44 | CT_ITS ---
STUDY: CTA CHEST REASON FOR EXAM: Female, 38 years old. Hypoxia. Chest pain. Cough. RADIATION DOSAGE (If Supplied By Facility): CTDIvol = ( 13.44 ) mGy, DLP = ( 622.04 ) mGycm TECHNIQUE: The examination was performed with the intravenous administration of 75 IV Isovue 370. Post-processing of the angiographic images was performed, with multiplanar reformation and 3D reconstruction. Individualized dose optimization techniques were used for this CT. COMPARISON: Chest, June 16, 2018. CTA of the chest, March 02, 2016. FINDINGS: Normal enhancement of the main pulmonary artery and right and left pulmonary arteries. Normal enhancement of the bilateral peripheral pulmonary arteries. There is no demonstrated pulmonary embolism. Normal thoracic aorta and visualized great vessels. There is no demonstrated aortic dissection. Normal heart and pericardium. Normal mediastinum. Normal hilar regions. Normal visualized trachea and bronchi. The lungs are hyper expanded, with flattening of the hemidiaphragms. Normal pulmonary parenchyma. Normal pleura. Normal chest wall structures. Normal osseous structures. Normal visualized upper abdomen. CT/CTA Chest W/WO Contrast IMPRESSION: Normal CTA chest examination, without a demonstrated pulmonary embolism or arterial dissection. Electronically Signed: Deon Garcia DO at 16:48 EDT Tel [phone], Service support ,
--- NOTE | 2018-06-21 15:45 | EKG12_ITS ---
Test Reason : CP Blood Pressure : / mmHG Vent. Rate : 077 BPM Atrial Rate : 077 BPM P-R Int : 140 ms QRS Dur : 086 ms QT Int : 384 ms P-R-T Axes : 053 046 041 degrees QTc Int : 434 ms Normal sinus rhythm Normal ECG Confirmed by RITESH GRIJALVA, AMARILIS ([id number]), greeting card editor BRODY TURNER ([id number]) on 06/25/2018 11:30:40 AM Referred By: Stefan More Confirmed By:AMARILIS AWAD MD
--- NOTE | 2018-06-21 15:49 | ED.DCSUM_ITS ---
- ER Visit Summary Date of Service: 06/21/18 Chief Complaint: Chest pain History of Present Illness: The patient is a 38 F presents to the emergency department chest pain shortness of breath. Patient had the symptoms for about 10 days. 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 She states she was having some pain in her back that wrapped around both sides underneath her breasts. She is also been having a mild cough. She denies any fevers or chills. She states that she went to the urgent care 4 days ago. She had an x-ray which she thinks was normal. She was placed on a Medrol Dosepak and has been using her inhalers. She states that she is not getting any relief. The patient does have a history of non-Hodgkin's lymphoma that is in remission. She did not have radiation but did have chemotherapy. She does smoke. She is also on control. Physical Examination: Vital signs reviewed General: Well-nourished, well-developed Head: Normocephalic, atraumatic Eyes: Pupils equal and reactive, extraocular muscles intact Neck, supple, no lymphadenopathy Heart: Regular rate and rhythm Respiratory: No distress, clear bilaterally Abdomen: Soft, nontender, nondistended, no peritoneal signs Back: Nontender Extremities: Nontender, no edema, no cords Skin: Normal color no rash Neuro: Alert and oriented, no focal or lateralizing deficits Test Results: [] Emergency Department Course and Treatment: The patient has intermittent chest pain and dyspnea. She has not had fever or chills. Given her history of prior malignancy and chemotherapy, I did want to rule out pulmonary embolus. I did review her prior chest x-ray which was normal. EKG was unremarkable without ischemic change. Cardiac enzymes are normal. CTA shows no evidence of pulmonary embolus, pleural effusion, pneumothorax, or other dangerous process. I am not sure if this is pleurisy or even referred pain from her back. I am going to treat the patient with antispasmodics and anti-inflammatories. I do feel that she is safe for outpatient therapy. She is comfortable with this plan of care. Treatment Plan: [] Disposition: Discharge Impression: 1. Costochondritis 2. Chest pain This note was generated with Econ[employer] software. It may contain incorrect words, spelling, and punctuation that were not noted in review of the chart prior to signing ED Disposition - Plan for ED Patient: Disposition: Home or Assisted Living Instructions: ED Chest Pain Atypical Unkn Cause Prescriptions: RX: Naproxen [Naprosyn] 500 mg PO BID PRN #20 tab RX: Prednisone 10 mg PO UD #33 tab Lorazepam [Ativan] 1 mg PO TID #10 tab Referrals: Karlos Slaughter MD [Primary Care Provider] -
[2018-06-21] MEDS: Aspirin 81 MG TAB.CHEW 324 MG PO (15:59)
[2018-06-21] MEDS: 0.9% Normal Saline 1,000 ML 150 ML IV (15:59)
[2018-06-21 16:25] LABS: Absolute Lymphocyte Count 3.47 X10^3/ul (0.83-4.51); Absolute Neutrophil Count 6.9 X10^3/uL (2.0-7.7); Basophil# 0.04 X10^3/uL; Basophil% 0.4 % (0-1); Eosinophil# 0.15 X10^3/uL; Eosinophils% 1.3 % (0-5); Hematocrit 40.7 % (37-47); Hemoglobin 13.6 g/dl (12.0-15.0); Lymphocyte # 3.47 X10^3/ul (4.0); Lymphocyte % 30.7 % (19-41); Mean Corp Hgb Conc 33.4 g/gl (32-36); Mean Corpuscular Volume 89.8 fL (81-99); Mean Platelet Vol. 9.5 fl (6.2-12.0); Monocyte# 0.74 X10^3/uL; Monocyte% 6.5 % (0-10); Neutrophil # 6.87 X10^3/uL (2.7-7.7); Neutrophil % 60.7 % (47-70); Platelet Count 353 K/mm3 (150-450); RBC Distribution Width CV 12.5 % (11.6-14.6); RBC Distribution Width SD 40.5 fl (35.1-43.9); Red Blood Count 4.53 M/mm3 (4.2-5.4); White Blood Count 11.3 K/mm3 (4.4-11.0)
[2018-06-21 16:26] LABS: POSITIVE COUNT NO; POSITIVE DIFFERENTIAL NO; POSITIVE MORPHOLOGY NO
[2018-06-21 16:36] LABS: Anion Gap 2 (5-15); BUN 8 mg/dL (7-18); BUN/Creat Ratio 10.1 RATIO (10-20); Calcium,Total 9.2 mg/dL (8.5-10.1); Chloride 106 mmol/L (98-107); Creatinine, Serum 0.79 mg/dL (0.55-1.02); EST Glomerular Filtration Rate 86 mL/min (>60); Est Glom Filt Rate - Afr Amer 104 mL/min (>60); Estimated Creatinine Clearance 99.92 ml/min; Glucose 83 mg/dL (74-106); Potassium 3.4 mmol/L (3.5-5.1); Sodium Level 139 mmol/L (136-145)
[2018-06-21 16:58] VITALS: BP 125/84; PULSE 76
[2018-06-21 17:11] VITALS: BP 112/85; PULSE 83; RESP 14; O2SAT 97
[2018-06-21 17:12] VITALS: BP 112/85
== END 2018-06-21 17:41 | disposition home or self-care (01) ==
LOC: ED 17:30
PROVIDERS: Emergency Provider Emergency Medicine; Family Provider Family Medicine; PCP Family Medicine
DX: M94.0 Chondrocostal junction syndrome [Tietze] (principal); R07.9 Chest pain, unspecified; Z72.0 Tobacco use; Z85.72 Personal history of non-Hodgkin lymphomas; Z79.3 Long term (current) use of hormonal contraceptives
CPT/HCPCS: 71275; 80048; 84484; 85025; 93005; 96360; 99284; J7030; Q9967

== ENCOUNTER 2018-07-25 04:17 | Emergency (ER) | payer MEDICAID, SELFPAY ==
[2018-07-25 04:18] VITALS: BP 128/88; PULSE 91; RESP 20; TEMP 36.5; O2SAT 99; BMI 30.9
--- NOTE | 2018-07-25 04:34 | ED.DCSUM_ITS ---
- ER Visit Summary Date of Service: 07/25/18 Chief Complaint: Right eye redness History of Present Illness: The patient is a 38 F presenting with right eye redness. Patient states she went to urgent care yesterday was given erythromycin ointment. She states she woke up tonight and noticed increasing redness of her right eye as well as swelling around her eye. She has no eye pain. She denies vision changes. She does not wear contacts. She wears glasses for reading. No history of injury. No chemical exposure or foreign body. No other complaints Physical Examination: Vitals are stable. Patient is afebrile. Alert no acute distress. HEENT exam right conjunctivae injected. Pupils equal round reactive to light. Extraocular muscles intact. Right periorbital mild erythema and swelling. No pain with extraocular movements. Neck is supple. Lungs are clear and equal bilaterally. Heart is regular rate and rhythm. Extremities are unremarkable. Skin is warm and dry. No focal neurologic deficit. Remainder of exam is unremarkable. Emergency Department Course and Treatment: Tetracaine was instilled into the right eye. There is no fluorescein dye uptake. Eyelid was everted and there is no foreign body visualized. She is advised to continue the erythromycin ointment. Due to the increased periorbital redness she is started on clindamycin. She is advised to follow-up with ophthalmology. Advised return to ED for any worsening complaints. Disposition: Discharge home Impression: Periorbital cellulitis This note was generated with [employer] dictation software. It may contain incorrect words, spelling, and punctuation that were not noted in review of the chart prior to signing ED Disposition - Plan for ED Patient: Instructions: ED Cellulitis [place] Orbital Prescriptions: Fluconazole [Diflucan] 150 mg PO X1 #1 tablet Clindamycin [Cleocin] 450 mg PO TID #63 capsule Referrals: Bebeto Leone MD [STAFF PHYSICIAN] - Karlos Slaughter MD [Primary Care Provider] -
[2018-07-25] MEDS: Fluorescein 1 MG STRIP 1 STRIP RIGHT EYE (04:39)
[2018-07-25] MEDS: Tetracaine 0.5% Ophthalmic Bottle 1 DRP RIGHT EYE (04:39)
--- NOTE | 2018-07-25 04:57 | ED.DEP ---
ED Disposition - Plan for ED Patient: Instructions: ED Cellulitis [place] Orbital Prescriptions: Fluconazole [Diflucan] 150 mg PO X1 #1 tablet Clindamycin [Cleocin] 450 mg PO TID #63 capsule Referrals: Karlos Slaughter MD [Primary Care Provider] - Bebeto Leone MD [STAFF PHYSICIAN] -
[2018-07-25] MEDS: Clindamycin HCl 150 MG Capsule 450 MG PO (05:07)
== END 2018-07-25 05:11 | disposition home or self-care (01) ==
LOC: ED 04:32
PROVIDERS: Emergency Provider Emergency Medicine; Family Provider Family Medicine; PCP Family Medicine
DX: L03.213 Periorbital cellulitis (principal); Z72.0 Tobacco use
CPT/HCPCS: 99283

== ENCOUNTER 2018-09-17 01:57 | Emergency (ER) | payer MEDICAID, SELFPAY ==
[2018-08-06 12:27] VITALS: BMI 30.9
[2018-09-17 01:57] VITALS: BP 153/86; PULSE 111; RESP 18; TEMP 36.1; O2SAT 96; BMI 30.1
--- NOTE | 2018-09-17 02:16 | ED.VISSUMM ---
- ER Visit Summary Date of Service: 09/17/18 Chief Complaint: Headache History of Present Illness: The patient is a 38 F with a history of migraines who presents with a headache. It began yesterday while at work and gradually worsened over the course of the evening and this morning. She currently rates it as severe. She states it is behind her eyes and behind the top of her nose as well as both temporal areas and occipital. She reports photophobia and phonophobia which is typical of her previous migraines. She also reports nausea and vomiting. No direct trauma fall head injury. No fevers. She has had some recent shortness of breath which she is seeing her primary care physician for and had an x-ray. Otherwise no recent illness. Physical Examination: Afebrile heart rate 111 blood pressure 153/86 Alert and oriented with no focal or lateralizing neurological deficits, normal strength, normal sensation, no ataxia Neck supple no meningismus no nuchal rigidity Heart regular tachycardia Lungs clear Abdomen soft Test Results: Not indicated Emergency Department Course and Treatment: Patient was treated with IV fluids, Reglan, Toradol. Patient feels much better on reevaluation. She reports about 80% improvement of symptoms. This is a tolerable level. She will be discharged to follow-up as an outpatient as needed. She understands return for new or worsening symptoms. Disposition: Discharge Impression: Headache This note was generated with [employer] dictation software. It may contain incorrect words, spelling, and punctuation that were not noted in review of the chart prior to signing ED Disposition - Plan for ED Patient: Referrals: Karlos Slaughter MD [Primary Care Provider] -
[2018-09-17] MEDS: Ketorolac 60 MG/2 ML Vial 30 MG IM (02:17)
[2018-09-17] MEDS: 0.9% Normal Saline 1,000 ML 999 ML IV (02:17)
[2018-09-17] MEDS: Metoclopramide 10 MG/2 ML Vial IV (02:18)
--- NOTE | 2018-09-17 03:20 | ED.DEP ---
ED Disposition - Plan for ED Patient: Instructions: HEADACHE, Unspecified Referrals: Karlos Slaughter MD [Primary Care Provider] -
[2018-09-17 03:37] VITALS: BP 110/70; PULSE 71; RESP 16; O2SAT 98
== END 2018-09-17 03:38 | disposition home or self-care (01) ==
PROVIDERS: Emergency Provider Emergency Medicine; Family Provider Family Medicine; PCP Family Medicine
DX: R51 Headache (principal); R06.02 Shortness of breath; R11.2 Nausea with vomiting, unspecified; K21.9 Gastro-esophageal reflux disease without esophagitis; Z72.0 Tobacco use; Z85.72 Personal history of non-Hodgkin lymphomas
CPT/HCPCS: 96361; 96372; 96374; 99282; J7030

== ENCOUNTER 2018-12-10 22:17 | Emergency (ER) | payer MEDICAID, SELFPAY ==
[2018-12-10 22:17] VITALS: BP 132/77; PULSE 87; RESP 16; TEMP 36.7; O2SAT 98; BMI 29.2
--- NOTE | 2018-12-10 22:53 | ED.VIS.GEN ---
History of Present Illness Chief Complaint: Abd Pain Narrative: Patient is a 38-year-old female who presents with left upper quadrant pain. This began last night. She describes it as aching and squeezing but at times it is sharp. The pain is more severe today. Today for lunch she ate chicken nuggets and fries and her pain worsened about 30 minutes later. She denies any vomiting or diarrhea. No fevers. She has had a prior hysterectomy. She also has a history of colon polyps but no history of diverticulosis. She does have a history of GERD which is controlled with medication. Past Medical History - Allergies and Home Meds Allergies/Adverse Reactions: Allergies acetaminophen [From Darvocet-N] Allergy (Verified 12/10/18 22:21) Rash propoxyphene napsylate [From Darvocet-N] Allergy (Verified 12/10/18 22:21) Rash Sulfa (Sulfonamide Antibiotics) Allergy (Verified 12/10/18 22:21) Hives venom-honey bee [bee venom (honey bee)] Allergy (Verified 12/10/18 22:21) Anaphylaxis hydrocodone Adverse Reaction (Verified 12/10/18 22:21) Other RED RASH ON CHEST AND ANXIETY. promethazine HCl [From Phenergan] Adverse Reaction (Verified 12/10/18 22:21) Other Primary Care Physician: Karlos Slaughter MD [Primary Care Provider] - Past Medical History: - - GERD, history of non-Hodgkin's lymphoma, endometriosis Surgical History: hysterectomy Smoking Status: Current every day smoker Review of Systems All systems negative except as indicated General: Denies: Fever Cardiovascular: Denies: Chest pain Respiratory: Denies: Dyspnea Gastrointestinal: Reports: Abdominal pain. Denies: Vomiting, Diarrhea Physical Exam Vital Signs/Narrative: Vital Signs Temp Pulse Resp BP Pulse Ox 12/10/18 22:17 98.0 F 87 16 132/77 H 98 Inital Vital Signs reviewed: Yes General: Well nourished, Well developed Head: Normocephalic Eyes: EOMI ENT: Moist mucous membranes Neck: Supple Cardiovascular: Regular rate, Regular rhythm Respiratory: No distress, CTA bilaterally Abdomen: Soft, Tender - Left upper quadrant abdominal tenderness without guarding without rebound, nondistended Skin: Normal color Neurological: Alert Psychological: Normal affect Diagnostic/Tx/Re-eval Impressions Abdomen/Pelvis CT 12/11/18 22:51 IMPRESSION: No acute osseous abnormality The gallbladder is poorly distended No diverticulitis Hysterectomy Individualized dose optimization techniques were used for this CT. at 0114 Reported and signed by: Julia Borrero DO Electronically Signed: Julia Borrero DO at 1:13 EDT Tel , Service support , 12/11/18 22:51 Abdomen/Pelvis WITH Contrast [CT] Stat Laboratory Results 12/10/18 12/10/18 23:05 23:05 WBC 9.5 RBC 4.12 L Hgb 12.5 Hct 37.3 MCV 90.5 MCH 30.3 MCHC 33.5 RDW Std Deviation 40.7 RDW Coeff of Rica 12.3 Plt Count 293 MPV 9.4 Immature Gran % (Auto) 0.300 Neut % (Auto) 48.3 Lymph % (Auto) 40.4 [place] % (Auto) 7.4 Eos % (Auto) 3.1 Baso % (Auto) 0.5 Absolute Neuts (auto) 4.6 Absolute Lymphs (auto) 3.85 Nucleated RBC % 0 Sodium 142 Potassium 3.8 Chloride 109 H Carbon Dioxide 28.0 Anion Gap 5 BUN 9 Creatinine 0.81 Estim Creat Clear Calc 100.84 Est GFR (MDRD) Af Amer 101 Est GFR (MDRD) Non-Af 83 BUN/Creatinine Ratio 11.1 Glucose 92 Calcium 9.1 Total Bilirubin 0.10 L AST 13 L ALT 21 Alkaline Phosphatase 78 Total Protein 7.1 Albumin 3.9 Globulin 3.2 Albumin/Globulin Ratio 1.2 Lipase 144 - Medical Decision Making Work-up as above is unremarkable. CT showed poor distention of the gallbladder but no stones. Her labs are normal. She does not have evidence of process such as acute cholecystitis or other acute surgical pathology. At this point I do believe she can follow-up as an outpatient. She understands return for new or worsening symptoms. She was instructed on signs and symptoms to monitor for. ED Disposition - Plan for ED Patient: Disposition: Home or Assisted Living Diagnosis: Abdominal pain Instructions: ABDOMINAL PAIN, Unknown Cause, (Female) Prescriptions: Sucralfate [Carafate] 1 gm PO 4X/DAY #40 tab Prescription Printed Referrals: Karlos Slaughter MD [Primary Care Provider] -
[2018-12-10] MEDS: 0.9% Normal Saline 1,000 ML 1000 ML IV (23:12)
[2018-12-10] MEDS: Ondansetron 4 MG/2 ML Vial IV (23:13)
[2018-12-10] MEDS: Morphine 4 MG/ML Syringe IV (23:14)
[2018-12-10 23:15] LABS: Absolute Lymphocyte Count 3.85 X10^3/uL (0.83-4.51); Absolute Neutrophil Count 4.6 X10^3/uL (2.0-7.7); Basophil# 0.05 X10^3/uL; Basophil% 0.5 % (0-1); Eosinophils% 3.1 % (0-5); Hematocrit 37.3 % (37-47); Hemoglobin 12.5 g/dL (12.0-15.0); Lymphocyte # 3.85 X10^3/ul (4.0); Lymphocyte % 40.4 % (19-41); Mean Corp Hgb Conc 33.5 g/dL (32-36); Mean Corpuscular Hgb 30.3 pg (27.0-32.0); Mean Corpuscular Volume 90.5 fL (81-99); Mean Platelet Vol. 9.4 fl (6.2-12.0); Monocyte# 0.71 X10^3/uL; Monocyte% 7.4 % (0-10); NRBC Flagged by Analyzer 0 % (0-5); Neutrophil % 48.3 % (47-70); Platelet Count 293 K/mm3 (150-450); RBC Distribution Width CV 12.3 % (11.6-14.6); RBC Distribution Width SD 40.7 fl (35.1-43.9); Red Blood Count 4.12 M/mm3 (4.2-5.4); White Blood Count 9.5 K/mm3 (4.4-11.0)
[2018-12-10 23:30] LABS: ALB/GLOB Ratio 1.2 RATIO (0.9-2.4); AST(SGOT) 13 U/L (15-37); Alanine Aminotransfer ALT/SGPT 21 U/L (13-56); Albumin, Serum 3.9 g/dL (3.2-5.0); Alkaline Phosphatase 78 U/L (45-117); Anion Gap 5 (5-15); BUN 9 mg/dL (7-18); BUN/Creat Ratio 11.1 RATIO (10-20); Calcium,Total 9.1 mg/dL (8.5-10.1); Chloride 109 mmol/L (98-107); Creatinine, Serum 0.81 mg/dL (0.55-1.02); EST Glomerular Filtration Rate 83 mL/min (>60); Est Glom Filt Rate - Afr Amer 101 mL/min (>60); Estimated Creatinine Clearance 100.84 ml/min; Globulin 3.2 g/dL (2.2-4.2); Glucose 92 mg/dL (74-106); Lipase 144 U/L (73-393); Potassium 3.8 mmol/L (3.5-5.1); Protein, Total 7.1 g/dL (6.4-8.2); Sodium Level 142 mmol/L (136-145)
[2018-12-11 01:36] VITALS: BP 115/80; PULSE 85; RESP 15; O2SAT 100
[2018-12-11] MEDS: Morphine 4 MG/ML Syringe IV (02:01)
[2018-12-11 02:48] VITALS: PULSE 87; RESP 16; O2SAT 97
--- NOTE | 2018-12-11 22:51 | CT_ITS ---
HISTORY:LLQ PAIN TODAY, HYSTERECTOMY-STILL HAS LEFT OVARY, NON-HODGKINS LYMPHOMA-2014 LLQ PAIN TODAY, HYSTERECTOMY-STILL HAS LEFT OVARY, NON-HODGKINS LYMPHOMA-2014 TECHNIQUE: Helically acquired images were obtained of the abdomen and pelvis following IV contrast. A radiation dose optimization technique was used for this scan. IV Contrast dosage and agent:100ML Isovue 300 Oral contrast: Yes COMPARISON: November 30, 2017 FINDINGS: # of images incl. paperwork: [phone] LOWER CHEST: Right basilar atelectasis LIVER: Homogeneous. No focal mass. GALLBLADDER AND BILIARY TREE: Poorly distended. No stones No intra- or extrahepatic biliary ductal dilation. KIDNEYS AND URETERS: Normal renal size and position. There is no hydronephrosis. ADRENAL GLANDS: Non-enlarged. SPLEEN: Normal size without focal cystic or solid mass. PANCREAS: No focal cystic or solid mass. BOWEL: The stomach and small bowel are unremarkable There is no mechanical obstruction No diverticulitis The appendix is unremarkable LYMPH NODES: No enlarged mesenteric or retroperitoneal lymph nodes. PERITONEUM: No ascites or free air. No other fluid collection. VESSELS: Aorta is non-dilated. URINARY BLADDER: Incompletely distended, otherwise grossly unremarkable. REPRODUCTIVE ORGANS: Hysterectomy. ABDOMINAL WALL: No discrete abdominal or pelvic wall hernia observed. BONES: No lytic or blastic abnormality observed. CT/Abdomen/Pelvis WITH Contrast IMPRESSION: No acute osseous abnormality The gallbladder is poorly distended No diverticulitis Hysterectomy Individualized dose optimization techniques were used for this CT. at 0114 Reported and signed by: Julia Borrero DO Electronically Signed: Julia Borrero DO at 1:13 EDT Tel , Service support ,
== END 2018-12-11 02:25 | disposition home or self-care (01) ==
PROVIDERS: Emergency Provider Emergency Medicine; Family Provider Family Medicine; PCP Family Medicine
DX: R10.9 Unspecified abdominal pain (principal); K82.8 Other specified diseases of gallbladder; K21.9 Gastro-esophageal reflux disease without esophagitis; Z90.710 Acquired absence of both cervix and uterus; Z85.72 Personal history of non-Hodgkin lymphomas; F17.200 Nicotine dependence, unspecified, uncomplicated; Z88.2 Allergy status to sulfonamides; Z88.5 Allergy status to narcotic agent; Z88.8 Allergy status to other drugs, medicaments and biological substances; Z86.010 Personal history of colon polyps
CPT/HCPCS: 74177; 80053; 83690; 85025; 99283; J7030; Q9967; A4216; J2405

== ENCOUNTER 2019-05-28 19:28 | Emergency (ER) | payer MEDICAID, SELFPAY ==
[2019-05-23 13:23] VITALS: BMI 29.2
[2019-05-28 19:28] VITALS: BP 106/96; PULSE 101; RESP 17; TEMP 36.4; O2SAT 98
[2019-05-28 19:48] VITALS: O2SAT 97
--- NOTE | 2019-05-28 20:06 | ED.VISSUMM ---
- ER Visit Summary Date of Service: 05/28/19 Chief Complaint: Shortness of breath History of Present Illness: The patient is a 39 F who presents with shortness of breath that has been getting worse over the past 2 days. Patient states this is been constant and getting progressively worse. Patient states nothing makes it better or worse. Patient admits to a cough but denies any sputum production. Patient states she has pain in her anterior chest and left lower chest. Patient states she also has pain in her left lower thoracic area and her back. Patient describes this as a tightness. Patient admits to some palpitations. Patient denies any nausea or vomiting. Patient denies any diaphoresis. Patient denies any recent fevers or chills. Physical Examination: Vital signs are stable. Patient is afebrile. Patient is in no acute distress. Oral mucosa is pink and moist. Oropharynx is clear. Neck is supple. Trachea is midline. There is no JVD. Heart was regular rate and rhythm. Lungs are clear and equal bilaterally. Abdomen is soft. Bowel sounds are normal. There is no tenderness. Cranial nerves II through XII are intact. There are no focal motor or sensory deficits noted. Extremities are intact. There is no calf tenderness or edema. Test Results: EKG showed normal sinus rhythm with a rate of 94. There are no acute ST or T wave changes. CBC and basic metabolic profile were within normal limits. D-dimer was normal. Troponin was normal. Flu swab was negative. PA and lateral chest x-ray was obtained. There is no acute cardiopulmonary process. Emergency Department Course and Treatment: Patient was given a DuoNeb treatment here. Patient felt better after this. Patient was advised of her findings. Patient was advised this is most likely a viral upper respiratory infection. Patient was instructed to take [id number] Mucinex as needed to help as an expectorant. Patient was instructed to take her Ventolin inhaler as needed. Patient was instructed to follow-up with her primary care physician in 5 to 7 days. Patient understood and was agreeable with the plan. All questions were answered. Disposition: Discharge home Impression: Viral bronchitis This note was generated with [employer] dictation software. It may contain incorrect words, spelling, and punctuation that were not noted in review of the chart prior to signing ED Disposition - Plan for ED Patient: Disposition: Home or Assisted Living Diagnosis: Viral bronchitis Instructions: BRONCHITIS, No Antibiotic (Adult) Prescriptions: predniSONE tablet 60 mg PO DAILY #15 tab Prescription Printed Referrals: Karlos Slaughter MD [Primary Care Provider] - 3-5 Days
--- NOTE | 2019-05-28 20:08 | EKG12_ITS ---
Test Reason : SOB Blood Pressure : / mmHG Vent. Rate : 094 BPM Atrial Rate : 094 BPM P-R Int : 144 ms QRS Dur : 086 ms QT Int : 364 ms P-R-T Axes : 049 051 039 degrees QTc Int : 455 ms Normal sinus rhythm Normal ECG Confirmed by ISABELL DANIEL MD ([id number]), editor greeting card RANDOLPH GARCIA ([id number]) on 05/30/2019 3:18:21 PM Referred By: ABEL Confirmed By:ISABELL DANIEL MD
[2019-05-28 20:11] VITALS: BP 126/79; PULSE 89; RESP 24; TEMP 37.2; O2SAT 98
[2019-05-28] MEDS: Ipratropium/Albuterol Sulfate 3 ML AMPUL.NEB INHALATION (20:21)
[2019-05-28 20:22] VITALS: PULSE 97; RESP 16
--- NOTE | 2019-05-28 20:30 | ED.RN ---
DR. BARKSDALE IS NOT CONCERNED THAT THE PATIENT IS SEPTIC .
--- NOTE | 2019-05-28 20:35 | RAD_ITS ---
STUDY: X-RAY CHEST REASON FOR EXAM: Female, 39 years old. SOB AND COUGH, FINISHING Z PACK TODAY. REPORTS CHEST TIGHTNESS TONIGHT -- HX LYMPHOMA NHL/REMISSION 2015 TECHNIQUE: PA and lateral views of the chest. COMPARISON: 06/16/2018 FINDINGS: The lungs are clear and expanded. There is no demonstrated pleural abnormality. Normal size heart. Normal mediastinum and nidhi. Normal visualized pulmonary arteries. Normal visualized aortic arch and descending thoracic aorta. Normal visualized thoracic spine. Normal visualized ribs, clavicles, and shoulders. There is no demonstrated abnormality of the visualized soft tissue structures of the upper abdomen. RAD/Chest PA and Lateral IMPRESSION: Normal x-ray examination of the chest. Electronically Signed: Chang Mccabe MD at 20:56 EST Tel , Service support ,
[2019-05-28 20:38] LABS: Absolute Lymphocyte Count 3.84 X10^3/uL (0.83-4.51); Absolute Neutrophil Count 3.7 X10^3/uL (2.0-7.7); Basophil# 0.04 X10^3/uL; Basophil% 0.5 % (0-1); Eosinophil# 0.12 X10^3/uL; Eosinophils% 1.4 % (0-5); Hematocrit 34.8 % (37-47); Hemoglobin 12.2 g/dL (12.0-15.0); Lymphocyte # 3.84 X10^3/ul (4.0); Lymphocyte % 46.4 % (19-41); Mean Corp Hgb Conc 35.1 g/dL (32-36); Mean Corpuscular Hgb 31.2 pg (27.0-32.0); Mean Platelet Vol. 9.4 fl (6.2-12.0); Monocyte# 0.57 X10^3/uL; Monocyte% 6.9 % (0-10); NRBC Flagged by Analyzer 0 % (0-5); Neutrophil # 3.68 X10^3/uL (2.7-7.7); Neutrophil % 44.4 % (47-70); Platelet Count 265 K/mm3 (150-450); RBC Distribution Width CV 12.5 % (11.6-14.6); RBC Distribution Width SD 40.8 fl (35.1-43.9); Red Blood Count 3.91 M/mm3 (4.2-5.4); White Blood Count 8.3 K/mm3 (4.4-11.0)
[2019-05-28 20:47] LABS: D-Dimer Quantitative (DVT/PE) 0.29 FEU/ug/m (0.27-0.49)
[2019-05-28 20:56] LABS: Anion Gap 7 (5-15); BUN 10 mg/dL (7-18); BUN/Creat Ratio 15.6 RATIO (10-20); Chloride 106 mmol/L (98-107); Creatinine, Serum 0.64 mg/dL (0.55-1.02); EST Glomerular Filtration Rate 109 mL/min (>60); Est Glom Filt Rate - Afr Amer 131 mL/min (>60); Estimated Creatinine Clearance 126.36 ml/min; Glucose 97 mg/dL (74-106); Potassium 3.5 mmol/L (3.5-5.1); Sodium Level 140 mmol/L (136-145)
[2019-05-28 21:33] VITALS: BP 116/76; PULSE 87; RESP 15; O2SAT 99
[2019-05-28 23:03] VITALS: BP 122/79; PULSE 84; RESP 15; O2SAT 95
== END 2019-05-28 23:05 | disposition home or self-care (01) ==
PROVIDERS: Emergency Provider Emergency Medicine; PCP Family Medicine
DX: J20.8 Acute bronchitis due to other specified organisms (principal); Z85.72 Personal history of non-Hodgkin lymphomas
CPT/HCPCS: 71046; 80048; 84484; 85025; 85379; 87804; 93005; 94640; 99285

== ENCOUNTER → 2019-07-26 11:40 | Outpatient (CLI) | payer MEDICAID, SELFPAY ==
[2019-07-26 12:34] LABS: Estradiol 53.5 pg/mL; Prolactin 7.6 ng/mL; Thyroid Stim Hormone (TSH) 1.52 uIU/mL (0.358-3.74)
[2019-07-28 16:06] LABS: Testosterone Free 2.3 pg/mL (0.0-4.2)
== END ==
LOC: MTLAB 11:42 → PAVLAB 11:51
PROVIDERS: PCP Family Medicine; Referring Provider Nurse Practitioner Women's Health; Visit Provider Nurse Practitioner Women's Health
DX: L68.0 Hirsutism (principal)
CPT/HCPCS: 82627; 82670; 84146; 84402; 84443; 82626

== ENCOUNTER 2019-10-14 00:44 | Emergency (ER) | payer MEDICAID, SELFPAY ==
[2019-10-14 00:45] VITALS: BP 126/88; PULSE 84; RESP 16; TEMP 36.4; O2SAT 97; BMI 32.8
--- NOTE | 2019-10-14 01:05 | ED.DCSUM_ITS ---
History of Present Illness Chief Complaint: Dental Informant: Patient Narrative: Patient presents with dental pain left lower jaw, she saw her dentist was given clindamycin, it is the same tooth that she had a root canal a few months ago on. She has no fever chills cough or congestion she still has pain and she is requesting analgesia. Past Medical History - Allergies and Home Meds Allergies/Adverse Reactions: Allergies acetaminophen [From Darvocet-N] Allergy (Verified 10/14/19 00:47) Rash propoxyphene napsylate [From Darvocet-N] Allergy (Verified 10/14/19 00:47) Rash Sulfa (Sulfonamide Antibiotics) Allergy (Verified 10/14/19 00:47) Hives venom-honey bee [bee venom (honey bee)] Allergy (Verified 10/14/19 00:47) Anaphylaxis hydrocodone Adverse Reaction (Verified 10/14/19 00:47) Other RED RASH ON CHEST AND ANXIETY. promethazine HCl [From Phenergan] Adverse Reaction (Verified 10/14/19 00:47) Other Primary Care Physician: Karlos Slaughter MD [Primary Care Provider] - Past Medical History: - - Noncontributory Surgical History: hysterectomy Smoking Status: Current every day smoker Review of Systems General: Denies: Fever Eyes: Denies: Visual changes - bilaterally ENT: Reports: - - Dental pain as in HPI Cardiovascular: Denies: Chest pain Respiratory: Denies: Dyspnea Skin: Denies: Rash Neurological: Denies: Headache Hematologic: Denies: Easy bruising Physical Exam Vital Signs/Narrative: Vital Signs Temp Pulse Resp BP Pulse Ox 10/14/19 00:45 97.5 F L 84 16 126/88 H 97 General: - - She appears in some distress. Head: Normocephalic, Atraumatic Eyes: Perrl ENT: - - Left lower first molar tenderness, no obvious abscess. No jaw swelling. Normal soft palate normal posterior oropharynx. Normal voice no stridor Neck: Supple, Nontender Cardiovascular: Regular rate, Regular rhythm Respiratory: No distress, CTA bilaterally Extremities: No edema Skin: Normal color Neurological: Alert Psychological: Normal affect Diagnostic/Tx/Re-eval - Medical Decision Making She is already on clindamycin, I will treat her with analgesia and discharge in stable condition. ED Disposition - Plan for ED Patient: Disposition: Home or Assisted Living Diagnosis: Pain, dental Instructions: ED Tooth Pain Prescriptions: Hydrocodone Bitart/Apap 5-325 [Wells 5MG-325MG] 1 tablet PO Q4H PRN PRN 2 Days #10 tablet PRN Reason: Pain Transmission Status: Received by MAR[facility] Referrals: Karlos Slaughter MD [Primary Care Provider] - 2 Days Additional Instructions: Follow up with your dentist in a few days
[2019-10-14] MEDS: oxyCODONE 5 MG Tablet PO (01:17)
[2019-10-14 01:29] VITALS: BP 123/80; PULSE 68; RESP 16; O2SAT 99
== END 2019-10-14 01:48 | disposition home or self-care (01) ==
LOC: ED 01:29
PROVIDERS: Emergency Provider Emergency Medicine; PCP Family Medicine
DX: K08.89 Other specified disorders of teeth and supporting structures (principal); F17.200 Nicotine dependence, unspecified, uncomplicated; Z88.2 Allergy status to sulfonamides; Z88.5 Allergy status to narcotic agent; Z88.8 Allergy status to other drugs, medicaments and biological substances; Z90.710 Acquired absence of both cervix and uterus
CPT/HCPCS: 99283

== ENCOUNTER → 2019-10-27 20:27 | Outpatient (CLI) | payer MEDICAID, SELFPAY | PROVIDERS: PCP Family Medicine; Referring Provider Family Medicine; Visit Provider Family Medicine | DX: R06.83 Snoring (principal); R06.81 Apnea, not elsewhere classified | CPT/HCPCS: 95810 ==

== ENCOUNTER → 2020-03-31 07:27 | Outpatient (CLI) | payer MEDICAID, SELFPAY ==
[2019-11-24 08:06] VITALS: BMI 32.8
--- NOTE | 2020-03-31 07:28 | BI_ITS ---
MAMMOGRAPHY - BILATERAL SCREENING REASON FOR EXAM: Female, 39 years old. Routine annual screening examination. PERTINENT HISTORY: Non-contributory. TECHNIQUE: Digital bilateral breast elan (3D mammographic acquisition) in the CC and MLO projections. 2-D mediolateral oblique (MLO) and craniocaudad (CC) views of both breasts were obtained. CAD: Full Field Digital Mammography with Computer Added Detection was performed. COMPARISON: Comparison is made with prior outside examination dated 06/08/2019. FINDINGS: Breast Composition: There are scattered areas of fibroglandular density. There are no dominant masses or suspicious calcifications. No other significant abnormalities are identified. There has been no significant change since the prior study. BI/SCREEN MAMM (CAD) W/ELAN BILAT IMPRESSION: Stable bilateral screening mammogram. Yearly follow-up mammogram recommended. (A) ASSESSMENT CATEGORY: BIRADS Category 1: Negative. A letter regarding these results will be sent to the patient by the facility within 30 days. Approximately 10% of breast cancers are not detected by mammography. A normal mammogram should not delay biopsy of a clinically suspicious abnormality. [id number] Electronically Signed: Андрей Lorenz, at 8:34 EST , Service support ,
== END ==
PROVIDERS: PCP Family Medicine; Referring Provider Obstetrics & Gynecology; Visit Provider Obstetrics & Gynecology
DX: Z12.31 Encounter for screening mammogram for malignant neoplasm of breast (principal)
CPT/HCPCS: 77063; 77067

== ENCOUNTER → 2020-07-26 | Outpatient (CLI) | payer MEDICAID, SELFPAY ==
[2020-07-26 13:21] VITALS: BMI 32.8
[2020-07-31 15:14] LABS: HPV APTIMA, High Risk Negative (Negative)
== END | disposition home or self-care (01) ==
LOC: LABSPEC 16:53
PROVIDERS: PCP Family Medicine; Visit Provider Obstetrics & Gynecology
DX: N89.8 Other specified noninflammatory disorders of vagina (principal); Z12.4 Encounter for screening for malignant neoplasm of cervix
CPT/HCPCS: 87070; 87205; 87624; 88175; G0145

== ENCOUNTER 2020-08-01 19:08 | Emergency (ER) | payer MEDICAID, SELFPAY ==
[2020-07-26 13:21] VITALS: BMI 32.8
[2020-08-01 19:08] VITALS: BP 154/80; PULSE 95; RESP 16; TEMP 36.4; O2SAT 97; BMI 32.5
--- NOTE | 2020-08-01 19:37 | EDS_ITS ---
HPI History of Present Illness Chief Complaint: Back Narrative Narrative: Patient presenting with 2 days of upper back pain. She stated it started in her right trapezius and right medial scapular region and now feels like it is tight in the left lower ribs. Patient states this was gradual in onset. 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 She noticed this progressively getting worse. She denies chest pain or shortness of breath. She denies fever or chills. She denies nausea or vomiting [facility] Medical History Anxiety Back pain Endometriosis Hemorrhoids Hyperlipidemia Migraines Non Hodgkin's lymphoma PCOS (polycystic ovarian syndrome) Home Medications lansoprazole 30 mg capsule,delayed release ea PO 11/13/19 [History Last Taken Unknown] B-complex with vitamin C 1 cap PO DAILY 07/26/20 [History Last Taken Unknown] atorvastatin 10 mg tablet 10 mg PO DAILY 07/26/20 [History Last Taken Unknown] cholecalciferol (vitamin D3) 25 mcg (1,000 unit) capsule 25 mcg PO DAILY 07/26/20 [History Last Taken Unknown] multivitamin 1 tab PO DAILY 07/26/20 [History Last Taken Unknown] Allergy/AdvReac Type Severity Reaction Status Date / Time acetaminophen Allergy Rash Verified 08/01/20 19:10 [From Darvocet-N] propoxyphene napsylate Allergy Rash Verified 08/01/20 19:10 [From Darvocet-N] Sulfa (Sulfonamide Allergy Hives Verified 08/01/20 19:10 Antibiotics) venom-honey bee Allergy Anaphylaxis Verified 08/01/20 19:10 [bee venom (honey bee)] hydrocodone AdvReac Other Verified 08/01/20 19:10 promethazine HCl AdvReac Other Verified 08/01/20 19:10 [From Phenergan] Surgical History H/O: hysterectomy History of nasal septoplasty History of pubovaginal sling History of tonsillectomy History of tubal ligation S/P ACL surgery Social History household members: none Smoking Status: Current every day smoker alcohol intake: current details: social substance use type: does not use caffeine: Yes what type of physical activity do you participate in: none seatbelt use: always do you feel safe at home: Yes additional social history: - works at [employer] ROS ROS ED Constitutional Constitutional ED: Denies chills, fever(s) or sweats Eyes Eyes: Denies blurry vision or change in vision ENT ENT ED: Denies ear pain, rhinorrhea or sore throat Cardiovascular Cardiovascular: Denies chest pain, palpitations or racing heartbeat Respiratory/Chest Respiratory/Chest: Denies cough, dyspnea or sputum Gastrointestinal Gastrointestinal: Denies abdominal pain, constipation, diarrhea or vomiting Genitourinary Genitourinary ED: Denies dysuria, hematuria or urinary frequency Musculoskeletal Musculoskeletal: Denies arthralgias, myalgias or neck pain Integumentary Denies abscess, Abrasions or rash Neurologic Neurologic: Denies headache(s), paresthesias or weakness Psychiatric Psychiatric: Denies anxiety, depression, suicidal ideation or suicidal thoughts Endocrine Endocrinology: Denies polydipsia or polyuria EXAM Physical Exam Const Vital Signs: 08/01/20 19:08 Temperature 97.6 F L Temperature Source Temporal Pulse Rate 95 Respiratory Rate 16 Blood Pressure 154/80 H Blood Pressure Mean 104 Pulse Ox 97 Oxygen Delivery Method Room Air General Appearance ED: Negative for pallor HEENT Reports normocephalic, head/scalp atraumatic and moist mucous membranes Eyes PERRL and EOMs intact bilaterally Neck no lymphadenopathy and supple Chest Wall inspection of chest normal and palpation of chest normal Resp normal respiratory effort and clear to auscultation bilaterally Auscultation: Negative for rales, rhonchi or wheezes Cardio regular rate and regular rhythm GI normal to inspection, nondistended, normoactive bowel sounds and non-distended Auscultation: normoactive bowel sounds Palpation: soft Narrative: Deferred Back/Spine no CVA tenderness General Back: Negative for CVA tenderness Cervical Spine: Negative for cervical spine tenderness Extremity normal to inspection General Extremety ED: Yes edema and tenderness General Extremity: edema Neuro oriented x3 and CN's II-XII intact bilaterally Sensorium / Orientation: alert Motor Exam: strength 5/5 throughout Psych mental status grossly normal Attitude: No agitated Skin no rashes or lesions noted and no wounds General Skin Exam: Negative for jaundice or pallor MDM MDM MDM Narrative Medical decision making narrative: Patient presenting with musculoskeletal pain in the right upper back and in the left lower ribs. She is not saying she has shortness of breath. She is not having chest pain. 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 She does not have any midline spinal tenderness or deformity. There is no reproducible pain with palpation. She does state that it hurts when she twists her trunk. I did obtain a chest x-ray which interpreted by myself shows no acute cardiopulmonary process. I suspect her pain is musculoskeletal and I will start her on prednisone and muscle relaxers for home. She is discharged home in stable condition Impression: 1. Thoracic strain Radiography Diagnostic Testing: Radiology Impression Chest X-Ray 08/01/20 19:44 IMPRESSION: No acute cardiopulmonary process identified. Electronically Signed: Mario Santos MD at 19:57 EDT Tel , Service support , Discharge Plan Triage Chief Complaint: Back Other Complaint: Lower Extremity Injury ED Provider: David Jensen Dx/Rx/DC Orders Instructions: ED Thoracic Spine Strain Prescriptions: No Action lansoprazole 30 mg capsule,delayed release(DR/EC) PO RF: 0 multivitamin Tablet 1 tab PO DAILY RF: 0 B-complex with vitamin C Capsule 1 cap PO DAILY RF: 0 cholecalciferol (vitamin D3) 25 mcg (1,000 unit) capsule 25 mcg PO DAILY RF: 0 atorvastatin [Lipitor] 10 mg tablet 10 mg PO DAILY RF: 0 Primary Care Provider: Karlos Slaughter Referrals: Karlos Slaughter MD [Primary Care Provider] - Disposition Disposition: Home, self care Discharge Date/Time: 08/01/20 20:55
--- NOTE | 2020-08-01 19:44 | RAD_ITS ---
STUDY: X-RAY CHEST REASON FOR EXAM: Female, 40 years old. Posterior rib pain TECHNIQUE: Single frontal view of the chest. COMPARISON: 07/28/19. FINDINGS: Cardiac silhouette unremarkable. Pulmonary vascularity unremarkable. Aorta unremarkable. No focal airspace opacities. No pleural effusions. Upper abdomen unremarkable. Osseous structures intact. No pneumothorax. RAD/Chest PA and Lateral IMPRESSION: No acute cardiopulmonary process identified. Electronically Signed: Mario Santos MD at 19:57 EDT Tel , Service support ,
== END 2020-08-01 20:55 | disposition home or self-care (01) ==
LOC: ED 19:26
PROVIDERS: Emergency Provider Student in an Organized Health Care Education/Training Program; PCP Family Medicine
DX: S29.012A Strain of muscle and tendon of back wall of thorax, initial encounter (principal); X50.0XXA Overexertion from strenuous movement or load, initial encounter; Y93.9 Activity, unspecified; Y92.89 Other specified places as the place of occurrence of the external cause; Y99.0 Civilian activity done for income or pay; E78.5 Hyperlipidemia, unspecified; F17.200 Nicotine dependence, unspecified, uncomplicated; Z79.899 Other long term (current) drug therapy
CPT/HCPCS: 71046; 99283

== ENCOUNTER 2021-01-13 19:49 | Emergency (ER) | payer MEDICAID, SELFPAY ==
[2021-01-13 19:50] VITALS: BP 134/89; PULSE 94; RESP 16; TEMP 35.7; O2SAT 100; BMI 32.8
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
[2021-01-13] MEDS: oxyCODONE 5 MG Tablet PO (21:06)
== END 2021-01-13 21:13 ==
PROVIDERS: Emergency Provider Emergency Medicine; PCP Family Medicine
DX: S16.1XXA Strain of muscle, fascia and tendon at neck level, initial encounter (principal); S39.012A Strain of muscle, fascia and tendon of lower back, initial encounter; F17.210 Nicotine dependence, cigarettes, uncomplicated; E78.5 Hyperlipidemia, unspecified; Z79.899 Other long term (current) drug therapy; V49.40XA Driver injured in collision with unspecified motor vehicles in traffic accident, initial encounter
CPT/HCPCS: 99283

== ENCOUNTER 2021-01-30 12:18 | Emergency (ER) | payer MEDICAID, SELFPAY ==
[2021-01-30 12:22] VITALS: BP 141/78; PULSE 95; RESP 16; TEMP 36.9; O2SAT 99; BMI 34.1
--- NOTE | 2021-01-30 12:30 | EKG12_ITS ---
Test Reason : CP Blood Pressure : / mmHG Vent. Rate : 084 BPM Atrial Rate : 084 BPM P-R Int : 152 ms QRS Dur : 086 ms QT Int : 372 ms P-R-T Axes : 062 037 033 degrees QTc Int : 439 ms Normal sinus rhythm Low voltage QRS Borderline ECG Confirmed by RITESH GRIJALVA, AMARILIS ([id number]), health editor BRODY TURNER ([id number]) on 01/31/2021 11:33:53 AM Referred By: JAGDEEP Confirmed By:AMARILIS AWAD MD
--- NOTE | 2021-01-30 12:31 | EDS_ITS ---
HPI History of Present Illness Chief Complaint: Chest Pain Detail of Chief Complaint: Chest pain that started 2 days ago Informant: patient Narrative Narrative: Patient presents to the emergency department complaint chest pain is started 2 days ago. Patient describes a continuous discomfort or tightness and heaviness across her chest. Denies any radiation of the pain. Also has a sensation like she needs to cough something up in her throat. Patient denies any fevers. She denies chills or sweats. She has had the Covid vaccine. She denies recent travel or surgery. Patient states she had costochondritis in the past and it kind of feels like that but this is more severe. Currently she rates her pain a 7 out of 10. She does not know her family history as far as cardiac disease. Prior Similar Symptoms: Yes PFSH PFSH Medical History Anxiety Back pain Endometriosis Hemorrhoids Hyperlipidemia Migraines Non Hodgkin's lymphoma PCOS (polycystic ovarian syndrome) Home Medications lansoprazole 30 mg capsule,delayed release 30 ea PO DAILY 11/13/19 [History Last Taken Unknown] atorvastatin 10 mg tablet 10 mg PO DAILY 07/26/20 [History Last Taken Unknown] acetaminophen [Tylenol Ex Str Arthritis Pain] 1,000 mg Q6H PRN PRN 01/13/21 [History Last Taken Unknown] prednisone 20 mg PO BID #6 tab 01/30/21 [Rx Last Taken Unknown] Allergy/AdvReac Type Severity Reaction Status Date / Time acetaminophen Allergy Rash Verified 01/13/21 19:52 [From Darvocet-N] propoxyphene napsylate Allergy Rash Verified 01/13/21 19:52 [From Darvocet-N] Sulfa (Sulfonamide Allergy Hives Verified 01/13/21 19:52 Antibiotics) venom-honey bee Allergy Anaphylaxis Verified 01/13/21 19:52 [bee venom (honey bee)] hydrocodone AdvReac Other Verified 01/13/21 19:52 promethazine HCl AdvReac Other Verified 01/13/21 19:52 [From Phenergan] Surgical History H/O: hysterectomy History of nasal septoplasty History of pubovaginal sling History of tonsillectomy History of tubal ligation S/P ACL surgery Social History household members: none Smoking Status: Current every day smoker tobacco type: cigarettes alcohol intake: current details: social substance use type: does not use caffeine: Yes what type of physical activity do you participate in: none seatbelt use: always do you feel safe at home: Yes additional social history: - works at [employer] ROS ROS ED Review of Systems ROS Unobtainable: other Constitutional Constitutional ED: Reports lethargy; Denies chills, fever(s), sweats or weight loss Eyes Eyes: Denies blurry vision, change in vision or diplopia ENT ENT ED: Denies rhinorrhea or sore throat Cardiovascular Cardiovascular: Reports chest pain and racing heartbeat; Denies orthopnea Respiratory/Chest Respiratory/Chest: Reports cough, dyspnea and dyspnea on exertion; Denies orthopnea or sputum Gastrointestinal Gastrointestinal: Denies abdominal pain, diarrhea, nausea or vomiting Genitourinary Genitourinary ED: Denies dysuria, hematuria or urinary frequency Musculoskeletal Musculoskeletal: Denies arthralgias, back pain, myalgias or neck pain Integumentary Denies abscess, Abrasions or rash Neurologic Neurologic: Denies headache(s) or weakness Psychiatric Psychiatric: Denies anxiety, depression or suicidal thoughts Endocrine Endocrinology: Denies polydipsia, polyphagia or polyuria Hematologic/Lymphatic Hematologic/Lymphatic: Denies easy bleeding, easy bruising or lymphadenopathy Allergic/Immunologic Allergic/Immunologic ED: Denies mouth swelling, tongue swelling or urticaria EXAM Physical Exam Const Vital Signs: 01/30/21 12:22 01/30/21 12:25 01/30/21 12:45 Temperature 98.4 F Temperature Source Oral Pulse Rate 95 95 Respiratory Rate 16 Respiratory Effort Normal Non-Labored Blood Pressure 141/78 H 124/75 H Blood Pressure Mean 99 Pulse Ox 99 Oxygen Delivery Method Room Air 01/30/21 12:48 01/30/21 13:10 01/30/21 13:31 Temperature Temperature Source Pulse Rate 97 92 Respiratory Rate 18 Respiratory Effort Blood Pressure 118/73 117/83 H Blood Pressure Mean 94 Pulse Ox 97 96 Oxygen Delivery Method Room Air Room Air Positive well nourished and well developed General Appearance ED: well developed and NAD HEENT Reports TM's clear and moist mucous membranes normocephalic and atraumatic; Negative for trauma or tenderness Tympanic Membrane ED: Yes TM's clear Eyes PERRL and EOMs intact bilaterally General Eye ED: Negative for pale conjunctiva or scleral icterus Neck no lymphadenopathy, supple and no JVD General: Negative for tenderness Chest Wall inspection of chest normal and palpation of chest normal Chest: Negative for tenderness Resp normal respiratory effort and clear to auscultation bilaterally Effort and Inspection: Negative for respiratory distress or pain with movement Auscultation: Negative for rhonchi, wheezes or diminished lung sounds Cardio regular rate, regular rhythm, S1 normal heart sound, S2 normal heart sound and no murmurs Peripheral Pulses: pulses 2+ throughout GI normal to inspection, nondistended, normoactive bowel sounds, soft to palpation, non-tender, non-distended and no masses Back/Spine no CVA tenderness and no thoracic nor lumbar tenderness Extremity normal to inspection General Extremety ED: Negative for edema General Extremity: Negative for edema Neuro oriented x3, CN's II-XII intact bilaterally, no sensory deficits noted and gait normal Sensorium / Orientation: awake, alert, oriented to person, oriented to place and oriented to time Motor Exam: strength 5/5 throughout and strength abnormal Psych mental status grossly normal Skin no rashes or lesions noted and no wounds Heart Score History: Slightly/Non-Suspicious ECG: Normal Age: </= 45 years Risk Factors: 1 or 2 Risk Factors Troponin: </= Normal Limit Score: 1 MDM MDM MDM Narrative Medical decision making narrative: IV line established on arrival. Patient was given aspirin and sublingual nitro which seemed to help her pain. She then complained of a headache and was given Toradol. Her lab work-up is unremarkable. Her heart score is a 1. I do not feel she is having acute coronary syndrome and she herself states that it feels like my costochondritis that I had before just worse. In the past she has had prednisone and that has helped her with her pain. I did give her prednisone 40 mg p.o. and will write her prescription for prednisone for 3 more days. Patient to follow-up with her primary care physician within next 3 to 5 days she is to return if condition should worsen anyway. Lab Data Attestation: I reviewed the patient's lab results. Labs: Laboratory Results - last 24 hr 01/30/21 01/30/21 01/30/21 12:30 12:30 12:30 WBC 12.5 H RBC 4.42 Hgb 13.8 Hct 39.6 MCV 89.6 MCH 31.2 MCHC 34.8 RDW Std Deviation 42.9 RDW Coeff of [place] 13.1 Plt Count 340 MPV 9.4 Immature Gran % (Auto) 0.500 Neut % (Auto) 63.8 Lymph % (Auto) 28.7 [place] % (Auto) 5.5 Eos % (Auto) 1.3 Baso % (Auto) 0.2 Absolute Neuts (auto) 8.0 H Absolute Lymphs (auto) 3.59 Nucleated RBC % 0 D-Dimer Quant (PE/DVT) <= 0.27 Sodium 139 Potassium 3.8 Chloride 107 Carbon Dioxide 28.0 Anion Gap 4 L BUN 7 Creatinine 0.74 Estim Creat Clear Calc 104.56 Est GFR (MDRD) Af Amer 110 Est GFR (MDRD) Non-Af 91 BUN/Creatinine Ratio 9.4 L Glucose 101 Calcium 9.4 Troponin I High Sens 4 Radiography Chest X-Ray - ED: 1 View Diagnostic Testing: Clinical Impression(s) from Imaging Studies Chest X-Ray 01/30/21 12:57 IMPRESSION: Hyperinflation. No acute abnormality is present. Electronically Signed: Андрей Lorenz MD at 13:11 EST , Service support , 1 view chest x-ray obtained interpreted by myself as no acute disease process. EKG Initial EKG: Attestation: I personally reviewed and interpreted this EKG as follows: Comments: Sinus rhythm with a ventricular rate of 84 bpm with no acute ST segment changes Discharge Plan Triage Chief Complaint: Chest Pain ED Provider: Amrita Spencer Dx/Rx/DC Orders Clinical Impression: Chest pain Instructions: ED Chest Pain, Uncertain Cause Prescriptions: New prednisone 20 mg tablet 20 mg PO BID Qty: 6 RF: 0 No Action lansoprazole [Prevacid] 30 mg capsule,delayed release(DR/EC) 30 ea PO DAILY RF: 0 atorvastatin [Lipitor] 10 mg tablet 10 mg PO DAILY RF: 0 acetaminophen [Tylenol Ex Str Arthritis Pain] 500 mg Tablet 1,000 mg Q6H PRN PRN (Reason: Pain) RF: 0 Primary Care Provider: Karlos Slaughter Referrals: Karlos Slaughter MD [Primary Care Provider] - 3-5 Days Disposition Disposition: Home, Self Care
[2021-01-30] MEDS: Aspirin 81 MG TAB.CHEW 324 MG PO (12:42)
[2021-01-30 12:45] VITALS: BP 124/75; PULSE 95
[2021-01-30] MEDS: Nitroglycerin SL (ED/IMG/CATH) 0.4 MG TABLET SL ×2 (12:45→13:10)
[2021-01-30 12:47] LABS: Absolute Lymphocyte Count 3.59 X10^3/uL (0.83-4.51); Basophil# 0.03 X10^3/uL; Basophil% 0.2 % (0-1); Eosinophil# 0.16 X10^3/uL; Eosinophils% 1.3 % (0-5); Hematocrit 39.6 % (37-47); Hemoglobin 13.8 g/dL (12.0-15.0); Lymphocyte # 3.59 X10^3/ul (0.83-4.51); Lymphocyte % 28.7 % (19-41); Mean Corp Hgb Conc 34.8 g/dL (32-36); Mean Corpuscular Hgb 31.2 pg (27.0-32.0); Mean Corpuscular Volume 89.6 fL (81-99); Mean Platelet Vol. 9.4 fl (6.2-12.0); Monocyte# 0.69 X10^3/uL; Monocyte% 5.5 % (0-10); NRBC Flagged by Analyzer 0 % (0-5); Neutrophil # 7.97 X10^3/uL (2.7-7.7); Neutrophil % 63.8 % (47-70); Platelet Count 340 K/mm3 (150-450); RBC Distribution Width CV 13.1 % (11.6-14.6); RBC Distribution Width SD 42.9 fl (35.1-43.9); Red Blood Count 4.42 M/mm3 (4.2-5.4); White Blood Count 12.5 K/mm3 (4.4-11.0)
[2021-01-30 12:48] VITALS: O2SAT 97
[2021-01-30] MEDS: 0.9% Normal Saline 1,000 ML 150 ML IV (12:49)
--- NOTE | 2021-01-30 12:57 | RAD_ITS ---
STUDY: X-RAY CHEST REASON FOR EXAM: Female, 40 years old. Chest pain TECHNIQUE: Single AP portable view of the chest. COMPARISON: Comparison is made with prior study of 08/01/2020. FINDINGS: EKG electrodes are seen. There is hyperinflation of the lungs consistent with chronic obstructive lung disease (COPD). There is no demonstrated pleural abnormality. Normal size heart. Normal mediastinum and nidhi. Normal visualized pulmonary arteries. Normal visualized aortic arch and descending thoracic aorta. Normal visualized thoracic spine. Normal visualized ribs, clavicles, and shoulders. There is no demonstrated abnormality of the visualized soft tissue structures of the upper abdomen. RAD/Chest 1 View (Portable) IMPRESSION: Hyperinflation. No acute abnormality is present. Electronically Signed: Андрей Lorenz MD at 13:11 EST , Service support ,
[2021-01-30 13:07] LABS: Anion Gap 4 (5-15); BUN 7 mg/dL (7-18); BUN/Creat Ratio 9.4 RATIO (10-20); Calcium,Total 9.4 mg/dL (8.5-10.1); Chloride 107 mmol/L (98-107); Creatinine, Serum 0.74 mg/dL (0.55-1.02); EST Glomerular Filtration Rate 91 mL/min (>60); Est Glom Filt Rate - Afr Amer 110 mL/min (>60); Estimated Creatinine Clearance 104.56 ml/min; Glucose 101 mg/dL (74-106); Potassium 3.8 mmol/L (3.5-5.1); Sodium Level 139 mmol/L (136-145); Troponin-I HS 4 pg/mL (3.0-54.0)
[2021-01-30 13:10] VITALS: BP 118/73; PULSE 97
[2021-01-30 13:31] VITALS: BP 117/83; PULSE 92; RESP 18; O2SAT 96
[2021-01-30] MEDS: Ketorolac 30 MG/ML Syringe IV (13:43)
[2021-01-30 13:56] LABS: D-Dimer Quantitative (DVT/PE) <= 0.27 FEU/ug/m (0.27-0.49)
[2021-01-30] MEDS: predniSONE 20 MG Tablet 40 MG PO (14:30)
[2021-01-30 14:38] VITALS: BP 119/78; PULSE 93; RESP 16; O2SAT 99
== END 2021-01-30 14:39 | disposition home or self-care (01) ==
PROVIDERS: Emergency Provider Emergency Medicine; PCP Family Medicine
DX: R07.9 Chest pain, unspecified (principal); E78.5 Hyperlipidemia, unspecified; E28.2 Polycystic ovarian syndrome; Z85.72 Personal history of non-Hodgkin lymphomas; F17.210 Nicotine dependence, cigarettes, uncomplicated; Z79.52 Long term (current) use of systemic steroids
CPT/HCPCS: 71045; 80048; 84484; 85025; 85379; 87426; 93005; 96361; 96374; 99285; J7030

== ENCOUNTER 2021-03-22 10:38 | Outpatient (CLI) | payer MEDICAID, SELFPAY ==
[2021-03-22 10:49] VITALS: BP 140/84; PULSE 88; RESP 16; TEMP 36.6; O2SAT 100; BMI 32.5
[2021-03-22] MEDS: 0.9% Saline Lock 10 ML Syringe IV (10:50)
[2021-03-22 11:21] VITALS: BP 121/84; PULSE 73; RESP 16; TEMP 36.6; O2SAT 100
[2021-03-22 12:17] VITALS: BP 115/80; PULSE 81; RESP 16; TEMP 36.8; O2SAT 99
== END 2021-03-22 12:21 | disposition home or self-care (01) ==
LOC: MS3OUT 10:39 → MS3 10:40
PROVIDERS: PCP Family Medicine; Referring Provider Nurse Practitioner Adult Health; Visit Provider Nurse Practitioner Adult Health
DX: Z23 Encounter for immunization (principal); U07.1 COVID-19; E66.9 Obesity, unspecified; Z68.34 Body mass index [BMI] 34.0-34.9, adult
CPT/HCPCS: J7050; M0245; Q0245; A4216

== ENCOUNTER 2021-07-28 13:09 | Emergency (ER) | payer MEDICAID, SELFPAY ==
[2021-07-28 13:10] VITALS: BP 146/99; PULSE 114; RESP 18; TEMP 36.8; O2SAT 95; BMI 33.0
[2021-07-28] MEDS: Lidocaine/Epi/Tetracaine 50 ML 1 APPLIC TOPICAL (13:30)
--- NOTE | 2021-07-28 13:33 | EX.ED.DYSGE1 ---
HPI History of Present Illness Chief Complaint: Abscess Informant: patient Narrative Narrative: 41-year-old female presenting to the emergency department for evaluation of a abscess of her right leg. Been present for 2 days and getting painful. She is never had this before. She denies any fevers. [facility] Medical History Anxiety Back pain COVID-19 Endometriosis Hemorrhoids Hyperlipidemia Migraines Non Hodgkin's lymphoma PCOS (polycystic ovarian syndrome) Home Medications lansoprazole 30 mg capsule,delayed release 30 ea PO DAILY 11/13/19 [History Last Taken Unknown] atorvastatin 10 mg tablet 10 mg PO DAILY 07/26/20 [History Last Taken Unknown] acetaminophen [Tylenol Ex Str Arthritis Pain] 1,000 mg Q6H PRN PRN 01/13/21 [History Last Taken Unknown] doxycycline monohydrate 100 mg PO BID #20 capsule 07/28/21 [Rx Last Taken Unknown] methylprednisolone 4 mg PO DAILY 07/28/21 [History Last Taken Unknown] oxycodone-acetaminophen 1 tab PO Q6H PRN PRN 3 Days #12 tablet 07/28/21 [Rx Last Taken Unknown] Allergy/AdvReac Type Severity Reaction Status Date / Time propoxyphene napsylate Allergy Rash Verified 07/28/21 13:10 [From Darvocet-N] Sulfa (Sulfonamide Allergy Hives Verified 07/28/21 13:10 Antibiotics) venom-honey bee Allergy Anaphylaxis Verified 07/28/21 13:10 [bee venom (honey bee)] hydrocodone AdvReac Other Verified 07/28/21 13:10 promethazine HCl AdvReac it makes Verified 07/28/21 13:10 [From Phenergan] me jump up and want to leave Surgical History H/O: hysterectomy History of nasal septoplasty History of pubovaginal sling History of tonsillectomy History of tubal ligation S/P ACL surgery Social History household members: none Smoking Status: Current every day smoker tobacco type: cigarettes alcohol intake: current details: social substance use type: does not use caffeine: Yes what type of physical activity do you participate in: none seatbelt use: always do you feel safe at home: Yes additional social history: - works at [employer] ROS ROS ED Constitutional Constitutional ED: Denies chills, fever(s) or weight loss Eyes Eyes: Denies change in vision or diplopia ENT ENT ED: Denies ear pain, rhinorrhea or sore throat Cardiovascular Cardiovascular: Denies chest pain, orthopnea, palpitations or racing heartbeat Respiratory/Chest Respiratory/Chest: Denies cough, dyspnea or orthopnea Gastrointestinal Gastrointestinal: Denies abdominal pain, diarrhea, nausea or vomiting Genitourinary Genitourinary ED: Denies dysuria, hematuria or urinary frequency Musculoskeletal Musculoskeletal: Denies arthralgias or myalgias Integumentary Reports abscess; Denies rash Neurologic Neurologic: Denies headache(s) or weakness Psychiatric Psychiatric: Denies anxiety, depression, suicidal ideation or suicidal thoughts Endocrine Endocrinology: Denies polydipsia, polyphagia or polyuria Allergic/Immunologic Allergic/Immunologic ED: Denies mouth swelling, tongue swelling or urticaria EXAM Physical Exam Const Vital Signs: 07/28/21 13:10 Temperature 98.2 F Temperature Source Temporal Pulse Rate 114 H Respiratory Rate 18 Blood Pressure 146/99 H Blood Pressure Mean 114 Pulse Ox 95 Oxygen Delivery Method Room Air Positive well nourished and well developed General Appearance ED: well developed HEENT Reports normocephalic, head/scalp atraumatic, TM's clear and moist mucous membranes Negative for trauma Tympanic Membrane ED: Yes TM's clear Eyes PERRL and EOMs intact bilaterally Neck no lymphadenopathy, supple and no JVD Resp normal respiratory effort and clear to auscultation bilaterally Cardio regular rate, regular rhythm and no murmurs GI normal to inspection, nondistended, normoactive bowel sounds and non-tender Palpation: soft Back/Spine no CVA tenderness and normal ROM Extremity normal to inspection General Extremety ED: Negative for edema General Extremity: Negative for edema Neuro oriented x3 and CN's II-XII intact bilaterally Sensorium / Orientation: alert Motor Exam: strength 5/5 throughout Psych mental status grossly normal Mood & Affect: Negative for depressed or tearful Skin no rashes or lesions noted Skin Narrative: There is a 2.5 cm cutaneous abscess without surrounding erythema the posterior aspect of the proximal right thigh. MDM MDM MDM Narrative Medical decision making narrative: Let was used to locally anesthetize the skin. And then 1% lidocaine was used to fully anesthetized the area. A cruciate incision was made and a significant amount of purulence was drained. Wound was irrigated probed for loculations and then quarter inch packing was placed. Patiently placed on Bactrim and given pain medication. Return if worsening or concerns packing needs to be removed in 3 days. Discharge Plan Triage Chief Complaint: Abscess ED Provider: Arias Tan Dx/Rx/DC Orders Clinical Impression: Cutaneous abscess of right lower extremity Instructions: ED Abscess Incision And Drainage Prescriptions: New oxycodone-acetaminophen [oxycodone-acetaminophen] 1 TABLET tablet 1 tab PO Q6H PRN PRN (Reason: Pain) 3 Days Qty: 12 RF: 0 doxycycline monohydrate 100 MG capsule 100 mg PO BID Qty: 20 RF: 0 No Action lansoprazole [Prevacid] 30 mg capsule,delayed release(DR/EC) 30 ea PO DAILY RF: 0 atorvastatin [Lipitor] 10 mg tablet 10 mg PO DAILY RF: 0 acetaminophen [Tylenol Ex Str Arthritis Pain] 500 mg Tablet 1,000 mg Q6H PRN PRN (Reason: Pain) RF: 0 methylprednisolone 4 mg tablets,dose pack 4 mg PO DAILY RF: 0 Primary Care Provider: Karlos Slaughter Referrals: Karlos Slaughter MD [Primary Care Provider] - As Needed Activity Restrictions/Additional Instructions: Packing needs to be removed in 3 days Disposition Disposition: Home, Self Care
[2021-07-28] MEDS: Lidocaine 1% (20 ml mdv) 20 ML Vial INFILT (13:47)
[2021-07-28] MEDS: oxyCODONE 5 MG Tablet 10 MG PO (14:07)
== END 2021-07-28 14:24 | disposition home or self-care (01) ==
LOC: ED 13:40
PROVIDERS: Emergency Provider Emergency Medicine; PCP Family Medicine; Visit Provider Emergency Medicine
DX: L02.415 Cutaneous abscess of right lower limb (principal); E78.5 Hyperlipidemia, unspecified; F17.210 Nicotine dependence, cigarettes, uncomplicated; Z86.16 Personal history of COVID-19; E28.2 Polycystic ovarian syndrome
CPT/HCPCS: 10060; 99283

== ENCOUNTER → 2021-08-12 | Outpatient (CLI) | payer MEDICAID, SELFPAY ==
--- NOTE | 2021-08-12 15:29 | BI_ITS ---
MAMMOGRAPHY - BILATERAL SCREENING REASON FOR EXAM: Female, 41 years old. Routine annual screening examination. PERTINENT HISTORY: Non-contributory. TECHNIQUE: Digital bilateral breast elan (3D mammographic acquisition) in the CC and MLO projections. 2-D mediolateral oblique (MLO) and craniocaudad (CC) views of both breasts were obtained. CAD: Full Field Digital Mammography with Computer Added Detection was performed. COMPARISON: Screening mammogram from 03/31/2020. 08/10/2009 FINDINGS: Breast Composition: There are scattered areas of fibroglandular density. There is a new focal asymmetry in the right upper outer breast, posterior depth, approximately 12 cm from the nipple. There is also a new nodular asymmetry in the left upper breast seen only on MLO views, approximately 11 cm from the nipple. No other significant abnormalities are identified. No suspicious calcifications. BI/SCRN MAMM (CAD)W/ELAN BILAT IMPRESSION: Further imaging evaluation recommended, as described above. (E) Recall Side: Both Breasts ASSESSMENT CATEGORY: BIRADS Category 0: Incomplete. Need additional imaging evaluation. A letter regarding these results will be sent to the patient by the facility within 30 days. Approximately 10% of breast cancers are not detected by mammography. A normal mammogram should not delay biopsy of a clinically suspicious abnormality. [id number] Electronically Signed: Kelton Judah, at 17:24 EDT ,
== END | disposition home or self-care (01) ==
LOC: OPBI 15:27
PROVIDERS: PCP Family Medicine; Visit Provider Obstetrics & Gynecology
DX: Z12.31 Encounter for screening mammogram for malignant neoplasm of breast (principal)
CPT/HCPCS: 77063; 77067

== ENCOUNTER → 2021-08-15 | Outpatient (CLI) | payer MEDICAID, SELFPAY ==
--- NOTE | 2021-08-15 12:35 | BI_ITS ---
MAMMOGRAPHY - BILATERAL DIAGNOSTIC REASON FOR EXAM: Female, 41 years old. Diagnostic mammogram for further assessment of asymmetry seen in both breasts. PERTINENT HISTORY: Non-contributory. TECHNIQUE: Digital examination with compression spot views of the asymmetries in the bilateral breasts. CAD was not performed on this study. COMPARISON: Screening mammogram from 08/12/2021. Diagnostic right breast ultrasound from same day. Diagnostic left breast ultrasound from same day. FINDINGS: Breast Composition: There are scattered areas of fibroglandular density. Spot compression views of the right upper outer breast were performed. A 0.5 cm well-circumscribed oval mass persists on spot compression views and favored to relate to a small lymph node. Correlation with diagnostic right breast ultrasound confirms mammographic finding demonstrating 6 mm intramammary lymph node at the 9 o''clock position of the right breast. No further imaging needed. Spot compression views of the asymmetry in the left upper breast were performed. There is no mass demonstrated with findings consistent with overlapping fibroglandular tissue. Correlation with diagnostic left breast ultrasound confirms that there are no masses in the surveyed left breast. No further imaging needed. BI/DIAG MAMM W/CAD, BILAT IMPRESSION: Negative diagnostic mammogram. Yearly followup mammogram recommended. (A) ASSESSMENT CATEGORY: BIRADS Category 2: Benign. A letter regarding these results will be sent to the patient by the facility within 30 days. Approximately 10% of breast cancers are not detected by mammography. A normal mammogram should not delay biopsy of a clinically suspicious abnormality. Electronically Signed: Kelton So, at 10:15 EDT ,
--- NOTE | 2021-08-15 12:36 | US_ITS ---
STUDY: ULTRASOUND BREAST - RIGHT REASON FOR EXAM: Female, 41 years old. Abnormal screening mammogram. TECHNIQUE: Axial and longitudinal images of the RIGHT breast were performed with a high resolution ultrasound transducer. # OF IMAGES: 93 COMPARISON: Diagnostic mammogram earlier today, screening mammogram 08/12/2021 FINDINGS: RIGHT Breast: Heterogeneous background echotexture. At 9 o''clock, 7 cm nipple, ultrasound confirms a 6 mm oval parallel circumscribed hypoechoic mass with central increased echogenicity consistent with an intramammary lymph node. This corresponds to the mass seen on mammography.: IMPRESSION: Ultrasound confirms a 6 mm intramammary lymph node. ASSESSMENT CATEGORY: BIRADS Category 1: Negative. A letter regarding these results will be sent to the patient by the facility within 30 days. Electronically Signed: Chang Mccabe MD at 15:45 EDT , STUDY: ULTRASOUND BREAST - LEFT REASON FOR EXAM: Female, 41 years old. Abnormal screening mammogram. TECHNIQUE: Axial and longitudinal images of the LEFT breast were performed with a high resolution ultrasound transducer. # OF IMAGES: 93 COMPARISON: Diagnostic mammogram earlier today, screening mammogram 08/12/2021 FINDINGS: LEFT Breast: Heterogeneous background echotexture. Multiple longitudinal and transverse ultrasound images of the upper outer quadrant left breast fail to demonstrate a discrete solid or cystic mass.: US/Breast Limited Unilateral IMPRESSION: Normal left breast ultrasound. ASSESSMENT CATEGORY: BIRADS Category 1: Negative. A letter regarding these results will be sent to the patient by the facility within 30 days. Electronically Signed: Chang Mccabe MD at 15:47 EDT ,
== END | disposition home or self-care (01) ==
LOC: OPBI 12:32
PROVIDERS: PCP Family Medicine; Visit Provider Obstetrics & Gynecology
DX: R92.8 Other abnormal and inconclusive findings on diagnostic imaging of breast (principal); R92.2 Inconclusive mammogram
CPT/HCPCS: 76642; 77066

== ENCOUNTER → 2021-12-04 | Outpatient (CLI) | payer MEDICAID, SELFPAY | END | disposition home or self-care (01) | LOC: LABSPEC 11:22 | PROVIDERS: PCP Family Medicine; Referring Provider Nurse Practitioner Women's Health; Visit Provider Nurse Practitioner Women's Health | DX: N89.8 Other specified noninflammatory disorders of vagina (principal) | CPT/HCPCS: 87070; 87205 ==

== ENCOUNTER → 2022-01-20 | Outpatient (CLI) | payer MEDICAID, SELFPAY ==
[2022-01-22 22:07] LABS: Chlamydia By Nucleic Acid AMP Negative (Negative)
[2022-01-23 15:56] LABS: Gonococcus By Nucleic Acid AMP Negative (Negative)
== END | disposition home or self-care (01) ==
LOC: LABSPEC 13:20
PROVIDERS: PCP Family Medicine; Visit Provider Nurse Practitioner Women's Health
DX: N89.8 Other specified noninflammatory disorders of vagina (principal)
CPT/HCPCS: 87070; 87205; 87491; 87591

== ENCOUNTER 2022-02-03 05:40 | Emergency (ER) | payer MEDICAID, SELFPAY ==
[2022-02-03 05:41] VITALS: BP 144/89; PULSE 106; RESP 16; TEMP 35.6; O2SAT 98; BMI 33.9
--- NOTE | 2022-02-03 05:53 | CT_ITS ---
EXAM: CT ABDOMEN AND PELVIS WITH INTRAVENOUS CONTRAST CLINICAL INDICATION: LLQ pain TECHNIQUE: Helically acquired images were obtained of the abdomen and pelvis with intravenous contrast. This CT exam was performed using one or more of the following dose reduction techniques: automated exposure control, adjustment of the mA and/or kV according to patient size, and/or use of iterative reconstruction technique. This report was created using [employer] report generation technology. CONTRAST: 100 cc of Isovue-300 IV. RADIATION DOSE: CTDIvol = 17.66 mGy, DLP = 1142.79 mGy-cm. COMPARISON: 12/11/2018. FINDINGS: LOWER THORAX: Unremarkable. Lung bases are clear. No cardiomegaly. No significant pericardial effusion. ABDOMEN: LIVER: There is diffuse low-attenuation of the liver. GALLBLADDER AND BILE DUCTS: Unremarkable. No calcified gallstones. No gallbladder distention or wall edema. No intra- or extrahepatic biliary ductal dilation. PANCREAS: Unremarkable. No focal cystic or solid mass. SPLEEN: Unremarkable. Normal size without focal cystic or solid mass. ADRENALS: Unremarkable. No nodules. KIDNEYS AND URETERS: Unremarkable. Normal renal size and position. No hydronephrosis. STOMACH AND BOWEL: Unremarkable. No stomach or bowel distention. No focal inflammatory change. PELVIS: APPENDIX: Normal appendix. BLADDER: Unremarkable. REPRODUCTIVE: There are 2 left ovarian cysts each measuring approximately 3 cm. No sign of ovarian torsion. Hysterectomy. ABDOMEN and PELVIS: INTRAPERITONEAL SPACE: Unremarkable. No ascites or other fluid collection. No free air. BONES/JOINTS: Unremarkable. No suspicious lytic or blastic abnormality. SOFT TISSUES: Unremarkable. No discrete abdominal or pelvic wall hernia. VASCULATURE: Unremarkable. Abdominal aorta is non-dilated. LYMPH NODES: Unremarkable. No enlarged lymph nodes. CT/Abdomen/Pelvis W IV Cont ONLY IMPRESSION: 1. Fatty liver. 2. Two left ovarian cysts each measuring approximately 3 cm. No signs of torsion. 3. Normal appendix. 4. Hysterectomy. Electronically Signed: Carl Blankenship MD at 7:30 EST ,
[2022-02-03] MEDS: Morphine 4 MG/ML Syringe IV (06:18)
[2022-02-03] MEDS: 0.9% Normal Saline 1,000 ML 999 ML IV (06:18)
[2022-02-03 06:19] LABS: Absolute Lymphocyte Count 4.03 X10^3/uL (0.83-4.51); Absolute Neutrophil Count 7.7 X10^3/uL (2.0-7.7); Basophil# 0.06 X10^3/uL; Basophil% 0.5 % (0-1); Eosinophil# 0.17 X10^3/uL; Eosinophils% 1.3 % (0-5); Hematocrit 42.7 % (37-47); Hemoglobin 14.8 g/dL (12.0-15.0); Lymphocyte # 4.03 X10^3/ul (0.83-4.51); Lymphocyte % 31.9 % (19-41); Mean Corp Hgb Conc 34.7 g/dL (32-36); Mean Corpuscular Hgb 31.6 pg (27.0-32.0); Mean Corpuscular Volume 91.2 fL (81-99); Mean Platelet Vol. 9.7 fl (6.2-12.0); Monocyte# 0.68 X10^3/uL; Monocyte% 5.4 % (0-10); NRBC Flagged by Analyzer 0 % (0-5); Neutrophil # 7.65 X10^3/uL (2.7-7.7); Neutrophil % 60.6 % (47-70); Platelet Count 347 K/mm3 (150-450); RBC Distribution Width CV 12.8 % (11.6-14.6); RBC Distribution Width SD 42.2 fl (35.1-43.9); Red Blood Count 4.68 M/mm3 (4.2-5.4); White Blood Count 12.6 K/mm3 (4.4-11.0)
[2022-02-03] MEDS: Ondansetron 4 MG/2 ML Vial IV ×2 (06:19→08:00)
[2022-02-03 06:34] LABS: AST(SGOT) 17 U/L (15-37); Alanine Aminotransfer ALT/SGPT 31 U/L (13-56); Albumin, Serum 3.8 g/dL (3.2-5.0); Alkaline Phosphatase 87 U/L (45-117); Anion Gap 6 (5-15); BUN 9 mg/dL (7-18); BUN/Creat Ratio 11.6 RATIO (10-20); Bilirubin, Direct 0.09 mg/dL (0.00-0.30); Calcium,Total 9.4 mg/dL (8.5-10.1); Chloride 105 mmol/L (98-107); Creatinine, Serum 0.78 mg/dL (0.55-1.02); EST Glomerular Filtration Rate 86 mL/min (>60); Est Glom Filt Rate - Afr Amer 104 mL/min (>60); Globulin 3.2 g/dL (2.2-4.2); Glucose 141 mg/dL (74-106); Lipase 161 U/L (73-393); Potassium 3.5 mmol/L (3.5-5.1); Sodium Level 138 mmol/L (136-145)
[2022-02-03 06:39] LABS: Bacteria 0 SEEN /hpf (None Seen); Mucous, Urine 0 SEEN /hpf (<or=2+); Red Blood Cells-Urine 0 SEEN /hpf (0-5)
[2022-02-03 06:40] LABS: Color, Urine Yellow (Yellow); Glucose, Dipstick Normal (Normal); Ketone-Dipstick Negative (Negative); Leukocyte Esterase-Dipstick Negative /ul (Negative); Nitrite-Dipstick Negative (Negative); Occult Blood-Urine Negative /ul (Negative); Protein-Dipstick Negative (Negative); Urine Bilirubin Dipstick Negative (Negative); Urine Clarity Clear (Clear); Urine Urobilinogen Normal (Normal); Urine pH 6.5 (5.0 - 8.0)
[2022-02-03 06:54] LABS: Lactic Acid 2.6 mmol/L (0.4-1.9)
[2022-02-03 07:12] LABS: Squamous Epithelial Cells - UA 25-50 SEEN /hpf (5-10); White Blood Cells 0-5 SEEN /hpf (0-5)
[2022-02-03 07:13] VITALS: BP 142/89; PULSE 89; RESP 16; O2SAT 98
--- NOTE | 2022-02-03 07:17 | EDS_ITS ---
HPI History of Present Illness Chief Complaint: Abd Pain Narrative Narrative: Patient is a 41-year-old female with past medical history of non-Hodgkin's lymphoma as well as previous pelvic tumor. She states she went to bed normally last night and then awoke this morning to use the bathroom. She states she went to sit up and developed pain in her left lower abdomen. She states there is been no nausea vomiting diarrhea dysuria vaginal bleeding or discharge. She states has been no recent trauma or excessive activity. She states that the pain feels similar nature to when she had a tumor and is concern for that once again. She does report that her uterus and right ovary have been removed in approximately 2005 but the left one has remained. Therefore as patient has sudden onset abdominal pain with concern for ovarian pathology or recurrence of her previous tumor she presents for evaluation [facility] Medical History Anxiety Back pain CPAP (continuous positive airway pressure) dependence Endometriosis Hemorrhoids Hyperlipidemia Migraines Non Hodgkin's lymphoma PCOS (polycystic ovarian syndrome) Sleep apnea Smoker Home Medications lansoprazole 30 mg capsule,delayed release (Prevacid) 30 ea PO DAILY 11/13/19 [History Last Taken Unknown] atorvastatin 10 mg tablet (Lipitor) 10 mg PO DAILY 07/26/20 [History Last Taken Unknown] ascorbic acid (vitamin C) 500 mg capsule 500 mg PO DAILY 08/06/21 [History Last Taken Unknown] cholecalciferol (vitamin D3) 50 mcg (2,000 unit) capsule 50 mcg PO DAILY 08/06/21 [History Last Taken Unknown] multivitamin 1 tab PO DAILY 08/06/21 [History Last Taken Unknown] fluconazole 150 mg tablet 150 mg PO .COMPLEX #2 tabs 01/20/22 [Rx Last Taken Unknown] bowskvgy-oitmhalfj-lxbnqikv 3.5 mg/mL-10,000 unit/mL-0.1% eye drops (Maxitrol) 2 drp LEFT EYE 4X/DAY 7 days #10 mL 02/03/22 [Rx Last Taken Unknown] ondansetron 4 mg disintegrating tablet 4 mg PO TID PRN nausea and vomiting #21 tabs 02/03/22 [Rx Last Taken Unknown] oxycodone-acetaminophen 5 mg-325 mg tablet (Percocet) 1 tab PO Q6H PRN pain 3 days #12 tabs 02/03/22 [Rx Last Taken Unknown] Allergy/AdvReac Type Severity Reaction Status Date / Time propoxyphene napsylate Allergy Rash Verified 01/20/22 08:35 [From Darvocet-N] Sulfa (Sulfonamide Allergy Hives Verified 01/20/22 08:35 Antibiotics) venom-honey bee Allergy Anaphylaxis Verified 01/20/22 08:35 [bee venom (honey bee)] hydrocodone AdvReac Other Verified 01/20/22 08:35 promethazine HCl AdvReac it makes Verified 01/20/22 08:35 [From Phenergan] me jump up and want to leave Surgical History H/O: hysterectomy History of nasal septoplasty History of pubovaginal sling History of tonsillectomy History of tubal ligation S/P ACL surgery Social History household members: none Smoking Status: Current every day smoker tobacco type: cigarettes alcohol intake: current details: social substance use type: does not use caffeine: Yes what type of physical activity do you participate in: none seatbelt use: always do you feel safe at home: Yes additional social history: - works at [employer] ROS ROS ED Constitutional Constitutional ED: Denies chills or fever(s) ENT ENT ED: Denies sore throat Cardiovascular Cardiovascular: Denies chest pain Respiratory/Chest Respiratory/Chest: Denies cough or dyspnea Gastrointestinal Gastrointestinal: Reports abdominal pain; Denies diarrhea, nausea or vomiting Genitourinary Genitourinary ED: Denies dysuria or hematuria Musculoskeletal Musculoskeletal: Denies back pain Integumentary Denies rash Neurologic Neurologic: Denies headache(s) Hematologic/Lymphatic Hematologic/Lymphatic: Denies easy bleeding or easy bruising EXAM Physical Exam Const Vital Signs: 02/03/22 05:41 02/03/22 07:13 Temperature 96.1 F L Temperature Source Oral Pulse Rate 106 H 89 Respiratory Rate 16 16 Blood Pressure 144/89 H 142/89 H Blood Pressure Mean 107 106 Pulse Ox 98 98 Oxygen Delivery Method Room Air Room Air Positive well nourished and well developed General Appearance ED: well developed Eyes PERRL and EOMs intact bilaterally Eyes Narrative: Patient has mild scleral injection of the left eye with increased tearing/clear discharge. No foreign body noted no hyphema. The conjunctiva is slightly inflamed on the left eye as well. Neck supple Resp normal respiratory effort and clear to auscultation bilaterally Cardio regular rate and regular rhythm Rate: other Other Details: Radial pulses are plus 2 out of 4 bilaterally are equal and symmetric GI non-distended GI Narrative: Abdomen is soft and nondistended with normoactive bowel sounds. There is pain with palpation in the left lower quadrant without voluntary guarding or rigidity. No pulsatile mass Auscultation: normoactive bowel sounds Palpation: soft Back/Spine no CVA tenderness Extremity normal to inspection Neuro oriented x3 and CN's II-XII intact bilaterally Sensorium / Orientation: alert Psych Psych Narrative: Patient has a nervous/anxious affect Skin no rashes or lesions noted MDM MDM MDM Narrative Medical decision making narrative: Patient presented to the ER mildly hypertensive but otherwise with stable vitals. Her abdomen is soft and nonsurgical but with concern for ovarian pathology versus possible return of a tumor burden I did elect to perform basic labs and a CT scan of her abdomen pelvis. Labs showed slight white count of 12.6. The patient's lactic was elevated 2.6 but this was drawn with a tourniquet in place and is most likely reason for the mild elevation. However the remainder of the labs revealed no clinically significant findings. As patient does have changes consistent with conjunctivitis to the left eye I will start her on Maxitrol. The patient CT scan shows 2 left ovarian cyst 3 cm each in size. As this will total 6 cm and any cyst about 5 is at risk for torsion I did elect to perform a transvaginal ultrasound to rule this out. If the ultrasound does not show any signs of torsion then patient is safe for discharge and can follow-up with SYSTEMS PROTECTION TECHNICIAN outpatient basis Lab Data Attestation: I reviewed the patient's lab results. Labs: Laboratory Results - last 24 hr 02/03/22 02/03/22 02/03/22 05:55 05:55 06:05 WBC 12.6 H RBC 4.68 Hgb 14.8 Hct 42.7 MCV 91.2 MCH 31.6 MCHC 34.7 RDW Std Deviation 42.2 RDW Coeff of [place] 12.8 Plt Count 347 MPV 9.7 Immature Gran % (Auto) 0.300 Neut % (Auto) 60.6 Lymph % (Auto) 31.9 Wetzel % (Auto) 5.4 Eos % (Auto) 1.3 Baso % (Auto) 0.5 Absolute Neuts (auto) 7.7 Absolute Lymphs (auto) 4.03 Nucleated RBC % 0 Sodium 138 Potassium 3.5 Chloride 105 Carbon Dioxide 27.0 Anion Gap 6 BUN 9 Creatinine 0.78 Estim Creat Clear Calc 101.60 Est GFR (MDRD) Af Amer 104 Est GFR (MDRD) Non-Af 86 BUN/Creatinine Ratio 11.6 Glucose 141 H Lactic Acid 2.6 H* Calcium 9.4 Total Bilirubin 0.30 Direct Bilirubin 0.09 AST 17 ALT 31 Alkaline Phosphatase 87 Total Protein 7.0 Albumin 3.8 Globulin 3.2 Lipase 161 Urine Color Urine Clarity Urine pH Ur Specific [place] Urine Protein Urine Glucose (UA) Urine Ketones Urine Occult Blood Urine Nitrite Urine Bilirubin Urine Urobilinogen Ur Leukocyte Esterase Urine RBC Urine WBC Ur Squamous Epith Cells Urine Bacteria Urine Mucus 02/03/22 06:30 WBC RBC Hgb Hct MCV MCH MCHC RDW Std Deviation RDW Coeff of [place] Plt Count MPV Immature Gran % (Auto) Neut % (Auto) Lymph % (Auto) [place] % (Auto) Eos % (Auto) Baso % (Auto) Absolute Neuts (auto) Absolute Lymphs (auto) Nucleated RBC % Sodium Potassium Chloride Carbon Dioxide Anion Gap BUN Creatinine Estim Creat Clear Calc Est GFR (MDRD) Af Amer Est GFR (MDRD) Non-Af BUN/Creatinine Ratio Glucose Lactic Acid Calcium Total Bilirubin Direct Bilirubin AST ALT Alkaline Phosphatase Total Protein Albumin Globulin Lipase Urine Color Yellow Urine Clarity Clear Urine pH 6.5 Ur Specific [place] 1.010 Urine Protein Negative Urine Glucose (UA) Normal Urine Ketones Negative Urine Occult Blood Negative Urine Nitrite Negative Urine Bilirubin Negative Urine Urobilinogen Normal Ur Leukocyte Esterase Negative Urine RBC 0 SEEN Urine WBC 0-5 SEEN Ur Squamous Epith Cells 25-50 SEEN Urine Bacteria 0 SEEN Urine Mucus 0 SEEN Radiography Diagnostic Testing: Clinical Impression(s) from Imaging Studies Abdomen/Pelvis CT 02/03/22 05:53 IMPRESSION: 1. Fatty liver. 2. Two left ovarian cysts each measuring approximately 3 cm. No signs of torsion. 3. Normal appendix. 4. Hysterectomy. Electronically Signed: Carl Blankenship MD at 7:30 EST , Discharge Plan Triage Chief Complaint: Abd Pain ED Provider: Sebas Salmon Dx/Rx/DC Orders Clinical Impression: Acute conjunctivitis of left eye, Ovarian cyst Instructions: What Is Conjunctivitis?, ED Ovarian Cyst Prescriptions: New neomycin-polymyxin B-dexameth [Maxitrol] 3.5mg/mL-10,000 unit/mL-0.1 % drops,suspension 2 drp LEFT EYE 4X/DAY 7 Days Qty: 10 0RF oxycodone-acetaminophen [Percocet] 5-325 mg tablet 1 tab PO Q6H PRN (Reason: pain) 3 Days Qty: 12 0RF ondansetron 4 mg tablet,disintegrating 4 mg PO TID PRN (Reason: nausea and vomiting) Qty: 21 0RF No Action lansoprazole [Prevacid] 30 mg capsule,delayed release(DR/EC) 30 ea PO DAILY Label Comments: take 1 capsule by mouth once daily atorvastatin [Lipitor] 10 mg tablet 10 mg PO DAILY multivitamin Tablet 1 tab PO DAILY ascorbic acid (vitamin C) 500 mg capsule 500 mg PO DAILY cholecalciferol (vitamin D3) 50 mcg (2,000 unit) capsule 50 mcg PO DAILY fluconazole 150 mg tablet 150 mg PO .COMPLEX Qty: 2 1RF Rx Instructions: 150 mg PO take one po now and repeat in 3 days Primary Care Provider: Karlos Slaughter Referrals: Karlos Slaughter MD [Primary Care Provider] - Activity Restrictions/Additional Instructions: Please follow-up with your SYSTEMS PROTECTION TECHNICIAN for repeat evaluation and return to the ER should you have any further concerns Disposition Disposition: Home, Self Care
--- NOTE | 2022-02-03 07:51 | US_ITS ---
STUDY: ULTRASOUND OF THE FEMALE PELVIS - COMPLETE REASON FOR EXAM: Female, 41 years old. Ovarian cyst LMP: Unknown. TECHNIQUE: Transvaginal TECHNICAL QUALITY: Adequate. COMPARISON: Comparison is made with prior CT scan abdomen and pelvis done earlier today. FINDINGS: The patient is status post hysterectomy. The right ovary is non-visualized. The patient is status post right oophorectomy. The left ovary is visualized. The left ovary measures 5.3 cm x 5.1 cm x 2.8 cm. 2 adjacent cysts are seen. The largest cyst measures 3.1 cm x 2.7 cm x 2.5 cm. The adjacent cyst measures 2.6 cm x 2.8 cm x 2.8 cm. There is no visualized left adnexal mass or complex lesion. There is normal arterial and normal venous vascularity. There is no fluid in the cul-de-sac. US/Transvaginal Non- IMPRESSION: Status post hysterectomy and right oophorectomy. 2, Cysts are seen in the left ovary. Electronically Signed: Андрей Lorenz MD at 8:54 EST ,
[2022-02-03] MEDS: Ketorolac 30 MG/ML Syringe IV (08:00)
[2022-02-03 09:08] VITALS: BP 134/97; PULSE 84; RESP 16; O2SAT 98
[2022-02-03 10:24] LABS: Reflex Lactate? Y
== END 2022-02-03 09:09 | disposition home or self-care (01) ==
PROVIDERS: Emergency Provider Emergency Medicine; PCP Family Medicine; Visit Provider Emergency Medicine
DX: N83.202 Unspecified ovarian cyst, left side (principal); H10.32 Unspecified acute conjunctivitis, left eye; F17.210 Nicotine dependence, cigarettes, uncomplicated; E78.5 Hyperlipidemia, unspecified; E28.2 Polycystic ovarian syndrome
CPT/HCPCS: 74177; 76830; 80048; 80076; 81001; 83605; 83690; 85025; 96361; 96374; 96375; 96376; 99283; J7030; Q9967; A4216; J2405

== ENCOUNTER → 2022-03-14 | Outpatient (CLI) | payer MEDICAID, SELFPAY ==
[2022-03-14 11:07] LABS: Estradiol 373.8 pg/mL; Follicle Stimulating Hormone 3.5 mIU/mL; Luteinizing Hormone 4.8 mIU/mL; T4 Free Direct 1.04 ng/dL (0.76-1.46); Thyroid Stim Hormone (TSH) 1.66 uIU/mL (0.358-3.74)
== END | disposition home or self-care (01) ==
LOC: LAB 09:54
PROVIDERS: PCP Family Medicine; Referring Provider Obstetrics & Gynecology; Visit Provider Obstetrics & Gynecology
DX: R10.9 Unspecified abdominal pain (principal); Z13.29 Encounter for screening for other suspected endocrine disorder; N95.1 Menopausal and female climacteric states
CPT/HCPCS: 36415; 82670; 83001; 83002; 84439; 84443; 87086; 87088

== ENCOUNTER → 2022-03-27 | Outpatient (CLI) | payer MEDICAID, SELFPAY ==
--- NOTE | 2022-03-27 11:05 | US_ITS ---
HISTORY: Pelvic pain. TECHNIQUE: Transvaginal pelvic ultrasound was performed with yepez scale and color Doppler evaluation. 49 images. COMPARISON: 02/03/2022. FINDINGS: UTERUS: Surgically absent. RIGHT OVARY: Not visualized. No adnexal masses LEFT OVARY: 5.4 x 5.5 x 2.6 cm. 2.7 x 2.8 x 3.2 cm cyst. 2.5 x 2.6 x 2.3 cm cyst. 2.6 x 2.3 x 2 cm cyst. FREE FLUID: None. US/Transvaginal Non- IMPRESSION: Left ovarian cysts measuring 3.2 cm, 2.6 cm, and 2.6 cm. 2 cysts are similar in size to prior and one cyst is new. Electronically Signed: Jade Archer MD at 12:02 EST ,
== END | disposition home or self-care (01) ==
LOC: US 10:58
PROVIDERS: PCP Family Medicine; Referring Provider Obstetrics & Gynecology; Visit Provider Obstetrics & Gynecology
DX: R10.2 Pelvic and perineal pain (principal); N95.1 Menopausal and female climacteric states; N83.202 Unspecified ovarian cyst, left side
CPT/HCPCS: 76830

== ENCOUNTER → 2022-04-02 | Outpatient (CLI) | payer MEDICAID, SELFPAY | END | disposition home or self-care (01) | LOC: US 15:26 | PROVIDERS: PCP Family Medicine; Visit Provider Obstetrics & Gynecology | DX: R32 Unspecified urinary incontinence (principal) | CPT/HCPCS: 87086; 87088 ==

== ENCOUNTER 2022-04-14 18:21 | Emergency (ER) | payer MEDICAID, SELFPAY ==
[2022-04-14 18:23] VITALS: BP 154/89; PULSE 108; RESP 18; TEMP 36.1; O2SAT 98; BMI 33.0
--- NOTE | 2022-04-14 18:33 | EKG12_ITS ---
Test Reason : CP Blood Pressure : / mmHG Vent. Rate : 093 BPM Atrial Rate : 093 BPM P-R Int : 150 ms QRS Dur : 090 ms QT Int : 370 ms P-R-T Axes : 066 059 050 degrees QTc Int : 460 ms Normal sinus rhythm Normal ECG Confirmed by RITESH GRIJALVA, AMARILIS ([id number]), greeting card editor BRODY TURNER ([id number]) on 04/16/2022 9:02:29 AM Referred By: JACQUIE Confirmed By:AMARILIS AWAD MD
[2022-04-14 18:45] LABS: Absolute Lymphocyte Count 2.35 X10^3/uL (0.83-4.51); Absolute Neutrophil Count 9.8 X10^3/uL (2.0-7.7); Basophil# 0.06 X10^3/uL; Basophil% 0.5 % (0-1); Eosinophil# 0.04 X10^3/uL; Eosinophils% 0.3 % (0-5); Hematocrit 40.9 % (37-47); Hemoglobin 13.8 g/dL (12.0-15.0); Lymphocyte # 2.35 X10^3/ul (0.83-4.51); Lymphocyte % 18.6 % (19-41); Mean Corp Hgb Conc 33.7 g/dL (32-36); Mean Corpuscular Hgb 30.6 pg (27.0-32.0); Mean Corpuscular Volume 90.7 fL (81-99); Mean Platelet Vol. 9.5 fl (6.2-12.0); Monocyte# 0.36 X10^3/uL; Monocyte% 2.8 % (0-10); NRBC Flagged by Analyzer 0 % (0-5); Neutrophil # 9.75 X10^3/uL (2.7-7.7); Neutrophil % 77.2 % (47-70); Platelet Count 342 K/mm3 (150-450); RBC Distribution Width CV 12.7 % (11.6-14.6); RBC Distribution Width SD 42.1 fl (35.1-43.9); Red Blood Count 4.51 M/mm3 (4.2-5.4); White Blood Count 12.6 K/mm3 (4.4-11.0)
--- NOTE | 2022-04-14 18:48 | RAD_ITS ---
STUDY: X-RAY CHEST REASON FOR EXAM: Female, 41 years old. Chest pain. TECHNIQUE: PA and lateral views of the chest. COMPARISON: January 30, 2021. FINDINGS: The lungs are mildly hyperexpanded. There is no acute infiltrate or mass. There is no demonstrated pleural abnormality. Normal size heart. Normal mediastinum and nidhi. Normal visualized pulmonary arteries. Normal visualized aortic arch and descending thoracic aorta. Normal visualized thoracic spine. Normal visualized ribs, clavicles, and shoulders. There is no demonstrated abnormality of the visualized soft tissue structures of the upper abdomen. RAD/Chest PA and Lateral IMPRESSION: No acute cardiopulmonary disease or major interval change. Electronically Signed: Deon Garcia DO at 19:02 [facility] ,
[2022-04-14 19:03] LABS: Anion Gap 5 (5-15); BUN 9 mg/dL (7-18); BUN/Creat Ratio 7.3 RATIO (10-20); Calcium,Total 8.6 mg/dL (8.5-10.1); Chloride 110 mmol/L (98-107); Creatinine, Serum 1.24 mg/dL (0.55-1.02); EST Glomerular Filtration Rate 50 mL/min (>60); Est Glom Filt Rate - Afr Amer 61 mL/min (>60); Estimated Creatinine Clearance 63.91 ml/min; Glucose 107 mg/dL (74-106); Potassium 3.8 mmol/L (3.5-5.1); Sodium Level 141 mmol/L (136-145); Troponin-I HS (w/2H Reflex) 4 pg/mL (3.0-54.0)
[2022-04-14 19:08] LABS: D-Dimer Quantitative (DVT/PE) < 0.27 FEU/ug/m (0.27-0.49)
[2022-04-14 19:54] VITALS: BP 128/84; PULSE 97; RESP 18; O2SAT 98
[2022-04-14 20:03] VITALS: BP 126/78; PULSE 89; RESP 18; O2SAT 97
--- NOTE | 2022-04-14 20:11 | CT_ITS ---
STUDY: CT ABDOMEN AND PELVIS WITHOUT CONTRAST REASON FOR EXAM: Female, 41 years old. Left-sided abdominal pain. History of non-Hodgkin''s lymphoma history of hysterectomy. RADIATION DOSAGE (If Supplied By Facility): CTDIvol = ( 18.21 ) mGy, DLP = ( 928.09 ) mGycm TECHNIQUE: Transaxial images were obtained from the dome of the diaphragm to the symphysis pubis without oral contrast, and without intravenous contrast. Sagittal and coronal images were reconstructed. Individualized dose optimization techniques were used for this CT. COMPARISON: February 03, 2022. FINDINGS: The visualized lung bases are unremarkable. The visualized portions of the heart are within normal limits. Normal liver. Normal gallbladder and extrahepatic biliary system. Normal spleen. Normal pancreas. Normal bilateral adrenal glands. Normal right kidney. Normal left kidney. Normal visualized stomach. Normal small intestine. Normal colon. The appendix is visualized and appears normal. Normal abdominal aorta. Normal inferior vena cava. Normal retroperitoneum. Normal urinary bladder. Status post hysterectomy. Along the left vaginal cuff there is a lobulated mass measuring 4.9 x 2.7 x 2.7 cm this is thought to correlate with a lobulated cystic mass seen left supravesical space on the previous study is thought to be the left cystic ovary. Normal abdominal wall. No osseous changes. CT/Abdomen/Pelvis without Cont IMPRESSION: No major interval change when compared to prior study. Electronically Signed: Deon Garcia DO at 21:02 EST Reading Location ID and State: [id number] Tel [phone], Service support ,
[2022-04-14] MEDS: LORazepam 2 MG/ML Syringe 1 MG IV (20:21)
[2022-04-14 20:43] LABS: Reflex Troponin-HS? (from REC) Y
--- NOTE | 2022-04-14 21:39 | ED.VIS.CHEST ---
HPI History of Present Illness Chief Complaint: Chest Pain Narrative Narrative: 41-year-old female past medical history of reported non-Hodgkin's lymphoma in remission, presents with chest pain between her left breast, and in her left abdomen. She denies any fevers or chills. No nausea or vomiting. She states she went to urgent care last week and was treated with prednisone. Last evening she heard gurgling in her chest, but did not want to take any Mucinex until she finished her prednisone so as not to upset her stomach. She states that she is having pain underneath her left breast and all the way into her left abdomen. She is concerned about her spleen. She denies any exacerbating or alleviating factors. She states she is feeling more pressure in her left chest under her breast, and it feels like a balloon is being blown up. She states that the epicenter of her pain is also in the left upper quadrant of her abdomen. She denies any diarrhea or problems with bowel movement, no other problems. She is becoming anxious regarding this pain that started last evening and worsened all day today. PFSH PFSH Medical History Anxiety Back pain CPAP (continuous positive airway pressure) dependence Endometriosis Female climacteric state Hemorrhoids Hyperlipidemia Migraines Non Hodgkin's lymphoma PCOS (polycystic ovarian syndrome) Sleep apnea Smoker Home Medications lansoprazole 30 mg capsule,delayed release (Prevacid) 30 ea PO DAILY 11/13/19 [History Last Taken Unknown] atorvastatin 10 mg tablet (Lipitor) 10 mg PO DAILY 07/26/20 [History Last Taken Unknown] ascorbic acid (vitamin C) 500 mg capsule 500 mg PO DAILY 08/06/21 [History Last Taken Unknown] cholecalciferol (vitamin D3) 50 mcg (2,000 unit) capsule 50 mcg PO DAILY 08/06/21 [History Last Taken Unknown] multivitamin 1 tab PO DAILY 08/06/21 [History Last Taken Unknown] fluconazole 150 mg tablet 150 mg PO .COMPLEX #2 tabs 01/20/22 [Rx Last Taken Unknown] naproxen 500 mg tablet 500 mg PO BID PRN pain #40 tabs 03/14/22 [Rx Last Taken Unknown] Allergy/AdvReac Type Severity Reaction Status Date / Time propoxyphene napsylate Allergy Rash Verified 04/14/22 18:23 [From Darvocet-N] Sulfa (Sulfonamide Allergy Hives Verified 04/14/22 18:23 Antibiotics) venom-honey bee Allergy Anaphylaxis Verified 04/14/22 18:23 [bee venom (honey bee)] hydrocodone AdvReac Other Verified 04/14/22 18:23 promethazine HCl AdvReac it makes Verified 04/14/22 18:23 [From Phenergan] me jump up and want to leave Surgical History H/O: hysterectomy History of nasal septoplasty History of pubovaginal sling History of tonsillectomy History of tubal ligation S/P ACL surgery Social History household members: none Smoking Status: Current every day smoker tobacco type: cigarettes alcohol intake: current details: social substance use type: does not use caffeine: Yes what type of physical activity do you participate in: none seatbelt use: always do you feel safe at home: Yes additional social history: - works at [employer] ROS ROS ED ROS Narrative Constitutional: No fever, no chills. HEENT: No sore throat. No neck pain. No loss of vision. No rhinorrhea. Cardiovascular: Pressure under left breast/chest pain. No palpitations. No pedal edema. Respiratory: Occasional cough, positive shortness of breath. Abdominal: Left upper quadrant abdominal pain. No nausea. No vomiting. No problems with bowel movements, no diarrhea. Genitourinary: No dysuria. No hematuria. Musculoskeletal: No myalgias. No arthralgias. Neurologic: No headaches. No dizziness. No lightheadedness. Skin: No rash. No change in color. Psychiatric: No depression. Mild anxiety. EXAM Physical Exam Narrative Exam Narrative: Afebrile. Vital signs noted. HEENT: Normocephalic. Atraumatic. PERRL, EOMI. Neck soft and supple. No point tenderness or step off. Cardiovascular: Regular rate and rhythm. No murmurs, rubs, or gallops appreciated. Respiratory: No tachypnea. Lungs clear to auscultation bilaterally. Gastrointestinal: Abdomen soft, nontender, with normoactive bowel sounds. No rebound or guarding. Neurological: Awake. Alert. Nonfocal, nonlateralizing. Skin: No rash. Normal color. No pallor. Musculoskeletal: No pedal edema. Full range of motion extremities. Psychiatric: Mildly anxious Const Vital Signs: 04/14/22 18:23 04/14/22 19:54 04/14/22 19:54 Temperature 96.9 F L Temperature Source Temporal Pulse Rate 108 H 97 Respiratory Rate 18 18 Blood Pressure 154/89 H 128/84 H Blood Pressure Mean 110 98 Pulse Ox 98 98 98 Oxygen Delivery Method Room Air Room Air Room Air 04/14/22 20:03 04/14/22 22:23 Temperature Temperature Source Pulse Rate 89 Respiratory Rate 18 Blood Pressure 126/78 H 117/69 Blood Pressure Mean 94 85 Pulse Ox 97 Oxygen Delivery Method Room Air Heart Score History: Slightly/Non-Suspicious ECG: Normal Age: </= 45 years Risk Factors: 1 or 2 Risk Factors Troponin: </= Normal Limit Score: 1 MDM MDM MDM Narrative Medical decision making narrative: Comprehensive work-up was pursued. In the differential diagnosis is acute coronary syndrome versus pulmonary embolism, and although she is having no other symptoms for her abdominal pain, she could have colitis versus a splenic rupture. Comprehensive work-up was pursued. EKG was obtained and interpreted by myself which demonstrates normal sinus rhythm at 93 bpm without ectopy or acute ST changes. No STEMI. I reviewed her laboratory work. In review of her CBC she has an elevated white count of 12.6 which she has had in the past, which I think is nonspecific or could be from her recent steroid use. Hemoglobin normal at 13.8 with platelet count normal at 342. BMP shows chloride slightly elevated at 110 with creatinine 1.24 and a BUN of 9. [place] appropriately elevated at 107 with a normal anion gap of 5. Initial high-sensitivity troponin is 4. D-dimer is less than 0.27 which makes pulmonary embolism lower on the differential if not ruled out. Chest x-ray interpreted by myself shows no acute process, no pneumonia or infiltrate, no pneumothorax, no pleural effusion. I reviewed the CT report of her abdomen and pelvis shows no acute process. She has a normal spleen, and a normal appendix. I do feel that she is having anxiety regarding her health. She was administered Ativan 1 mg intravenously. Upon repeat examination at approximately 2240, she is more calm, but states she still feels pressure on the left side of her chest and abdomen. I do not feel any other emergent work-up is indicated currently. Her test results and imaging have been essentially normal and there is no emergent process which will require hospitalization or immediate surgical consultation. At this point in time, I feel she can be discharged safely home because her repeat troponin after 2 hours is 3. She will follow-up with her primary care physician. Additionally, she was inquiring whether or not she should follow-up with pulmonology because she was told by the nurse practitioner at urgent care that her wheezing could be COPD because she is a smoker. Smoking cessation was discussed. She will follow-up with her primary care physician initially who can refer her to any specialists. Return instructions were reviewed. Disposition is discharged home in stable condition. Lab Data Attestation: I reviewed the patient's lab results. Labs: Laboratory Results - last 24 hr 04/14/22 04/14/22 04/14/22 18:40 18:40 18:40 WBC 12.6 H RBC 4.51 Hgb 13.8 Hct 40.9 MCV 90.7 MCH 30.6 MCHC 33.7 RDW Std Deviation 42.1 RDW Coeff of [place] 12.7 Plt Count 342 MPV 9.5 Immature Gran % (Auto) 0.600 Neut % (Auto) 77.2 H Lymph % (Auto) 18.6 L [place] % (Auto) 2.8 Eos % (Auto) 0.3 Baso % (Auto) 0.5 Absolute Neuts (auto) 9.8 H Absolute Lymphs (auto) 2.35 Nucleated RBC % 0 D-Dimer Quant (PE/DVT) < 0.27 L Sodium 141 Potassium 3.8 Chloride 110 H Carbon Dioxide 26.0 Anion Gap 5 BUN 9 Creatinine 1.24 H Estim Creat Clear Calc 63.91 Est GFR (MDRD) Af Amer 61 Est GFR (MDRD) Non-Af 50 L BUN/Creatinine Ratio 7.3 L Glucose 107 H Calcium 8.6 Troponin I High Sens 4 04/14/22 21:58 WBC RBC Hgb Hct MCV MCH MCHC RDW Std Deviation RDW Coeff of [place] Plt Count MPV Immature Gran % (Auto) Neut % (Auto) Lymph % (Auto) [place] % (Auto) Eos % (Auto) Baso % (Auto) Absolute Neuts (auto) Absolute Lymphs (auto) Nucleated RBC % D-Dimer Quant (PE/DVT) Sodium Potassium Chloride Carbon Dioxide Anion Gap BUN Creatinine Estim Creat Clear Calc Est GFR (MDRD) Af Amer Est GFR (MDRD) Non-Af BUN/Creatinine Ratio Glucose Calcium Troponin I High Sens 3 Radiography Diagnostic Testing: Clinical Impression(s) from Imaging Studies Chest X-Ray 04/14/22 18:48 IMPRESSION: No acute cardiopulmonary disease or major interval change. Electronically Signed: Deon GarciaDO at 19:02 EST Reading Location ID and State: [address] [place] [address] Tel [phone], Service support , Abdomen/Pelvis CT 04/14/22 20:11 IMPRESSION: No major interval change when compared to prior study. Electronically Signed: Deon RadhaDO at 21:02 EST Reading Location ID and State: [facility] / [place] Tel [phone], Service support , Discharge Plan Triage Chief Complaint: Chest Pain Other Complaint: Abd Pain Shortness of Breath ED Provider: Aj Nicolas Dx/Rx/DC Orders Clinical Impression: Left chest pressure, Abdominal pain, Anxiety about health Instructions: ED Abdominal Pain Unkn Cause Fem, ED Anxiety Reaction, ED Chest Pain, Uncertain Cause Prescriptions: No Action lansoprazole [Prevacid] 30 mg capsule,delayed release(DR/EC) 30 ea PO DAILY Label Comments: take 1 capsule by mouth once daily atorvastatin [Lipitor] 10 mg tablet 10 mg PO DAILY multivitamin Tablet 1 tab PO DAILY ascorbic acid (vitamin C) 500 mg capsule 500 mg PO DAILY cholecalciferol (vitamin D3) 50 mcg (2,000 unit) capsule 50 mcg PO DAILY fluconazole 150 mg tablet 150 mg PO .COMPLEX Qty: 2 1RF Rx Instructions: 150 mg PO take one po now and repeat in 3 days naproxen 500 mg tablet 500 mg PO BID PRN (Reason: pain) Qty: 40 3RF Primary Care Provider: Karlos Slaughter Referrals: Karlos Slaughter MD [Primary Care Provider] - 1-2 Days if not improving Disposition Disposition: Home, Self Care
[2022-04-14 22:23] VITALS: BP 117/69
[2022-04-14 22:31] LABS: Troponin-I HS 3 pg/mL (3.0-54.0)
[2022-04-14 22:59] VITALS: BP 118/70; PULSE 84; RESP 18; O2SAT 97
== END 2022-04-14 23:06 | disposition home or self-care (01) ==
PROVIDERS: Emergency Provider Emergency Medicine; PCP Family Medicine; Visit Provider Emergency Medicine
DX: R07.89 Other chest pain (principal); J44.9 Chronic obstructive pulmonary disease, unspecified; R10.9 Unspecified abdominal pain; F17.210 Nicotine dependence, cigarettes, uncomplicated; E78.5 Hyperlipidemia, unspecified; F41.9 Anxiety disorder, unspecified
CPT/HCPCS: 71046; 74176; 80048; 84484; 85025; 85379; 93005; 96374; 99285; A4216

== ENCOUNTER → 2022-06-20 | Outpatient (CLI) | payer MEDICAID, SELFPAY ==
[2022-06-20 15:47] LABS: Hematocrit 38.4 % (37-47); Mean Corp Hgb Conc 33.9 g/dL (32-36); Mean Corpuscular Hgb 30.8 pg (27.0-32.0); Platelet Count 317 K/mm3 (150-450); RBC Distribution Width CV 12.8 % (11.6-14.6); RBC Distribution Width SD 42.5 fl (35.1-43.9); Red Blood Count 4.22 M/mm3 (4.2-5.4); White Blood Count 9.8 K/mm3 (4.4-11.0)
[2022-06-20 16:28] LABS: Anion Gap 4 (5-15); BUN 7 mg/dL (7-18); BUN/Creat Ratio 9.6 RATIO (10-20); Calcium,Total 9.6 mg/dL (8.5-10.1); Chloride 104 mmol/L (98-107); Creatinine, Serum 0.73 mg/dL (0.55-1.02); EST Glomerular Filtration Rate 92 mL/min (>60); Est Glom Filt Rate - Afr Amer 112 mL/min (>60); Glucose 118 mg/dL (74-106); Potassium 3.8 mmol/L (3.5-5.1); Sodium Level 137 mmol/L (136-145); T4 Free Direct 0.92 ng/dL (0.76-1.46); Thyroid Stim Hormone (TSH) 1.37 uIU/mL (0.358-3.74)
== END | disposition home or self-care (01) ==
LOC: LAB 15:31
PROVIDERS: PCP Family Medicine; Referring Provider Otolaryngology; Visit Provider Otolaryngology
DX: Z85.72 Personal history of non-Hodgkin lymphomas (principal)
CPT/HCPCS: 36415; 80048; 84439; 84443; 85027

== ENCOUNTER → 2022-07-07 | Outpatient (CLI) | payer MEDICAID, SELFPAY ==
--- NOTE | 2022-07-07 13:34 | CT_ITS ---
STUDY: CT SOFT TISSUE NECK WITH CONTRAST REASON FOR EXAM: Female, 42 years old. HX OF NECK MASS -- NHL-HAD CHEMO 01/03 RADIATION DOSAGE (If Supplied By Facility): CTDIvol = ( 18.06 ) mGy, DLP = ( 500.9 ) mGycm TECHNIQUE: The patient was scanned in a multi-detector CT scanner. High resolution transaxial imaging was performed following intravenous administration of IV 75mL Isovue-300. Sagittal and coronal images were reconstructed. Individualized dose optimization techniques were used for this CT. COMPARISON: Comparison is made with prior examination of June 03, 2015. FINDINGS: Normal bilateral parotid glands. Normal bilateral cutter plastics rolls spaces. Normal bilateral parapharyngeal spaces. Normal bilateral carotid spaces. Normal bilateral sublingual and submandibular glands and spaces. Normal visualized nasopharynx. Normal retropharyngeal space. Normal perivertebral space. Normal visualized bilateral faucial tonsils. The visualized tongue, tongue base and oropharynx are normal. The visualized cervical lymph nodes (levels I-) are within normal size limits, and maintain normal morphology. There is no demonstrated solid or cystic mass lesion. There is no abnormal contrast enhancement. Normal epiglottis, bilateral vallecula and hypopharynx. The pre-epiglottic and paraglottic adipose spaces are normal. Normal visualized bilateral piriform sinuses, aryepiglottic folds, vocal cords, and arytenoid-cricoid articulations. Normal subglottic trachea. Normal bilateral lobes of the thyroid gland. Normal visualized pulmonary apices. Normal visualized paranasal sinuses. Normal visualized cervical spine. CT/Soft Tissue Neck WITH Contrast IMPRESSION: Normal enhanced CT examination of the soft tissues of the neck. Electronically Signed: Андрей Lorenz MD at 14:46 EDT ,
== END | disposition home or self-care (01) ==
LOC: CT 13:22
PROVIDERS: PCP Family Medicine; Referring Provider Otolaryngology; Visit Provider Otolaryngology
DX: R22.1 Localized swelling, mass and lump, neck (principal); Z85.72 Personal history of non-Hodgkin lymphomas
CPT/HCPCS: 70491; Q9967

== ENCOUNTER 2023-10-05 11:52 | Emergency (ER) | payer MEDICAID, SELFPAY ==
[2023-10-05 11:53] VITALS: BP 157/89; PULSE 112; RESP 20; TEMP 35.8; O2SAT 98
--- NOTE | 2023-10-05 12:21 | EX.ED.DYSGE1 ---
HPI History of Present Illness Chief Complaint: Numb/Ting Informant: patient Onset/Context/Timing Onset: Yesterday Context: Sudden Onset Timing: Continuous Quality: Tingling, burning Location: Bilateral hands and feet Worsened by: Nothing Relieved by: Rest Narrative Narrative: Patient presents with numbness and tingling to her hands and feet that began yesterday. Patient states it began rather suddenly. Patient has been constant since yesterday evening. Patient states it is over the volar and dorsal aspects of both of her hands. Patient states it is over the plantar aspects of her feet bilaterally. Patient denies any trauma or injury. Patient states her paresthesias are better when she is able to rest and elevate her hands and feet. Patient admits to some dizziness but denies any nausea or vomiting. Patient describes it as more of a lightheaded feeling. Patient denies any spinning sensation. [facility] Medical History Female climacteric state Smoker CPAP (continuous positive airway pressure) dependence Sleep apnea Hyperlipidemia Hemorrhoids Endometriosis Non Hodgkin's lymphoma Back pain Migraines PCOS (polycystic ovarian syndrome) Anxiety Home Medications ?Medication ?Instructions ?Recorded ?Last Taken ?Type lansoprazole 30 mg capsule,delayed 30 ea PO DAILY 11/13/19 Unknown History release (Prevacid) atorvastatin 10 mg tablet (Lipitor) 10 mg PO DAILY 07/26/20 Unknown History ascorbic acid (vitamin C) 500 mg 500 mg PO DAILY 08/06/21 Unknown History capsule cholecalciferol (vitamin D3) 50 50 mcg PO DAILY 08/06/21 Unknown History mcg (2,000 unit) capsule multivitamin 1 tab PO DAILY 08/06/21 Unknown History fluconazole 150 mg tablet 150 mg PO .COMPLEX #2 tabs 01/20/22 Unknown Rx naproxen 500 mg tablet 500 mg PO BID PRN pain #40 tabs 03/14/22 Unknown Rx amoxicillin 500 mg tablet 500 mg PO TID #30 tabs 08/24/23 Unknown Rx fluconazole 200 mg tablet 200 mg PO DAILY #1 TAB 08/24/23 Unknown Rx meloxicam 15 mg tablet 15 mg PO DAILY #14 tabs 10/05/23 Unknown Rx Allergy/AdvReac Type Severity Reaction Status Date / Time propoxyphene napsylate (From Allergy Rash Verified 08/24/23 10:20 Darvocet-N) Sulfa (Sulfonamide Allergy Hives Verified 08/24/23 10:20 Antibiotics) venom-honey bee (bee venom Allergy Anaphylaxis Verified 08/24/23 10:20 (honey bee)) hydrocodone AdvReac Other Verified 08/24/23 10:20 promethazine HCl (From AdvReac it makes Verified 08/24/23 10:20 Phenergan) me jump up and want to leave Surgical History S/P ACL surgery History of pubovaginal sling History of tubal ligation History of tonsillectomy History of nasal septoplasty H/O: hysterectomy Social History household members: none Smoking Status: Current every day smoker tobacco type: cigarettes alcohol intake: current details: social substance use type: does not use caffeine: Yes what type of physical activity do you participate in: none seatbelt use: always do you feel safe at home: Yes additional social history: - works at [employer] ROS ROS ED Constitutional Constitutional ED: Denies chills or fever(s) Eyes Eyes: Denies blurry vision or change in vision ENT ENT ED: Denies rhinorrhea or sore throat Cardiovascular Cardiovascular: Denies chest pain or palpitations Respiratory/Chest Respiratory/Chest: Denies cough or dyspnea Gastrointestinal Gastrointestinal: Denies nausea or vomiting Genitourinary Genitourinary ED: Denies dysuria or hematuria Musculoskeletal Musculoskeletal: Denies back pain or neck pain Integumentary Denies abscess or rash Neurologic Neurologic: Reports paresthesias RUE, RLE, LUE and LLE; Denies headache(s) or weakness Allergic/Immunologic Allergic/Immunologic ED: Denies mouth swelling or urticaria EXAM Physical Exam Const Vital Signs: 10/05/23 11:53 Temperature 96.4 F L Temperature Source Temporal Pulse Rate 112 H Respiratory Rate 20 H Blood Pressure 157/89 H Blood Pressure Mean 111 Pulse Ox 98 Oxygen Delivery Method Room Air Positive well nourished and well developed General Appearance ED: well developed and NAD HEENT Reports moist mucous membranes Neck supple and no JVD Resp normal respiratory effort and clear to auscultation bilaterally Cardio regular rate and regular rhythm GI non-tender and non-distended Palpation: soft Extremity normal to inspection General Extremety ED: Negative for edema or tenderness General Extremity: Negative for edema Neuro oriented x3 and CN's II-XII intact bilaterally Neuro Narrative: There is decrease sensation over the bilateral hands and feet. Strength is 5/5 in the upper and lower extremities bilaterally. Radial pulses are equal bilaterally. Pedal pulses are equal bilaterally. It is mainly over a stocking glove distribution. Sensorium / Orientation: alert Motor Exam: strength 5/5 throughout Psych mental status grossly normal MDM MDM MDM Narrative Medical decision making narrative: Differential diagnosis includes electrolyte abnormality, neuropathy, and paresthesias. CBC will be obtained to assess for leukocytosis and anemia. Basic metabolic profile will be obtained to assess for electrolyte abnormality and renal function. Lab Data Attestation: I reviewed the patient's lab results. Lab results narrative: CBC was reviewed and was within normal limits. Basic metabolic profile was reviewed and was within normal limits. Labs: Laboratory Results - last 24 hr 10/05/23 12:20 WBC 9.6 RBC 4.18 L Hgb 12.6 Hct 37.1 MCV 88.8 MCH 30.1 MCHC 34.0 RDW Std Deviation 42.0 RDW Coeff of [place] 13.1 Plt Count 301 MPV 9.3 Immature Gran % (Auto) 0.500 Neut % (Auto) 58.3 Lymph % (Auto) 33.3 [place] % (Auto) 5.9 Eos % (Auto) 1.6 Baso % (Auto) 0.4 Absolute Neuts (auto) 5.6 Absolute Lymphs (auto) 3.19 Nucleated RBC % 0 Sodium 139 Potassium 3.6 Chloride 106 Carbon Dioxide 24.0 Anion Gap 9 BUN 9 Creatinine 0.77 Est GFR (MDRD) Af Amer 105 Est GFR (MDRD) Non-Af 87 BUN/Creatinine Ratio 11.7 Glucose 112 H Calcium 9.2 Treatment and Re-Evaluation :: Patient was given IV fluids. Smoking cessation was discussed. Patient was advised of her findings. Patient was advised that this is not a stroke that is causing her symptoms. Patient was instructed to follow-up with her primary care physician in 5 to 7 days. Patient was given a prescription for meloxicam. Patient was instructed to return if worse in any way. Patient understood and was agreeable with plan. All questions were answered. Discharge Plan Triage Chief Complaint: Numb/Ting ED Provider: Niranjan Moreau Dx/Rx/DC Orders Clinical Impression: Peripheral neuropathy, Paresthesias Instructions: ED Neuropathy, Peripheral, ED Paraesthesias Prescriptions: New meloxicam 15 mg tablet 15 mg PO DAILY Qty: 14 0RF No Action lansoprazole [Prevacid] 30 mg capsule,delayed release(DR/EC) 30 ea PO DAILY Patient Comments: take 1 capsule by mouth once daily atorvastatin [Lipitor] 10 mg tablet 10 mg PO DAILY multivitamin Tablet 1 tab PO DAILY ascorbic acid (vitamin C) 500 mg capsule 500 mg PO DAILY cholecalciferol (vitamin D3) 50 mcg (2,000 unit) capsule 50 mcg PO DAILY fluconazole 150 mg tablet 150 mg PO .COMPLEX Qty: 2 1RF Rx Instructions: 150 mg PO take one po now and repeat in 3 days naproxen 500 mg tablet 500 mg PO BID PRN (Reason: pain) Qty: 40 3RF amoxicillin 500 mg tablet 500 mg PO TID Qty: 30 0RF fluconazole 200 mg tablet 200 mg PO DAILY Qty: 1 0RF Rx Instructions: if needed after completing antibiotic (as discussed today) Stand Alone Forms: ED Work / School Excuse Primary Care Provider: Karlos Slaughter Referrals: Karlos Slaughter MD [Primary Care Provider] - 5-7 Days Print Language: Hungarian Disposition Disposition: Home, Self Care
[2023-10-05 12:43] LABS: Absolute Lymphocyte Count 3.19 X10^3/uL (0.83-4.51); Absolute Neutrophil Count 5.6 X10^3/uL (2.0-7.7); Basophil# 0.04 X10^3/uL; Basophil% 0.4 % (0-1); Eosinophil# 0.15 X10^3/uL; Eosinophils% 1.6 % (0-5); Hematocrit 37.1 % (37-47); Hemoglobin 12.6 g/dL (12.0-15.0); Lymphocyte # 3.19 X10^3/ul (0.83-4.51); Lymphocyte % 33.3 % (19-41); Mean Corpuscular Hgb 30.1 pg (27.0-32.0); Mean Corpuscular Volume 88.8 fL (81-99); Mean Platelet Vol. 9.3 fl (6.2-12.0); Monocyte# 0.57 X10^3/uL; Monocyte% 5.9 % (0-10); NRBC Flagged by Analyzer 0 % (0-5); Neutrophil # 5.59 X10^3/uL (2.7-7.7); Neutrophil % 58.3 % (47-70); Platelet Count 301 K/mm3 (150-450); RBC Distribution Width CV 13.1 % (11.6-14.6); Red Blood Count 4.18 M/mm3 (4.2-5.4); White Blood Count 9.6 K/mm3 (4.4-11.0)
[2023-10-05] MEDS: 0.9% Normal Saline (1000mL) 1,000 ML 1000 ML IV (12:44)
[2023-10-05 13:03] LABS: Anion Gap 9 (5-15); BUN 9 mg/dL (7-18); BUN/Creat Ratio 11.7 RATIO (10-20); Calcium,Total 9.2 mg/dL (8.5-10.1); Chloride 106 mmol/L (98-107); Creatinine, Serum 0.77 mg/dL (0.55-1.02); EST Glomerular Filtration Rate 87 mL/min (>60); Est Glom Filt Rate - Afr Amer 105 mL/min (>60); Glucose 112 mg/dL (74-106); Potassium 3.6 mmol/L (3.5-5.1); Sodium Level 139 mmol/L (136-145)
[2023-10-05 15:30] VITALS: BP 134/78; PULSE 87; RESP 18; TEMP 36.4; O2SAT 100
== END 2023-10-05 15:31 | disposition home or self-care (01) ==
PROVIDERS: Emergency Provider Emergency Medicine; PCP Family Medicine; Visit Provider Emergency Medicine
DX: G62.9 Polyneuropathy, unspecified (principal); F17.200 Nicotine dependence, unspecified, uncomplicated; E78.5 Hyperlipidemia, unspecified; R20.2 Paresthesia of skin; G47.30 Sleep apnea, unspecified; Z99.89 Dependence on other enabling machines and devices
CPT/HCPCS: 80048; 85025; 96360; 99283

== ENCOUNTER 2023-10-22 12:56 | Outpatient (RCR) | payer MEDICAID, SELFPAY ==
--- NOTE | 2023-10-22 16:01 | HP.PTEVAL ---
Patient's Visit Information Visit Information Visit Information: GALEN WALTON is a 43 year old F referred to Physical Therapy by Dr. Bora Alston MD with a diagnosis of LBP. Date of Evaluation: 10/22/23 Physical Therapist: Jose Daniel Arenas, PT, ATC Visit Plan Frequency: 2-3x /Week Duration: 4-6 Weeks Plan: REIL, postural edu, core stab ex's, and HEP Subjective Subjective: Pt reports a chronic Hx of LBP. Pt reports this episode started 1 1/2 years ago, but has progressively worsened over the past 2 months. Pt reports she has never had treatment in the past, but is now trying physical therapy and is going to get an injection in the near future. Pt notes no LE radiculopathy at this time, but notes R LE radiculopathy at times. Pt reports her pain is always worse as the day goes on. Pt reports she is not able to sit or stand for long periods of time secondary to LBP. Pt reports she gets increased pain with forward flexion activity, and with squatting type of activity. Pt reports she has had recent xrays which revealed some DDD. Pt reports no sleep difficulty at this time secondary to pain. 4/10 pain while sitting here in the clinic, 8/10 pain at worst (by the end of the day) Pain LBP: Pain Intensity (Out of 10): 4 Pain Intensity Range: 8 Objective Objective: Neuro: B LE sensation is WNL to light touch MMT: B LE's are grossly 5/5 and equal ROM: Pt is moderately limited with L/S ext ROM. All other motions are WNL Repeated movements: RFIS NE, ELISABETH NE, REIL NE Balance/Special Test Scores Oswestry Low Back Score: 13 Goals Goal 1:: Decrease LBP x 50% to aid with increasing tolerance for ambulation Goal Time Frame: 4-6 Weeks Goal 2:: Increase L/S extension ROM x 1 grade to aid with preventing future episodes of R LE radiculopathy Goal Time Frame: 4-6 Weeks Goal 3:: Pt will be able to ambulate throughout her work day with only experiencing 1-2/10 pain in LB region Goal Time Frame: 4-6 Weeks Goal 4:: I with HEP Goal Time Frame: 4-6 Weeks Rehabilitation Potential Physical Therapy Diagnosis: Pt has limitations at work, LBP and difficulty with prolonged ambulation secondary to L/S instability Rehabilitation Potential: Good Anticipated Interventions Patient/Client Instruction: Educate patient on: Condition and Plan of Care For the Purpose of:: To improve self management Therapeutic Exercise to Include: Strength training, Body mechanics, Postural training, Flexibilty training, Dynamic Lumbar Stabilization and Rita Exercises For the Purpose of:: To decrease pain, To increase ROM and To improve muscle performance and motor function Text: Thank you for the opportunity to evaluate your patient. For Medicare and Medicare HMO plans, please review the plan of care and approve it. It will need to be FAXED BACK to us at [phone] for Medicare purposes. For Medicare only, by signing this I certify the plan of care. Please let me know if there are questions or concerns regarding this plan of care. Physician Signature: Date:
--- NOTE | 2023-12-14 16:12 | HP.PT.NRP ---
Patient Information Patient Information: GALEN WALTON was seen in my office for initial evaluation on 10/22/23. The following Plan of Care was established for this patient: POC Established Initial Frequency: 2-3x /Week Initial Duration: 4-6 Weeks Anticipated Interventions Patient/Client Instruction: Educate patient on: Condition and Plan of Care For the Purpose of:: To improve self management Therapeutic Exercise to Include: Strength training, Body mechanics, Postural training, Flexibilty training, Dynamic Lumbar Stabilization and Rita Exercises For the Purpose of:: To decrease pain, To increase ROM and To improve muscle performance and motor function Last Seen Last Seen: This patient was last seen in our office . Pertinent comments regarding their Physical therapy will appear below: Pt was evaluated for LBP on the date of 10/22/23. Pt has not returned through todays date, and is discontinued at this time. At this point I will be discontinuing this patient from physical therapy. I would be happy to see this patient again in the future if found appropriate by the physician. Thank you! Jose Daniel Arenas, PT, ATC Balance/Gait/Functional tests Balance/Special Test Scores Oswestry Low Back Score: 13
== END 2023-10-22 19:00 | disposition home or self-care (01) ==
LOC: PT 12:56
PROVIDERS: PCP Family Medicine; Referring Provider Anesthesiology Pain Medicine; Visit Provider Anesthesiology Pain Medicine
DX: M54.17 Radiculopathy, lumbosacral region (principal); M51.37 Other intervertebral disc degeneration, lumbosacral region
CPT/HCPCS: 97161

== ENCOUNTER 2023-12-02 21:02 | Emergency (ER) | payer MEDICAID, SELFPAY ==
[2023-12-02 21:03] VITALS: BP 147/78; PULSE 100; RESP 18; TEMP 36.6; O2SAT 97; BMI 36.7
[2023-12-02 21:26] LABS: Absolute Lymphocyte Count 4.45 X10^3/uL (0.83-4.51); Absolute Neutrophil Count 6.3 X10^3/uL (2.0-7.7); Basophil# 0.06 X10^3/uL; Basophil% 0.5 % (0-1); Eosinophil# 0.19 X10^3/uL; Eosinophils% 1.6 % (0-5); Hematocrit 37.5 % (37-47); Hemoglobin 13.1 g/dL (12.0-15.0); Lymphocyte # 4.45 X10^3/ul (0.83-4.51); Lymphocyte % 37.9 % (19-41); Mean Corp Hgb Conc 34.9 g/dL (32-36); Mean Corpuscular Hgb 30.5 pg (27.0-32.0); Mean Corpuscular Volume 87.4 fL (81-99); Mean Platelet Vol. 9.4 fl (6.2-12.0); Monocyte# 0.76 X10^3/uL; Monocyte% 6.5 % (0-10); NRBC Flagged by Analyzer 0 % (0-5); Neutrophil # 6.25 X10^3/uL (2.7-7.7); Neutrophil % 53.2 % (47-70); Platelet Count 303 K/mm3 (150-450); RBC Distribution Width SD 41.1 fl (35.1-43.9); Red Blood Count 4.29 M/mm3 (4.2-5.4); White Blood Count 11.8 K/mm3 (4.4-11.0)
[2023-12-02 21:32] LABS: Internal QC Validated? YES +Cl - CLEAR BKGD; Pregnancy, Serum, hCG Quali. NEGATIVE Negative; Record Kit Lot#, Serum Preg. 772476
[2023-12-02 21:42] LABS: ALB/GLOB Ratio 1.1 RATIO (0.9-2.4); AST(SGOT) 9 U/L (15-37); Alanine Aminotransfer ALT/SGPT 20 U/L (13-56); Albumin, Serum 3.6 g/dL (3.2-5.0); Alkaline Phosphatase 85 U/L (45-117); Anion Gap 10 (5-15); BUN 9 mg/dL (7-18); BUN/Creat Ratio 11.9 RATIO (10-20); Calcium,Total 9.2 mg/dL (8.5-10.1); Chloride 108 mmol/L (98-107); Creatinine, Serum 0.76 mg/dL (0.55-1.02); EST Glomerular Filtration Rate 88 mL/min (>60); Est Glom Filt Rate - Afr Amer 107 mL/min (>60); Estimated Creatinine Clearance 126.55 ml/min; Globulin 3.2 g/dL (2.2-4.2); Glucose 133 mg/dL (74-106); Potassium 3.7 mmol/L (3.5-5.1); Protein, Total 6.8 g/dL (6.4-8.2); Sodium Level 141 mmol/L (136-145)
--- NOTE | 2023-12-02 21:46 | CT_ITS ---
EXAM: CT ABDOMEN AND PELVIS WITHOUT INTRAVENOUS CONTRAST CLINICAL INDICATION: Abdominal pain TECHNIQUE: Helically acquired images were obtained of the abdomen and pelvis without intravenous contrast. This CT exam was performed using one or more of the following dose reduction techniques: automated exposure control, adjustment of the mA and/or kV according to patient size, and/or use of iterative reconstruction technique. COMPARISON: CT abdomen and pelvis, 04/14/2022 FINDINGS: LOWER THORAX: No significant abnormality. Lung bases are clear. No cardiomegaly. No significant pericardial effusion. ABDOMEN: LIVER: No significant abnormality. Homogeneous. GALLBLADDER AND BILE DUCTS: The gallbladder is decompressed. No calcified gallstones. No gallbladder distention or wall edema. No intra- or extrahepatic biliary ductal dilation. PANCREAS: No significant abnormality. No focal cystic mass. SPLEEN: No significant abnormality. Normal size without focal cystic or solid mass. ADRENALS: No significant abnormality. No nodules. KIDNEYS AND URETERS: No significant abnormality. Normal renal size and position. No hydronephrosis. STOMACH AND BOWEL: No significant abnormality. No stomach or bowel distention. No focal inflammatory change. PELVIS: APPENDIX: Normal appendix identified in the right lower quadrant. BLADDER: No significant abnormality. REPRODUCTIVE: Status post hysterectomy. ABDOMEN and PELVIS: INTRAPERITONEAL SPACE: No significant abnormality. No ascites or other fluid collection. No free air. BONES/JOINTS: Degenerative changes in the visualized axial and appendicular skeleton. No suspicious lytic or blastic abnormality. SOFT TISSUES: Small fat-containing umbilical hernia. Surgical clips in the right inguinal region. VASCULATURE: Atherosclerosis of the aorta and its branch vessels. Abdominal aorta is non-dilated. LYMPH NODES: No significant abnormality. No enlarged lymph nodes. CT/Abdomen/Pelvis without Cont IMPRESSION: No evidence of acute pathology in the abdomen and pelvis. Electronically Signed: Howie Yusuf DO at 22:19 EDT ,
--- NOTE | 2023-12-02 21:47 | EDS_ITS ---
HPI HPI - GI History of Present Illness Chief Complaint: Abd Pain Detail of Chief Complaint: Abdominal pain Narrative Narrative: Patient presents with abdominal pain is started this morning around 9:45 AM. She states initially started around her bellybutton. Pain now is migrated up towards the left upper quadrant. Pain worse with movement. Pain worse with breathing. She denies any injury to her abdomen. She has had no vomiting or diarrhea. She has had somewhat decreased p.o. intake today. She denies urinary symptoms. She has had prior hysterectomy. [facility] Medical History (Updated 12/02/23 @ 22:[address] Amrita Spencer, DO) Wears glasses Arthritis Fatty liver History of hiatal hernia Shortness of breath on exertion History of pain when walking History of echocardiogram History of stress test Female climacteric state Smoker CPAP (continuous positive airway pressure) dependence Hyperlipidemia Hemorrhoids Endometriosis Non Hodgkin's lymphoma Back pain Migraines PCOS (polycystic ovarian syndrome) Anxiety Home Medications ?Medication ?Instructions ?Recorded ?Last Taken ?Type lansoprazole 30 mg capsule,delayed 30 mg PO BID 11/13/19 Unknown History release (Prevacid) atorvastatin 10 mg tablet (Lipitor) 10 mg PO DAILY 07/26/20 Unknown History multivitamin 1 tab PO DAILY 08/06/21 Unknown History dicyclomine 10 mg capsule 20 mg (2 x 10 mg) PO TIDAC #20 12/02/23 Unknown Rx CAPSULES Allergy/AdvReac Type Severity Reaction Status Date / Time propoxyphene napsylate (From Allergy Rash Verified 12/02/23 21:05 Darvocet-N) Sulfa (Sulfonamide Allergy Hives Verified 12/02/23 21:05 Antibiotics) venom-honey bee (bee venom Allergy Anaphylaxis Verified 12/02/23 21:05 (honey bee)) hydrocodone AdvReac Other Verified 12/02/23 21:05 promethazine HCl (From AdvReac it makes Verified 12/02/23 21:05 Phenergan) me jump up and want to leave Surgical History History of LAVH S/P ACL surgery History of pubovaginal sling History of tubal ligation History of tonsillectomy History of nasal septoplasty Social History household members: none Smoking Status: Current every day smoker tobacco type: cigarettes alcohol intake: current details: social substance use type: does not use caffeine: Yes what type of physical activity do you participate in: none seatbelt use: always do you feel safe at home: Yes additional social history: - works at [employer] ROS ROS ED Review of Systems ROS Unobtainable: other Constitutional Constitutional ED: Reports lethargy; Denies chills, fever(s), sweats or weight loss Eyes Eyes: Denies blurry vision, change in vision or diplopia ENT ENT ED: Denies rhinorrhea or sore throat Cardiovascular Cardiovascular: Denies chest pain, orthopnea or racing heartbeat Respiratory/Chest Respiratory/Chest: Denies cough, dyspnea, dyspnea on exertion, orthopnea or sputum Gastrointestinal Gastrointestinal: Reports abdominal pain; Denies diarrhea, nausea or vomiting Genitourinary Genitourinary ED: Denies dysuria, hematuria or urinary frequency Musculoskeletal Musculoskeletal: Denies arthralgias, back pain, myalgias or neck pain Integumentary Denies abscess, Abrasions or rash Neurologic Neurologic: Denies headache(s) or weakness Psychiatric Psychiatric: Denies anxiety, depression or suicidal thoughts Endocrine Endocrinology: Denies polydipsia, polyphagia or polyuria Hematologic/Lymphatic Hematologic/Lymphatic: Denies easy bleeding, easy bruising or lymphadenopathy Allergic/Immunologic Allergic/Immunologic ED: Denies mouth swelling, tongue swelling or urticaria EXAM Physical Exam Const Vital Signs: 12/02/23 21:03 Temperature 97.9 F Temperature Source Temporal Pulse Rate 100 Respiratory Rate 18 Blood Pressure 147/78 H Blood Pressure Mean 101 Pulse Ox 97 Oxygen Delivery Method Room Air Positive well nourished and well developed General Appearance ED: well developed and NAD HEENT Reports TM's clear and moist mucous membranes normocephalic and atraumatic; Negative for trauma or tenderness Tympanic Membrane ED: Yes TM's clear Eyes PERRL and EOMs intact bilaterally General Eye ED: Negative for pale conjunctiva or scleral icterus Neck no lymphadenopathy, supple and no JVD General: Negative for tenderness Chest Wall inspection of chest normal and palpation of chest normal Chest: Negative for tenderness Resp normal respiratory effort and clear to auscultation bilaterally Effort and Inspection: Negative for respiratory distress or pain with movement Auscultation: Negative for rhonchi, wheezes or diminished lung sounds Cardio regular rate, regular rhythm, S1 normal heart sound, S2 normal heart sound and no murmurs Peripheral Pulses: pulses 2+ throughout GI normal to inspection, nondistended, normoactive bowel sounds, soft to palpation, non-tender, non-distended and no masses GI Narrative: Mild diffuse tenderness on exam to the left lower quadrant and suprapubic region as well as the left upper quadrant. There are some mild guarding. There is no rebound, rigidity, or peritoneal signs. No mass palpated. Back/Spine no CVA tenderness and no thoracic nor lumbar tenderness Extremity normal to inspection General Extremety ED: Negative for edema General Extremity: Negative for edema Neuro oriented x3, CN's II-XII intact bilaterally, no sensory deficits noted and gait normal Sensorium / Orientation: awake, alert, oriented to person, oriented to place and oriented to time Motor Exam: strength 5/5 throughout and strength abnormal Psych mental status grossly normal Skin no rashes or lesions noted and no wounds MDM MDM MDM Narrative Medical decision making narrative: Patient presents with abdominal pain that started this morning left lower abdomen and now radiating to the left upper abdomen. She has had no fever. She has had no vomiting or diarrhea. She tells me she has been around some individuals that have had a stomach virus. In the differential would be diverticulitis or UTI or kidney stone versus bowel obstruction or bowel perforation or other acute process. IV line established. She did not want a thing for pain. CBC with differential obtained showed a white count 11.8 with hemoglobin 13 and platelet count of 303. Chemistries unremarkable. LFTs were normal. Urinalysis was normal hCG was negative. We did obtain a CT scan of the abdomen pelvis without contrast which showed no acute abnormality. This point etiology of her pain unclear. Will write a prescription for Bentyl. Advised to follow-up with primary care physician within next 3 to 5 days. Patient to return if increasing pain, fever, vomiting, or condition should worsen anyway Lab Data Attestation: I reviewed the patient's lab results. Labs: Laboratory Results - last 24 hr 12/02/23 21:19 WBC 11.8 H RBC 4.29 Hgb 13.1 Hct 37.5 MCV 87.4 MCH 30.5 MCHC 34.9 RDW Std Deviation 41.1 RDW Coeff of [place] 13.0 Plt Count 303 MPV 9.4 Immature Gran % (Auto) 0.300 Neut % (Auto) 53.2 Lymph % (Auto) 37.9 [place] % (Auto) 6.5 Eos % (Auto) 1.6 Baso % (Auto) 0.5 Absolute Neuts (auto) 6.3 Absolute Lymphs (auto) 4.45 Nucleated RBC % 0 Sodium 141 Potassium 3.7 Chloride 108 H Carbon Dioxide 23.0 Anion Gap 10 BUN 9 Creatinine 0.76 Estim Creat Clear Calc 126.55 Est GFR (MDRD) Af Amer 107 Est GFR (MDRD) Non-Af 88 BUN/Creatinine Ratio 11.9 Glucose 133 H Calcium 9.2 Total Bilirubin 0.20 AST 9 L ALT 20 Alkaline Phosphatase 85 Total Protein 6.8 Albumin 3.6 Globulin 3.2 Albumin/Globulin Ratio 1.1 Serum , Qual NEGATIVE Urine Color Yellow Urine Clarity Sl. Cloudy Urine pH 6.0 Ur Specific [place] 1.015 Urine Protein Negative Urine Glucose (UA) Normal Urine Ketones Negative Urine Occult Blood 10 H Urine Nitrite Negative Urine Bilirubin Negative Urine Urobilinogen Normal Ur Leukocyte Esterase Negative Urine RBC 0 SEEN Urine WBC 0 SEEN Ur Squamous Epith Cells 10-25 SEEN Urine Bacteria 2+ Urine Mucus 1+ Radiography Diagnostic Testing: Clinical Impression(s) from Imaging Studies Abdomen/Pelvis CT 12/02/23 21:46 IMPRESSION: No evidence of acute pathology in the abdomen and pelvis. Electronically Signed: Howie Yusuf DO at 22:19 EDT Reading Location ID and State: [facility] / [place] Tel , Service support , Discharge Plan Triage Chief Complaint: Abd Pain ED Provider: Amrita Spencer Dx/Rx/DC Orders Clinical Impression: Abdominal pain Instructions: ED Abdominal Pain Unkn Cause Fem Prescriptions: New dicyclomine 10 mg capsule 20 mg PO TIDAC Qty: 20 0RF No Action lansoprazole [Prevacid] 30 mg capsule,delayed release(DR/EC) 30 mg PO BID Patient Comments: take 1 capsule by mouth once daily atorvastatin [Lipitor] 10 mg tablet 10 mg PO DAILY multivitamin Tablet 1 tab PO DAILY Primary Care Provider: Karlos Slaughter Referrals: Karlos Slaughter MD [Primary Care Provider] - 3-5 Days Print Language: Serbian Disposition Disposition: Home, Self Care
[2023-12-02 22:13] LABS: Red Blood Cells-Urine 0 SEEN /hpf (0-5); White Blood Cells 0 SEEN /hpf (0-5)
[2023-12-02 22:23] LABS: Color, Urine Yellow (Yellow); Glucose, Dipstick Normal (Normal); Ketone-Dipstick Negative (Negative); Leukocyte Esterase-Dipstick Negative /ul (Negative); Nitrite-Dipstick Negative (Negative); Occult Blood-Urine 10 /ul (Negative); Protein-Dipstick Negative (Negative); Specific Gravity, Urine 1.015 (1.002-1.030); Urine Bilirubin Dipstick Negative (Negative); Urine Clarity Sl. Cloudy (Clear); Urine Urobilinogen Normal (Normal)
[2023-12-02 22:25] LABS: Mucous, Urine 1+ /hpf (<or=2+); Squamous Epithelial Cells - UA 10-25 SEEN /hpf (5-10)
[2023-12-02 22:26] LABS: Bacteria 2+ /hpf (None Seen)
[2023-12-02 23:03] VITALS: BP 138/77; PULSE 78; RESP 18; O2SAT 98
[2023-12-02 23:06] VITALS: BP 138/77; PULSE 78; RESP 18; TEMP 36.4; O2SAT 98
== END 2023-12-02 23:07 | disposition home or self-care (01) ==
PROVIDERS: Emergency Provider Emergency Medicine; PCP Family Medicine; Visit Provider Emergency Medicine
DX: R10.9 Unspecified abdominal pain (principal); E78.5 Hyperlipidemia, unspecified; F17.210 Nicotine dependence, cigarettes, uncomplicated
CPT/HCPCS: 74176; 80053; 81001; 84703; 85025; 99283; A4216

== ENCOUNTER 2023-12-07 08:42 | Day surgery (SDC) | payer MEDICAID, SELFPAY ==
[2023-12-07] MEDS: Lidocaine 1% (5 ml sdv) 5 ML Vial (07:29)
[2023-12-07] MEDS: MethylPREDNISolone Acetate 80 MG/ML Vial (07:30)
[2023-12-07] MEDS: 0.9% Normal Saline (Pres. free 10 ML Vial (07:30)
--- NOTE | 2023-12-07 09:10 | RAD_ITS ---
PROCEDURE: Caudal epidural injection. DATE OF EXAMINATION: December 07, 2023. INDICATION: Female, 43 years old. Chronic low back pain. FLUOROSCOPY TIME (if supplied): (4 seconds) minutes/seconds. 4.93 mGy. RAD/Fluor Guidance for Spine Inj IMPRESSION: Intraoperative fluoroscopic services provided for caudal epidural steroid injection. Electronically Signed: Андрей Lorenz MD at 14:38 EDT ,
[2023-12-07 09:26] VITALS: BP 129/71; PULSE 80; RESP 18; TEMP 36.3; O2SAT 99; BMI 36.9
[2023-12-07] MEDS: Lactated Ringers 1,000 ML 15 ML IV (09:33)
--- NOTE | 2023-12-07 10:15 | OP.PCM_ITS ---
Report of Operation Date of Procedure: 12/07/23 Pre-Operative Diagnosis: Lumbosacral radiculopathy, lumbosacral degenerative di sc disease, lumbosacral spinal stenosis Post-Operative Diagnosis: Lumbosacral radiculopathy, lumbosacral degenerative disc disease, lumbosacral spinal stenosis Surgery/Procedure Performed:: Diagnostic/therapeutic caudal epidural steroid injection under fluoroscopic guidance Type of Anesthesia: Local Estimated Blood Loss (mL): Minimal Description of Procedure: DESCRIPTION OF PROCEDURE: History and physical of today was reviewed. Risks and benefits of the procedure were explained. The patient understood and agreed to proceed. Informed consent was obtained. IV inserted per routine protocol. The patient was taken to the operating room and placed in the prone position with a pillow positioned underneath the abdomen. The lower back and tailbone area was prepped and draped in a sterile fashion using iodine x3. Under fluoroscopy guidance on a lateral view, the caudal space was identified. The skin and subcutaneous tissue was anesthetized with approximately 3 mL of 1% lidocaine using a 25-gauge regular needle. Under direct visualization with fluoroscopy, using a 22-gauge 3-1/2-inch spinal needle, the needle was advanced via the skin through the sacral hiatus. The tip of the needle was passed through the sacrococcygeal ligament and advanced to approximately S4 area. After negative aspiration of blood or CSF, a total of 3 mL of contrast was injected to confirm correct placement of the needle as well as cephalad spread. The spread was followed to approximately L5 area. After confirmation on AP as well as lateral view and repeated negative aspiration, a total of 15 mL of preservative-free 0.125% Marcaine with 80 mg of Depo-Medrol was injected easily. The needle was then removed intact. The patient experienced no sign or symptoms of intrathecal or intravascular injection. The patient experienced no paresthesia. The procedure was completed without any apparent difficulty or any complications. The patient appeared to tolerate it well. ASSESSMENT AND PLAN: This is a 43-year-old female with lumbosacral radiculopathy, lumbosacral degenerative disc disease, lumbosacral spinal stenosis status post diagnostic/therapeutic caudal epidural steroid injection, patient will continue her current medications, patient will follow in approximately 2 weeks for reevaluation. Complications None
[2023-12-07 10:23] VITALS: BP 125/81; BP 135/84; O2SAT 100; O2SAT 99
[2023-12-07 10:35] VITALS: BP 100/73; BP 129/71; PULSE 72; RESP 16; TEMP 37.1; O2SAT 99
== END 2023-12-07 10:38 | disposition home or self-care (01) ==
LOC: SDC 08:43 → AC 08:57
PROVIDERS: PCP Family Medicine; Referring Provider Anesthesiology Pain Medicine; Visit Provider Anesthesiology Pain Medicine
PROC: 3E0S3BZ Introduction of Anesthetic Agent into Epidural Space, Percutaneous Approach (ICD-10-PCS; CPT 62282; principal; 2023-12-07 10:05)
DX: M51.17 Intervertebral disc disorders with radiculopathy, lumbosacral region (principal); M48.07 Spinal stenosis, lumbosacral region
CPT/HCPCS: 62323; 64483; 77003; J7120; J3490

== ENCOUNTER 2024-05-03 06:45 | Observation (INO) | payer MEDICAID, SELFPAY ==
[2024-05-03] VITALS (13 sets, daily range): BP systolic 109–139; BP diastolic 66–83; PULSE 77–96; RESP 12–24; TEMP 36.3–36.8; O2SAT 90–100; BMI 36.6; BMI 31.8; BMI 32.0
--- NOTE | 2024-05-03 06:57 | CT_ITS ---
PROCEDURE: STROKE BRAIN/HEAD WITHOUT CONT REASON FOR EXAM: 43-year-old female, neurologic deficit, concern for stroke. Dizzy, off balance, vision changes from right eye. TECHNIQUE: Axial images of the CT brain was performed with sagittal and coronal reconstructions. COMPARISON: None. FINDINGS: No acute intracranial hemorrhage or mass effect. The yepez-white matter interfaces are maintained. No hydrocephalus. Opacified right anterior ethmoid air cell. The visualized sinuses and mastoids are otherwise well aerated. Unremarkable orbits. CT/STROKE Brain/Head without Cont IMPRESSION: Unremarkable CT head. Dr. Pride discussed these findings with Dr. Chapa via telephone at 7:29 am on 05/03/24. One or more dose reduction techniques were used (e.g., Automated exposure contr ol, adjustment of the mA and/or kV according to patient size, use of iterative reconstruction technique). Reading Location: [id number]
--- NOTE | 2024-05-03 06:57 | EKG12_ITS ---
Test Reason : STROKE ALERT Blood Pressure : */* mmHG Vent. Rate : 83 BPM Atrial Rate : 83 BPM P-R Int : 170 ms QRS Dur : 82 ms QT Int : 370 ms P-R-T Axes : 57 15 25 degrees QTcB Int : 434 ms Normal sinus rhythm Cannot rule out Anterior infarct , age undetermined Abnormal ECG Confirmed by Carl Bravo ([id number]), scientific editor MURALI BENITEZ ([id number]) on 05/04/2024 11:19:32 AM Referred By: Confirmed By: Carl Bravo
--- NOTE | 2024-05-03 06:57 | CT_ITS ---
PROCEDURE: STROKE CTA HEAD AND NECK W/CON REASON FOR EXAM: 43-year-old female, concern for acute stroke. Dizziness, right eye vision changes. TECHNIQUE: Head CT without intravenous contrast. COMPARISON: Same-day CT head. FINDINGS: See same day CT head for discussion of nonvascular findings. The anterior, middle and posterior cerebral arteries are widely patent without stenosis or calcification. The intracranial ICAs are widely patent without stenosis or calcification. The common carotid, internal and external carotid arteries are widely patent without stenosis or calcification. The bilateral vertebral arteries and basilar artery are widely patent without stenosis or calcification. No aneurysm, AVM or dural AVF. Mild calcific plaque of the visualized thoracic aorta. The visualized thoracic structures are otherwise unremarkable. CT/STROKE CTA Head AND Neck W/Con IMPRESSION: Unremarkable CTA head and neck. No aneurysm or large vessel occlusion. One or more dose reduction techniques were used (e.g., Automated exposure contr ol, adjustment of the mA and/or kV according to patient size, use of iterative reconstruction technique). Reading Location: [id number]
--- NOTE | 2024-05-03 06:58 | ED.RN ---
Upon assessment, the patient's right eye is fixed in upward position but reactive to light. Patient reports her vision being normal in her left eye but in her right eye, patient reports the vision in her right eye is spinning and she is seeing scribbles. notified.
--- NOTE | 2024-05-03 07:04 | EX.ED.DYSGE1 ---
HPI History of Present Illness Chief Complaint: Neuro S/Sx Narrative Narrative: Patient is a 43-year-old female with past medical history of of anxiety, PCOS, migraines, who presented to the emerged part with chief complaint of palpitations and dizziness unsteadiness and changes in vision in her right eye. She states that she went to bed around midnight and woke up around 6 AM with the symptoms. She immediately called EMS to be brought here further evaluation management. Patient denies any blood thinning medications states that she felt fine prior to going to bed last night after getting off her shift. [facility] Medical History Wears glasses Arthritis Fatty liver History of hiatal hernia Shortness of breath on exertion History of pain when walking History of echocardiogram History of stress test Female climacteric state Smoker CPAP (continuous positive airway pressure) dependence Hyperlipidemia Hemorrhoids Endometriosis Non Hodgkin's lymphoma Back pain Migraines PCOS (polycystic ovarian syndrome) Anxiety Home Medications ?Medication ?Instructions ?Recorded ?Last Taken ?Type lansoprazole 30 mg capsule,delayed 30 mg PO BID 11/13/19 12/06/23 History release (Prevacid) atorvastatin 10 mg tablet (Lipitor) 10 mg PO DAILY 07/26/20 12/06/23 History Allergy/AdvReac Type Severity Reaction Status Date / Time propoxyphene napsylate (From Allergy Rash Verified 05/03/24 06:47 Darvocet-N) Sulfa (Sulfonamide Allergy Hives Verified 05/03/24 06:47 Antibiotics) venom-honey bee (bee venom Allergy Anaphylaxis Verified 05/03/24 06:47 (honey bee)) hydrocodone AdvReac Other Verified 05/03/24 06:47 promethazine HCl (From AdvReac it makes Verified 05/03/24 06:47 Phenergan) me jump up and want to leave Surgical History History of LAVH S/P ACL surgery History of pubovaginal sling History of tubal ligation History of tonsillectomy History of nasal septoplasty Social History household members: none Smoking Status: Current every day smoker tobacco type: cigarettes alcohol intake: current details: social substance use type: does not use caffeine: Yes what type of physical activity do you participate in: none seatbelt use: always do you feel safe at home: Yes additional social history: - works at [employer] ROS ROS ED ROS Narrative Constitutional: Complains of dizziness as noted above denies headache, lightheadedness, fevers or chills Eyes: Complains of changes vision out of her right eye Cardiovascular: Denies chest pain or palpitations Respiratory: Denies shortness of breath Abdomen: Denies abdominal pain nausea vomit diarrhea : Denies any urinary symptoms Neurological: Denies numbness, weakness, tingling Musculoskeletal: Denies back pain Skin: Denies rashes or lesions EXAM Physical Exam Narrative Exam Narrative: General: Patient was lying in bed rest comfortably did not appear to be in acute distress Head: Atraumatic, normocephalic Eyes: PERRL bilaterally, EOMI bilaterally, no conjunctival injection noted Neck: Soft, supple, trachea midline Cardiovascular: Regular rate and rhythm no murmurs gallops rubs noted Respiratory: Clear to auscultation bilaterally Abdomen: Soft, nondistended, nontender to palpation Extremities: +5/5 strength noted in the bilateral upper and lower extremities, no pedal edema no exam, radial pulses +2/4 in the bilateral extremities Neurological: Patient follow commands knew that she was at [facility] year is 2024. NIH of 2 GCS 15 Skin: Warm, dry, intact no rashes or lesions noted Const Vital Signs: 05/03/24 06:47 05/03/24 06:58 05/03/24 07:04 Temperature 98.0 F Temperature Source Oral Pulse Rate 93 96 Respiratory Rate 16 18 Blood Pressure 127/83 H 127/83 H Blood Pressure Mean 97 97 Pulse Ox 90 98 98 Oxygen Delivery Method Room Air Room Air Room Air 05/03/24 07:10 05/03/24 07:16 05/03/24 07:30 Temperature 97.4 F L Temperature Source Oral Pulse Rate 84 88 86 Respiratory Rate 19 H 12 17 Blood Pressure 139/73 H 109/66 109/66 Blood Pressure Mean 95 80 80 Pulse Ox 97 96 100 Oxygen Delivery Method Room Air Room Air Room Air MDM MDM MDM Narrative Medical decision making narrative: Patient is a 43-year-old female who presented to the emergency department with a chief complaint of dizziness feeling off balance and change in vision out of her right eye. On the differential diagnose includes but not limited to intracranial hemorrhage, posterior circulation stroke, ischemic stroke, hypoglycemia. Once workup is obtained reviewed she will be reevaluated Patient's CBC reviewed showed no evidence leukocytosis white blood count normal at 9.4, hemoglobin 13.5, plate count was noted be 289. Patient's chemistries are pending as well as troponin. Patient CT head and brain without contrast reviewed showed no acute intracranial hemorrhage or mass effect yepez-white matter interfaces are maintained. Patient CTA head and neck are still pending. Patient was evaluated by teleneurology here in the emergency department and they are recommending admission for further workup and evaluation of her visual disturbances and her off balance. Patient case was discussed with hospitalist. Patient's CTA head and neck reviewed showed no acute large vessel occlusion. Patient chest x-ray official read by radiology is pending however this was reviewed and independently interpreted by myself which showed no acute cardiopulmonary processes. Did discuss case with hospitalist Dr. Cornell who accept patient for admission. Patient notified is agreeable this plan. Patient will be given 325 mg aspirin Lab Data Labs: Laboratory Results - last 24 hr 05/03/24 05/03/24 06:57 07:06 WBC 9.4 RBC 4.45 Hgb 13.5 Hct 38.6 MCV 86.7 MCH 30.3 MCHC 35.0 RDW Std Deviation 39.8 RDW Coeff of [place] 12.5 Plt Count 289 MPV 9.1 Immature Gran % (Auto) 0.300 Neut % (Auto) 44.2 L Lymph % (Auto) 44.6 H [place] % (Auto) 6.0 Eos % (Auto) 4.3 Baso % (Auto) 0.6 Absolute Neuts (auto) 4.1 Absolute Lymphs (auto) 4.17 Nucleated RBC % 0 Sodium 141 Potassium 3.9 Chloride 111 H Carbon Dioxide 23.0 Anion Gap 8 BUN 8 Creatinine 0.81 Estim Creat Clear Calc 110.42 Est GFR (MDRD) Af Amer 98 Est GFR (MDRD) Non-Af 81 BUN/Creatinine Ratio 9.9 L Glucose 105 Calcium 9.0 Troponin I High Sens 4 POC Glucose 94 Radiography Diagnostic Testing: Clinical Impression(s) from Imaging Studies Brain CT 05/03/24 06:57 IMPRESSION: Unremarkable CT head. Dr. Pride discussed these findings with Dr. Chapa via telephone at 7:29 am on 05/03/24. One or more dose reduction techniques were used (e.g., Automated exposure control, adjustment of the mA and/or kV according to patient size, use of iterative reconstruction technique). Reading Location: [facility] Head/Neck CTA 05/03/24 06:57 IMPRESSION: Unremarkable CTA head and neck. No aneurysm or large vessel occlusion. One or more dose reduction techniques were used (e.g., Automated exposure control, adjustment of the mA and/or kV according to patient size, use of iterative reconstruction technique). Reading Location: [facility] Discharge Plan Triage Chief Complaint: Neuro S/Sx ED Provider: Berny Chapa Dx/Rx/DC Orders Clinical Impression: Dizziness, Change in vision, History of migraine Prescriptions: No Action lansoprazole [Prevacid] 30 mg capsule,delayed release(DR/EC) 30 mg PO BID Patient Comments: take 1 capsule by mouth once daily atorvastatin [Lipitor] 10 mg tablet 10 mg PO DAILY Primary Care Provider: Karlos Slaughter Referrals: Karlos Slaughter MD [Primary Care Provider] - Print Language: Kazakh Disposition Disposition: Acute Care [facility]
--- NOTE | 2024-05-03 07:10 | ED.RN ---
When the patient came back from CT the patient's right eye was no longer fixed. notified.
[2024-05-03 07:12] LABS: Absolute Lymphocyte Count 4.17 X10^3/uL (0.83-4.51); Absolute Neutrophil Count 4.1 X10^3/uL (2.0-7.7); Basophil# 0.06 X10^3/uL; Basophil% 0.6 % (0-1); Eosinophils% 4.3 % (0-5); Hematocrit 38.6 % (37-47); Hemoglobin 13.5 g/dL (12.0-15.0); Lymphocyte # 4.17 X10^3/ul (0.83-4.51); Lymphocyte % 44.6 % (19-41); Mean Corpuscular Hgb 30.3 pg (27.0-32.0); Mean Corpuscular Volume 86.7 fL (81-99); Mean Platelet Vol. 9.1 fl (6.2-12.0); Monocyte# 0.56 X10^3/uL; NRBC Flagged by Analyzer 0 % (0-5); Neutrophil # 4.13 X10^3/uL (2.7-7.7); Neutrophil % 44.2 % (47-70); Platelet Count 289 K/mm3 (150-450); RBC Distribution Width CV 12.5 % (11.6-14.6); RBC Distribution Width SD 39.8 fl (35.1-43.9); Red Blood Count 4.45 M/mm3 (4.2-5.4); White Blood Count 9.4 K/mm3 (4.4-11.0)
[2024-05-03 07:14] LABS: Bedside Glucose 94 mg/dL (74-106)
[2024-05-03] MEDS: Acetaminophen 500 MG Tablet 1000 MG PO ×2 (07:41→14:36)
--- NOTE | 2024-05-03 07:54 | MRI_ITS ---
PROCEDURE: BRAIN WITHOUT CONTRAST REASON FOR EXAM: Dizziness, unsteadiness, right eye vision changes. Migraine. Past history of non-Hodgkin's lymphoma. Rule out CVA. TECHNIQUE: Multiplanar, multisequence MRI of the brain without intravenous gadolinium-based contrast. COMPARISON: Head CT of 05/03/2024. FINDINGS: Diffusion-weighted images demonstrate no area of restricted diffusion. No intracranial mass or mass effect is seen. No extra-axial fluid collection is noted. Ventricles appear symmetric and within the normal range. No orbital pathology is noted. Mild mucosal disease is seen of the bilateral ethmoid and frontal sinuses. No air-fluid level is noted. The remaining paranasal sinuses appear clear, as do the mastoid air cells. Internal auditory canals appear symmetric and within the normal range. MRI/Brain without Contrast IMPRESSION: 1. No acute intracranial process is seen. 2. Mild chronic appearing paranasal sinus disease. Reading Location: [id number]
[2024-05-03 07:56] LABS: Anion Gap 8 (5-15); BUN 8 mg/dL (7-18); BUN/Creat Ratio 9.9 RATIO (10-20); Chloride 111 mmol/L (98-107); Creatinine, Serum 0.81 mg/dL (0.55-1.02); EST Glomerular Filtration Rate 81 mL/min (>60); Est Glom Filt Rate - Afr Amer 98 mL/min (>60); Estimated Creatinine Clearance 110.42 ml/min; Glucose 105 mg/dL (74-106); Potassium 3.9 mmol/L (3.5-5.1); Sodium Level 141 mmol/L (136-145); Troponin-I HS 4 pg/mL (3.0-54.0)
--- NOTE | 2024-05-03 07:56 | RAD_ITS ---
PROCEDURE: CHEST 1 VIEW REASON FOR EXAM: Neurological deficit, acute. Stroke suspected. TECHNIQUE: Frontal view of the chest. COMPARISON: Chest x-ray of 04/14/2022. FINDINGS: The heart size is normal. The lungs are clear. No pneumothorax is seen. No acute osseous process is seen. RAD/Chest 1 View IMPRESSION: No evidence of acute cardiopulmonary disease. Negative examination. Reading Location: [id number]
[2024-05-03 08:44] LABS: Prothrombin Time (Protime)PT. 13.1 SECONDS (11.7-14.9)
[2024-05-03 08:45] LABS: Partial Thromboplast Time 25.7 Seconds (24.1-36.2)
--- NOTE | 2024-05-03 11:38 | NURSING ---
Patient states she does not want anything for anxiety for MRI. She has tolerated a PET scan in the past no issues.
[2024-05-03] MEDS: Ketorolac 30 MG/ML Syringe IV (13:12)
[2024-05-03] MEDS: Lansoprazole 15 MG Capsule.DR 30 MG PO (13:31)
[2024-05-03] MEDS: Atorvastatin Calcium 10 MG Tablet PO (13:32)
--- NOTE | 2024-05-03 14:44 | CASEMGMT ---
Social Work SW completed LW/POA w/pt, pt made her daughter POA. SW gave pt originals and a copy, copy placed on the chart. JIA Stanley
--- NOTE | 2024-05-03 15:55 | CHAPLAIN ---
Type of Pastoral Visit ___ Initial Visit ___ Follow-up Visit ___ On-call Visit ___ General Patient Visit ___ Spiritual Assessment ___ Family Conference ___ Bereavement ___ Rapid Response ___ Code Blue ___ Other (describe below) Pastoral Care Referral From ___ Patient ___ Family ___ Nurse ___ Physician ___ Flanging Roll Operator ___ Reactor Kettle Operator ___ Other (describe below) Sacrament/Intervention ___ Active listening ___ Anointing ___ Jewish ___ Bereavement ___ Communion ___ Emi exploration ___ ___ Life review ___ Prayer ___ Reconciliation ___ Sacrament of Sick ___ Supportive presence ___ Wedding ___ Other (describe below) Pastoral Comments patient was taken to the MRI, daughter was in the room waiting; escorted daughter out of building so she could find her car in ER parking lot and learn how to come back in for MS2
--- NOTE | 2024-05-03 16:59 | PCM.DC ---
Discharge Instructions Diet Discharge Diet: No restrictions DC O2, CPAP, BIPAP needs Home O2 Discharge instructions: No Dressing / Incision Discharge Activity: Return to Normal Activity Dressing / Incision Call your doctor if you observe: Fever of 101 or Higher, Shortness of breath, Dizziness, Fainting spells, Swelling in the ankles, Chest pain and Increased palpitations (irregular heartbeat) Follow Up Care Test Results: Test results from this visit will be discussed in further detail at your follow-up appointment, if applicable. Discharge Plan Admission Admit Date/Time: 05/03/24 07:55 Attending Provider: Jason Cornell Primary Care Provider: Karlos Slaughter Discharge Orders/Prescriptions Prescriptions: Continued lansoprazole [Prevacid] 30 mg capsule,delayed release(DR/EC) 30 mg PO BID Patient Comments: take 1 capsule by mouth once daily atorvastatin [Lipitor] 10 mg tablet 10 mg PO DAILY Referrals / Follow Up: Karlos Slaughter MD [Primary Care Provider] - Within 1 Week Karlos Wooten MD [Non-Staff] - Within 1 Month Disposition Disposition (needs filled in before D/C Order can be placed): Home, Self Care
--- NOTE | 2024-05-03 17:01 | PCM.HP.STD ---
HPI - General General Date of Admission: 05/03/24 HPI Narrative GALEN WALTON, is a 43 F who presents to the hospital with severe vertigo and nystagmus in the right eye. She states that her eye was moving of its own volition, this issue was followed by a severe migraine. She does have migraines since she was a kid but she has never had it behave in this manner. At the time my evaluation her symptoms resolved and her NIH is 0. She had no nystagmus or any residual disease but she was continued to have a migraine. [facility] Medical History (Updated 05/03/24 @ 09:41 by Pura Mckeon) Acid reflux Wears glasses Arthritis Fatty liver History of hiatal hernia Shortness of breath on exertion History of pain when walking History of echocardiogram History of stress test Female climacteric state Smoker CPAP (continuous positive airway pressure) dependence Hyperlipidemia Hemorrhoids Endometriosis Non Hodgkin's lymphoma Back pain Migraines PCOS (polycystic ovarian syndrome) Anxiety Home Medications ?Medication ?Instructions ?Recorded ?Last Taken ?Type lansoprazole 30 mg capsule,delayed 30 mg PO BID 11/13/19 12/06/23 History release (Prevacid) atorvastatin 10 mg tablet (Lipitor) 10 mg PO DAILY 07/26/20 12/06/23 History Allergy/AdvReac Type Severity Reaction Status Date / Time propoxyphene napsylate (From Allergy Rash Verified 05/03/24 06:47 Darvocet-N) Sulfa (Sulfonamide Allergy Hives Verified 05/03/24 06:47 Antibiotics) venom-honey bee (bee venom Allergy Anaphylaxis Verified 05/03/24 06:47 (honey bee)) hydrocodone AdvReac Other Verified 05/03/24 06:47 promethazine HCl (From AdvReac it makes Verified 05/03/24 06:47 Phenergan) me jump up and want to leave Surgical History History of LAVH S/P ACL surgery History of pubovaginal sling History of tubal ligation History of tonsillectomy History of nasal septoplasty Social History household members: none Smoking Status: Current every day smoker tobacco type: cigarettes alcohol intake: current details: social substance use type: does not use caffeine: Yes what type of physical activity do you participate in: none seatbelt use: always do you feel safe at home: Yes additional social history: - works at [employer] ROS Constitutional Constitutional: Denies chills, fatigue, fever(s) or malaise Eyes Eyes: Reports blurry vision and double vision ENT HEENT: Denies headache(s) or nasal discharge Cardiovascular Cardiovascular: Denies chest pain, dyspnea on exertion or syncope Respiratory/Chest Respiratory/Chest: Denies cough, shortness of breath at rest or shortness of breath with exertion Gastrointestinal Gastrointestinal: Denies constipation, diarrhea, nausea or vomiting Genitourinary Genitourinary: Denies dysuria Neurologic Neurologic: Reports dizziness; Denies focal weakness, numbness or tremor(s) Psychiatric Psychiatric: Denies anxiety or depression Vital Signs Vital Signs Vital Signs: 05/03/24 06:47 05/03/24 06:58 05/03/24 07:04 Temperature 98.0 F Temperature Source Oral Pulse Rate 93 96 Pulse Strength Respiratory Rate 16 18 Blood Pressure 127/83 H 127/83 H Blood Pressure Mean 97 97 Blood Pressure Source Blood Pressure Position Blood Pressure Location Pulse Ox 90 98 98 Oxygen Delivery Method Room Air Room Air Room Air 05/03/24 07:10 05/03/24 07:16 05/03/24 07:30 Temperature 97.4 F L Temperature Source Oral Pulse Rate 84 88 86 Pulse Strength Respiratory Rate 19 H 12 17 Blood Pressure 139/73 H 109/66 109/66 Blood Pressure Mean 95 80 80 Blood Pressure Source Blood Pressure Position Blood Pressure Location Pulse Ox 97 96 100 Oxygen Delivery Method Room Air Room Air Room Air 05/03/24 09:00 05/03/24 09:00 05/03/24 09:29 Temperature 97.5 F L Temperature Source Pulse Rate 81 83 82 Pulse Strength Respiratory Rate 20 H 20 H 24 H Blood Pressure 125/73 H 125/73 H 123/75 H Blood Pressure Mean 90 90 91 Blood Pressure Source Blood Pressure Position Blood Pressure Location Pulse Ox 99 99 98 Oxygen Delivery Method Room Air Room Air 05/03/24 09:30 05/03/24 09:45 05/03/24 09:48 Temperature 97.9 F 97.9 F Temperature Source Temporal Temporal Pulse Rate 82 77 Pulse Strength Normal (2+) Respiratory Rate 16 16 Blood Pressure 136/77 H 137/77 H Blood Pressure Mean 96 97 Blood Pressure Source Monitor Monitor Blood Pressure Position Semi-Fowlers Semi-Fowlers Blood Pressure Location Right Arm Right Arm Pulse Ox 96 99 Oxygen Delivery Method Room Air Room Air 05/03/24 10:51 05/03/24 14:38 Temperature 98.1 F Temperature Source Oral Pulse Rate 87 Pulse Strength Respiratory Rate 18 Blood Pressure 132/75 H Blood Pressure Mean 94 Blood Pressure Source Monitor Blood Pressure Position Sitting Blood Pressure Location Right Arm Pulse Ox 98 98 Oxygen Delivery Method Room Air Room Air Weight Weight: 216 lb 0.848 oz Body Mass Index (BMI) 32.0 Physical Exam Narrative General: Alert, Oriented x3, Cooperative, No apparent distress HEENT: Atraumatic, PERRLA, EOMI, Normocephalic Oral: Moist Mucosa Neck: Supple, No JVD Lungs: Clear to auscultation, Normal air movement, No rhonchi, No wheeze, No rales Cardiovascular: Regular rate, Regular Rhythm, Normal S1, Normal S2, No murmurs Abdomen: Soft, Non Tender, Non-Distended, No Hepato-splenomegaly Extremities: No edema, Capillary Refill Less than 3 Seconds Skin: No rashes, No breakdown Musculoskeletal: No Tenderness to Palpation of Joints or Extremities Neurological: No focal neurological deficits, Motor Exam 5/5 strength throughout, Sensory exam intact to light touch and pain Psych/Mental Status: Normal Affect, Appropriate Results Lab / Micro Data 05/03/24 07:06 05/03/24 07:06 Labs: Laboratory Results - last 24 hr 05/03/24 06:57: POC Glucose 94 05/03/24 07:06: WBC 9.4, RBC 4.45, Hgb 13.5, Hct 38.6, MCV 86.7, MCH 30.3, MCHC 35.0, RDW Std Deviation 39.8, RDW Coeff of [place] 12.5, Plt Count 289, MPV 9.1, Immature Gran % (Auto) 0.300, Neut % (Auto) 44.2 L, Lymph % (Auto) 44.6 H, [place] % (Auto) 6.0, Eos % (Auto) 4.3, Baso % (Auto) 0.6, Absolute Neuts (auto) 4.1, Absolute Lymphs (auto) 4.17, Nucleated RBC % 0, PT Cancelled, INR Cancelled, APTT Cancelled, Sodium 141, Potassium 3.9, Chloride 111 H, Carbon Dioxide 23.0, Anion Gap 8, BUN 8, Creatinine 0.81, Estim Creat Clear Calc 110.42, Est GFR (MDRD) Af Amer 98, Est GFR (MDRD) Non-Af 81, BUN/Creatinine Ratio 9.9 L, Glucose 105, Calcium 9.0, Troponin I High Sens 4 05/03/24 08:27: PT 13.1, INR 1.0, APTT 25.7 05/03/24 08:55: PT Cancelled, INR Cancelled, APTT Cancelled Imaging Radiology Impression Brain CT 05/03/24 06:57 IMPRESSION: Unremarkable CT head. Dr. Pride discussed these findings with Dr. Chapa via telephone at 7:29 am on 05/03/24. One or more dose reduction techniques were used (e.g., Automated exposure control, adjustment of the mA and/or kV according to patient size, use of iterative reconstruction technique). Reading Location: [facility] Head/Neck CTA 05/03/24 06:57 IMPRESSION: Unremarkable CTA head and neck. No aneurysm or large vessel occlusion. One or more dose reduction techniques were used (e.g., Automated exposure control, adjustment of the mA and/or kV according to patient size, use of iterative reconstruction technique). Reading Location: [facility] Brain MRI 05/03/24 07:54 IMPRESSION: 1. No acute intracranial process is seen. 2. Mild chronic appearing paranasal sinus disease. Reading Location: [address] Chest X-Ray 05/03/24 07:56 IMPRESSION: No evidence of acute cardiopulmonary disease. Negative examination. Reading Location: [address] Assessment & Plan Assessment/Plan (1) Dizziness: (2) History of migraine: PLAN: Plan 1. Complex migraines ?Based on her history and symptom resolution it is likely that she was having a complex migraine ? Will proceed with MRI to rule out CVA, will continue with the stroke protocol in the meantime ? Will continue with her home Lipitor ? If the MRI does come back positive for CVA we will proceed with an echo 2. GERD ? Stable ? Continue with her home PPI 3. She does have a history of non-Hodgkin's lymphoma that is in remission DVT: SCDs 65 minutes was spent on direct patient care, including documentation as well as chart review and collaboration with colleagues
== END 2024-05-03 18:26 | disposition home or self-care (01) ==
LOC: ED 07:57 → PCU 08:06 → MS2 14:55
PROVIDERS: Admitting Provider Family Medicine; Emergency Provider Emergency Medicine; PCP Family Medicine; Visit Provider Family Medicine
DX: G43.109 Migraine with aura, not intractable, without status migrainosus (principal); R42 Dizziness and giddiness; K21.9 Gastro-esophageal reflux disease without esophagitis; E78.5 Hyperlipidemia, unspecified; H53.9 Unspecified visual disturbance; F17.210 Nicotine dependence, cigarettes, uncomplicated; R00.2 Palpitations; Z79.899 Other long term (current) drug therapy
CPT/HCPCS: 70450; 70496; 70498; 70551; 71045; 80048; 82962; 84484; 85025; 85610; 85730; 93005; 96374; 99221; 99285; Q9967; A4216; G0378

== ENCOUNTER 2024-06-18 19:53 | Emergency (ER) | payer MEDICAID, SELFPAY ==
[2024-06-18 19:57] VITALS: BP 142/92; PULSE 108; RESP 18; TEMP 36.6; O2SAT 98; BMI 37.0
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
[2024-06-18 20:55] LABS: Absolute Lymphocyte Count 3.66 X10^3/uL (0.83-4.51); Basophil# 0.05 X10^3/uL; Basophil% 0.5 % (0-1); Eosinophil# 0.16 X10^3/uL; Eosinophils% 1.5 % (0-5); Hematocrit 36.8 % (37-47); Hemoglobin 12.9 g/dL (12.0-15.0); Lymphocyte # 3.66 X10^3/ul (0.83-4.51); Lymphocyte % 34.8 % (19-41); Mean Corp Hgb Conc 35.1 g/dL (32-36); Mean Corpuscular Hgb 30.7 pg (27.0-32.0); Mean Corpuscular Volume 87.6 fL (81-99); Mean Platelet Vol. 9.2 fl (6.2-12.0); Monocyte# 0.64 X10^3/uL; Monocyte% 6.1 % (0-10); NRBC Flagged by Analyzer 0 % (0-5); Neutrophil # 5.99 X10^3/uL (2.7-7.7); Neutrophil % 56.8 % (47-70); Platelet Count 295 K/mm3 (150-450); RBC Distribution Width SD 41.3 fl (35.1-43.9); White Blood Count 10.5 K/mm3 (4.4-11.0)
[2024-06-18 21:09] LABS: Amphetamine Urine NEGATIVE (<1000 ng/mL); Barbiturate Urine NEGATIVE (< 200 ng/mL); Benzodiazepine Urine NEGATIVE (< 200 ng/mL); Buprenorphine Urine NEGATIVE (< 200 ng/mL); Cocaine Urine NEGATIVE (< 300 ng/mL); Fentanyl, Urine NEGATIVE; Methadone Urine NEGATIVE (< 300 ng/mL); Opiates Urine NEGATIVE (< 300 ng/mL); Oxycodone, Urine NEGATIVE (< 100 ng/mL); PCP Urine NEGATIVE (< 25 ng/mL); THC Urine NEGATIVE (< 50 ng/mL)
[2024-06-18 21:10] LABS: Alcohol, Blood (Medical)-Serum < 10.1 mg/dL (<=10.0); Anion Gap 13 (5-15); BUN 8 mg/dL (4-19); BUN/Creat Ratio 9.3 RATIO (10-20); Calcium,Total 9.6 mg/dL (7.6-11.0); Carbon Dioxide 20.8 mmol/L (21.0-32.0); Chloride 104 mmol/L (98-108); Creatinine, Serum 0.85 mg/dL (0.70-1.20); EST Glomerular Filtration Rate 86 (>60); Estimated Creatinine Clearance 108.83 ml/min (50-250); Glucose 110 mg/dL (70-99); Potassium 3.8 mmol/L (3.3-5.1); Sodium Level 137 mmol/L (133-145)
[2024-06-18 21:13] LABS: Internal QC Validated? YES +Cl - CLEAR BKGD; Pregnancy, Serum, hCG Quali. NEGATIVE Negative
[2024-06-18 22:01] VITALS: BP 133/83; PULSE 79; RESP 18; O2SAT 99
--- NOTE | 2024-06-18 22:27 | ED.RN ---
pt took her home medications that were in a pill box. Per okay to take.
[2024-06-19 05:00] VITALS: BP 104/64; PULSE 78; RESP 17; TEMP 36.7; O2SAT 95
--- NOTE | 2024-06-19 07:08 | ED.RN ---
from midnight until 0700, pt was in down time.
[2024-06-19 07:11] VITALS: BP 104/64; PULSE 78; RESP 17; O2SAT 98
--- NOTE | 2024-06-19 09:28 | PCA ---
PHYSICIANS ARRIVED AT 920 TO [employer] PATIENT FOR [place]. THEY HAD NOT REQUESTED A COPY OF THE PINK SLIPPED SO I DID NOT SEND IT, PER REQUEST SINCE THE PATIENT BROUGHT HERSELF IN.
[2024-06-19 09:30] VITALS: BP 104/64; PULSE 78; RESP 17; TEMP 36.6; O2SAT 98
== END 2024-06-19 09:30 ==
PROVIDERS: Emergency Provider Emergency Medicine; PCP Family Medicine; Visit Provider Emergency Medicine
DX: R45.851 Suicidal ideations (principal); F32.A Depression, unspecified; F41.9 Anxiety disorder, unspecified; K21.9 Gastro-esophageal reflux disease without esophagitis; E78.5 Hyperlipidemia, unspecified; E28.2 Polycystic ovarian syndrome; F17.210 Nicotine dependence, cigarettes, uncomplicated; Z79.899 Other long term (current) drug therapy
CPT/HCPCS: 36415; 80048; 80307; 82077; 84703; 85025; 99285

== ENCOUNTER → 2024-08-01 | Outpatient (CLI) | payer MEDICAID, SELFPAY ==
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
== END | disposition home or self-care (01) ==
LOC: RAD 10:37
PROVIDERS: PCP Family Medicine; Referring Provider Chiropractor; Visit Provider Chiropractor
DX: S33.5XXA Sprain of ligaments of lumbar spine, initial encounter (principal); X58.XXXA Exposure to other specified factors, initial encounter
CPT/HCPCS: 72110

== ENCOUNTER 2025-03-08 17:46 | Emergency (ER) | payer MEDICAID, SELFPAY ==
[2025-03-08 17:47] VITALS: BP 173/112; PULSE 75; RESP 16; TEMP 36.7; O2SAT 92; BMI 41.1
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
[2025-03-08 19:28] VITALS: BP 131/60; PULSE 84; RESP 16; TEMP 36.2; O2SAT 100
== END 2025-03-08 19:29 | disposition home or self-care (01) ==
PROVIDERS: Emergency Provider Specialist/Technologist Athletic Trainer; PCP Family Medicine; Visit Provider Specialist/Technologist Athletic Trainer
DX: S06.0X0A Concussion without loss of consciousness, initial encounter (principal); E78.5 Hyperlipidemia, unspecified; S13.4XXA Sprain of ligaments of cervical spine, initial encounter; F17.210 Nicotine dependence, cigarettes, uncomplicated; K21.9 Gastro-esophageal reflux disease without esophagitis; V43.52XA Car driver injured in collision with other type car in traffic accident, initial encounter
CPT/HCPCS: 70450; 72125; 99284